=== PATIENT | female | born 1990 | race Caucasian/White ===

== ENCOUNTER 2019-03-29 09:26 | Emergency (ER) | payer OTHER ==
--- NOTE | 2019-03-29 10:37 | ER ---
Nurse's Notes [facility] Name: Iza Stewart Age: 28 yrs Sex: Female : 1990 Arrival Date: 03/29/2019 Time: 09:28 Bed 6 Private MD: Diagnosis: Syncope and collapse-near;Puncture wound without foreign body of left hand Presentation: 03/29 09:45 Presenting complaint: Patient states: passed out at work after screwdriver punctured iw her left hand, pt was attempting to screw a fixture and the fixture broke and screwdriver went through hand, pt also states she has a hx of anemia and started her period last night and has been bleeding heavily. Pt now c/o headache and dizziness, denies hitting head. Transition of care: patient was not received from another setting of care. Onset of symptoms was March 29, 2019. Risk Assessment: Do you want to hurt yourself or someone else? Patient reports no desire to harm self or others. 09:45 Method Of Arrival: Wheelchair iw 09:45 Acuity: CALIN 3 iw 10:06 Initial Sepsis Screen: Does the patient meet any 2 criteria? No. Patient's initial iw sepsis screen is negative. Does the patient have a suspected source of infection? No. Patient's initial sepsis screen is negative. Note pt also states she increased her trazodone and zoloft this past week. Care prior to arrival: None. MASSAGE OPERATOR: 10:05 LMP 03/29/2019 iw Historical: - Allergies: 10:05 PENICILLINS; iw - Home Meds: 10:05 trazodone 100 mg Oral tab 2 times per day [Active]; iw 10:08 sertraline oral oral once daily [Active]; emgality monthly [Active]; iw - PMHx: 10:08 Depression; Anxiety; Migraines; iw - PSHx: 10:08 ; iw - Ebola Screening: : Patient negative for fever greater than or equal to 101.5 degrees Fahrenheit, and additional compatible Ebola Virus Disease symptoms Patient denies exposure to infectious person Patient denies travel to an Ebola-affected area in the 21 days before illness onset No symptoms or risks identified at this time. - Family history:: not pertinent. Screenin:00 Abuse screen: Denies threats or abuse. Denies injuries from another. Nutritional ph screening: No deficits noted. Tuberculosis screening: No symptoms or risk factors identified. Fall Risk None identified. Assessment: 11:00 General: Appears in no apparent distress. uncomfortable, Behavior is calm, cooperative, ph appropriate for age, drowsy. Pain: Complains of pain in palm of left hand. Neuro: Level of Consciousness is awake, alert, obeys commands, Oriented to person, place, time, situation. Cardiovascular: Capillary refill < 3 seconds in bilateral fingers. Respiratory: Airway is patent Respiratory effort is even, unlabored. Derm: Skin is healthy with good turgor, Skin is pink, warm \T\ dry. Injury Description: Laceration sustained to palm of left hand. 12:00 Reassessment: Patient appears in no apparent distress at this time. Patient and/or ph family updated on plan of care and expected duration. Pain level reassessed. Patient is alert, oriented x 3, equal unlabored respirations, skin warm/dry/pink. Vital Signs: 10:04 BP 120 / 79; Pulse 76; Resp 16 S; Temp 98.6(TE); Pulse Ox 100% on R/A; iw 11:00 BP 118 / 76; Pulse 78; Resp 18; Pulse Ox 99% on R/A; ph 12:00 BP 122 / 76; Pulse 78; Resp 16; Temp 98.0; Pulse Ox 99% on R/A; ph ED Course: 09:28 Patient arrived in ED. rg4 09:28 Zaheer Giordano MD is Attending Physician. stew 09:35 Beena Donovan, RN is Primary Nurse. ph 09:57 EKG done, by handling tech. reviewed by Zaheer Giordano MD. at1 10:02 Triage completed. iw 10:08 Arm band placed on. iw 11:00 Patient has correct armband on for positive identification. Bed in low position. Call ph light in reach. Pulse ox on. NIBP on. Door closed. Noise minimized. 11:27 Hand Left 3 View XRAY In Process Unspecified. EDMS 13:00 No provider procedures requiring assistance completed. Patient did not have IV access hb during this emergency room visit. Administered Medications: 11:10 Drug: Tetanus-Diphtheria Toxoid Adult 0.5 ml {[employer]: [employer]. Exp: ph 09/25/2020. Lot #: [id number]. } Route: IM; Site: right deltoid; 12:30 Follow up: Response: No adverse reaction ph 11:13 Drug: Bactrim (160 mg-800 mg (DS) 1 tablet Route: PO; ph 12:30 Follow up: Response: No adverse reaction ph 11:14 Drug: Lidocaine-Epinephrine -1%: (1:100,000) 5 ml Volume: 20 ml; Route: Infiltration; ph 12:30 Follow up: Response: No adverse reaction ph Outcome: 10:36 Discharge ordered by . stew 13:00 Discharged to home ambulatory, with significant other. 13:00 Condition: stable 13:00 Discharge instructions given to patient, Instructed on discharge instructions, follow up and referral plans. medication usage, wound care, Demonstrated understanding of instructions, follow-up care, medications, wound care, Prescriptions given X 2. 13:01 Patient left the ED. Signatures: Dispatcher [employer] EDMS Zaheer Giordano MD MD cha Williams, Irene, RN RN Gale Rawls, aluminum shingle roofer EKG Tat1 Beena Donovan RN RN ph Baxter, Heather, RN RN Liz Samuel rg4
--- NOTE | 2019-03-29 10:38 | EDPHYS ---
Physician Documentation [facility] Name: Iza Stewart Age: 28 yrs Sex: Female : 1990 Arrival Date: 03/29/2019 Time: : Bed 6 Private MD: MITA Physician Zaheer Giordano HPI: 03/29 10:28 This 28 yrs old Female presents to ER via Wheelchair with complaints of stew Passed Out Prior To Arrival. 10:28 The patient has experienced near-syncope. Onset: The symptoms/episode began/occurred stew this morning. Duration: This was a single episode, that lasted 5 second(s). Associated injury: Left upper extremity: pain, puncture prior to syncope. Associated signs and symptoms: The patient has no apparent associated signs or symptoms. The patient has not experienced similar symptoms in the past. PALLIATIVE CARE PHYSICIAN: 10:05 LMP 03/29/2019 iw Historical: - Allergies: 10:05 PENICILLINS; iw - Home Meds: 10:05 trazodone 100 mg Oral tab 2 times per day [Active]; iw 10:08 sertraline oral oral once daily [Active]; emgality monthly [Active]; iw - PMHx: 10:08 Depression; Anxiety; Migraines; iw - PSHx: 10:08 ; iw - Ebola Screening: : Patient negative for fever greater than or equal to 101.5 degrees Fahrenheit, and additional compatible Ebola Virus Disease symptoms Patient denies exposure to infectious person Patient denies travel to an Ebola-affected area in the 21 days before illness onset No symptoms or risks identified at this time. - Family history:: not pertinent. ROS: 10:28 Constitutional: Negative for fever, chills, and weight loss, Eyes: Negative for injury, stew pain, redness, and discharge, ENT: Negative for injury, pain, and discharge, Neck: Negative for injury, pain, and swelling, Cardiovascular: Negative for chest pain, palpitations, and edema, Respiratory: Negative for shortness of breath, cough, wheezing, and pleuritic chest pain, Abdomen/GI: Negative for abdominal pain, nausea, vomiting, diarrhea, and constipation, Back: Negative for injury and pain, : Negative for injury, bleeding, discharge, and swelling, Skin: Negative for injury, rash, and discoloration, Neuro: Negative for headache, weakness, numbness, tingling, and seizure. 10:28 MS/extremity: Positive for decreased range of motion, pain, of the palm of left hand. Exam: 10:28 Constitutional: This is a well developed, well nourished patient who is awake, alert, stew and in no acute distress. Head/Face: Normocephalic, atraumatic. Eyes: Pupils equal round and reactive to light, extra-ocular motions intact. Lids and lashes normal. Conjunctiva and sclera are non-icteric and not injected. Cornea within normal limits. Periorbital areas with no swelling, redness, or edema. ENT: Nares patent. No nasal discharge, no septal abnormalities noted. Tympanic membranes are normal and external auditory canals are clear. Oropharynx with no redness, swelling, or masses, exudates, or evidence of obstruction, uvula midline. Mucous membranes moist. Neck: Trachea midline, no thyromegaly or masses palpated, and no cervical lymphadenopathy. Supple, full range of motion without nuchal rigidity, or vertebral point tenderness. No Meningismus. Chest/axilla: Normal chest wall appearance and motion. Nontender with no deformity. No lesions are appreciated. Cardiovascular: Regular rate and rhythm with a normal S1 and S2. No gallops, murmurs, or rubs. Normal PMI, no JVD. No pulse deficits. Respiratory: Lungs have equal breath sounds bilaterally, clear to auscultation and percussion. No rales, rhonchi or wheezes noted. No increased work of breathing, no retractions or nasal flaring. Abdomen/GI: Soft, non-tender, with normal bowel sounds. No distension or tympany. No guarding or rebound. No evidence of tenderness throughout. Back: No spinal tenderness. No costovertebral tenderness. Full range of motion. Skin: Warm, dry with normal turgor. Normal color with no rashes, no lesions, and no evidence of cellulitis. Neuro: Awake and alert, GCS 15, oriented to person, place, time, and situation. Cranial nerves II-XII grossly intact. Motor strength 5/5 in all extremities. Sensory grossly intact. Cerebellar exam normal. Normal gait. Psych: Awake, alert, with orientation to person, place and time. Behavior, mood, and affect are within normal limits. 10:28 Musculoskeletal/extremity: Extremities: pain, puncture, ROM: limited active range of motion, limited passive range of motion, limited active range of motion due to pain, limited passive range of motion due to pain, Circulation is intact in all extremities. Sensation intact. Compartment Syndrome exam of affected extremity: is normal. DVT Exam: no swelling, negative Homans' sign noted on exam, no appreciated bluish discoloration, no erythema, no increased warmth, pain, tenderness. Vital Signs: 10:04 BP 120 / 79; Pulse 76; Resp 16 S; Temp 98.6(TE); Pulse Ox 100% on R/A; iw 11:00 BP 118 / 76; Pulse 78; Resp 18; Pulse Ox 99% on R/A; ph 12:00 BP 122 / 76; Pulse 78; Resp 16; Temp 98.0; Pulse Ox 99% on R/A; ph Laceration: 10:28 Wound Repair of .5cm ( 0.2in ) subcutaneous laceration to palm of left hand. stew Irregularly shaped.. Distal neuro/vascular/tendon intact. Anesthesia: Local anesthetic administered with 3 mls of 1% lidocaine w/ Epi. Wound prep: Simple cleansing by me, Wound irrigation by me. Skin closed with 1 5-0 Prolene using vertical mattress sutures and sterile technique. Dressed with Neosporin. Patient tolerated well. MDM: 09:33 Patient medically screened. [facility] 10:28 Data reviewed: vital signs, nurses notes, radiologic studies, plain films. [facility] 03/29 11:25 Order name: Urine Dipstick--Ancillary (enter results) 03/29 11:25 Order name: Urine --Ancillary (enter results) 03/29 10:28 Order name: Hand Left 3 View XRAY [facility] 03/29 10:28 Order name: EKG; Complete Time: 10:29 [facility] 03/29 10:28 Order name: EKG - Nurse/Tech; Complete Time: 11:14 [facility] 03/29 10:28 Order name: Urine Dipstick-Ancillary (obtain specimen); Complete Time: 11:14 [facility] 03/29 10:28 Order name: Urine Test (obtain specimen); Complete Time: 11:14 [facility] 03/29 10:28 Order name: Wound dressing; Complete Time: 12:57 [facility] 03/29 10:28 Order name: Gloves, Sterile; Complete Time: 10:47 [facility] 03/29 10:28 Order name: Setup Suture Tray; Complete Time: 10:47 [facility] Administered Medications: 11:10 Drug: Tetanus-Diphtheria Toxoid Adult 0.5 ml {Public Address System Installer: [employer] Exp: ph 09/25/2020. Lot #: [id number]. } Route: IM; Site: right deltoid; 12:30 Follow up: Response: No adverse reaction ph 11:13 Drug: Bactrim (160 mg-800 mg (DS) 1 tablet Route: PO; ph 12:30 Follow up: Response: No adverse reaction ph 11:14 Drug: Lidocaine-Epinephrine -1%: (1:100,000) 5 ml Volume: 20 ml; Route: Infiltration; ph 12:30 Follow up: Response: No adverse reaction ph Disposition: 03/29/19 10:36 Discharged to Home. Impression: Syncope and collapse - near, Puncture wound without foreign body of left hand. - Condition is Stable. - Discharge Instructions: Laceration Care, Adult, Near-Syncope, Puncture Wound, Weakness, Near-Syncope, [id number], Laceration Care, Adult, [id number], Puncture Wound, [id number], Weakness, [id number], Vasovagal Syncope, Adult. - Prescriptions for Tylenol- Codeine #3 300-30 mg Oral Tablet - take 2 tablets by ORAL route every 6 hours As needed; 20 tablet. Bactrim DS 800- 160 mg Oral Tablet - take 1 tablet by ORAL route every 12 hours for 7 days; 14 tablet. - Medication Reconciliation Form, Thank You Letter, Antibiotic Education, Prescription Opioid Use, Work release form form. - Follow up: Private Physician; When: 2 - 3 days; Reason: Recheck today's complaints, Continuance of care, Re-evaluation by your physician. - Problem is new. - Symptoms have improved. Signatures: Dispatcher [employer] EDMS Zaheer Giordano MD MD cha Williams, Irene, RN RN iw Hall, Patricia, RN RN ph Baxter, Heather, RN RN hb Corrections: (The following items were deleted from the chart) 13:01 10:36 03/29/2019 10:36 Discharged to Home. Impression: Syncope and collapse - near; hb Puncture wound without foreign body of left hand. Condition is Stable. Forms are Medication Reconciliation Form, Thank You Letter, Antibiotic Education, Prescription Opioid Use. Follow up: Private Physician; When: 2 - 3 days; Reason: Recheck today's complaints, Continuance of care, Re-evaluation by your physician. Problem is new. Symptoms have improved. stew
[2019-03-29] MEDS ORDERED: LIDOCAINE 1% W/EPI 1:100,000 MDV 20 ML VIAL ONE (10:46)
[2019-03-29] MEDS ORDERED: SMZ./TMP. 800/160 MG TABLET ONE (10:46)
[2019-03-29] MEDS ORDERED: TETANUS & DIPHTHERIA TOX,ADULT 0.5 ML VIAL ONE (10:47)
--- NOTE | 2019-03-29 11:30 | EKG ---
Test Date: 2019-03-29 Test Time: 09:45:36 Director Of [employer]: LESLEE MEASUREMENT RESULTS: Intervals: Rate: 71 DC: 190 QRSD: 88 QT: 366 QTc: 397 Dane: P: 50 DC: 190 QRS: 92 T: 65 INTERPRETIVE STATEMENTS: Normal sinus rhythm Rightward axis Borderline ECG No previous ECG available for comparison Electronically Signed On 03-29-19 11:29:27 CDT by Burak Martin
--- NOTE | 2019-03-29 11:35 | RAD REPORT ---
EXAM DESCRIPTION: RAD - Hand Left 3 View - 03/29/2019 11:26 am CLINICAL HISTORY: PAIN COMPARISON: No comparisons FINDINGS: No fracture, dislocation or radiopaque foreign body.
[2019-03-29 11:40] LABS: Urine Blood 2+ (NEG); Urine Glucose NEGATIVE (NEG); Urine Protein NEGATIVE (NEG); Urine Specific Gravity 1.015 (1.005-1.030); Urine pH 8.5 (5.0-7.0)
[2019-03-29 13:25] VITALS: BP 120/79; TEMP 98.6; O2SAT 100
== END 2019-03-29 13:01 | disposition home or self-care (01) ==
LOC: ER 09:26
PROC: 0JQK0ZZ Repair Left Hand Subcutaneous Tissue and Fascia, Open Approach (ICD-10-PCS; principal; 2019-03-29)
DX: S61.432A Puncture wound without foreign body of left hand, initial encounter (principal); R55 Syncope and collapse; W27.0XXA Contact with workbench tool, initial encounter; Y93.9 Activity, unspecified; Y92.89 Other specified places as the place of occurrence of the external cause; Y99.0 Civilian activity done for income or pay; Z23 Encounter for immunization
CPT/HCPCS: 81003; 81025; 90471; 90714; 93005; 99284

== ENCOUNTER 2021-05-10 09:31 | Day surgery (SDC) | payer BC ==
[2021-05-10 09:48] LABS: Specific Gravity 1.025 (1.005-1.030)
[2021-05-10] MEDS ORDERED: Ringers Lactate 1,000 ML IV ONE (09:51)
[2021-05-10] MEDS ORDERED: LIDOCAINE 2% MPF 5 ML VIAL ONE (10:02)
[2021-05-10] MEDS ORDERED: propofoL 200 MG/20 ML VIAL IV ONE (10:02)
[2021-05-10] MEDS ORDERED: ONDANSETRON 4 MG/2 ML VIAL ONE (10:02)
[2021-05-10] MEDS ORDERED: FENTANYL CITR 100 MCG/2 ML ONE (10:02)
[2021-05-10] MEDS ORDERED: MIDAZOLAM HCL 2 MG/2 ML INJ ONE ×2 (10:02→14:08)
[2021-05-10] MEDS ORDERED: NEOSTIGMINE 1 MG/ML -5 ML ONE (10:03)
[2021-05-10] MEDS ORDERED: GLYCOPYRROLATE 0.2 MG/ML SYR ONE (10:03)
[2021-05-10] MEDS ORDERED: ROCURONIUM 50 MG/5 ML VIAL IV ONE (11:57)
[2021-05-10] MEDS ORDERED: dexAMETHasone 10 MG/ML VIAL ONE (11:58)
[2021-05-10] MEDS: BUPIVACA 0.5%/EPI 0.0005%/PF 30 ML VIAL ONE ×2 (13:10→13:31)
--- NOTE | 2021-05-10 13:51 | P.OP ---
Store Group Manager: None Pre-Op Diagnosis: Chronic tonsillitis, Tonsillolith Post-Op Diagnosis: Chronic tonsillitis, Tonsillolith Procedure: Tonsillectomy Anesthesia: Other (GA via ETT) Fluids/ Blood products: Other (Crystalloid 700ml) Specimen: Other (bilateral tonsils) Complications: None Implants: None Indication: Patient persistent issues in spite of good medical management. Details of Operation: The patient was brought to the operating room and placed under general anesthesia via endotracheal tube. The head of bed was turned 90 degrees. A Shoulder roll was placed and the neck extended. A head drape was applied. The McIvor mouth gag was placed and suspended from the Sanchez stand. The oxygen concentrate was confirmed with the maintenance craftsman and was less than forty percent. Weight-based dexamethasone was administered by the maintenance craftsman. The soft palate was palpated and there was no submucous cleft. A red rubber catheter was placed in the nose and secured to retract the soft palate. The tonsils were noted to be medium sized, chronically inflammed with bilateral liths. The left tonsil was grasped with a straight Allis clamp. The bovie electocautery was used to incision the mucosa over the anterior pillar and identify the tonsillar capsule. The tonsil was dissected using cautery and blunt dissection until free from soft tissue attachments. A tonsil ball was placed to aid hemostasis. The right tonsil was removed in a similar manner. A small abscess was noted within the inferior aspect of the left tonsil The laryngeal mirror was used to visualize the nasopharynx. The adenoid size was minimal. The adenoids were not removed. Hemostasis was achieved using packing and cautery as needed. Blood loss was minimal. All packing was removed. The tonsillar fossae were injected with 0.5% Marcaine with epinephrine. A total of 3.5 mL was used. A Salum sump orogastric tube was used to decompress the stomach. The red rubber catheter was removed and used to suction the nasopharynx and nasal cavity. The mouth gag was removed; there was no evidence of injury to the lips, teeth or tongue. The mandible was mobile. Disposition: The patient was then awakened from anesthesia and taken to the recovery room in stable condition.
[2021-05-10] MEDS: MORPHINE 4 MG/ML SYR ONE ×2 (13:54→14:00)
[2021-05-10] MEDS: HYDROMORPHONE HCL 1 MG/ML INJ ONE ×4 (14:13→14:36)
[2021-05-10] MEDS ORDERED: HYDROMORPHONE HCL 1 MG/ML INJ ONE (14:42)
[2021-05-10] MEDS ORDERED: HYDROCOD 2.5mg-ACETAMIN 108mg/5mL Soln ONE (15:29)
[2021-05-10] MEDS ORDERED: PROMETHAZINE INJ 25 MG/ML AMP ONE (15:32)
[2021-05-10 16:13] VITALS: TEMP 97.6
[2021-05-10 16:15] VITALS: BP 106/42; O2SAT 97
== END 2021-05-10 16:55 | disposition home or self-care (01) ==
LOC: OR 09:31
PROVIDERS: ATTEND Otolaryngology
PROC: 0CTPXZZ Resection of Tonsils, External Approach (ICD-10-PCS; principal; 2021-05-10 11:15)
DX: J35.01 Chronic tonsillitis (principal); H93.299 Other abnormal auditory perceptions, unspecified ear; L02.92 Furuncle, unspecified; J31.0 Chronic rhinitis; G47.33 Obstructive sleep apnea (adult) (pediatric); R22.0 Localized swelling, mass and lump, head; Z20.822 Contact with and (suspected) exposure to COVID-19
CPT/HCPCS: 81025; 88304; 42826; U0003; J2704; J2550; J2250 ×2; J3010; J1100; J1170 ×2; J2710; J7120; J2405

== ENCOUNTER 2021-10-29 22:10 | Emergency (ER) | payer BC, OTHER ==
--- OUTSIDE RECORDS SUMMARY | 2021-10-29 22:18 | XMS REPORT | Continuity of Care Document ---
:1990 Author Organization [facility] t Address [address] [place] [address] Dr. Marquez [address] [place] [id number] Care Team Providers Name Role Phone Lottie White Attending Clinician Unavailable Estevan MCMAHAN Attending Clinician Unavailable Lottie BUNCH Attending Clinician Unavailable Marj CURTIS, L Attending Clinician Jose Ramirez DO Attending Clinician Doctor Unassigned, Name Attending Clinician Unavailable Violet Roberts Attending Clinician Ruby BONDS, T Attending Clinician Unavailable Pob, Lab Main Attending Clinician Unavailable Only, Test Attending Clinician Unavailable 2, Lab Attending Clinician Unavailable Estevan MCMAHAN Admitting Clinician Unavailable Marj CURTIS L Admitting Clinician Payers Payer Name Policy Type Policy Number Effective Date Expiration Date S yudi [facility] [id number] 2019 00:00:00 Problems Condition Condition Condition Status Onset Resolution Last Treating Co mments Source Name Details Category Date Date Treatment Clinician Date Trichomona Trichomona Disease Active 2019-07 U nivers s s 0-14 [place]is [place] 00 [facility] Menorrhagi Menorrhagi Disease Active 2020- U nivers a with a with 9-03 ity of regular regular 00:00: [place] cycle cycle [address] [facility] Preop Preop Disease Active Overview: Univer s examinatio examinatio 8-10 Added it y of n n 00:00: automatic ally from Medical request Branch for surgery [id number] Obesity Obesity Disease Active Univers (BMI (BMI 7-27 ity of 30-39.9) 30-39.9) 00:00: Medical Branch No known No known Disease Unive rs active active ity of problems problems [facility] Allergies, Adverse Reactions, Alerts Allergy Allergy Status Severity Reaction(s) Onset Inactive Treating Comm ents Source Name Type Date Date Clinician Penicill Propensi Active Other - See Patient Univers in ty to comments 01-13 refuses ity of adverse 00:00: to take [place] reaction 00 this Medical s medicatio Branch n to family hx of allergy to PCN Penicill Propensi Active Other - See Patient Univers in ty to comments 01-13 refuses ity of adverse 00:00: to take [place] reaction 00 this [facility] s medicatio Branch n to family hx of allergy to PCN PENICILL DRUG Active Other-Cmnt Univ ers IN INGREDI 01-13 ity of 00:00: Medical Branch penicill Adverse Active Info Not [facility] in Reaction Available [facility] NO KNOWN Drug Active Univers ALLERGIE Class ity of S [facility] Social History Social Habit Start Date Stop Date Quantity Comments Source Exposure to Not sure [facility] SARS-CoV-2 [facility] (event) [place] Alcohol intake 2020-10-05 2020-10-05 Current drinker Unive rsity of 00:00:00 00:00:00 of alcohol [facility] (finding) [place] Tobacco use and 2020-10-05 2020-10-05 Never used Universit y of exposure 00:00:00 00:00:00 [facility] Sex [birth year] At [birth year] Universit y of 00:00:00 00:00:00 [facility] Smoking Status Start Date Stop Date Source Never smoker [facility] Medications Ordered Filled Start Stop Current Ordering Indication Dosage Frequency Signature Comments Components Source Medication Medication Date Date Medication? Clinician (SIG) Name Name levothyroxi Yes TAKE 1 Univ ers [place] 50 mcg 2-15 TABLET BY ity o f tablet 00:00: MOUTH ONCE DAILY IN Medical THE Branch MORNING ON AN EMPTY STOMACH FOR 30 DAYS levothyroxi 0 Yes TAKE 1 Univ ers [place] 50 mcg 2-15 TABLET BY ity o f tablet 00:00: MOUTH ONCE [place] 00 DAILY IN Medical THE Branch MORNING ON AN EMPTY STOMACH FOR 30 DAYS fluticasone 2019-07 Yes Use in Uni vers propionate 0-14 each ity of (FLONASE 18:16: nostril. [place] NASAL) 35 Medical Branch mv-mins/fol 2019-07 Yes Take by Un virginie ic/lycopene 0-14 mouth. ity of /ginkgo 18:16: [place] (MENS 50+ 35 Medical DAILY Branch FORMULA,GIN GKO, ORAL) ZINC ORAL 2019-07 Yes Take by Univ ers 0-14 mouth. ity of 18:16: [place] [id number] Medical Branch levocetiriz 2019-07 Yes Take by Un virginie ine 0-14 mouth. ity of dihydrochlo 18:16: [place] ride (XYZAL 35 Medical ORAL) Branch fluticasone 2019-07 Yes Use in Uni vers propionate 0-14 each ity of (FLONASE 18:16: nostril. [place] NASAL) 35 Medical Branch mv-mins/fol 2019-07 Yes Take by Un virginie ic/lycopene 0-14 mouth. ity of /ginkgo 18:16: [place] (MENS 50+ 35 Medical DAILY Branch FORMULA,GIN GKO, ORAL) ZINC ORAL 2019-07 Yes Take by Univ ers 0-14 mouth. ity of 18:16: [place] [address] Medical Branch levocetiriz 2019-07 Yes Take by Un virginie ine 0-14 mouth. ity of dihydrochlo 18:16: [place] ride (XYZAL 35 Medical ORAL) Branch fluticasone 2019-07 Yes Use in Uni vers propionate 0-14 each ity of (FLONASE 18:16: nostril. [place] NASAL) 35 Medical Branch mv-mins/fol 2019-07 Yes Take by Un virginie ic/lycopene 0-14 mouth. ity of /ginkgo 18:16: [place] (MENS 50+ 35 Medical DAILY Branch FORMULA,GIN GKO, ORAL) ZINC ORAL 2019-07 Yes Take by Univ ers 0-14 mouth. ity of 18:16: [place] 35 Medical Branch levocetiriz 2019-07 Yes Take by Un virginie ine 0-14 mouth. ity of dihydrochlo 18:16: [place] ride (XYZAL 35 Medical ORAL) Branch fluticasone 2019-07 Yes Use in Uni vers propionate 0-14 each ity of (FLONASE 18:16: nostril. [place] NASAL) 35 Medical Branch mv-mins/fol 2019-07 Yes Take by Un virginie ic/lycopene 0-14 mouth. ity of /ginkgo 18:16: [place] (MENS 50+ 35 Medical DAILY Branch FORMULA,GIN GKO, ORAL) ZINC ORAL 2019-07 Yes Take by Univ ers 0-14 mouth. ity of 18:16: [address] Branch levocetiriz 2019-07 Yes Take by Un virginie ine 0-14 mouth. ity of dihydrochlo 18:16: [place] ride (XYZAL 35 Medical ORAL) Branch cefTRIAXone 2019- No [id number] 250mg Univers (ROCEPHIN) 04-04 ity of injection 22:00: 21:07 [place] 250 mg 00 : [facility] cefTRIAXone 2019- No [id number] 1000mg Univers (ROCEPHIN) 04-04 ity of injection 22:00: 21:20 [place] 1,000 mg 00 :[address] [facility] cefTRIAXone 2019- No [id number] 1000mg 1,000 mg, Univers (ROCEPHIN) 04-04 Intramuscu it y of injection 22:00: 21:20 lar, ONCE, [place] 1,000 mg 00 :00 1 dose, [facility] Branch 04/04/20 at 1700, FELIX
Re ason for Anti-Infec tive: Empiric Therapy for Suspected Infection< br>Empiric Therapy Site: Pelvic
Duration of therapy: 72 hours cefTRIAXone 2019- No [id number] 250mg Univers (ROCEPHIN) 04-04 ity of injection 22:00: 21:07 [place] 250 mg 00 : [facility] cefTRIAXone 2019- No [id number] 1000mg Univers (ROCEPHIN) 04-04 ity of injection 22:00: 21:20 [place] 1,000 mg 00 :[address] [facility] cefTRIAXone 2019- No [id number] 1000mg 1,000 mg, Univers (ROCEPHIN) 04-04 Intramuscu it y of injection 22:00: 21:20 lar, ONCE, [place] 1,000 mg 00 :00 1 dose, Medical Wed Branch 04/04/20 at 1700, FELIX
Re ason for Anti-Infec tive: Empiric Therapy for Suspected Infection< br>Empiric Therapy Site: Pelvic
Duration of therapy: 72 hours metroNIDAZO 2020-0 Yes [id number] 500mg Take 1 Univers LE 500 mg 9-30 tablet by ity o f tablet 00:00: mouth [place] 00 every 12 Medical (twelve) Branch hours. metroNIDAZO 2020-0 Yes [id number] 500mg Take 1 Univers LE 500 mg 9-30 tablet by ity o f tablet 00:00: mouth [place] 00 every 12 Medical (twelve) Branch hours. metroNIDAZO 2020-0 Yes [id number] 500mg Take 1 Univers LE 500 mg 9-30 tablet by ity o f tablet 00:00: mouth [place] 00 every 12 Medical (twelve) Branch hours. metroNIDAZO 2020-0 Yes [id number] 500mg Take 1 Univers LE 500 mg 9-30 tablet by ity o f tablet 00:00: mouth [place] 00 every 12 Medical (twelve) Branch hours. metroNIDAZO 2020-0 2020- No [id number] 500mg Take 1 Univers LE 500 mg 9-30 10-14 tablet by ity of tablet 00:00: 00:00 mouth [place] 00 :00 every 12 Medical (twelve) Branch hours. fluconazole 2020-0 2020- No [id number] 150mg Take 1 Univers 150 mg 9-30 10-01 tablet by ity of tablet 00:00: 04:59 mouth once [place] 00 :00 now for 1 Medical dose. Branch fluconazole 2019-0 2020- No [id number] 150mg Take 1 Univers 150 mg 9-30 10-01 tablet by ity of tablet 00:00: 04:59 mouth once [place] 00 :00 now for 1 Medical dose. Branch fluticasone 0 Yes Use in Uni vers propionate 16 each ity of (FLONASE 21:07: nostril. [place] NASAL) 30 Medical Branch mv-mins/fol 0 Yes Take by Un virginie ic/lycopene 16 mouth. ity of /ginkgo 21:07: [place] (MENS 50+ 30 Medical DAILY Branch FORMULA,GIN GKO, ORAL) ZINC ORAL 2020-0 Yes Take by Univ ers 9-16 mouth. ity of 21:07: [place] 30 Medical Branch levocetiriz 2020-0 Yes Take by Un virginie ine 9-16 mouth. ity of dihydrochlo 21:07: [place] ride (XYZAL 30 Medical ORAL) Branch fluticasone 2020-0 Yes Use in Uni vers propionate 9-16 each ity of (FLONASE 21:07: nostril. [place] NASAL) 30 Medical Branch mv-mins/fol 2020-0 Yes Take by Un virginie ic/lycopene 9-16 mouth. ity of /ginkgo 21:07: [place] (MENS 50+ 30 Medical DAILY Branch FORMULA,GIN GKO, ORAL) ZINC ORAL 2020-0 Yes Take by Univ ers 9-16 mouth. ity of 21:07: [place] 30 Medical Branch levocetiriz 2020-0 Yes Take by Un virginie ine 9-16 mouth. ity of dihydrochlo 21:07: [place] ride (XYZAL 30 Medical ORAL) Branch fluticasone 2020-0 Yes Use in Uni vers propionate 9-16 each ity of (FLONASE 21:07: nostril. [place] NASAL) 30 Medical Branch mv-mins/fol 2020-0 Yes Take by Un virginie ic/lycopene 9-16 mouth. ity of /ginkgo 21:07: [place] (MENS 50+ 30 Medical DAILY Branch FORMULA,GIN GKO, ORAL) ZINC ORAL 2020-0 Yes Take by Univ ers 9-16 mouth. ity of 21:07: [place] 30 Medical Branch levocetiriz 2020-0 Yes Take by Un virginie ine 9-16 mouth. ity of dihydrochlo 21:07: [place] ride (XYZAL 30 Medical ORAL) Branch fluticasone 2020-0 Yes Use in Uni vers propionate 9-16 each ity of (FLONASE 21:07: nostril. [place] NASAL) 30 Medical Branch mv-mins/fol 2020-0 Yes Take by Un virginie ic/lycopene 9-16 mouth. ity of /ginkgo 21:07: [place] (MENS 50+ 30 Medical DAILY Branch FORMULA,GIN GKO, ORAL) ZINC ORAL 2020-0 Yes Take by Univ ers 9-16 mouth. ity of 21:07: [place] 30 Medical Branch levocetiriz 2020-0 Yes Take by Un virginie ine 9-16 mouth. ity of dihydrochlo 21:07: [place] ride (XYZAL 30 Medical ORAL) Branch fluticasone 2020-0 Yes Use in Uni vers propionate 9-16 each ity of (FLONASE 21:07: nostril. [place] NASAL) 30 Medical Branch mv-mins/fol 2020-0 Yes Take by Un virginie ic/lycopene 9-16 mouth. ity of /ginkgo 21:07: [place] (MENS 50+ 30 Medical DAILY Branch FORMULA,GIN GKO, ORAL) ZINC ORAL 2020-0 Yes Take by Univ ers 9-16 mouth. ity of 21:07: [place] 30 Medical Branch levocetiriz 2020-0 Yes Take by Un virginie ine 9-16 mouth. ity of dihydrochlo 21:07: [place] ride (XYZAL 30 Medical ORAL) Branch fluticasone 2020-0 Yes Use in Uni vers propionate 9-16 each ity of (FLONASE 21:07: nostril. [place] NASAL) 30 Medical Branch mv-mins/fol 2020-0 Yes Take by Un virginie ic/lycopene 9-16 mouth. ity of /ginkgo 21:07: [place] (MENS 50+ 30 Medical DAILY Branch FORMULA,GIN GKO, ORAL) ZINC ORAL 2020-0 Yes Take by Univ ers 9-16 mouth. ity of 21:07: [place] 30 Medical Branch levocetiriz 2020-0 Yes Take by Un virginie ine 9-16 mouth. ity of dihydrochlo 21:07: [place] ride (XYZAL 30 Medical ORAL) Branch fluticasone 2020-0 Yes Use in Uni vers propionate 9-16 each ity of (FLONASE 21:07: nostril. [place] NASAL) 30 Medical Branch mv-mins/fol 2020-0 Yes Take by Un virginie ic/lycopene 9-16 mouth. ity of /ginkgo 21:07: [place] (MENS 50+ 30 Medical DAILY Branch FORMULA,GIN GKO, ORAL) ZINC ORAL 2020-0 Yes Take by Univ ers 9-16 mouth. ity of 21:07: [place] 30 Medical Branch levocetiriz 2020-0 Yes Take by Un virginie ine 9-16 mouth. ity of dihydrochlo 21:07: [place] ride (XYZAL 30 Medical ORAL) Branch fluticasone 2020-0 Yes Use in Uni vers propionate 9-16 each ity of (FLONASE 21:07: nostril. [place] NASAL) 30 Medical Branch mv-mins/fol 2020-0 Yes Take by Un virginie ic/lycopene 9-16 mouth. ity of /ginkgo 21:07: [place] (MENS 50+ 30 Medical DAILY Branch FORMULA,GIN GKO, ORAL) ZINC ORAL 2020-0 Yes Take by Univ ers 9-16 mouth. ity of 21:07: [place] 30 Medical Branch levocetiriz 2020-0 Yes Take by Un virginie ine 9-16 mouth. ity of dihydrochlo 21:07: [place] ride (XYZAL 30 Medical ORAL) Branch fluticasone 2020-0 Yes Use in Uni vers propionate 9-16 each ity of (FLONASE 21:07: nostril. [place] NASAL) 30 Medical Branch mv-mins/fol 2020-0 Yes Take by Un virginie ic/lycopene 9-16 mouth. ity of /ginkgo 21:07: [place] (MENS 50+ 30 Medical DAILY Branch FORMULA,GIN GKO, ORAL) ZINC ORAL 2020-0 Yes Take by Univ ers 9-16 mouth. ity of 21:07: [place] 30 Medical Branch levocetiriz 2020-0 Yes Take by Un virginie ine 9-16 mouth. ity of dihydrochlo 21:07: [place] ride (XYZAL 30 Medical ORAL) Branch fluticasone 2020-0 Yes Use in Uni vers propionate 9-16 each ity of (FLONASE 21:07: nostril. [place] NASAL) 30 Medical Branch mv-mins/fol 2020-0 Yes Take by Un virginie ic/lycopene 9-16 mouth. ity of /ginkgo 21:07: [place] (MENS 50+ 30 Medical DAILY Branch FORMULA,GIN GKO, ORAL) ZINC ORAL 2020-0 Yes Take by Univ ers 9-16 mouth. ity of 21:07: [place] 30 Medical Branch levocetiriz 2020-0 Yes Take by Un virginie ine 9-16 mouth. ity of dihydrochlo 21:07: [place] ride (XYZAL 30 Medical ORAL) Branch ibuprofen 2020-0 Yes [id number] 800mg Take 1 Univers 800 mg 9-16 tablet by ity of tablet 00:00: mouth [place] 00 every 8 Medical (eight) Branch hours as needed for Pain (scale 1-3) or Pain (scale 4-6). ibuprofen 2020-0 Yes [id number] 800mg Take 1 Univers 800 mg 9-16 tablet by ity of tablet 00:00: mouth [place] 00 every 8 Medical (eight) Branch hours as needed for Pain (scale 1-3) or Pain (scale 4-6). ibuprofen 2020-0 Yes [id number] 800mg Take 1 Univers 800 mg 9-16 tablet by ity of tablet 00:00: mouth [place] 00 every 8 Medical (eight) Branch hours as needed for Pain (scale 1-3) or Pain (scale 4-6). ibuprofen 2020-0 Yes [id number] 800mg Take 1 Univers 800 mg 9-16 tablet by ity of tablet 00:00: mouth [place] 00 every 8 Medical (eight) Branch hours as needed for Pain (scale 1-3) or Pain (scale 4-6). ibuprofen 2020-0 Yes [id number] 800mg Take 1 Univers 800 mg 9-16 tablet by ity of tablet 00:00: mouth [place] 00 every 8 Medical (eight) Branch hours as needed for Pain (scale 1-3) or Pain (scale 4-6). ibuprofen 2020-0 Yes [id number] 800mg Take 1 Univers 800 mg 9-16 tablet by ity of tablet 00:00: mouth [place] 00 every 8 Medical (eight) Branch hours as needed for Pain (scale 1-3) or Pain (scale 4-6). ibuprofen 2020-0 Yes [id number] 800mg Take 1 Univers 800 mg 9-16 tablet by ity of tablet 00:00: mouth [place] 00 every 8 Medical (eight) Branch hours as needed for Pain (scale 1-3) or Pain (scale 4-6). ibuprofen 2020-0 Yes [id number] 800mg Take 1 Univers 800 mg 9-16 tablet by ity of tablet 00:00: mouth [place] 00 every 8 Medical (eight) Branch hours as needed for Pain (scale 1-3) or Pain (scale 4-6). ibuprofen 2020-0 Yes [id number] 800mg Take 1 Univers 800 mg 9-16 tablet by ity of tablet 00:00: mouth [place] 00 every 8 Medical (eight) Branch hours as needed for Pain (scale 1-3) or Pain (scale 4-6). ibuprofen 2019-0 Yes [id number] 800mg Take 1 Univers 800 mg 9-16 tablet by ity of tablet 00:00: mouth [place] 00 every 8 Medical (eight) Branch hours as needed for Pain (scale 1-3) or Pain (scale 4-6). ibuprofen 2019-2019- No [id number] 800mg Take 1 Univers 800 mg 9-16 10-14 tablet by ity of tablet 00:00: 00:00 mouth [place] 00 :00 every 8 Medical (eight) Branch hours as needed for Pain (scale 1-3) or Pain (scale 4-6). acetaminoph 2019-2019- No [id number] 1{tbl} Take 1 U nivers en-codeine -21 03- tablet by ity of (TYLENOL-CO 00:00: 04:59 mouth [place] DEINE #3) 00 :00 every 6 Medical 300-30 mg (six) Branch tablet hours as needed for Pain (scale 4-6) for up to 2 days. Indication s: acute pain, Post op pain acetaminoph 2019-2019- No [id number] 1{tbl} Take 1 U nivers en-codeine -03-24 tablet by ity of (TYLENOL-CO 00:00: 04:59 mouth [place] DEINE #3) 00 :00 every 6 Medical 300-30 mg (six) Branch tablet hours as needed for Pain (scale 4-6) for up to 2 days. Indication s: acute pain, Post op pain acetaminoph 2019-2019- No [id number] 1{tbl} Take 1 U nivers en-codeine -03-24 tablet by ity of (TYLENOL-CO 00:00: 04:59 mouth [place] DEINE #3) 00 :00 every 6 Medical 300-30 mg (six) Branch tablet hours as needed for Pain (scale 4-6) for up to 2 days. Indication s: acute pain, Post op pain acetaminoph 2019-2019- No [id number] 1{tbl} Take 1 U nivers en-codeine -16 - tablet by ity of (TYLENOL-CO 00:00: 04:59 mouth [place] DEINE #3) 00 :00 every 6 Medical 300-30 mg (six) Branch tablet hours as needed for Pain (scale 4-6) for up to 2 days. Indication s: acute pain, Post op pain cephALEXin 2019-2019- No 500mg 500 mg, Un [place]ie (KEFLEX) 03-17 Oral, ity of capsule 500 05:30: 04:34 ONCE, 1 [place] mg 00 :00 dose, Sat Medical 03/17/20 at Branch 0030, FELIX
Re ason for Anti-Infec tive: Documented Infection< br>Documen salvador Infection Site: Urine
D uration of Therapy: 10 days NaCl 0.9% 2020- No 1000mL at 999 Uni vers (NS) bolus 03-17 mL/hr, ity of infusion 04:00: 04:37 1,000 mL, [place] 1,000 mL 00 :00 IV Medical Infusion, Branch ONCE, 1 dose, 03/16/20 at 2300, STAT metoclopram 2019- No 10mg 10 mg, Uni vers morgan HCl 03-17 Slow IV ity of (REGLAN) 04:00: 03:07 Push, [place] injection 00 :00 ONCE, 1 Medical 10 mg dose, Fri Branch 03/16/20 at 2300, FELIX diphenhydrA 2019- No 25mg 25 mg, Uni vers MINE 03-17 Slow IV ity of (BENADRYL) 04:00: 03:07 [place], [place] injection 00 :00 ONCE, 1 Medical 25 mg dose, Fri Branch 03/16/20 at 2300, STAT ketorolac 2019- No 30mg 30 mg, Unive rs (TORADOL) 03-17 Slow IV ity of injection 04:00: 03:07 Push, [place] 30 mg 00 :00 ONCE, 1 Medical dose, Fri Branch 03/16/20 at 2300, FELIX
Fa culty member approving Restricted medication : Jamie SUTTON cephALEXin 2020-0 2020- No [id number] 500mg Take 1 Univers (KEFLEX) 03-16 capsule by ity of 500 mg 00:00: 04:59 mouth 3 [place] capsule 00 :00 (three) Medical times Branch daily for 10 days. cephALEXin 2020-0 2020- No [id number] 500mg Take 1 Univers (KEFLEX) 03-16 capsule by ity of 500 mg 00:00: 04:59 mouth 3 [place] capsule 00 :00 (three) Medical times Branch daily for 10 days. cephALEXin 2020-0 2020- No [id number] 500mg Take 1 Univers (KEFLEX) 03-16 capsule by ity of 500 mg 00:00: 04:59 mouth 3 [place] capsule 00 :00 (three) Medical times Branch daily for 10 days. cephALEXin 2020-0 2020- No [id number] 500mg Take 1 Univers (KEFLEX) 03-16 capsule by ity of 500 mg 00:00: 04:59 mouth 3 [place] capsule 00 :00 (three) Medical times Branch daily for 10 days. cephALEXin 2020-0 2020- No [id number] 500mg Take 1 Univers (KEFLEX) 03-16 capsule by ity of 500 mg 00:00: 04:59 mouth 3 [place] capsule 00 :00 (three) Medical times Branch daily for 10 days. cephALEXin 2020-0 2020- No [id number] 500mg Take 1 Univers (KEFLEX) 03-16 capsule by ity of 500 mg 00:00: 04:59 mouth 3 [place] capsule 00 :00 (three) Medical times Branch daily for 10 days. cephALEXin 2020-0 2020- No [id number] 500mg Take 1 Univers (KEFLEX) 03-16 capsule by ity of 500 mg 00:00: 04:59 mouth 3 [place] capsule 00 :00 (three) Medical times Branch daily for 10 days. cephALEXin 2020-0 2020- No [id number] 500mg Take 1 Univers (KEFLEX) 03-16 capsule by ity of 500 mg 00:00: 04:59 mouth 3 [place] capsule 00 :00 (three) Medical times Branch daily for 10 days. cephALEXin 2020-0 2020- No [id number] 500mg Take 1 Univers (KEFLEX) 03-16 capsule by ity of 500 mg 00:00: 04:59 mouth 3 [place] capsule 00 :00 (three) Medical times Branch daily for 10 days. cephALEXin 2020-0 2020- No [id number] 500mg Take 1 Univers (KEFLEX) 03-16 capsule by ity of 500 mg 00:00: 04:59 mouth 3 [place] capsule 00 :00 (three) Medical times Branch daily for 10 days. Bactrim DS Bactrim DS 2020-0 2020- No Sanjay [address] [facility] 03-13-18 [facility] - 00:00: 00:00 [facility] 00 [facility] fluticasone 2020-0 Yes Use in Uni vers propionate 9- each ity of (FLONASE 19:08: nostril. [place] NASAL) 21 Medical Branch mv-mins/fol 2020-0 Yes Take by Un virginie ic/lycopene 9-03 mouth. ity of /ginkgo 19:08: [place] (MENS 50+ 21 Medical DAILY Branch FORMULA,GIN GKO, ORAL) ZINC ORAL 2020-0 Yes Take by Univ ers 9- mouth. ity of 19:08: [place] 21 Medical Branch levocetiriz 2020-0 Yes Take by Un virginie ine 9- mouth. ity of dihydrochlo 19:08: [place] ride (XYZAL 21 Medical ORAL) Branch fluticasone 2020-0 Yes Use in Uni vers propionate 9 each ity of (FLONASE 19:08: nostril. [place] NASAL) 21 Medical Branch mv-mins/fol 2020-0 Yes Take by Un [place]ie ic/lycopene 9-03 mouth. ity of /ginkgo 19:08: [place] (MENS 50+ 21 Medical DAILY Branch FORMULA,GIN GKO, ORAL) ZINC ORAL 2020-0 Yes Take by Univ ers 9- mouth. ity of 19:08: [place] 21 Medical Branch levocetiriz 2020-0 Yes Take by Un [place]ie ine 9-03 mouth. ity of dihydrochlo 19:08: [place] ride (XYZAL 21 Medical ORAL) Branch fluticasone 2020-0 Yes Use in Uni vers propionate 9 each ity of (FLONASE 19:08: nostril. [place] NASAL) 21 Medical Branch mv-mins/fol 2020-0 Yes Take by Un [place]ie ic/lycopene 9-03 mouth. ity of /ginkgo 19:08: [place] (MENS 50+ 21 Medical DAILY Branch FORMULA,GIN GKO, ORAL) ZINC ORAL 2020-0 Yes Take by Univ ers 9-03 mouth. ity of 19:08: [place] 21 Medical Branch levocetiriz 2020-0 Yes Take by Un [place]ie ine 9-03 mouth. ity of dihydrochlo 19:08: [place] ride (XYZAL 21 Medical ORAL) Branch fluticasone 2020-0 Yes Use in Uni vers propionate 9-03 each ity of (FLONASE 19:08: nostril. [place] NASAL) 21 Medical Branch mv-mins/fol 2020-0 Yes Take by Un [place]ie ic/lycopene 9-03 mouth. ity of /ginkgo 19:08: [place] (MENS 50+ 21 Medical DAILY Branch FORMULA,GIN GKO, ORAL) ZINC ORAL 2020-0 Yes Take by Univ ers 9-03 mouth. ity of 19:08: [place] 21 Medical Branch levocetiriz 2020-0 Yes Take by Un [place]ie ine 9-03 mouth. ity of dihydrochlo 19:08: [place] ride (XYZAL 21 Medical ORAL) Branch fluticasone 2020-0 Yes Use in Uni vers propionate 9-03 each ity of (FLONASE 19:08: nostril. [place] NASAL) 21 Medical Branch mv-mins/fol 2020-0 Yes Take by Un [place] ic/lycopene 9-03 mouth. ity of /ginkgo 19:08: [place] (MENS 50+ 21 Medical DAILY Branch FORMULA,GIN GKO, ORAL) ZINC ORAL 2020-0 Yes Take by Univ ers 9-03 mouth. ity of 19:08: [place] 21 Medical Branch levocetiriz 2020-0 Yes Take by Un [place]ie ine 9-03 mouth. ity of dihydrochlo 19:08: [place] ride (XYZAL 21 Medical ORAL) Branch fluticasone 2020-0 Yes Use in Uni vers propionate 9-03 each ity of (FLONASE 19:08: nostril. [place] NASAL) 21 Medical Branch mv-mins/fol 2020-0 Yes Take by Un [place] ic/lycopene 9-03 mouth. ity of /ginkgo 19:08: [place] (MENS 50+ 21 Medical DAILY Branch FORMULA,GIN GKO, ORAL) ZINC ORAL 2020-0 Yes Take by Univ ers 9-03 mouth. ity of 19:08: [place] 21 Medical Branch levocetiriz 2020-0 Yes Take by Un [place]ie ine 9-03 mouth. ity of dihydrochlo 19:08: [place] ride (XYZAL 21 Medical ORAL) Branch fluticasone 2020-0 Yes Use in Uni vers propionate 03-08 each ity of (FLONASE 19:08: nostril. [place] NASAL) 21 Medical Branch mv-mins/fol 2020-0 Yes Take by Un [place] ic/lycopene 03-08 mouth. ity of /ginkgo 19:08: [place] (MENS 50+ 21 Medical DAILY Branch FORMULA,GIN GKO, ORAL) ZINC ORAL 2020-0 Yes Take by [facility] ers 03-08 mouth. ity of 19:08: [place] 21 Medical Branch levocetiriz 2020-0 Yes Take by Un [place]ie ine 03-08 mouth. ity of dihydrochlo 19:08: [place] ride (XYZAL 21 Medical ORAL) Branch lactated 2020-0 Yes 1000mL at 75 Univer s ringers IV 03-08 mL/hr, ity of infusion 15:00: 1,000 [place] 1,000 mL 00 IV Medical Infusion, Branch CONTINUOUS , Starting Jody 03/08/20 at 1000, Until Discontinu ed, Routine, PACU ondansetron 2020-0 Yes 4mg 4 mg, Slow Univers (ZOFRAN 03-08 IV Push, ity of (PF)) 14:56: PRN, 1 [place] injection 4 11 dose, Medical mg Starting Branch Jody 03/08/20 at 0956, Until Discontinu ed, Routine, Nausea and Vomiting (N/V), PACU FENTanyl PF 2020-0 Yes 25ug 25 mcg, Uni vers (SUBLIMAZE 03-08 Slow IV ity of (PF)) 14:56: Push, [place] injection 10 Q5MIN PRN, Medi noe 25 mcg 4 doses, Branch Starting Jody 03/08/20 at 0956, Until Discontinu ed, Routine, Pain (scale 7-10), PACU FENTanyl PF 2020-0 Yes 25ug 25 mcg, Uni vers (SUBLIMAZE 03-08 Slow IV ity of (PF)) 14:56: Push, [place] injection 10 Q5MIN PRN, Medi noe 25 mcg 4 doses, Branch Starting Jody 03/08/20 at 0956, Until Discontinu ed, Routine, Pain (scale 4-6), PACU silver 2020-0 Yes PRN, [facility] nitrate 03-08 Starting ity of applicator 14:28: [place] 03/08/20 [place] 00 at 0928, Medical Until Branch Discontinu ed, Routine, Intra-op sodium 2020-0 Yes PRN, [facility] chloride 03-08 Starting ity of 0.9 % 13:57: Jody 03/08/20 [place] irrigation 00 at 0857, Medic al solution Until Branch Discontinu ed, Intra-op lactated 2020-0 2020- No 1000mL at 20 [facility] rs ringers IV 03-08 09-03 mL/hr, ity of infusion 13:15: 13:18 1,000 mL, [place] as 1,000 mL 00 :00 IV Medical Infusion, Branch ONCE, 1 dose, Jody 03/08/20 at 0815, Routine, DSU Pre-op fluticasone 2020-0 Yes Use in Uni vers propionate 03-08 each ity of (FLONASE 12:55: nostril. [place] NASAL) 57 Medical Branch mv-mins/fol 2020-0 Yes Take by [facility] [place] ic/lycopene 03-08 mouth. ity of /ginkgo 12:55: [place] (MENS 50+ 57 Medical DAILY Branch FORMULA,GIN GKO, ORAL) ZINC ORAL 2020-0 Yes Take by [facility] ers 03-08 mouth. ity of 12:55: [place] 57 Medical Branch levocetiriz 2020-0 Yes Take by [facility] ine - mouth. ity of dihydrochlo 12:55: [place] ride (XYZAL 57 Medical ORAL) Branch ibuprofen 2020-0 Yes [id number] 800mg Take 1 [facility] 800 mg 9-03 tablet by ity of tablet 00:00: mouth [place] 00 every 8 Medical (eight) Branch hours as needed for Pain (scale 4-6). ibuprofen 2020-0 Yes [id number] 800mg Take 1 [facility] 800 mg 9-03 tablet by ity of tablet 00:00: mouth [place] 00 every 8 Medical (eight) Branch hours as needed for Pain (scale 4-6). ibuprofen 2020-0 Yes [id number] 800mg Take 1 [facility] 800 mg 9-03 tablet by ity of tablet 00:00: mouth [place] 00 every 8 Medical (eight) Branch hours as needed for Pain (scale 4-6). ibuprofen 2020-0 Yes [id number] 800mg Take 1 [facility] 800 mg 9-03 tablet by ity of tablet 00:00: mouth [place] 00 every 8 Medical (eight) Branch hours as needed for Pain (scale 4-6). ibuprofen 2020-0 Yes [id number] 800mg Take 1 [facility] 800 mg 9-03 tablet by ity of tablet 00:00: mouth [place] 00 every 8 Medical (eight) Branch hours as needed for Pain (scale 4-6). ibuprofen 2020-0 Yes [id number] 800mg Take 1 [facility] 800 mg 9-03 tablet by ity of tablet 00:00: mouth [place] 00 every 8 Medical (eight) Branch hours as needed for Pain (scale 4-6). ibuprofen 2020-0 Yes [id number] 800mg Take 1 [facility] 800 mg 9-03 tablet by ity of tablet 00:00: mouth [place] 00 every 8 Medical (eight) Branch hours as needed for Pain (scale 4-6). ibuprofen 2020-0 2020- No [id number] 800mg Take 1 [facility] 800 mg 9-03 09-16 tablet by ity of tablet 00:00: 00:00 mouth [place] 00 :00 every 8 Medical (eight) Branch hours as needed for Pain (scale 4-6). ibuprofen 2020-0 2020- No [id number] 800mg Take 1 [facility] 800 mg 9-03 09-16 tablet by ity of tablet 00:00: 00:00 mouth [place] 00 :00 every 8 Medical (eight) Branch hours as needed for Pain (scale 4-6). fluticasone 2020-0 Yes Use in Uni vers propionate 03-06 each ity of (FLONASE 18:33: nostril. [place] NASAL) 15 Medical Branch mv-mins/fol 2020-0 Yes Take by [facility] [place] ic/lycopene 03-06 mouth. ity of /ginkgo 18:33: [place] (MENS 50+ 15 Medical DAILY Branch FORMULA,GIN GKO, ORAL) ZINC ORAL 2020-0 Yes Take by Univ ers 03-06 mouth. ity of 18:33: [place] 15 Medical Branch levocetiriz 2020-0 Yes Take by [facility] ine 03-06 mouth. ity of dihydrochlo 18:33: [place] ride (XYZAL 15 Medical ORAL) Branch fluticasone 2020-0 Yes Use in Uni vers propionate 03-06 each ity of (FLONASE 18:33: nostril. [place] NASAL) 15 Medical Branch mv-mins/fol 2020-0 Yes Take by [facility] [place] ic/lycopene 03-06 mouth. ity of /ginkgo 18:33: [place] (MENS 50+ 15 Medical DAILY Branch FORMULA,GIN GKO, ORAL) ZINC ORAL 2020-0 Yes Take by Univ ers - mouth. ity of 18:33: [place] 15 Medical Branch levocetiriz 2020-0 Yes Take by [facility] [place] ine 9- mouth. ity of dihydrochlo 18:33: [place] ride (XYZAL 15 Medical ORAL) Branch fluticasone 2020-0 Yes Use in Uni vers propionate 03-06 each ity of (FLONASE 18:33: nostril. [place] NASAL) 15 Medical Branch mv-mins/fol 2020-0 Yes Take by [facility] [place] ic/lycopene 03-06 mouth. ity of /ginkgo 18:33: [place] (MENS 50+ 15 Medical DAILY Branch FORMULA,GIN GKO, ORAL) ZINC ORAL 2020-0 Yes Take by Univ ers - mouth. ity of 18:33: [place] 15 Medical Branch levocetiriz 2020-0 Yes Take by [facility] [place] ine - mouth. ity of dihydrochlo 18:33: [place] ride (XYZAL 15 Medical ORAL) Branch fluticasone 2020-0 Yes Use in Uni vers propionate 03-06 each ity of (FLONASE 18:33: nostril. [place] NASAL) 15 Medical Branch mv-mins/fol 2020-0 Yes Take by [facility] [place] ic/lycopene 03-06 mouth. ity of /ginkgo 18:33: [place] (MENS 50+ 15 Medical DAILY Branch FORMULA,GIN GKO, ORAL) ZINC ORAL 2020-0 Yes Take by Univ ers 03-06 mouth. ity of 18:33: [place] 15 Medical Branch levocetiriz 2020-0 Yes Take by [facility] [place] ine 9-01 mouth. ity of dihydrochlo 18:33: [place] ride (XYZAL 15 Medical ORAL) Branch fluticasone 2020-0 Yes Use in Uni vers propionate 03-06 each ity of (FLONASE 18:33: nostril. [place] NASAL) 15 Medical Branch mv-mins/fol 2020-0 Yes Take by [facility] [place] ic/lycopene 9 mouth. ity of /ginkgo 18:33: [place] (MENS 50+ 15 Medical DAILY Branch FORMULA,GIN GKO, ORAL) ZINC ORAL 2020-0 Yes Take by [facility] ers 03-06 mouth. ity of 18:33: [place] 15 Medical Branch levocetiriz 2020-0 Yes Take by [facility] [place] ine 03-06 mouth. ity of dihydrochlo 18:33: [place] ride (XYZAL 15 Medical ORAL) Branch fluticasone 2020-0 Yes Use in Uni vers propionate 03-06 each ity of (FLONASE 18:33: nostril. [place] NASAL) 15 Medical Branch mv-mins/fol 2020-0 Yes Take by [facility] [place] ic/lycopene 03-06 mouth. ity of /ginkgo 18:33: [place] (MENS 50+ 15 Medical DAILY Branch FORMULA,GIN GKO, ORAL) ZINC ORAL 2020-0 Yes Take by [facility] ers 03-06 mouth. ity of 18:33: [place] 15 Medical Branch levocetiriz 2020-0 Yes Take by [facility] [place] ine 03-06 mouth. ity of dihydrochlo 18:33: [place] ride (XYZAL 15 Medical ORAL) Branch miSOPROStol 2020-0 2020- No [id number] 200ug Take 1 [facility] 200 mcg 8-07 08-08 tablet by ity of tablet 00:00: 04:59 mouth [place] 00 :00 now for 1 Medical dose. Take Branch medication the night prior to your procedure miSOPROStol 2020-0 2020- No [id number] 200ug Take 1 [facility] 200 mcg 8-07 08-08 tablet by ity of tablet 00:00: 04:59 mouth [place] 00 :00 now for 1 Medical dose. Take Branch medication the night prior to your procedure miSOPROStol 2020-0 2020- No [id number] 200ug Take 1 [facility] 200 mcg 8-07 08-08 tablet by ity of tablet 00:00: 04:59 mouth [place] 00 :00 now for 1 Medical dose. Take Branch medication the night prior to your procedure miSOPROStol 2020-0 2020- No 200ug Take 1 [facility] 200 mcg 7-26 07-28 tablet by ity of tablet 00:00: 04:59 mouth at [place] 00 :00 bedtime Medical for 1 day. Branch miSOPROStol 2020-0 2020- No 200ug Take 1 [facility] [place] 200 mcg 7-26 07-28 tablet by ity of tablet 00:00: 04:59 mouth at [place] 00 :00 [facility] Medical for 1 day. Branch miSOPROStol 2020-0 2020- No 200ug Take 1 [facility] [place] 200 mcg 7-26 07-28 tablet by ity of tablet 00:00: 04:59 [facility] [place] [facility] Branch miSOPROStol 2020-0 2020- No 200ug Take 1 [facility] [place] 200 mcg 7-26 07-28 tablet by ity of tablet 00:00: 04:59 mouth at [place] 00 :00 [facility] Medical for 1 day. Branch miSOPROStol 2020-0 2020- No 200ug Take 1 [facility] [place] 200 mcg 7-26 07-28 tablet by ity of tablet 00:00: 04:59 mouth at [place] 00 :00 [facility] Medical for 1 day. Branch miSOPROStol 2020-0 2020- No 200ug Take 1 [facility] [place] 200 mcg 7-26 07-28 tablet by ity of tablet 00:00: 04:59 mouth at [place] 00 :00 [facility] for 1 day. Branch miSOPROStol 2020-0 2020- No 200ug Take 1 [facility] [place] 200 mcg 7-26 07-28 tablet by ity of tablet 00:00: 04:59 mouth at [place] 00 :00 bedtime Medical for 1 day. Branch miSOPROStol 2020-0 2020- No 200ug Take 1 [facility] [place] 200 mcg 7-26 07-28 tablet by ity of tablet 00:00: 04:59 mouth at [place] 00 :00 [facility] Medical for 1 day. Branch fluticasone 2020-0 Yes Use in Uni vers propionate 7-10 each ity of (FLONASE 20:29: nostril. [place] NASAL) 02 Medical Branch mv-mins/fol 2020-0 Yes Take by [facility] [place] ic/lycopene 7-10 mouth. ity of /ginkgo 20:29: [place] (MENS 50+ 02 Medical DAILY Branch FORMULA,GIN GKO, ORAL) ZINC ORAL 2020-0 Yes Take by Univ ers 7-10 mouth. ity of 20:29: [place] 02 Medical Branch levocetiriz 2020-0 Yes Take by [facility] [place] ine 7-10 mouth. ity of dihydrochlo 20:29: [place] ride (XYZAL 02 Medical ORAL) Branch fluticasone 2020-0 Yes Use in Uni vers propionate 7-10 each ity of (FLONASE 20:29: nostril. [place] NASAL) 02 Medical Branch mv-mins/fol 2020-0 Yes Take by [facility] [place] ic/lycopene 7-10 mouth. ity of /ginkgo 20:29: [place] (MENS 50+ 02 Medical DAILY Branch FORMULA,GIN GKO, ORAL) ZINC ORAL 2020-0 Yes Take by Univ ers 7-10 mouth. ity of 20:29: [place] 02 Medical Branch levocetiriz 2020-0 Yes Take by [facility] [place] ine 7-10 mouth. ity of dihydrochlo 20:29: [place] ride (XYZAL 02 Medical ORAL) Branch fluticasone 2020-0 Yes Use in Uni vers propionate 7-10 each ity of (FLONASE 20:29: nostril. [place] NASAL) 02 Medical Branch mv-mins/fol 2020-0 Yes Take by [facility] [place] ic/lycopene 7-10 mouth. ity of /ginkgo 20:29: [place] (MENS 50+ 02 Medical DAILY Branch FORMULA,GIN GKO, ORAL) ZINC ORAL 2020-0 Yes Take by Univ ers 7-10 mouth. ity of 20:29: [place] 02 Medical Branch levocetiriz 2020-0 Yes Take by [facility] [place] ine 7-10 mouth. ity of dihydrochlo 20:29: [place] ride (XYZAL 02 Medical ORAL) Branch fluticasone 2020-0 Yes Use in Uni vers propionate 7-10 each ity of (FLONASE 20:29: nostril. [place] NASAL) 02 Medical Branch mv-mins/fol 2020-0 Yes Take by [facility] [place] ic/lycopene 7-10 mouth. ity of /ginkgo 20:29: [place] (MENS 50+ 02 Medical DAILY Branch FORMULA,GIN GKO, ORAL) ZINC ORAL 2020-0 Yes Take by Univ ers 7-10 mouth. ity of 20:29: [place] 02 Medical Branch levocetiriz 2020-0 Yes Take by [facility] [place] ine 7-10 mouth. ity of dihydrochlo 20:29: [place] ride (XYZAL 02 Medical ORAL) Branch fluticasone 2020-0 Yes Use in Uni vers propionate 7-10 each ity of (FLONASE 20:29: nostril. [place] NASAL) 02 Medical Branch mv-mins/fol 2020-0 Yes Take by [facility] [place] ic/lycopene 7-10 mouth. ity of /ginkgo 20:29: [place] (MENS 50+ 02 Medical DAILY Branch FORMULA,GIN GKO, ORAL) ZINC ORAL 2020-0 Yes Take by Univ ers 7-10 mouth. ity of 20:29: 02 Medical Branch levocetiriz 2020-0 Yes Take by [facility] [place] ine 7-10 mouth. ity of dihydrochlo 20:29: [place] ride (XYZAL 02 Medical ORAL) Branch fluticasone 2020-0 Yes Use in Uni vers propionate 7-10 each ity of (FLONASE 20:29: nostril. [place] NASAL) 02 Medical Branch mv-mins/fol 2020-0 Yes Take by [facility] [place] ic/lycopene 7-10 mouth. ity of /ginkgo 20:29: [place] (MENS 50+ 02 Medical DAILY Branch FORMULA,GIN GKO, ORAL) ZINC ORAL 2020-0 Yes Take by Univ ers 7-10 mouth. ity of 20:29: 02 Medical Branch levocetiriz 2020-0 Yes Take by [facility] [place] ine 7-10 mouth. ity of dihydrochlo 20:29: [place] ride (XYZAL 02 Medical ORAL) Branch fluticasone 2020-0 Yes Use in Uni vers propionate 7-10 each ity of (FLONASE 20:29: nostril. [place] NASAL) 02 Medical Branch mv-mins/fol 2020-0 Yes Take by [facility] [place] ic/lycopene 7-10 mouth. ity of /ginkgo 20:29: [place] (MENS 50+ 02 Medical DAILY Branch FORMULA,GIN GKO, ORAL) ZINC ORAL 2020-0 Yes Take by Univ ers 7-10 mouth. ity of 20:29: 02 Medical Branch levocetiriz 2020-0 Yes Take by [facility] [place] ine 7-10 mouth. ity of dihydrochlo 20:29: [place] ride (XYZAL 02 Medical ORAL) Branch fluticasone 2020-0 Yes Use in Uni vers propionate 7-10 each ity of (FLONASE 20:29: nostril. [place] NASAL) 02 Medical Branch mv-mins/fol 2020-0 Yes Take by [facility] [place] ic/lycopene 7-10 mouth. ity of /ginkgo 20:29: [place] (MENS 50+ 02 Medical DAILY Branch FORMULA,GIN GKO, ORAL) ZINC ORAL 2020-0 Yes Take by Univ ers 7-10 mouth. ity of 20:29: 02 Medical Branch levocetiriz 2020-0 Yes Take by [facility] [place] ine 7-10 mouth. ity of dihydrochlo 20:29: [place] ride (XYZAL 02 Medical ORAL) Branch fluticasone 2020-0 Yes Use in Uni vers propionate 7-10 each ity of (FLONASE 20:29: nostril. [place] NASAL) 02 Medical Branch mv-mins/fol 2020-0 Yes Take by [facility] [place] ic/lycopene 7-10 mouth. ity of /ginkgo 20:29: [place] (MENS 50+ 02 Medical DAILY Branch FORMULA,GIN GKO, ORAL) ZINC ORAL 2020-0 Yes Take by Univ ers 7-10 mouth. ity of 20:29: 02 Medical Branch levocetiriz 2020-0 Yes Take by [facility] [place] ine 7-10 mouth. ity of dihydrochlo 20:29: [place] ride (XYZAL 02 Medical ORAL) Branch fluticasone 2020-0 Yes Use in Uni vers propionate 7-10 each ity of (FLONASE 20:29: nostril. [place] NASAL) 02 Medical Branch mv-mins/fol 2020-0 Yes Take by [facility] [place] ic/lycopene 7-10 mouth. ity of /ginkgo 20:29: [place] (MENS 50+ 02 Medical DAILY Branch FORMULA,GIN GKO, ORAL) ZINC ORAL 2020-0 Yes Take by Univ ers 7-10 mouth. ity of 20:29: 02 Medical Branch levocetiriz 2020-0 Yes Take by [facility] [place] ine 7-10 mouth. ity of dihydrochlo 20:29: [place] ride (XYZAL 02 Medical ORAL) Branch fluticasone 2020-0 Yes Use in Uni vers propionate 7-10 each ity of (FLONASE 20:29: nostril. [place] NASAL) 02 Medical Branch mv-mins/fol 2020-0 Yes Take by [facility] [place] ic/lycopene 7-10 mouth. ity of /ginkgo 20:29: [place] (MENS 50+ 02 Medical DAILY Branch FORMULA,GIN GKO, ORAL) ZINC ORAL 2020-0 Yes Take by Univ ers 7-10 mouth. ity of 20:29: [place] Medical Branch levocetiriz 2020-0 Yes Take by [facility] [place] ine 7-10 mouth. ity of dihydrochlo 20:29: [place] ride (XYZAL 02 Medical ORAL) Branch fluticasone 2020-0 Yes Use in Uni vers propionate 7-10 each ity of (FLONASE 20:29: nostril. [place] NASAL) 02 Medical Branch mv-mins/fol 2020-0 Yes Take by [facility] [place] ic/lycopene 7-10 mouth. ity of /ginkgo 20:29: [place] (MENS 50+ 02 Medical DAILY Branch FORMULA,GIN GKO, ORAL) ZINC ORAL 2020-0 Yes Take by Univ ers 7-10 mouth. ity of 20:29: [place] Medical Branch levocetiriz 2020-0 Yes Take by [facility] [place] ine 7-10 mouth. ity of dihydrochlo 20:29: [place] ride (XYZAL 02 Medical ORAL) Branch fluticasone 2020-0 Yes Use in Uni vers propionate 7-10 each ity of (FLONASE 20:29: nostril. [place] NASAL) 02 Medical Branch mv-mins/fol 2020-0 Yes Take by [facility] [place] ic/lycopene 7-10 mouth. ity of /ginkgo 20:29: [place] (MENS 50+ 02 Medical DAILY Branch FORMULA,GIN GKO, ORAL) ZINC ORAL 2020-0 Yes Take by Univ ers 7-10 mouth. ity of 20:29: [place] Medical Branch levocetiriz 2020-0 Yes Take by [facility] [place] ine 7-10 mouth. ity of dihydrochlo 20:29: [place] ride (XYZAL 02 Medical ORAL) Branch fluticasone 2020-0 Yes Use in Uni vers propionate 7-10 each ity of (FLONASE 20:29: nostril. [place] NASAL) 02 Medical Branch mv-mins/fol 2020-0 Yes Take by [facility] [place] ic/lycopene 7-10 mouth. ity of /ginkgo 20:29: [place] (MENS 50+ 02 Medical DAILY Branch FORMULA,GIN GKO, ORAL) ZINC ORAL 2020-0 Yes Take by Univ ers 7-10 mouth. ity of 20:29: [place] 02 Medical Branch levocetiriz 2020-0 Yes Take by [facility] [place] ine 7-10 mouth. ity of dihydrochlo 20:29: [place] ride (XYZAL 02 Medical ORAL) Branch fluticasone 2020-0 Yes Use in Uni vers propionate 7-10 each ity of (FLONASE 20:29: nostril. [place] NASAL) 02 Medical Branch mv-mins/fol 2020-0 Yes Take by [facility] [place] ic/lycopene 7-10 mouth. ity of /ginkgo 20:29: [place] (MENS 50+ 02 Medical DAILY Branch FORMULA,GIN GKO, ORAL) ZINC ORAL 2020-0 Yes Take by Univ ers 7-10 mouth. ity of 20:29: Medical Branch levocetiriz 2020-0 Yes Take by [facility] [place] ine 7-10 mouth. ity of dihydrochlo 20:29: [place] ride (XYZAL 02 Medical ORAL) Branch fluticasone 2020-0 Yes Use in Uni vers propionate 7-10 each ity of (FLONASE 20:29: nostril. [place] NASAL) 02 Medical Branch mv-mins/fol 2020-0 Yes Take by [facility] [place] ic/lycopene 7-10 mouth. ity of /ginkgo 20:29: [place] (MENS 50+ 02 Medical DAILY Branch FORMULA,GIN GKO, ORAL) ZINC ORAL 2020-0 Yes Take by Univ ers 7-10 mouth. ity of 20:29: Medical Branch levocetiriz 2020-0 Yes Take by [facility] [place] ine 7-10 mouth. ity of dihydrochlo 20:29: [place] ride (XYZAL 02 Medical ORAL) Branch CAMBIA 50 2020-0 Yes Univers mg PwPk 7-06 ity of 00:00: [place] 00 Medical Branch CAMBIA 50 2020-0 Yes Univers mg PwPk 7-06 ity of 00:00: [place] 00 Medical Branch CAMBIA 50 2020-0 Yes Univers mg PwPk 7-06 ity of 00:00: [place] 00 Medical Branch CAMBIA 50 2020-0 Yes Univers mg PwPk 7-06 ity of 00:00: [place] 00 Medical Branch CAMBIA 50 2020-0 Yes Univers mg PwPk 7-06 ity of 00:00: [place] 00 Medical Branch CAMBIA 50 2020-0 Yes Univers mg PwPk 7-06 ity of 00:00: [place] 00 Medical Branch CAMBIA 50 2020-0 Yes Univers mg PwPk 7-06 ity of 00:00: [place] 00 Medical Branch CAMBIA 50 2020-0 Yes Univers mg PwPk 7-06 ity of 00:00: [place] 00 Medical Branch CAMBIA 50 2020-0 Yes Univers mg PwPk 7-06 ity of 00:00: [place] 00 Medical Branch CAMBIA 50 2020-0 Yes Univers mg PwPk 7- ity of 00:00: [place] 00 Medical Branch CAMBIA 50 2020-0 Yes Univers mg PwPk 7-06 ity of 00:00: [place] 00 Medical Branch CAMBIA 50 2020-0 Yes Univers mg PwPk 7-06 ity of 00:00: [place] 00 Medical Branch CAMBIA 50 2020-0 Yes Univers mg PwPk 7-06 ity of 00:00: [place] 00 Medical Branch CAMBIA 50 2020-0 Yes Univers mg PwPk 7- ity of 00:00: [place] 00 Medical Branch CAMBIA 50 2020-0 Yes Univers mg PwPk - ity of 00:00: [place] 00 Medical Branch CAMBIA 50 2020-0 Yes Univers mg PwPk 7- ity of 00:00: [place] 00 Medical Branch CAMBIA 50 2020-0 Yes Univers mg PwPk 7-06 ity of 00:00: [place] 00 Medical Branch CAMBIA 50 2020-0 Yes Univers mg PwPk 7- ity of 00:00: [place] 00 Medical Branch CAMBIA 50 2020-0 Yes Univers mg PwPk - ity of 00:00: [place] 00 Medical Branch CAMBIA 50 2020-0 Yes Univers mg PwPk 7-06 ity of 00:00: [place] 00 Medical Branch CAMBIA 50 2020-0 Yes Univers mg PwPk 7-06 ity of 00:00: [place] 00 Medical Branch CAMBIA 50 2020-0 Yes Univers mg PwPk 7-06 ity of 00:00: [place] 00 Medical Branch CAMBIA 50 2020-0 Yes Univers mg PwPk 7-06 ity of 00:00: [place] 00 Medical Branch CAMBIA 50 2020-0 Yes Univers mg PwPk 7-06 ity of 00:00: [place] 00 Medical Branch CAMBIA 50 2020-0 Yes Univers mg PwPk 7-06 ity of 00:00: [place] 00 Medical Branch CAMBIA 50 2020-0 Yes Univers mg PwPk 7-06 ity of 00:00: [place] 00 Medical Branch CAMBIA 50 2020-0 Yes Univers mg PwPk 7-06 ity of 00:00: [place] 00 Medical Branch CAMBIA 50 2020-0 Yes Univers mg PwPk 7- ity of 00:00: [place] 00 Medical Branch CAMBIA 50 2020-0 Yes Univers mg PwPk - ity of 00:00: [place] 00 Medical Branch CAMBIA 50 2020-0 Yes Univers mg PwPk -06 ity of 00:00: [place] 00 Medical Branch CAMBIA 50 2020-0 Yes Univers mg PwPk 7-06 ity of 00:00: [place] 00 Medical Branch CAMBIA 50 2020-0 Yes Univers mg PwPk - ity of 00:00: [place] 00 Medical Branch CAMBIA 50 2020-0 Yes Univers mg PwPk 01-08 ity of 00:00: [place] 00 Medical Branch CAMBIA 50 2020-0 Yes Univers mg PwPk - ity of 00:00: [place] 00 Medical Branch CAMBIA 50 2020-0 Yes Univers mg PwPk 01-08 ity of 00:00: [place] 00 Medical Branch CAMBIA 50 2020-0 Yes Univers mg PwPk 01-08 ity of 00:00: [place] 00 Medical Branch CAMBIA 50 2020-0 Yes Univers mg PwPk - ity of 00:00: [place] 00 Medical Branch CAMBIA 50 2020-0 Yes Univers mg PwPk - ity of 00:00: [place] 00 Medical Branch CAMBIA 50 2020-0 Yes Univers mg PwPk - ity of 00:00: [place] 00 Medical Branch CAMBIA 50 2020-0 Yes Univers mg PwPk -06 ity of 00:00: [place] 00 Medical Branch CAMBIA 50 2020-0 Yes Univers mg PwPk 7-06 ity of 00:00: [place] 00 Medical Branch CAMBIA 50 2020-0 Yes Univers mg PwPk 7-06 ity of 00:00: [place] 00 Medical Branch CAMBIA 50 2020-0 Yes Univers mg PwPk 7-06 ity of 00:00: [place] 00 Medical Branch CAMBIA 50 2020-0 Yes Univers mg PwPk 7-06 ity of 00:00: [place] 00 Medical Branch montelukast 2020-0 Yes 10mg Take 10 mg Univers 10 mg 6-20 by mouth ity of tablet 00:00: daily. Medical Branch SERTraline 2020-0 Yes TAKE 1 Unive rs 50 mg 6-20 TABLET BY ity of tablet 00:00: MOUTH ONCE DAILY FOR Medical A TOTAL OF Branch 150 MG SERTraline 2020-0 Yes TAKE 1 Unive rs 100 mg 6-20 TABLET BY ity of tablet 00:00: MOUTH ONCE DAILY TAKE Medical WITH 50MG Branch SERTraline 2020-0 Yes TAKE 1 Unive rs 50 mg 6-20 TABLET BY ity of tablet 00:00: MOUTH ONCE DAILY FOR Medical A TOTAL OF Branch 150 MG SERTraline 2020-0 Yes TAKE 1 Unive rs 100 mg 6-20 TABLET BY ity of tablet 00:00: MOUTH ONCE DAILY TAKE Medical WITH 50MG Branch EMGALITY 2020-0 Yes USE 1 [facility] PEN 120 6-20 INJECTION ity of mg/mL PnIj 00:00: [place]LY [place] subcutane[place] 00 DIRECTED Medi noe s injection BY YOUR [facility] DOCOTOR glycopyrrol 2020-0 Yes TAKE 1 Univ ers ate 1 mg 6-20 TABLET BY ity of tablet 00:00: MOUTH TWICE Medical DAILY FOR Branch 30 DAYS montelukast 2020-0 Yes 10mg Take 10 mg Univers 10 mg 6-20 by mouth ity of tablet 00:00: daily. Medical Branch SERTraline 2020-0 Yes TAKE 1 Unive rs 50 mg 6-20 TABLET BY ity of tablet 00:00: MOUTH ONCE DAILY FOR Medical A TOTAL OF Branch 150 MG EMGALITY 2020-0 Yes USE 1 [facility] PEN 120 6-20 INJECTION ity of mg/mL PnIj 00:00: MONTHLY [place] subcutaneou 00 DIRECTED Medi noe s injection BY YOUR [facility] h DOCOTOR glycopyrrol 2020-0 Yes TAKE 1 Univ ers ate 1 mg 6-20 TABLET BY ity of tablet 00:00: MOUTH TWICE Medical DAILY FOR Branch 30 DAYS montelukast 2020-0 Yes 10mg Take 10 mg Univers 10 mg 6-20 by mouth ity of tablet 00:00: daily. Medical Branch SERTraline 2020-0 Yes TAKE 1 Unive rs 50 mg 6-20 TABLET BY ity of tablet 00:00: MOUTH ONCE DAILY FOR Medical A TOTAL OF Branch 150 MG EMGALITY 2020-0 Yes USE 1 [facility] PEN 120 6-20 INJECTION ity of mg/mL PnIj 00:00: MONTHLY [place] subcutaneou 00 DIRECTED Medi noe s injection BY YOUR [facility] DOCOTOR glycopyrrol 2020-0 Yes TAKE 1 Univ ers ate 1 mg 6-20 TABLET BY ity of tablet 00:00: MOUTH TWICE Medical DAILY FOR Branch 30 DAYS montelukast 2020-0 Yes 10mg Take 10 mg [facility] 10 mg 6-20 by mouth ity of tablet 00:00: daily. Medical Branch SERTraline 2020-0 Yes TAKE 1 Unive rs 50 mg 6-20 TABLET BY ity of tablet 00:00: MOUTH ONCE DAILY FOR Medical A TOTAL OF Branch 150 MG EMGALITY 2020-0 Yes USE 1 [facility] PEN 120 6-20 INJECTION ity of mg/mL PnIj 00:00: MONTHLY [place] subcutaneou 00 DIRECTED Medi noe s injection BY YOUR [facility] DOCOTOR glycopyrrol 2020-0 Yes TAKE 1 Univ ers ate 1 mg 6-20 TABLET BY ity of tablet 00:00: MOUTH TWICE Medical DAILY FOR Branch 30 DAYS montelukast 2020-0 Yes 10mg Take 10 mg Univers 10 mg 6-20 by mouth ity of tablet 00:00: daily. Medical Branch SERTraline 2020-0 Yes TAKE 1 Unive rs 50 mg 6-20 TABLET BY ity of tablet 00:00: MOUTH ONCE DAILY FOR Medical A TOTAL OF Branch 150 MG EMGALITY 2020-0 Yes USE 1 [facility] PEN 120 6-20 INJECTION ity of mg/mL PnIj 00:00: MONTHLY [place] subcutane 00 DIRECTED Medi noe s injection BY YOUR [facility] DOCOTOR glycopyrrol 2020-0 Yes TAKE 1 Univ ers ate 1 mg 6-20 TABLET BY ity of tablet 00:00: MOUTH TWICE Medical DAILY FOR Branch 30 DAYS montelukast 2020-0 Yes 10mg Take 10 mg [facility] 10 mg 6-20 by mouth ity of tablet 00:00: daily. Medical Branch SERTraline 2020-0 Yes TAKE 1 [facility] rs 50 mg 6-20 TABLET BY ity of tablet 00:00: MOUTH ONCE DAILY FOR Medical A TOTAL OF Branch 150 MG SERTraline 2020-0 Yes TAKE 1 Un[facility] rs 100 mg 6-20 TABLET BY ity of tablet 00:00: MOUTH ONCE DAILY TAKE Medical WITH 50MG Branch EMGALITY 2020-0 Yes USE 1 [facility] PEN 120 6-20 INJECTION ity of mg/mL PnIj 00:00: MONTHLY [place] subcutaneou 00 DIRECTED Medi noe s injection BY YOUR [facility] DOCOTOR glycopyrrol 2020-0 Yes TAKE 1 Univ ers ate 1 mg 6-20 TABLET BY ity of tablet 00:00: MOUTH TWICE Medical DAILY FOR Branch 30 DAYS montelukast 2020-0 Yes 10mg Take 10 mg [facility] 10 mg 6-20 by mouth ity of tablet 00:00: daily. Medical Branch SERTraline 2020-0 Yes TAKE 1 [facility] rs 50 mg 6-20 TABLET BY ity of tablet 00:00: MOUTH ONCE DAILY FOR Medical A TOTAL OF Branch 150 MG SERTraline 2020-0 Yes TAKE 1 [facility] rs 100 mg 6-20 TABLET BY ity of tablet 00:00: MOUTH ONCE DAILY TAKE Medical WITH 50MG Branch EMGALITY 2020-0 Yes USE 1 [facility] PEN 120 6-20 INJECTION ity of mg/mL PnIj 00:00: MONTHLY [place] subcutaneou 00 DIRECTED Medi noe s injection BY YOUR [facility] DOCOTOR glycopyrrol 2020-0 Yes TAKE 1 Univ ers ate 1 mg 6-20 TABLET BY ity of tablet 00:00: MOUTH TWICE Medical DAILY FOR Branch 30 DAYS montelukast 2020-0 Yes 10mg Take 10 mg [facility] 10 mg 6-20 by mouth it[facility] of tablet 00:00: daily. [facility] SERTraline 2020-0 Yes TAKE 1 [facility] 50 mg 6-20 TABLET BY [facility] of tablet 00:00: MOUTH ONCE DAILY FOR Medical A TOTAL OF Branch 150 MG SERTraline 2020-0 Yes TAKE 1 [facility] 100 mg 6-20 TABLET BY ity of tablet 00:00: MOUTH ONCE DAILY TAKE Medical WITH 50MG Branch EMGALITY 2020-0 Yes USE 1 [facility] PEN 120 6-20 INJECTION ity of mg/mL PnIj 00:00: [place] DIRECTED Medi noe s injection BY YOUR [facility] DOCOTOR glycopyrrol 2020-0 Yes TAKE 1 [facility] ers ate 1 mg 6-20 TABLET BY ity of tablet 00:00: MOUTH TWICE Medical DAILY FOR Branch 30 DAYS montelukast 2020-0 Yes 10mg Take 10 mg [facility] 10 mg 6-20 by mouth ity of tablet 00:00: daily. Medical [facility] SERTraline 2020-0 Yes TAKE 1 [facility] 50 mg 6-20 TABLET BY ity of tablet 00:00: MOUTH ONCE DAILY FOR Medical A TOTAL OF Branch 150 MG SERTraline 2020-0 Yes TAKE 1 [facility] 100 mg 6-20 TABLET BY ity of tablet 00:00: MOUTH ONCE DAILY TAKE Medical WITH 50MG Branch EMGALITY 2020-0 Yes USE 1 [facility] PEN 120 6-20 INJECTION it[facility] of mg/mL PnIj 00:00: [place] DIRECTED Medi noe s injection BY YOUR [facility] h DOCOTOR glycopyrrol 2020-0 Yes TAKE 1 [facility] ers ate 1 mg 6-20 TABLET BY ity of tablet 00:00: MOUTH TWICE Medical DAILY FOR Branch 30 DAYS montelukast 2020-0 Yes 10mg Take 10 mg [facility] 10 mg 6-20 by mouth ity of tablet 00:00: daily. Medical [facility] SERTraline 2020-0 Yes TAKE 1 [facility] 50 mg 6-20 TABLET BY ity of tablet 00:00: MOUTH ONCE DAILY FOR Medical A TOTAL OF Branch 150 MG SERTraline 2020-0 Yes TAKE 1 [facility] 100 mg 6-20 TABLET BY ity of tablet 00:00: MOUTH ONCE DAILY TAKE Medical WITH 50MG Branch EMGALITY 2020-0 Yes USE 1 [facility] PEN 120 6-20 INJECTION ity of mg/mL PnIj 00:00: [place] DIRECTED Medi noe s injection BY YOUR [facility] h DOCOTOR glycopyrrol 2020-0 Yes TAKE 1 [facility] ers ate 1 mg 6-20 TABLET BY ity of tablet 00:00: MOUTH TWICE Medical DAILY FOR Branch 30 DAYS montelukast 2020-0 Yes 10mg Take 10 mg [facility] 10 mg 6-20 by mouth ity of tablet 00:00: daily. Medical [facility] SERTraline 2020-0 Yes TAKE 1 [facility] 50 mg 6-20 TABLET BY ity of tablet 00:00: MOUTH ONCE DAILY FOR Medical A TOTAL OF Branch 150 MG SERTraline 2020-0 Yes TAKE 1 [facility] 100 mg 6-20 TABLET BY ity of tablet 00:00: MOUTH ONCE DAILY TAKE Medical WITH 50MG Branch EMGALITY 2020-0 Yes USE 1 [facility] PEN 120 6-20 INJECTION ity of mg/mL PnIj 00:00: [place] DIRECTED Medi noe s injection BY YOUR [facility] DOCOTOR glycopyrrol 2020-0 Yes TAKE 1 [facility] ers ate 1 mg 6-20 TABLET BY ity of tablet 00:00: MOUTH TWICE Medical DAILY FOR Branch 30 DAYS montelukast 2020-0 Yes 10mg Take 10 mg [facility] 10 mg 6-20 by mouth ity of tablet 00:00: daily. Medical Branch SERTraline 2020-0 Yes TAKE 1 [facility] 50 mg 6-20 TABLET BY ity of tablet 00:00: MOUTH ONCE DAILY FOR Medical A TOTAL OF Branch 150 MG SERTraline 2020-0 Yes TAKE 1 [facility] 100 mg 6-20 TABLET BY ity of tablet 00:00: MOUTH ONCE DAILY TAKE Medical WITH 50MG Branch EMGALITY 2020-0 Yes USE 1 [facility] PEN 120 6-20 INJECTION ity of mg/mL PnIj 00:00: [place] DIRECTED Medi noe s injection BY YOUR [facility] DOCOTOR glycopyrrol 2020-0 Yes TAKE 1 [facility] ers ate 1 mg 6-20 TABLET BY ity of tablet 00:00: MOUTH TWICE Medical DAILY FOR Branch 30 DAYS montelukast 2020-0 Yes 10mg Take 10 mg [facility] 10 mg 6-20 by mouth ity of tablet 00:00: daily. Medical Branch SERTraline 2020-0 Yes TAKE 1 [facility] 50 mg 6-20 TABLET BY ity of tablet 00:00: MOUTH ONCE DAILY FOR Medical A TOTAL OF Branch 150 MG SERTraline 2020-0 Yes TAKE 1 [facility] 100 mg 6-20 TABLET BY ity of tablet 00:00: MOUTH ONCE DAILY TAKE Medical WITH 50MG Branch EMGALITY 2020-0 Yes USE 1 [facility] PEN 120 6-20 INJECTION ity of mg/mL PnIj 00:00: [place] DIRECTED Medi noe s injection BY YOUR [facility] DOCOTOR glycopyrrol 2020-0 Yes TAKE 1 [facility] ers ate 1 mg 6-20 TABLET BY ity of tablet 00:00: MOUTH TWICE Medical DAILY FOR Branch 30 DAYS montelukast 2020-0 Yes 10mg Take 10 mg [facility] 10 mg 6-20 by mouth ity of tablet 00:00: daily. Medical [facility] SERTraline 2020-0 Yes TAKE 1 [facility] 50 mg 6-20 TABLET BY ity of tablet 00:00: MOUTH ONCE DAILY FOR Medical A TOTAL OF Branch 150 MG SERTraline 2020-0 Yes TAKE 1 [facility] 100 mg 6-20 TABLET BY ity of tablet 00:00: MOUTH ONCE [place] DAILY TAKE Medical WITH 50MG Branch EMGALITY 2020-0 Yes USE 1 [facility] PEN 120 6-20 INJECTION ity of mg/mL PnIj 00:00: [place]LY [place] DIRECTED Medi noe s injection BY YOUR [facility] DOCOTOR glycopyrrol 2020-0 Yes TAKE 1 [facility] ers ate 1 mg 6-20 TABLET BY ity of tablet 00:00: MOUTH [place] TWICE Medical DAILY FOR Branch 30 DAYS montelukast 2020-0 Yes 10mg Take 10 mg [facility] 10 mg 6-20 by mouth ity of tablet 00:00: daily. [place] [facility] SERTraline 2020-0 Yes TAKE 1 [facility] 50 mg 6-20 TABLET BY ity of tablet 00:00: MOUTH ONCE DAILY FOR Medical A TOTAL OF Branch 150 MG SERTraline 2020-0 Yes TAKE 1 [facility] 100 mg 6-20 TABLET BY ity of tablet 00:00: MOUTH ONCE DAILY TAKE Medical WITH 50MG Branch EMGALITY 2020-0 Yes USE 1 [facility] PEN 120 6-20 INJECTION ity of mg/mL PnIj 00:00: [place]LY [place] DIRECTED Medi noe s injection BY YOUR [facility] DOCOTOR glycopyrrol 2020-0 Yes TAKE 1 [facility] ers ate 1 mg 6-20 TABLET BY ity of tablet 00:00: MOUTH [place] TWICE Medical DAILY FOR Branch 30 DAYS EMGALITY 2020-0 Yes USE 1 [facility] PEN 120 6-20 INJECTION ity of mg/mL PnIj 00:00: [place]LY [place] DIRECTED Medi noe s injection BY YOUR [facility] DOCOTOR glycopyrrol 2020-0 Yes TAKE 1 [facility] ers ate 1 mg 6-20 TABLET BY ity of tablet 00:00: MOUTH [place] TWICE Medical DAILY FOR Branch 30 DAYS montelukast 2020-0 Yes 10mg Take 10 mg [facility] 10 mg 6-20 by mouth ity of tablet 00:00: daily. Medical Branch SERTraline 2020-0 Yes TAKE 1 [facility] 50 mg 6-20 TABLET BY ity of tablet 00:00: MOUTH ONCE DAILY FOR Medical A TOTAL OF Branch 150 MG SERTraline 2020-0 Yes TAKE 1 [facility] 100 mg 6-20 TABLET BY ity of tablet 00:00: MOUTH ONCE DAILY TAKE Medical WITH 50MG Branch montelukast 2020-0 Yes 10mg Take 10 mg [facility] 10 mg 6-20 by mouth ity of tablet 00:00: daily. Medical Branch EMGALITY 2020-0 Yes USE 1 [facility] PEN 120 6-20 INJECTION ity of mg/mL PnIj 00:00: [place] DIRECTED Medi noe s injection BY YOUR [facility] DOCOTOR glycopyrrol 2020-0 Yes TAKE 1 [facility] ers ate 1 mg 6-20 TABLET BY ity of tablet 00:00: MOUTH TWICE Medical DAILY FOR Branch 30 DAYS SERTraline 2020-0 Yes TAKE 1 [facility] 50 mg 6-20 TABLET BY ity of tablet 00:00: MOUTH ONCE DAILY FOR Medical A TOTAL OF Branch 150 MG montelukast 2020-0 Yes 10mg Take 10 mg [facility] 10 mg 6-20 by mouth ity of tablet 00:00: daily. Medical Branch SERTraline 2020-0 Yes TAKE 1 [facility] 50 mg 6-20 TABLET BY ity of tablet 00:00: MOUTH ONCE DAILY FOR Medical A TOTAL OF Branch 150 MG SERTraline 2020-0 Yes TAKE 1 [facility] 100 mg 6-20 TABLET BY ity of tablet 00:00: MOUTH ONCE DAILY TAKE Medical WITH 50MG Branch SERTraline 2020-0 Yes TAKE 1 [facility] 100 mg 6-20 TABLET BY ity of tablet 00:00: MOUTH ONCE DAILY TAKE Medical WITH 50MG Branch EMGALITY 2020-0 Yes USE 1 [facility] PEN 120 6-20 INJECTION ity of mg/mL PnIj 00:00: [place]LY [place] DIRECTED Medi noe s injection BY YOUR [facility] h DOCOTOR glycopyrrol 2020-0 Yes TAKE 1 [facility] ers ate 1 mg 6-20 TABLET BY ity of tablet 00:00: MOUTH TWICE Medical DAILY FOR Branch 30 DAYS montelukast 2020-0 Yes 10mg Take 10 mg [facility] 10 mg 6-20 by mouth ity of tablet 00:00: daily. Medical Branch SERTraline 2020-0 Yes TAKE 1 [facility] 50 mg 6-20 TABLET BY ity of tablet 00:00: MOUTH ONCE DAILY FOR Medical A TOTAL OF Branch 150 MG SERTraline 2020-0 Yes TAKE 1 [facility] 100 mg 6-20 TABLET BY ity of tablet 00:00: MOUTH ONCE DAILY TAKE Medical WITH 50MG Branch EMGALITY 2020-0 Yes USE 1 [facility] PEN 120 6-20 INJECTION ity of mg/mL PnIj 00:00: [place]LY [place] DIRECTED Medi noe s injection BY YOUR [facility] DOCOTOR glycopyrrol 2020-0 Yes TAKE 1 [facility] ers ate 1 mg 6-20 TABLET BY ity of tablet 00:00: MOUTH TWICE Medical DAILY FOR Branch 30 DAYS montelukast 2020-0 Yes 10mg Take 10 mg [facility] 10 mg 6-20 by mouth ity of tablet 00:00: daily. Medical Branch SERTraline 2020-0 Yes TAKE 1 [facility] 50 mg 6-20 TABLET BY ity of tablet 00:00: MOUTH ONCE DAILY FOR Medical A TOTAL OF Branch 150 MG SERTraline 2020-0 Yes TAKE 1 [facility] 100 mg 6-20 TABLET BY ity of tablet 00:00: MOUTH ONCE DAILY TAKE Medical WITH 50MG Branch EMGALITY 2020-0 Yes USE 1 [facility] PEN 120 6-20 INJECTION ity of mg/mL PnIj 00:00: [place]LY [place] DIRECTED Medi noe s injection BY YOUR [facility] h DOCOTOR glycopyrrol 2020-0 Yes TAKE 1 [facility] ers ate 1 mg 6-20 TABLET BY ity of tablet 00:00: MOUTH TWICE Medical DAILY FOR Branch 30 DAYS montelukast 2020-0 Yes 10mg Take 10 mg [facility] 10 mg 6-20 by mouth ity of tablet 00:00: daily. Medical Branch SERTraline 2020-0 Yes TAKE 1 [facility] 50 mg 6-20 TABLET BY ity of tablet 00:00: MOUTH ONCE DAILY FOR Medical A TOTAL OF Branch 150 MG SERTraline 2020-0 Yes TAKE 1 [facility] 100 mg 6-20 TABLET BY ity of tablet 00:00: MOUTH ONCE DAILY TAKE Medical WITH 50MG Branch EMGALITY 2020-0 Yes USE 1 [facility] PEN 120 6-20 INJECTION ity of mg/mL PnIj 00:00: [place]LY [place] DIRECTED Medi noe s injection BY YOUR [facility] DOCOTOR glycopyrrol 2020-0 Yes TAKE 1 [facility] ers ate 1 mg 6-20 TABLET BY ity of tablet 00:00: MOUTH [place] TWICE Medical DAILY FOR Branch 30 DAYS montelukast 2020-0 Yes 10mg Take 10 mg [facility] 10 mg 6-20 by mouth ity of tablet 00:00: daily. Medical Branch SERTraline 2020-0 Yes TAKE 1 [facility] 50 mg 6-20 TABLET BY ity of tablet 00:00: MOUTH ONCE DAILY FOR Medical A TOTAL OF Branch 150 MG SERTraline 2020-0 Yes TAKE 1 [facility] 100 mg 6-20 TABLET BY ity of tablet 00:00: MOUTH ONCE 00 DAILY TAKE Medical WITH 50MG Branch EMGALITY 2020-0 Yes USE 1 [facility] PEN 120 6-20 INJECTION ity of mg/mL PnIj 00:00: [place]LY [place] DIRECTED Medi noe s injection BY YOUR [facility] DOCOTOR glycopyrrol 2020-0 Yes TAKE 1 [facility] ers ate 1 mg 6-20 TABLET BY ity of tablet 00:00: MOUTH TWICE Medical DAILY FOR Branch 30 DAYS montelukast 2020-0 Yes 10mg Take 10 mg [facility] 10 mg 6-20 by mouth ity of tablet 00:00: daily. Medical Branch SERTraline 2020-0 Yes TAKE 1 [facility] 50 mg 6-20 TABLET BY ity of tablet 00:00: MOUTH ONCE DAILY FOR Medical A TOTAL OF Branch 150 MG SERTraline 2020-0 Yes TAKE 1 [facility] 100 mg 6-20 TABLET BY ity of tablet 00:00: MOUTH ONCE 00 DAILY TAKE Medical WITH 50MG Branch EMGALITY 2020-0 Yes USE 1 [facility] PEN 120 6-20 INJECTION ity of mg/mL PnIj 00:00: [place]LY [place] DIRECTED Medi noe s injection BY YOUR [facility] DOCOTOR glycopyrrol 2020-0 Yes TAKE 1 [facility] ers ate 1 mg 6-20 TABLET BY ity of tablet 00:00: MOUTH 00 TWICE Medical DAILY FOR Branch 30 DAYS montelukast 2020-0 Yes 10mg Take 10 mg [facility] 10 mg 6-20 by mouth ity of tablet 00:00: daily. Medical Branch SERTraline 2020-0 Yes TAKE 1 [facility] 50 mg 6-20 TABLET BY ity of tablet 00:00: MOUTH ONCE DAILY FOR Medical A TOTAL OF Branch 150 MG SERTraline 2020-0 Yes TAKE 1 [facility] 100 mg 6-20 TABLET BY ity of tablet 00:00: MOUTH ONCE DAILY TAKE Medical WITH 50MG Branch EMGALITY 2020-0 Yes USE 1 [facility] PEN 120 6-20 INJECTION ity of mg/mL PnIj 00:00: [place]THLY [place] DIRECTED Medi noe s injection BY YOUR [facility] DOCOTOR glycopyrrol 2020-0 Yes TAKE 1 [facility] ers ate 1 mg 6-20 TABLET BY ity of tablet 00:00: MOUTH TWICE Medical DAILY FOR Branch 30 DAYS montelukast 2020-0 Yes 10mg Take 10 mg [facility] 10 mg 6-20 by mouth ity of tablet 00:00: daily. Medical Branch SERTraline 2020-0 Yes TAKE 1 [facility] 50 mg 6-20 TABLET BY ity of tablet 00:00: MOUTH ONCE DAILY FOR Medical A TOTAL OF Branch 150 MG SERTraline 2020-0 Yes TAKE 1 [facility] 100 mg 6-20 TABLET BY ity of tablet 00:00: MOUTH ONCE DAILY TAKE Medical WITH 50MG Branch EMGALITY 2020-0 Yes USE 1 [facility] PEN 120 6-20 INJECTION ity of mg/mL PnIj 00:00: [place]THLY [place] DIRECTED Medi noe s injection BY YOUR [facility] DOCOTOR glycopyrrol 2020-0 Yes TAKE 1 [facility] ers ate 1 mg 6-20 TABLET BY ity of tablet 00:00: MOUTH TWICE Medical DAILY FOR Branch 30 DAYS montelukast 2020-0 Yes 10mg Take 10 mg [facility] 10 mg 6-20 by mouth ity of tablet 00:00: daily. Medical Branch SERTraline 2020-0 Yes TAKE 1 [facility] 50 mg 6-20 TABLET BY ity of tablet 00:00: MOUTH ONCE DAILY FOR Medical A TOTAL OF Branch 150 MG SERTraline 2020-0 Yes TAKE 1 [facility] 100 mg 6-20 TABLET BY ity of tablet 00:00: MOUTH ONCE DAILY TAKE Medical WITH 50MG Branch EMGALITY 2020-0 Yes USE 1 [facility] PEN 120 6-20 INJECTION ity of mg/mL PnIj 00:00: MONTHLY [place] DIRECTED Medi noe s injection BY YOUR [facility] DOCOTOR glycopyrrol 2020-0 Yes TAKE 1 [facility] ers ate 1 mg 6-20 TABLET BY ity of tablet 00:00: MOUTH TWICE Medical DAILY FOR Branch 30 DAYS montelukast 2020-0 Yes 10mg Take 10 mg [facility] 10 mg 6-20 by mouth ity of tablet 00:00: daily. Medical Branch SERTraline 2020-0 Yes TAKE 1 [facility] 50 mg 6-20 TABLET BY ity of tablet 00:00: MOUTH ONCE DAILY FOR Medical A TOTAL OF Branch 150 MG SERTraline 2019-0 Yes TAKE 1 [facility] 100 mg 6-20 TABLET BY ity of tablet 00:00: MOUTH ONCE DAILY TAKE Medical WITH 50MG Branch EMGALITY 2020-0 Yes USE 1 [facility] PEN 120 6-20 INJECTION ity of mg/mL PnIj 00:00: MONTHLY [place] DIRECTED Medi noe s injection BY YOUR [facility] DOCOTOR EMGALITY 2020-0 Yes USE 1 [facility] PEN 120 6-20 INJECTION ity of mg/mL PnIj 00:00: MONTHLY [place] DIRECTED Medi noe s injection BY YOUR [facility] DOCOTOR glycopyrrol 2020-0 Yes TAKE 1 [facility] ers ate 1 mg 6-20 TABLET BY ity of tablet 00:00: MOUTH TWICE Medical DAILY FOR Branch 30 DAYS glycopyrrol 2020-0 Yes TAKE 1 [facility] ers ate 1 mg 6-20 TABLET BY ity of tablet 00:00: MOUTH TWICE Medical DAILY FOR Branch 30 DAYS montelukast 2020-0 Yes 10mg Take 10 mg [facility] 10 mg 6-20 by mouth ity of tablet 00:00: daily. Medical Branch SERTraline 2020-0 Yes TAKE 1 [facility] 50 mg 6-20 TABLET BY ity of tablet 00:00: MOUTH ONCE DAILY FOR Medical A TOTAL OF Branch 150 MG SERTraline 2020-0 Yes TAKE 1 [facility] 100 mg 6-20 TABLET BY ity of tablet 00:00: MOUTH ONCE DAILY TAKE Medical WITH 50MG Branch montelukast 2020-0 Yes 10mg Take 10 mg [facility] 10 mg 6-20 by mouth ity of tablet 00:00: daily. Medical Branch SERTraline 2020-0 Yes TAKE 1 [facility] 50 mg 6-20 TABLET BY ity of tablet 00:00: MOUTH ONCE DAILY FOR Medical A TOTAL OF Branch 150 MG SERTraline 2020-0 Yes TAKE 1 [facility] 100 mg 6-20 TABLET BY ity of tablet 00:00: MOUTH ONCE DAILY TAKE Medical WITH 50MG Branch EMGALITY 2020-0 Yes USE 1 [facility] PEN 120 6-20 INJECTION ity of mg/mL PnIj 00:00: MONTHLY [place] DIRECTED Medi noe s injection BY YOUR [facility] DOCOTOR glycopyrrol 2020-0 Yes TAKE 1 [facility] ers ate 1 mg 6-20 TABLET BY ity of tablet 00:00: MOUTH TWICE Medical DAILY FOR Branch 30 DAYS montelukast 2020-0 Yes 10mg Take 10 mg [facility] 10 mg 6-20 by mouth ity of tablet 00:00: daily. Medical Branch SERTraline 2020-0 Yes TAKE 1 [facility] 50 mg 6-20 TABLET BY ity of tablet 00:00: MOUTH ONCE DAILY FOR Medical A TOTAL OF Branch 150 MG SERTraline 2020-0 Yes TAKE 1 [facility] 100 mg 6-20 TABLET BY ity of tablet 00:00: MOUTH ONCE DAILY TAKE Medical WITH 50MG Branch EMGALITY 2020-0 Yes USE 1 [facility] PEN 120 6-20 INJECTION ity of mg/mL PnIj 00:00: MONTHLY [place] DIRECTED Medi noe s injection BY YOUR [facility] DOCOTOR glycopyrrol 2020-0 Yes TAKE 1 [facility] ers ate 1 mg 6-20 TABLET BY ity of tablet 00:00: MOUTH TWICE Medical DAILY FOR Branch 30 DAYS montelukast 2020-0 Yes 10mg Take 10 mg [facility] 10 mg 6-20 by mouth ity of tablet 00:00: daily. Medical Branch SERTraline 2020-0 Yes TAKE 1 [facility] 50 mg 6-20 TABLET BY ity of tablet 00:00: MOUTH ONCE DAILY FOR Medical A TOTAL OF Branch 150 MG SERTraline 2020-0 Yes TAKE 1 [facility] 100 mg 6-20 TABLET BY ity of tablet 00:00: MOUTH ONCE DAILY TAKE Medical WITH 50MG Branch EMGALITY 2020-0 Yes USE 1 [facility] PEN 120 6-20 INJECTION ity of mg/mL PnIj 00:00: MONTHLY [place] 00 DIRECTED Medi noe s injection BY YOUR [facility] DOCOTOR glycopyrrol 2020-0 Yes TAKE 1 [facility] ate 1 mg 6-20 TABLET BY ity of tablet 00:00: MOUTH [place] TWICE Medical DAILY FOR Branch 30 DAYS montelukast 2020-0 Yes 10mg Take 10 mg [facility] 10 mg 6-20 by mouth ity of tablet 00:00: daily. Medical Branch SERTraline 2020-0 Yes TAKE 1 [facility] 50 mg 6-20 TABLET BY ity of tablet 00:00: MOUTH ONCE DAILY FOR Medical A TOTAL OF Branch 150 MG SERTraline 2020-0 Yes TAKE 1 [facility] 100 mg 6-20 TABLET BY ity of tablet 00:00: MOUTH ONCE DAILY TAKE Medical WITH 50MG Branch EMGALITY 2020-0 Yes USE 1 [facility] PEN 120 6-20 INJECTION ity of mg/mL PnIj 00:00: MONTHLY [place] DIRECTED Medi noe s injection BY YOUR [facility] DOCOTOR glycopyrrol 2020-0 Yes TAKE 1 [facility] ate 1 mg 6-20 TABLET BY ity of tablet 00:00: MOUTH TWICE Medical DAILY FOR Branch 30 DAYS montelukast 2020-0 Yes 10mg Take 10 mg [facility] 10 mg 6-20 by mouth ity of tablet 00:00: daily. Medical Branch SERTraline 2020-0 Yes TAKE 1 [facility] 50 mg 6-20 TABLET BY ity of tablet 00:00: MOUTH ONCE DAILY FOR Medical A TOTAL OF Branch 150 MG SERTraline 2020-0 Yes TAKE 1 [facility] 100 mg 6-20 TABLET BY ity of tablet 00:00: MOUTH ONCE 00 DAILY TAKE Medical WITH 50MG Branch EMGALITY 2020-0 Yes USE 1 [facility] PEN 120 6-20 INJECTION ity of mg/mL PnIj 00:00: MONTHLY [place] DIRECTED Medi noe s injection BY YOUR [facility] DOCOTOR glycopyrrol 2020-0 Yes TAKE 1 [facility] ers ate 1 mg 6-20 TABLET BY ity of tablet 00:00: MOUTH TWICE Medical DAILY FOR Branch 30 DAYS montelukast 2020-0 Yes 10mg Take 10 mg [facility] 10 mg 6-20 by mouth ity of tablet 00:00: daily. Medical Branch SERTraline 2020-0 Yes TAKE 1 [facility] 50 mg 6-20 TABLET BY ity of tablet 00:00: MOUTH ONCE DAILY FOR Medical A TOTAL OF Branch 150 MG SERTraline 2020-0 Yes TAKE 1 [facility] 100 mg 6-20 TABLET BY ity of tablet 00:00: MOUTH ONCE DAILY TAKE Medical WITH 50MG Branch EMGALITY 2020-0 Yes USE 1 [facility] PEN 120 6-20 INJECTION ity of mg/mL PnIj 00:00: MONTHLY [place] DIRECTED Medi noe s injection BY YOUR [facility] DOCOTOR glycopyrrol 2020-0 Yes TAKE 1 [facility] ers ate 1 mg 6-20 TABLET BY ity of tablet 00:00: MOUTH TWICE Medical DAILY FOR Branch 30 DAYS EMGALITY 2020-0 Yes USE 1 [facility] PEN 120 6-20 INJECTION ity of mg/mL PnIj 00:00: MONTHLY [place] DIRECTED Medi noe s injection BY YOUR [facility] DOCOTOR glycopyrrol 2020-0 Yes TAKE 1 [facility] ers ate 1 mg 6-20 TABLET BY ity of tablet 00:00: MOUTH TWICE Medical DAILY FOR Branch 30 DAYS montelukast 2020-0 Yes 10mg Take 10 mg [facility] 10 mg 6-20 by mouth ity of tablet 00:00: daily. Medical [facility] SERTraline 2020-0 Yes TAKE 1 [facility] 50 mg 6-20 TABLET BY ity of tablet 00:00: MOUTH ONCE DAILY FOR Medical A TOTAL OF Branch 150 MG SERTraline 2020-0 Yes TAKE 1 [facility] 100 mg 6-20 TABLET BY ity of tablet 00:00: MOUTH ONCE DAILY TAKE Medical WITH 50MG Branch montelukast 2020-0 Yes 10mg Take 10 mg [facility] 10 mg 6-20 by mouth ity of tablet 00:00: daily. Medical [facility] EMGALITY 2020-0 Yes USE 1 [facility] PEN 120 6-20 INJECTION ity of mg/mL PnIj 00:00: MONTHLY [place] DIRECTED Medi noe s injection BY YOUR [facility] h DOCOTOR SERTraline 2020-0 Yes TAKE 1 [facility] 50 mg 6-20 TABLET BY ity of tablet 00:00: MOUTH ONCE DAILY FOR Medical A TOTAL OF Branch 150 MG glycopyrrol 2020-0 Yes TAKE 1 [facility] ate 1 mg 6-20 TABLET BY ity of tablet 00:00: MOUTH TWICE Medical DAILY FOR Branch 30 DAYS montelukast 2020-0 Yes 10mg Take 10 mg [facility] 10 mg 6-20 by mouth ity of tablet 00:00: daily. Medical Branch SERTraline 2020-0 Yes TAKE 1 [facility] 50 mg 6-20 TABLET BY ity of tablet 00:00: MOUTH ONCE DAILY FOR Medical A TOTAL OF Branch 150 MG SERTraline 2020-0 Yes TAKE 1 [facility] 100 mg 6-20 TABLET BY ity of tablet 00:00: MOUTH ONCE DAILY TAKE Medical WITH 50MG Branch SERTraline 2020-0 Yes TAKE 1 [facility] 100 mg 6-20 TABLET BY ity of tablet 00:00: MOUTH ONCE DAILY TAKE Medical WITH 50MG Branch EMGALITY 2020-0 Yes USE 1 [facility] PEN 120 6-20 INJECTION ity of mg/mL PnIj 00:00: MONTHLY [place] DIRECTED Medi noe s injection BY YOUR [facility] DOCOTOR glycopyrrol 2020-0 Yes TAKE 1 [facility] ers ate 1 mg 6-20 TABLET BY ity of tablet 00:00: MOUTH TWICE Medical DAILY FOR Branch 30 DAYS montelukast 2020-0 Yes 10mg Take 10 mg [facility] 10 mg 6-20 by mouth ity of tablet 00:00: daily. Medical [facility] SERTraline 2020-0 Yes TAKE 1 [facility] 50 mg 6-20 TABLET BY ity of tablet 00:00: MOUTH ONCE DAILY FOR Medical A TOTAL OF Branch 150 MG SERTraline 2020-0 Yes TAKE 1 [facility] 100 mg 6-20 TABLET BY ity of tablet 00:00: MOUTH ONCE DAILY TAKE Medical WITH 50MG [facility] EMGALITY 2020-0 Yes USE 1 [facility] PEN 120 6-20 INJECTION ity of mg/mL PnIj 00:00: MONTHLY [place] DIRECTED Medi noe s injection BY YOUR [facility] h DOCOTOR glycopyrrol 2020-0 Yes TAKE 1 [facility] ers ate 1 mg 6-20 TABLET BY ity of tablet 00:00: MOUTH TWICE Medical DAILY FOR Branch 30 DAYS montelukast 2020-0 Yes 10mg Take 10 mg [facility] 10 mg 6-20 by mouth ity of tablet 00:00: daily. Medical [facility] SERTraline 2020-0 Yes TAKE 1 [facility] 50 mg 6-20 TABLET BY ity of tablet 00:00: MOUTH ONCE DAILY FOR Medical A TOTAL OF Branch 150 MG SERTraline 2020-0 Yes TAKE 1 [facility] 100 mg 6-20 TABLET BY ity of tablet 00:00: MOUTH ONCE DAILY TAKE Medical WITH 50MG [facility] EMGALITY 2020-0 Yes USE 1 [facility] PEN 120 6-20 INJECTION ity of mg/mL PnIj 00:00: [place]LY [place] DIRECTED Medi noe s injection BY YOUR [facility] DOCOTOR glycopyrrol 2020-0 Yes TAKE 1 [facility] ate 1 mg 6-20 TABLET BY ity of tablet 00:00: MOUTH TWICE Medical DAILY FOR Branch 30 DAYS montelukast 2020-0 Yes 10mg Take 10 mg [facility] 10 mg 6-20 by mouth ity of tablet 00:00: daily. Medical [facility] SERTraline 2020-0 Yes TAKE 1 [facility] 50 mg 6-20 TABLET BY ity of tablet 00:00: MOUTH ONCE DAILY FOR Medical A TOTAL OF Branch 150 MG SERTraline 2020-0 Yes TAKE 1 [facility] 100 mg 6-20 TABLET BY ity of tablet 00:00: MOUTH ONCE DAILY TAKE Medical WITH 50MG [facility] EMGALITY 2020-0 Yes USE 1 [facility] PEN 120 6-20 INJECTION ity of mg/mL PnIj 00:00: [place]LY [place] DIRECTED Medi noe s injection BY YOUR [facility] DOCOTOR glycopyrrol 2020-0 Yes TAKE 1 [facility] ers ate 1 mg 6-20 TABLET BY ity of tablet 00:00: MOUTH TWICE Medical DAILY FOR Branch 30 DAYS montelukast 2020-0 Yes 10mg Take 10 mg [facility] 10 mg 6-20 by mouth ity of tablet 00:00: daily. Medical [facility] SERTraline 2020-0 Yes TAKE 1 [facility] 50 mg 6-20 TABLET BY ity of tablet 00:00: MOUTH ONCE DAILY FOR Medical A TOTAL OF Branch 150 MG SERTraline 2020-0 Yes TAKE 1 [facility] 100 mg 6-20 TABLET BY ity of tablet 00:00: MOUTH ONCE DAILY TAKE Medical WITH 50MG [facility] EMGALITY 2020-0 Yes USE 1 [facility] PEN 120 6-20 INJECTION ity of mg/mL PnIj 00:00: [place]THLY [place] DIRECTED Medi noe s injection BY YOUR [facility] DOCOTOR glycopyrrol 2020-0 Yes TAKE 1 [facility] ers ate 1 mg 6-20 TABLET BY ity of tablet 00:00: MOUTH TWICE Medical DAILY FOR Branch 30 DAYS montelukast 2020-0 Yes 10mg Take 10 mg [facility] 10 mg 6-20 by mouth ity of tablet 00:00: daily. Medical Branch SERTraline 2020-0 Yes TAKE 1 [facility] 50 mg 6-20 TABLET BY ity of tablet 00:00: MOUTH ONCE DAILY FOR Medical A TOTAL OF Branch 150 MG SERTraline 2020-0 Yes TAKE 1 [facility] 100 mg 6-20 TABLET BY ity of tablet 00:00: MOUTH ONCE DAILY TAKE Medical WITH 50MG Branch EMGALITY 2020-0 Yes USE 1 Univers PEN 120 6-20 INJECTION ity of mg/mL PnIj 00:00: [place] sub[place] DIRECTED Medi noe s injection BY YOUR [facility] DOCOTOR EMGALITY 2020-0 Yes USE 1 Univers PEN 120 6-20 INJECTION ity of mg/mL PnIj 00:00: [place]THLY [place] sub[place] DIRECTED Medi noe s injection BY YOUR [facility] DOCOTOR glycopyrrol 2020-0 Yes TAKE 1 Univ ers ate 1 mg 6-20 TABLET BY ity of tablet 00:00: MOUTH TWICE Medical DAILY FOR Branch 30 DAYS glycopyrrol 2020-0 Yes TAKE 1 Univ ers ate 1 mg 6-20 TABLET BY ity of tablet 00:00: MOUTH TWICE Medical DAILY FOR Branch 30 DAYS montelukast 2020-0 Yes 10mg Take 10 mg Univers 10 mg 6-20 by mouth ity of tablet 00:00: daily. Medical Branch SERTraline 2020-0 Yes TAKE 1 Unive rs 50 mg 6-20 TABLET BY ity of tablet 00:00: MOUTH ONCE DAILY FOR Medical A TOTAL OF Branch 150 MG SERTraline 2020-0 Yes TAKE 1 Unive rs 100 mg 6-20 TABLET BY ity of tablet 00:00: MOUTH ONCE DAILY TAKE Medical WITH 50MG Branch montelukast 2020-0 Yes 10mg Take 10 mg Univers 10 mg 6-20 by mouth ity of tablet 00:00: daily. [place] 00 Medical Branch EMGALITY 2020-0 Yes USE 1 Univers PEN 120 6-20 INJECTION ity of mg/mL PnIj 00:00: [place]TH[place] DIRECT[facility] Univ ers ate 1 mg 6-20 TABLET BY ity of tablet 00:00: MOUTH TWICE Medical DAILY FOR Branch 30 DAYS SERTraline 0 2020- No TAKE 1 Univ ers 100 mg 6-20 10-14 TABLET BY ity of tablet 00:00: 00:[place]CE [place] DA[place] TAKE Medical WITH 50MG Branch traZODone Yes TAKE 1 Univer s 150 mg 5-13 TABLET BY ity of tablet 00:00: MOUTH DAILY AT [facility] FOR 30 DAYS busPIRone 0 Yes TAKE 1 Univer s 15 mg 5-13 TABLET BY ity of tablet 00:00: MOUTH TWICE Medical DAILY FOR Branch 30 DAYS traZODone 0 Yes TAKE 1 Univer s 150 mg 5-13 TABLET BY ity of tablet 00:00: MOUTH DAILY AT [facility] FOR 30 DAYS busPIRone 0 Yes TAKE 1 Univer s 15 mg 5-13 TABLET BY ity of tablet 00:00: MOUTH TWICE Medical DAILY FOR Branch 30 DAYS traZODone 0 Yes TAKE 1 Univer s 150 mg 5-13 TABLET BY ity of tablet 00:00: MOUTH DAILY AT [facility] FOR 30 DAYS busPIRone 0 Yes TAKE 1 Univer s 15 mg 5-13 TABLET BY ity of tablet 00:00: MOUTH TWICE Medical DAILY FOR Branch 30 DAYS traZODone 0 Yes TAKE 1 Univer s 150 mg 5-13 TABLET BY ity of tablet 00:00: MOUTH ONCE DAILY AT [facility] FOR 30 DAYS busPIRone 0 Yes TAKE 1 Univer s 15 mg 5-13 TABLET BY ity of tablet 00:00: MOUTH 00 TWICE Medical DAILY FOR Branch 30 DAYS traZODone 2019-0 Yes TAKE 1 Univer s 150 mg 5-13 TABLET BY ity of tablet 00:00: MOUTH DAILY AT [facility] FOR 30 DAYS busPIRone 2019-0 Yes TAKE 1 Univer s 15 mg 5-13 TABLET BY ity of tablet 00:00: MOUTH 00 TWICE Medical DAILY FOR Branch 30 DAYS traZODone 2019-0 Yes TAKE 1 Univer s 150 mg 5-13 TABLET BY ity of tablet 00:00: MOUTH ONCE 00 DAILY AT [facility] FOR 30 DAYS busPIRone 0 Yes TAKE 1 Univer s 15 mg 5-13 TABLET BY ity of tablet 00:00: MOUTH 00 TWICE Medical DAILY FOR Branch 30 DAYS traZODone 0 Yes TAKE 1 Univer s 150 mg 5-13 TABLET BY ity of tablet 00:00: MOUTH ONCE 00 DAILY AT [facility] FOR 30 DAYS busPIRone 0 Yes TAKE 1 Univer s 15 mg 5-13 TABLET BY ity of tablet 00:00: MOUTH 00 TWICE Medical DAILY FOR Branch 30 DAYS traZODone 0 Yes TAKE 1 Univer s 150 mg 5-13 TABLET BY ity of tablet 00:00: MOUTH ONCE 00 DAILY AT [facility] FOR 30 DAYS busPIRone 0 Yes TAKE 1 Univer s 15 mg 5-13 TABLET BY ity of tablet 00:00: MOUTH 00 TWICE Medical DAILY FOR Branch 30 DAYS busPIRone 0 Yes TAKE 1 Univer s 15 mg 5-13 TABLET BY ity of tablet 00:00: MOUTH 00 TWICE Medical DAILY FOR Branch 30 DAYS traZODone 0 Yes TAKE 1 Univer s 150 mg 5-13 TABLET BY ity of tablet 00:00: MOUTH ONCE 00 DAILY AT [facility] FOR 30 DAYS busPIRone 0 Yes TAKE 1 Univer s 15 mg 5-13 TABLET BY ity of tablet 00:00: MOUTH 00 TWICE Medical DAILY FOR Branch 30 DAYS traZODone 0 Yes TAKE 1 Univer s 150 mg 5-13 TABLET BY ity of tablet 00:00: MOUTH ONCE 00 DAILY AT [facility] FOR 30 DAYS busPIRone 0 Yes TAKE 1 Univer s 15 mg 5-13 TABLET BY ity of tablet 00:00: MOUTH 00 TWICE Medical DAILY FOR Branch 30 DAYS traZODone 0 Yes TAKE 1 Univer s 150 mg 5-13 TABLET BY ity of tablet 00:00: MOUTH ONCE 00 DAILY AT [facility] FOR 30 DAYS busPIRone 2020-0 Yes TAKE 1 Univer s 15 mg 5-13 TABLET BY ity of tablet 00:00: MOUTH 00 TWICE Medical DAILY FOR Branch 30 DAYS traZODone 0 Yes TAKE 1 Univer s 150 mg 5-13 TABLET BY ity of tablet 00:00: MOUTH ONCE 00 DAILY AT [facility] FOR 30 DAYS traZODone 0 Yes TAKE 1 Univer s 150 mg 5-13 TABLET BY ity of tablet 00:00: MOUTH ONCE 00 DAILY AT [facility] FOR 30 DAYS busPIRone 0 Yes TAKE 1 Univer s 15 mg 5-13 TABLET BY ity of tablet 00:00: MOUTH 00 TWICE Medical DAILY FOR Branch 30 DAYS traZODone Yes TAKE 1 Univer s 150 mg 5-13 TABLET BY ity of tablet 00:00: MOUTH ONCE 00 DAILY AT [facility] FOR 30 DAYS busPIRone Yes TAKE 1 Univer s 15 mg 5-13 TABLET BY ity of tablet 00:00: MOUTH 00 TWICE Medical DAILY FOR Branch 30 DAYS traZODone 0 Yes TAKE 1 Univer s 150 mg 5-13 TABLET BY ity of tablet 00:00: MOUTH ONCE 00 DAILY AT [facility] FOR 30 DAYS busPIRone 0 Yes TAKE 1 Univer s 15 mg 5-13 TABLET BY ity of tablet 00:00: MOUTH 00 TWICE Medical DAILY FOR Branch 30 DAYS traZODone 0 Yes TAKE 1 Univer s 150 mg 5-13 TABLET BY ity of tablet 00:00: MOUTH ONCE 00 DAILY AT [facility] FOR 30 DAYS busPIRone 0 Yes TAKE 1 Univer s 15 mg 5-13 TABLET BY ity of tablet 00:00: MOUTH 00 TWICE Medical DAILY FOR Branch 30 DAYS traZODone 0 Yes TAKE 1 Univer s 150 mg 5-13 TABLET BY ity of tablet 00:00: MOUTH ONCE 00 DAILY AT [facility] FOR 30 DAYS busPIRone 0 Yes TAKE 1 Univer s 15 mg 5-13 TABLET BY ity of tablet 00:00: MOUTH 00 TWICE Medical DAILY FOR Branch 30 DAYS traZODone 0 Yes TAKE 1 Univer s 150 mg 5-13 TABLET BY ity of tablet 00:00: MOUTH ONCE 00 DAILY AT [facility] FOR 30 DAYS busPIRone 2020-0 Yes TAKE 1 Univer s 15 mg 5-13 TABLET BY ity of tablet 00:00: MOUTH 00 TWICE Medical DAILY FOR Branch 30 DAYS traZODone 2019-0 Yes TAKE 1 Univer s 150 mg 5-13 TABLET BY ity of tablet 00:00: MOUTH ONCE 00 DAILY AT [facility] FOR 30 DAYS busPIRone 2019-0 Yes TAKE 1 Univer s 15 mg 5-13 TABLET BY ity of tablet 00:00: MOUTH 00 TWICE Medical DAILY FOR Branch 30 DAYS traZODone 0 Yes TAKE 1 Univer s 150 mg 5-13 TABLET BY ity of tablet 00:00: MOUTH ONCE DAILY AT [facility] FOR 30 DAYS busPIRone 0 Yes TAKE 1 Univer s 15 mg 5-13 TABLET BY ity of tablet 00:00: MOUTH 00 TWICE Medical DAILY FOR Branch 30 DAYS busPIRone 0 Yes TAKE 1 Univer s 15 mg 5-13 TABLET BY ity of tablet 00:00: MOUTH 00 TWICE Medical DAILY FOR Branch 30 DAYS traZODone 0 Yes TAKE 1 Univer s 150 mg 5-13 TABLET BY ity of tablet 00:00: MOUTH ONCE DAILY AT [facility] FOR 30 DAYS busPIRone 0 Yes TAKE 1 Univer s 15 mg 5-13 TABLET BY ity of tablet 00:00: MOUTH 00 TWICE Medical DAILY FOR Branch 30 DAYS traZODone 2019-0 Yes TAKE 1 Univer s 150 mg 5-13 TABLET BY ity of tablet 00:00: MOUTH ONCE 00 DAILY AT [facility] FOR 30 DAYS busPIRone 2019-0 Yes TAKE 1 Univer s 15 mg 5-13 TABLET BY ity of tablet 00:00: MOUTH 00 TWICE Medical DAILY FOR Branch 30 DAYS traZODone 2019-0 Yes TAKE 1 Univer s 150 mg 5-13 TABLET BY ity of tablet 00:00: MOUTH ONCE 00 DAILY AT [facility] FOR 30 DAYS traZODone 2019-0 Yes TAKE 1 Univer s 150 mg 5-13 TABLET BY ity of tablet 00:00: MOUTH ONCE 00 DAILY AT [facility] FOR 30 DAYS busPIRone 2020-0 Yes TAKE 1 Univer s 15 mg 5-13 TABLET BY ity of tablet 00:00: MOUTH [place] 00 TWICE Medical DAILY FOR Branch 30 DAYS traZODone 2019-0 Yes TAKE 1 Univer s 150 mg 5-13 TABLET BY ity of tablet 00:00: MOUTH ONCE 00 DAILY AT [facility] FOR 30 DAYS busPIRone 0 Yes TAKE 1 Univer s 15 mg 5-13 TABLET BY ity of tablet 00:00: MOUTH [place] 00 TWICE Medical DAILY FOR Branch 30 DAYS traZODone 0 Yes TAKE 1 Univer s 150 mg 5-13 TABLET BY ity of tablet 00:00: MOUTH ONCE 00 DAILY AT [facility] FOR 30 DAYS busPIRone 0 Yes TAKE 1 Univer s 15 mg 5-13 TABLET BY ity of tablet 00:00: MOUTH 00 TWICE Medical DAILY FOR Branch 30 DAYS traZODone 0 Yes TAKE 1 Univer s 150 mg 5-13 TABLET BY ity of tablet 00:00: MOUTH ONCE 00 DAILY AT [facility] FOR 30 DAYS busPIRone 0 Yes TAKE 1 Univer s 15 mg 5-13 TABLET BY ity of tablet 00:00: MOUTH 00 TWICE Medical DAILY FOR Branch 30 DAYS busPIRone 0 Yes TAKE 1 Univer s 15 mg 5-13 TABLET BY ity of tablet 00:00: MOUTH 00 TWICE Medical DAILY FOR Branch 30 DAYS traZODone 0 Yes TAKE 1 Univer s 150 mg 5-13 TABLET BY ity of tablet 00:00: MOUTH ONCE 00 DAILY AT [facility] FOR 30 DAYS busPIRone 2019-0 Yes TAKE 1 Univer s 15 mg 5-13 TABLET BY ity of tablet 00:00: MOUTH 00 TWICE Medical DAILY FOR Branch 30 DAYS traZODone 0 Yes TAKE 1 Univer s 150 mg 5-13 TABLET BY ity of tablet 00:00: MOUTH ONCE 00 DAILY AT [facility] FOR 30 DAYS busPIRone 2019-0 Yes TAKE 1 Univer s 15 mg 5-13 TABLET BY ity of tablet 00:00: MOUTH 00 TWICE Medical DAILY FOR Branch 30 DAYS traZODone 0 Yes TAKE 1 Univer s 150 mg 5-13 TABLET BY ity of tablet 00:00: MOUTH ONCE 00 DAILY AT [facility] FOR 30 DAYS busPIRone 0 Yes TAKE 1 Univer s 15 mg 5-13 TABLET BY ity of tablet 00:00: MOUTH 00 TWICE Medical DAILY FOR Branch 30 DAYS traZODone 0 Yes TAKE 1 Univer s 150 mg 5-13 TABLET BY ity of tablet 00:00: MOUTH ONCE 00 DAILY AT [facility] FOR 30 DAYS traZODone 0 Yes TAKE 1 Univer s 150 mg 5-13 TABLET BY ity of tablet 00:00: MOUTH ONCE 00 DAILY AT [facility] FOR 30 DAYS busPIRone Yes TAKE 1 Univer s 15 mg 5-13 TABLET BY ity of tablet 00:00: MOUTH 00 TWICE Medical DAILY FOR Branch 30 DAYS traZODone Yes TAKE 1 Univer s 150 mg 5-13 TABLET BY ity of tablet 00:00: MOUTH ONCE 00 DAILY AT [facility] FOR 30 DAYS busPIRone Yes TAKE 1 Univer s 15 mg 5-13 TABLET BY ity of tablet 00:00: MOUTH 00 TWICE Medical DAILY FOR Branch 30 DAYS traZODone Yes TAKE 1 Univer s 150 mg 5-13 TABLET BY ity of tablet 00:00: MOUTH ONCE 00 DAILY AT [facility] FOR 30 DAYS busPIRone Yes TAKE 1 Univer s 15 mg 5-13 TABLET BY ity of tablet 00:00: MOUTH 00 TWICE Medical DAILY FOR Branch 30 DAYS traZODone 0 Yes TAKE 1 Univer s 150 mg 5-13 TABLET BY ity of tablet 00:00: MOUTH ONCE 00 DAILY AT [facility] FOR 30 DAYS busPIRone 0 Yes TAKE 1 Univer s 15 mg 5-13 TABLET BY ity of tablet 00:00: MOUTH 00 TWICE Medical DAILY FOR Branch 30 DAYS busPIRone 0 Yes TAKE 1 Univer s 15 mg 5-13 TABLET BY ity of tablet 00:00: MOUTH 00 TWICE Medical DAILY FOR Branch 30 DAYS traZODone 0 Yes TAKE 1 Univer s 150 mg 5-13 TABLET BY ity of tablet 00:00: MOUTH ONCE 00 DAILY AT [facility] FOR 30 DAYS busPIRone 0 Yes TAKE 1 Univer s 15 mg 5-13 TABLET BY ity of tablet 00:00: MOUTH [place] 00 TWICE Medical DAILY FOR Branch 30 DAYS traZODone 2020-0 Yes TAKE 1 Univer s 150 mg 5-13 TABLET BY ity of tablet 00:00: MOUTH ONCE 00 DAILY AT [facility] FOR 30 DAYS busPIRone 2019-0 Yes TAKE 1 Univer s 15 mg 5-13 TABLET BY ity of tablet 00:00: MOUTH 00 TWICE Medical DAILY FOR Branch 30 DAYS traZODone 2019-0 Yes TAKE 1 Univer s 150 mg 5-13 TABLET BY ity of tablet 00:00: MOUTH ONCE 00 DAILY AT [facility] FOR 30 DAYS busPIRone 0 Yes TAKE 1 Univer s 15 mg 5-13 TABLET BY ity of tablet 00:00: MOUTH 00 TWICE Medical DAILY FOR Branch 30 DAYS traZODone 0 Yes TAKE 1 Univer s 150 mg 5-13 TABLET BY ity of tablet 00:00: MOUTH ONCE 00 DAILY AT [facility] FOR 30 DAYS traZODone 0 Yes TAKE 1 Univer s 150 mg 5-13 TABLET BY ity of tablet 00:00: MOUTH ONCE 00 DAILY AT [facility] FOR 30 DAYS busPIRone 0 Yes TAKE 1 Univer s 15 mg 5-13 TABLET BY ity of tablet 00:00: MOUTH 00 TWICE Medical DAILY FOR Branch 30 DAYS traZODone 0 Yes TAKE 1 Univer s 150 mg 5-13 TABLET BY ity of tablet 00:00: MOUTH ONCE 00 DAILY AT [facility] FOR 30 DAYS busPIRone 2019-0 Yes TAKE 1 Univer s 15 mg 5-13 TABLET BY ity of tablet 00:00: MOUTH 00 TWICE Medical DAILY FOR Branch 30 DAYS traZODone 0 Yes TAKE 1 Univer s 150 mg 5-13 TABLET BY ity of tablet 00:00: MOUTH ONCE 00 DAILY AT [facility] FOR 30 DAYS busPIRone 2019-0 Yes TAKE 1 Univer s 15 mg 5-13 TABLET BY ity of tablet 00:00: MOUTH 00 TWICE Medical DAILY FOR Branch 30 DAYS traZODone 0 Yes TAKE 1 Univer s 150 mg 5-13 TABLET BY ity of tablet 00:00: MOUTH ONCE 00 DAILY AT [facility] FOR 30 DAYS busPIRone 2020-0 Yes TAKE 1 Univer s 15 mg 5-13 TABLET BY ity of tablet 00:00: MOUTH TWICE Medical DAILY FOR Branch 30 DAYS traZODone Yes TAKE 1 Univer s 150 mg 5-13 TABLET BY ity of tablet 00:00: MOUTH ONCE 00 DAILY AT Medical BEDTIME Branch FOR 30 DAYS busPIRone Yes TAKE 1 Univer s 15 mg 5-13 TABLET BY ity of tablet 00:00: MOUTH TWICE Medical DAILY FOR Branch 30 DAYS Zoloft Zoloft Yes Sanjay [address] [facility] [address] [facility] (100 + 50 [facility] - 00:00: = 150 mg) Memoria 00 l [facility] Zoloft Zoloft Yes Sanjay 1 [facility] (100 + 50 [facility] - = 150 mg) [facility]oria l [facility] Excedrin Excedrin Yes Sanjay [address] [facility] [address] Extra Extra [facility] Strength Strength [facility] Xerac AC Xerac AC Yes Sanjay as [facility] Emgality Emgality Yes Sanjay 1 ml [facility] Yes Sanjay [address] [facility] [address] Sodium Sodium [facility] All[facility] Allergy [facility] Trazodone Trazodone Yes Sanjay [address] HCl HCl [facility] at bedtime [facility] Cambia [place] Yes Sanjay as [facility] directed [facility] Glycopyrrol Glycopyrrol Yes Sanjay TAKE [address] [facility] ate ate White TABLET BY [facility] - MOUTH Memoria TWICE l DAILY FOR [facility] 30 DAYS ent Clinics BusPIRone BusPIRone Yes Sanjay [address] HCl HCl [facility] [place] Yes Sanjay TAKE [address] [facility] Sodium Sodium White TABLET BY [facility] - MOUTH ONCE Memoria DAILY l [facility] Clinics Sertraline Sertraline Yes Sanjay TAKE [address] [facility] HCl HCl White TABLET BY [facility] - MOUTH ONCE Memoria DAILY TAKE l WITH Outpati 50MG ent Clinics Sertraline Sertraline Yes Sanjay TAKE [address] HCl HCl White TABLET BY [facility] - MOUTH ONCE Memoria DAILY FOR l A TOTAL Outpati OF 150 ent MG Clinics Vital Signs Vital Name Observation Time Observation Value Comments Source Systolic blood 2020-10-05 18:18:00 113 mm[Hg] Univer sity of pressure [facility] Diastolic blood 2020-10-05 18:18:00 79 mm[Hg] Unive rsity of pressure [facility] Heart rate 2020-10-05 18:18:00 78 /min Universi ty of [facility] Body temperature 2020-10-05 18:18:00 37.06 Marcela [facility] 2020-10-05 18:18:00 18 /min [facility] Body height 2020-10-05 18:18:00 162.6 cm Universi ty [facility] Body weight 2020-10-05 18:18:00 104.781 kg Universi ty [facility] BMI 2020-10-05 18:18:00 39.65 kg/m2 Universi ty of [facility] Systolic blood 2020-04-04 20:25:00 119 mm[Hg] Univer sity of [facility] Diastolic blood 2020-04-04 20:25:00 79 mm[Hg] Unive rsity of [facility] Heart rate 2020-04-04 20:25:00 68 /min Universi ty [facility] Body temperature 2020-04-04 20:25:00 36.78 Marcela [facility] Res[facility] rate 2020-04-04 20:25:00 18 /min [facility] Body height 2020-04-04 20:25:00 162.6 cm Universi ty of [facility] Body weight 2020-04-04 20:25:00 95.8 kg Universi ty of [facility] BMI 2020-04-04 20:25:00 36.25 kg/m2 Universi ty of [facility] Systolic blood 2020-04-04 20:25:00 119 mm[Hg] Univer sity of pressure [facility] Diastolic blood 2020-04-04 20:25:00 79 mm[Hg] Unive rsity of pressure [place] [facility] Heart rate 2020-04-04 20:25:00 68 /min Universi ty of [place] [facility] Body temperature 2020-04-04 20:25:00 36.78 Marcela Univ ersity of [place] [facility] Respiratory rate 2020-04-04 20:25:00 18 /min Univ ersity of [facility] Body height 2020-04-04 20:25:00 162.6 cm Universi ty of [facility] Body weight 2020-04-04 20:25:00 95.8 kg Universi ty of [place] [facility] BMI 2020-04-04 20:25:00 36.25 kg/m2 Universi ty of [place] [facility] Systolic blood 2020-03-21 21:08:00 121 mm[Hg] Univer sity of pressure [place] [facility] Diastolic blood 2020-03-21 21:08:00 76 mm[Hg] Unive rsity of pressure [facility] Heart rate 2020-03-21 21:08:00 85 /min Universi ty of [facility] Body temperature 2020-03-21 21:08:00 36.78 Marcela Univ ersity of [facility] Respiratory rate 2020-03-21 21:08:00 18 /min Univ ersity of [facility] Body height 2020-03-21 21:08:00 162.6 cm Universi ty of [facility] Body weight 2020-03-21 21:08:00 94.892 kg Universi ty of [facility] BMI 2020-03-21 21:08:00 35.91 kg/m2 Universi ty [facility] Systolic blood 2020-03-17 03:00:00 124 mm[Hg] Univer sity of pressure [facility] Diastolic blood 2020-03-17 03:00:00 80 mm[Hg] Unive rsity of pressure [facility] Heart rate 2020-03-17 03:00:00 71 /min Universi ty of [facility] Respiratory rate 2020-03-17 03:00:00 18 /min Univ ersity of [facility] Oxygen saturation in 2020-03-17 03:00:00 98 /min University Arterial blood by [facility] Pulse oximetry Branch Body temperature 2020-03-17 01:11:00 37.56 Marcela Univ ersity of [facility] Body height 2020-03-17 01:11:00 162.6 cm Universi ty of [facility] Body weight 2020-03-17 01:11:00 92.987 kg Universi ty of [facility] BMI 2020-03-17 01:11:00 35.19 kg/m2 Universi ty of [facility] Systolic blood 2020-03-08 15:30:00 104 mm[Hg] Univer sity of pressure [facility] Diastolic blood 2020-03-08 15:30:00 58 mm[Hg] Unive rsity of pressure [facility] Oxygen saturation in 2020-03-08 15:30:00 98 /min University Arterial blood by [facility] Pulse oximetry Branch Heart rate 2020-03-08 15:15:00 86 /min Universi ty of [facility] Respiratory rate 2020-03-08 15:15:00 17 /min Univ ersity of [facility] Body temperature 2020-03-08 14:45:00 36.44 Marcela Univ ersity of [facility] Body height 2020-03-06 18:30:00 162.6 cm Universi ty of [facility] Body weight 2020-03-06 18:30:00 92.987 kg Universi ty of [facility] BMI 2020-03-06 18:30:00 35.19 kg/m2 Universi ty of [facility] Systolic blood 2020-02-10 21:20:00 110 mm[Hg] Univer sity of pressure [facility] Diastolic blood 2020-02-10 21:20:00 69 mm[Hg] Unive rsity of pressure [facility] Heart rate 2020-02-10 21:20:00 65 /min Universi ty of [facility] Body temperature 2020-02-10 21:20:00 36.83 Marcela Univ ersity of [facility] Respiratory rate 2020-02-10 21:20:00 18 /min Univ ersity of [facility] Body height 2020-02-10 21:20:00 162.6 cm Universi ty of [facility] Body weight 2020-02-10 21:20:00 95.255 kg Universi ty of [facility] BMI 2020-02-10 21:20:00 36.05 kg/m2 Universi ty of [facility] Systolic blood 2020-01-30 20:46:00 104 mm[Hg] Univer sity of pressure [facility] Diastolic blood 2020-01-30 20:46:00 64 mm[Hg] Unive rsity of pressure [facility] Heart rate 2020-01-30 20:46:00 86 /min Universi ty [facility] Body temperature 2020-01-30 20:46:00 37.11 Marcela [facility] Respiratory rate 2020-01-30 20:46:00 18 /min [facility] Body height 2020-01-30 20:46:00 162.6 cm Universi ty [facility] Body weight 2020-01-30 20:46:00 96.435 kg Universi ty [facility] BMI 2020-01-30 20:46:00 36.49 kg/m2 Universi ty [facility] Systolic blood 2020-01-13 20:24:00 120 mm[Hg] Univer sity [facility] Diastolic blood 2020-01-13 20:24:00 77 mm[Hg] [facility] Heart rate 2020-01-13 20:24:00 77 /min Universi ty [facility] Body temperature 2020-01-13 20:24:00 36.94 Marcela [facility] Respiratory rate 2020-01-13 20:24:00 18 /min [facility] Body weight 2020-01-13 20:24:00 95.8 [facility] Procedures Procedure Date / Time Performing Clinician Source Performed US PELVIS COMPLETE WITH 2020-03-22 22:56:02 [facility] TRANSV[facility]AL [facility] US RETROPERITONEAL 2020-03-22 22:55:50 AdumZulema [facility] CONSENT FOR CONTRACEPTION 2020-03-21 05:01:00 Doctor Unassigned, [facility] LIPASE 2020-03-17 03:07:00 Jamie Sutton [facility] COMP. METABOLIC PANEL 2020-03-17 03:07:00 Jamie Sutton [facility] ([id number]) [facility] CBC WITH DIFF 2020-03-17 03:07:00 Jamie Sutton [facility] D-DIMER 2020-03-17 03:07:00 Jamie Sutton [facility] URINALYSIS 2020-03-17 03:07:00 Mariam, K [facility] o f [facility] NOTICE OF PRIVACY 2020-03-17 01:00:20 Doctor Madeline, [facility] PRACTICES [facility] CONSENT/REFUSAL FOR 2020-03-17 01:00:05 Doctor Madeline [facility] DIAGNOSIS AND TREATMENT [facility] POCT TEST 2020-03-08 13:25:00 Maxwell Granados [facility] DSU PRE-OP 2020-03-07 05:01:00 Doctor Madeline, [facility] EXERCISE STRESS TEST 2020-02-17 05:01:00 [facility] POCT TEST 2020-01-30 20:48:00 Zulema Mcmahan [facility] EXTERNAL PROVIDER RECORDS 2020-01-30 05:01:00 Doctor Madeline, [facility] US PELVIS COMPLETE WITH 2020-01-26 20:25:49 Zulema Mcmahan [facility] TRANSVAGINAL Medical Branch ASSIGNMENT OF BENEFITS 2020-01-26 19:32:34 Doctor Unajaime, Un [facility] Encounters Start End Encounter Admission Attending Care Care Encounter Source Date/Time Date/Time Type Type Clinicians Facility Department ID 2021-10-21 Outpatient [facility], [facility] [id number] 13:38:00 Sanjay [id number] [facility] 2021-08-07 Outpatient White, [facility] [id number] 11:21:02 Sanjay [id number] [facility] [facility] 2021-07-31 Outpatient White, [facility] [id number] [facility] 14:07:33 Sanjay 70039 [facility] 2021-07-31 Outpatient White, [facility] [id number] 14:06:07 Sanjay 88740 [facility] 2021-07-31 Outpatient White, [facility] [id number] 13:58:47 Sanjay 03109 [facility] 2021-07-31 Outpatient White, [facility] 13:45:19 Sanjay 95536 [facility] 2021-07-31 Outpatient White, [facility] 13:44:28 Sanjay 99281 [facility] 2021-07-31 Outpatient White, [facility] 13:38:05 Sanjay 63737 [facility] 2021-07-31 Outpatient White, [facility] 13:19:17 Sanjay 84187 [facility] 2021-07-31 Outpatient White, [facility] 13:05:51 Sanjay 93356 [facility] 2021-07-31 Outpatient White, [facility] 12:59:51 Sanjay 59448 [facility] 2021-07-31 Outpatient White, [facility] 12:49:37 Sanjay 59260 [facility] 2021-07-31 Outpatient White, [facility] 12:41:34 Sanjay 41705 [facility] 2021-07-31 Outpatient White, [facility] 12:30:56 Sanjay 64682 [facility] 2021-07-31 Outpatient White, [facility] 12:26:18 Sanjay 69447 [facility] 2021-07-31 Outpatient White, [facility] 12:15:14 Sanjay 68461 [facility] 2021-07-31 Outpatient White, [facility] 12:06:08 Sanjay 07407 [facility] 2021-07-31 [facility] [id number] [facility] 12:04:41 Sanjay 49407 [facility] 2021-07-31 [facility] [id number] 12:02:56 Sanjay 15770 [facility] 2021-07-31 [facility] [id number] 11:59:03 Sanjay 74053 [facility] 2021-07-31 Outpatient White, [facility] [id number] 11:29:54 Sanjay 92425 [facility] 2021-07-31 [facility] 11:17:47 Sanjay 37280 [facility] 2021-07-31 [facility] [id number] 11:17:36 Sanjay 18458 [facility] 2021-07-31 [facility] [id number] 11:07:23 Sanjay 12710 [facility] 2021-07-31 [facility] [id number] 10:58:24 Sanjay 37757 [facility] 2021-05-03 Emergency [facility] [id number] Univers 17:11:20 [facility] 2021-05-03 Outpatient R ADUM, [facility] MELITA [id number] Univers 14:35:49 ZULEMA [facility] 2021-08-05 2021-08-05 ambulatory [facility] [id number] [facility] 2021-06-12 2021-06-12 ambulatory [facility] [id number] [facility] 2021-05-14 2021-05-14 ambulatory [facility] [id number] [facility] 2021-05-03 2021-05-03 Outpatient [facility] [id number] [facility] 2021-05-03 2021-05-03 Outpatient [facility] [id number] [facility] 2021-04-30 2021-04-30 Outpatient [facility] [id number] [facility] 2021-04-24 2021-04-24 Outpatient [facility] [id number] [facility] 2021-04-23 2021-04-23 Outpatient [facility] [id number] [facility] 2021-04-19 2021-04-19 Outpatient [facility] [id number] [facility] 2021-04-19 2021-04-19 Outpatient [facility] [id number] [facility] 2021-04-10 2021-04-10 Outpatient R ADUM, [facility] [id number] Univers 15:30:00 15:30:00 ZULEMA [id number] [facility] 2021-04-10 2021-04-10 Outpatient R ADUM, [facility] [id number] Univers 15:30:00 15:30:00 ZULEMA [facility] 2021-03-18 2021-03-18 Outpatient [facility] [id number] [facility] 2021-03-07 2021-03-07 Outpatient [facility] [id number] [facility] 2021-03-05 2021-03-05 Outpatient [facility] [id number] [facility] 2021-03-05 2021-03-05 Outpatient [facility] [id number] [facility] 2021-03-01 2021-03-01 Outpatient [facility] [id number] [facility] 2021-02-27 2021-02-27 Outpatient [facility] [id number] [facility] 2021-02-19 2021-02-19 Outpatient [facility] [id number] [facility] 2021-02-04 2021-02-04 Outpatient [facility] [id number] [facility] 2021-01-10 2021-01-10 Outpatient [facility] [id number] [facility] 2021-01-01 2021-01-01 Outpatient [facility] [id number] [facility] 2020-12-26 2020-12-26 Outpatient [facility] [id number] [facility] 2020-12-18 2020-12-18 Outpatient [facility] [id number] [facility] 2020-11-23 2020-11-23 Outpatient [facility] [id number] [facility] 2020-11-22 2020-11-22 Outpatient [facility] [id number] [facility] 2020-11-16 2020-11-16 [facility] [id number] [facility] 2020-11-05 2020-11-05 Outpatient Remigio BUNCH, [facility] [id number] Univers 13:50:00 13:50:00 VELVET [facility] 2020-10-13 2020-10-13 [facility] [id number] [facility] 2020-10-08 2020-10-08 Outpatient [facility] [id number] Univers 13:50:00 13:50:00 [facility] 2020-10-05 2020-10-05 Office [facility] 1.2.840.114 [id number] Univers 13:07:01 13:34:09 Visit Zulema Reyna [id number] ity [facility] [id number] [phone] Wi dical nal 134 [facility] 2020-10-05 2020-10-05 Outpatient R AD, [facility] [id number] Univers 13:00:00 13:00:00 ZULEMA [id number] [facility] 2020-10-05 2020-10-05 Outpatient R AD, [facility] [id number] Univers 13:00:00 13:00:00 ZULEMA [facility] 2020-09-25 2020-09-[address] [facility] 1.2.840.114 [id number] Univers 00:00:00 00:00:00 Outreach Filipe FAUSTIN [id number] i ty of [facility] [id number] [phone] Wi dical [address] 2020-09-18 2020-09-18 Outpatient ADUM, [facility] [id number] Univers 14:00:00 14:00:00 ZULEMA [id number] [facility] 2020-09-18 2020-09-18 Outpatient Remigio MCMAHAN [facility] [id number] Univers 14:00:00 14:00:00 ZULEMA [facility] 2020-09-11 2020-09-11 Outpatient [facility] [id number] [facility] 2020-09-10 2020-09-10 Outpatient [facility] [id number] [facility] 2020 2020 Outpatient [facility] [id number] [facility] 2020-08-20 2020-08-20 Outpatient [facility] [id number] [facility] 2020-08-15 2020-08-15 Outpatient [facility] [id number] [facility] 2020-08-14 2020-08-14 Outpatient [facility] [id number] [facility] 2020-08-07 2020-08-07 Outpatient [facility] [id number] [facility] 2020-08-06 2020-08-06 Outpatient [facility] [id number] [facility] 2020-08-01 2020-08-01 Outpatient [facility] [id number] [facility] 2020-07-31 2020-07-31 Outpatient [facility] [id number] [facility] 2020-07-25 2020-07-25 Outpatient [facility] [id number] [facility] 2020-07-19 2020-07-19 Outpatient [facility] [id number] [facility] 2020-07-10 2020-07-10 Outpatient Remigio KAYCECILE, [facility] [id number] Univers 15:00:00 15:00:00 ZULEMA [id number] [facility] 2020-07-10 2020-07-10 Outpatient Remigio MARJ [facility] [id number] Univers 15:00:00 15:00:00 ZULEMA [facility] 2020-07-10 2020-07-10 Outpatient [facility] [id number] [facility] 2020-06-25 2020-06-25 Outpatient [facility] [id number] [facility] 2020-06-06 2020-06-06 Outpatient [facility] [id number] [facility] 2020-05-30 2020-05-30 Outpatient [facility] [id number] [facility] 2020-05-29 2020-05-29 Outpatient [facility] [id number] [facility] 2020-05-29 2020-05-29 Outpatient [facility] [id number] [facility] 2020-05-23 2020-05-23 Outpatient [facility] [id number] [facility] 2020-05-22 2020-05-22 Outpatient [facility] [id number] [facility] 2020-05-17 2020-05-17 Outpatient [facility] [id number] [facility] 2020-05-17 2020-05-17 Outpatient [facility] [id number] [facility] 2020-05-14 2020-05-14 Outpatient [facility] [id number] [facility] 2020-05-10 2020-05-10 Outpatient [facility] [id number] [facility] 2020-05-01 2020-05-01 Outpatient [facility] [id number] [facility] 2020-04-18 2020-04-18 Outpatient R ADUM, [facility] [id number] Univers 13:00:00 13:00:00 ZULEMA [id number] [facility] 2020-04-18 2020-04-18 Outpatient R AD, [facility] [id number] Univers 13:00:00 13:00:00 ZULEMA [facility] 2020-04-18 2020-04-18 Telemedici [facility] 1.2.840.114 [id number] 09:57:19 10:27:19 ne Visit Zulema Reyna 350.1.13.10 [place] 4.2.7.2.686 Professio [phone] [address] 2020-04-18 2020-04-18 Telemedici [facility] 1.2.840.114 [id number] [facility] 09:57:19 10:27:19 ne Visit Zulema Reyna 350.1.13.10 ity [facility] [place] [phone] Wi dical [address] 2020-04-06 2020-04-06 Telephone Adum, [facility] [id number] 00:00:00 00:00:00 Zulema L [place] [id number] [place] [id number] Professio [phone] [address] 2020-04-06 2020-04-06 Telephone Adum, [facility] [id number] Univers 00:00:00 00:00:00 Zulema L [place] [id number] [id number] [phone] [address] 2020-04-06 2020-04-06 Telephone Ad, [facility] [id number] Univers 00:00:00 00:00:00 Zulema L [place] [id number] [id number] [phone] [address] 2020-04-06 2020-04-06 Telephone Ad, [facility] [id number] 00:00:00 00:00:00 Zulema L [place] 350.1.13.10 [place] 4.2.7.2.686 Professio [phone] [address] 2020-04-04 2020-04-04 Office Adum, [facility] 1.2.840.114 [id number] Univers 15:09:22 16:59:32 Visit Zulema L [place] 350.1.13.10 [place] [phone] [address] 2020-04-04 2020-04-04 Office Adum, [facility] 1.2.840.114 [id number] 15:09:22 16:59:32 Visit Zulema L [place] 350.1.13.10 [place] 4.2.7.2.686 Professio [phone] [address] 2020-04-04 2020-04-04 Outpatient ADUM, [facility] [id number] Univers 15:00:00 15:00:00 ZULEMA ity [facility] 2020-04-04 2020-04-04 Outpatient R AD, [facility] [id number] Univers 15:00:00 15:00:00 ZULEMA ity [facility] 2020-03-23 2020-03-23 Outpatient AD, [facility] [id number] Univers 14:00:00 14:00:00 ZULEMA [id number] ity [facility] 2020-03-23 2020-03-23 Outpatient R AD, [facility] [id number] Univers 14:00:00 14:00:00 ZULEMA ity [facility] 2020-03-23 2020-03-23 Telephone [facility] [id number] Univers 00:00:00 00:00:00 Zulema [place] 350.1.13.10 [place] [phone] Wi dical [address] 2020-03-22 2020-03-22 [facility] 1.2.840.114 [id number] Univers 17:07:55 23:59:00 Encounter Zulema [place] 350.1.13.10 [place] [phone] [address] 2020-03-22 2020-03-22 [facility] 1.2.840.114 [id number] Univers 17:00:00 17:06:00 Encounter Zulema [place] 350.1.13.10 [place] [phone] [address] 2020-03-22 2020-03-22 Outpatient R AD, [facility] [id number] Univers 17:00:00 17:00:00 ZULEMA [id number] ity [facility] 2020-03-22 2020-03-22 Outpatient R AD, [facility] [id number] Univers 00:00:00 00:00:00 ZULEMA ity [facility] 2020-03-21 2020-03-21 Office [facility] 1.2.840.114 [id number] Univers 15:48:44 17:00:36 Visit Zulema Reyna 350.1.13.10 [place] [phone] Wi dical nal 134 [facility] 2020-03-21 2020-03-21 Outpatient R ADUM, [facility] [id number] Univers 16:00:00 16:00:00 ZULEMA [id number] ity of [facility] 2020-03-21 2020-03-21 Outpatient R ADUM, [facility] [id number] Univers 16:00:00 16:00:00 ZULEMA ity of [facility] 2020-03-21 2020-03-21 Orders Doctor JORGE ALBERTO 1.2.840.114 [id number] Univers 00:00:00 00:00:00 Only Unassigned, NITHIN 350.1.13.10 ity of [place] [facility] 4.2.7.2.686 Oscar as [phone] [facility] [address] [place] 2020-03-20 2020-03-20 Telephone Ad, [facility] 1.2.911.260 [id number] Univers 00:00:00 00:00:00 Zulema Reyna 350.1.13.10 [place] [phone] Wi dical nal [address] [place] [address] 2020-03-20 2020-03-20 Telephone Ad, [facility] [id number] Univers 00:00:00 00:00:00 Zulema Reyna 350.1.13.10 [place] [phone] Wi dical nal 134 [facility] 2020-03-16 2020-03-16 Emergency Mariam, K [facility] 1.2.840.114 [id number] Univers 20:18:00 23:40:00 Violet Reyna 350.1.13.10 i ty of [place]2.[place] [phone] [facility] [address] [place] 2020-03-16 2020-03-16 Telephone Adum, [facility] 1.2.737.031 [id number] Univers 00:00:00 00:00:00 Zulema Reyna 350.1.13.10 [place] [phone] [facility] 2020-03-13 2020-03-13 Outpatient Chapin Beasley [id number] 15:20:00 15:20:00 t [facility] [place] [facility] 2020-03-08 2020-03-08 Hospital Ad, [facility] 1.2.840.114 [id number] Univers 07:55:00 10:44:00 Encounter Zulema [place] 350.1.13.10 [place] [phone] [address] 2020-03-08 2020-03-08 Letter JORGE ALBERTO Bel[place] 1.2.840.114 [id number] Univers 00:00:00 00:00:00 (Out) Alexandrea Rosado NITHIN 350.1.13.10 it y of HOSPITAL 4.2.7.2.686 [place] [phone] [address] 2020-03-07 2020-03-07 Nurses Aide Rasheeda, Adc [facility] [place] 1.2.8 40.114 [id number] Univers 16:56:10 18:09:42 Visit AdZulema benites 350.1.13.10 it[place] [phone] [facility] 353 [facility] 2020-02-10 2020-03-07 Office Ad, [facility] 1.2.840.114 [id number] Univers 15:11:12 17:29:53 Visit Zulema [place] 350.1.13.10 [place]2.[place] [phone] Wi dical nal 134 [facility] 2020-03-07 2020-03-07 Laboratory Only, Adc Test [facility] 1.2.840. 114 [id number] Univers 16:17:17 16:32:17 Only AdZulema benites 350.1.13.10 it[place] [phone] [facility] [address] [place] 2020-03-07 2020-03-07 Outpatient R [facility] [id number] Univers 15:00:00 15:00:00 [id number] ity of [facility] 2020-03-07 2020-03-07 Outpatient R [facility] [id number] Univers 15:00:00 15:00:00 ity of [facility] 2020-03-07 2020-03-07 Orders Doctor JORGE ALBERTO 1.2.840.114 [id number] Univers 00:00:00 00:00:00 Only Unassigned, NITHIN 350.1.13.10 ity of [facility] 4.2.7.2.686 [place] [phone] [address] 2020-02-10 2020-02-10 [facility] [id number] Univers 15:00:00 15:00:00 ZULEMA ity [facility] 2020-02-10 2020-02-10 Outpatient R AD, [facility] [id number] Univers 15:00:00 15:00:00 ZULEMA ity [facility] 2020-02-10 2020-02-10 Telephone [facility] 1.2.911.494 [id number] Univers 00:00:00 00:00:00 Zulema Reyna 350.1.13.10 [place] [phone] Wi dic[address] 2020-01-30 2020-01-30 Office [facility] 1.2.840.114 [id number] Univers 15:17:39 16:34:14 Visit Zulema Reyna 350.1.13.10 [place] [phone] Wi dic[address] 2020-01-30 2020-01-30 [facility] [id number] Univers 15:00:00 15:00:00 ZULEMA [id number] ity [facility] 2020-01-30 2020-01-30 [facility] [id number] Univers 15:00:00 15:00:00 ZULEMA ity of [facility] 2020-01-30 2020-01-30 Orders Doctor JORGE ALBERTO 1.2.840.114 [id number] Univers 00:00:00 00:00:00 Only Unassigned, NITHIN 350.1.13.10 ity of [place] [facility] 4.2.7.2.686 Oscar as [phone] [facility] [address] [place] 2020-01-26 2020-01-26 [facility] 1.2.840.114 [id number] Univers 14:30:00 23:59:00 Encounter Zulema L [place] 350.1.13.10 it[place] [phone] [facility] [address] [place] 2020-01-26 2020-01-26 Outpatient R [facility] [id number] Univers 14:30:00 14:30:00 ZULEMA [id number] ity [facility] 2020-01-26 2020-01-26 Outpatient R [facility] [id number] Univers 00:00:00 00:00:00 ZULEMA ity of [facility] 2020-01-26 2020-01-26 Orders Doctor JORGE ALBERTO 1.2.840.114 [id number] Univers 00:00:00 00:00:00 Only Unassigned, NITHIN 350.1.13.10 ity of [place] [facility] 4.2.7.2.686 [place] [phone] [address] 2020-01-17 2020-01-17 [facility] 1.2.840.114 [id number] Univers 00:00:00 00:00:00 Management Zulema L [place] [id number] [id number] [phone] [address] 2020-01-17 2020-01-17 Case [facility] 1.2.840.114 [id number] Univers 00:00:00 00:00:00 Management Zulema L [place] [id number] [id number] [phone] Wi dical nal 134 [facility] 2020-01-17 2020-01-17 Telephone Adum, [facility] [id number] Univers 00:00:00 00:00:00 [place] [id number] [id number] [phone] Wi dical nal 134 [facility] 2020-01-16 2020-01-16 Nurses Aide 2, Adc Lab [facility] 1.2.840.114 [id number] Univers 15:29:19 15:44:19 Visit Adum, Zulema Ry[place] [id number] [id number] [phone] Wi dicco nal 353 [facility] 2020-01-16 2020-01-16 Outpatient R [facility] [id number] Univers 15:00:00 15:00:00 [id number] ity of [facility] 2020-01-16 2020-01-16 Outpatient R [facility] [id number] Univers 15:00:00 15:00:00 ity of [facility] 2020-01-16 2020-01-16 Outpatient R [facility] [id number] Univers 15:00:00 15:00:00 ity of [facility] 2020-01-13 2020-01-16 [facility] 1.2.840.114 [id number] Univers 15:05:13 13:43:08 Visit Zulema [place] [id number] [id number] [phone] Wi dical nal 134 [facility] 2020-01-16 2020-01-16 Telephone Adum, [facility] [id number] Univers 00:00:00 00:00:00 Zulema [place] [id number] [id number] [phone] Wi dical nal 134 [facility] 2020-01-13 2020-01-13 Outpatient R ADUM, [facility] [id number] Univers 15:00:00 15:00:00 ZULEMA patel [facility] 2020-01-10 2020-01-10 [facility] [id number] [facility] [address] 15:00:00 15:00:00 [place] [employer] [facility] Outpat[facility] ent Clinics 2020-01-04 2020-01-04 [facility] [id number] [address] 15:57:00 15:57:00 [place] [employer] [facility] [facility] Medicine Outpati ent Clinics 2019-11-08 2019-11-08 [facility] [id number] [facility] 14:[facility]00 [facility] [place] [employer] [facility] - [facility] l Medicine Outpati ent Clinics 2019-10-17 2019-10-17 [facility] [id number] [facility] 14:30:00 14:30:00 [facility] [place] [employer] [facility] - Drive [facility] Medicine Outpati ent Clinics 2019-08-17 2019-08-17 [facility] [id number] [facility] 13:30:00 13:30:00 [facility] [place] [employer] - Drive [facility] l Medicine Outpati ent Clinics 2019-06-21 2019-06-21 [facility] [id number] [facility] 14:45:00 14:45:00 t [place] [employer] - [facility] l Medicine Outpati ent Clinics 2019-05-24 2019-05-24 [facility] [id number] [facility] 14:15:00 14:15:00 [place] [employer] - Drive [facility] Medicine Outpati ent Clinics 2019-05-19 2019-05-19 [facility] [id number] [facility] 14:15:00 14:15:00 t [place] [employer] - Drive [facility] l Medicine Outpati ent Clinics 2019-05-10 2019-05-10 [facility] [id number] [facility] 10:15:00 10:15:00 t [place] [employer] - Drive [facility] Medicine Outpati ent Clinics 2019-04-13 2019-04-13 [facility] [id number] [facility] 15:15:00 15:15:[address] [place] [address] - Drive [facility] Medicine l Medicine Outpati ent Clinics 2019-04-05 2019-04-05 [facility] [id number] 08:30:00 08:30:[address] [place] [address] - Drive [facility] l Medicine Outpati ent Clinics 2019-03-16 2019-03-16 [facility] [id number] 13:15:00 13:15:[address] [place] [address] - Drive [facility] Medicine l Medicine Outpati ent Clinics 2019-03-01 2019-03-01 [facility] [id number] [facility] 09:37:00 09:37:[address] [place] [address] - Drive [facility] l Medicine Outpati ent Clinics 2019-02-25 2019-02-25 [facility] [id number] 12:15:00 12:15:[address] [place] [address] - Drive [facility] Medicine Outpati ent Clinics 2019-02-21 2019-02-21 [facility] [id number] 14:30:00 14:30:[address] [place] [address] - Drive [facility] Medicine l Medicine Outpati ent Clinics 2018-10-13 2018-10-13 [facility] [id number] 08:39:00 08:39:[address] [place] [address] - Drive [facility] Medicine l Medicine Outpati ent Clinics 2018-10-12 2018-10-12 [facility] [id number] 15:42:00 15:42:[address] [place] [address] - Drive [facility] Medicine l Medicine Outpati ent Clinics 2018-10-11 2018-10-11 [facility] [id number] [facility] 14:45:00 14:45:[address] [place] [address] - Drive [facility] l Medicine Outpati ent Clinics 2018-09-13 2018-09-13 [facility] [id number] 11:43:00 11:43:[address] [place] [address] - Drive [facility] Medicine l Medicine Outpati ent Clinics 2018-09-09 2018-09-09 [facility] [id number] [facility] 14:45:00 14:45:00 [facility] ent Clinics Results Test Description Test Time Test Comments Results Result Comments Source D-DIMER 2020-03-17 03:48:00 Test Item Value Reference Range Interpretation Comme nts D-DIMER (test code = See_Comment [Autom ated message] The [id number]) system which ge nerated this result tra nsmitted reference range : <0.41 ?g/mL (FEU). Th e reference range was not used to interpr et this result as normal/abnormal . XENA (test code = XENA) This test may be used in conjunction with a clinical pretest probability (PTP) assessment model to exclude venous thromboembolism (VTE) in patients suspected of deep venous thrombosis (DVT) and pulmonary embolism (PE) A D-Dimer value less than 0.50 ?g/ml (FEU) has a negative predicative value of 96 to 100% (95% CI)and 97 to 100% (95% CI) as an aid in the diagnosis of deep vein thrombosis (DVT) and pulmonary embolism when there is low or moderate pretest probability of PE or DVT. D-Dimer values are expressed in initial fibrinogen equivalent units (FEU)" The assay results should be used with other information, including the clinical context, in forming a diagnosis. Lab Interpretation Normal (test code = 14100-8) [facility] [id number] 03:47:00 Test Item Value Reference Range Interpretation Comments APPEARANCE (test code = Hazy Clear A 5801910072) COLOR (test code = Yellow Yellow 0800826544) PH (test code = 4.8-8.0 5839550818) SP GRAVITY (test code = 1.003-1.030 1036722235) GLU U QUAL (test code = Normal Normal 5084309767) BLOOD (test code = 1+ Negative A 6037816549) KETONES (test code = Negative Negative 3394807257) PROTEIN (test code = Negative Negative 2887-8) UROBILIN (test code = Normal Normal 0469477419) BILIRUBIN (test code = Negative Negative 5496494254) NITRITE (test code = Negative Negative 9055047089) LEUK ELEANOR (test code = 250/uL Negative A 1288548212) RBC/HPF (test code = See_Comment H [Autom ated message] 9488511011) The system [employer] generated this result transmitted ref erence range: 0 - 3 HP F. The reference range was not used to int erpret this result as normal/abnormal . WBC/HPF (test code = See_Comment H [Autom ated message] 0518926900) The system [employer] generated this result transmitted ref erence range: 0 - 5 HP F. The reference range was not used to int erpret this result as normal/abnormal . BACTERIA (test code = Negative Negative 2066142943) MUCOUS (test code = Marked Negative LPF A 9449540705) SQ EPITH (test code = HPF 4687547436) Lab Interpretation (test Abnormal code = 09312-0) [facility]. METABOLIC PANEL (90948)2020-03-17 03:39:00 Test Item Value Reference Range Interpretation Comments NA (test code = 137 mmol/L 135-145 4407471709) K (test code = 3.9 mmol/L 3.5-5 9211760764) CL (test code = 102 mmol/L 98-108 7251117791) CO2 TOTAL (test code = 25 mmol/L 23-31 8461453673) AGAP (test code = 2-16 7119329914) BUN (test code = 16 mg/dL 7-23 7880206891) GLUCOSE (test code = 90 mg/dL 70-110 0391562877) CREATININE (test code 0.70 mg/dL 0.5-1.04 = 9983508417) TOTAL BILI (test code 0.2 mg/dL 0.1-1.1 = 4706866796) CALCIUM (test code = 9.3 mg/dL 8.6-10.6 7957379346) T PROTEIN (test code = 7.9 g/dL 6.3-8.2 1973922388) ALBUMIN (test code = 4.4 g/dL 3.5-5 7599475754) ALK PHOS (test code = 56 U/L 34-122 7966275719) ALTv (test code = 31 U/L 5-35 1742-6) AST(SGOT) (test code = 27 U/L 13-40 8592433302) eGFR Calculation mL/min/1.73m2 (Non-) (test code = 9531920511) eGFR Calculation mL/min/1.73m2 () (test code = 3387918812) XENA (test code = XENA) Association of Glomerular Filtration Rate (GFR) and Staging of Kidney Disease* + -+ + ---+| GFR (mL/min/1.73 m2) ?| With Kidney Damage ?| ?Without Kidney Damage+ -------+ ------+ ---------+| ?>90 ?| ?Stage one ?| ? Normal ?+ --+ -+ ----+| ?60-89 ?| ?Stage two ?| ? Decreased GFR ? + -+ + ---+| ?30-59 ?| ?Stage three ?| ? Stage three ? + -+ + ---+| ?15-29 ?| ?Stage four ? | ? Stage four ?+ --+ -+ ----+| ?<15 (or dialysis) ? ?| ?Stage five ? | ? Stage five ?+ --+ -+ ----+ *Each stage assumes the associated GFR level has been in effect for at least three months. ?Stages 1 to 5, with or without kidney disease, indicate chronic kidney disease. Notes: Determination of stages one and two (with eGFR >59mL/min/1.73 m2) requires estimation of kidney damage for at least three months as defined by structural or functional abnormalities of the kidney, manifested by either:Pathological abnormalities or Markers of kidney damage (including abnormalities in the composition of the blood or urine or abnormalities in imaging tests). [facility] Test Item Value Reference Range Interpretation Comments LIPASE (test code = 5789313189) 67 U/L 0-220 Lab Interpretation (test code = Normal 12004-2) [facility] WITH [id number] 03:37:00 Test Item Value Reference Range Interpretation Comments WBC (test code = See_Comment [Automated 8090-2) message] The sy stem which generated this result transmitted reference range : 4.30 - 11.10 10*3/?L. The reference range was not used to interpret this result as normal/abnormal . RBC (test code = See_Comment [Automated 789-8) message] The sy stem which generated this result transmitted reference range : 3.93 - 5.25 10*6/?L. The reference range was not used to interpret this result as normal/abnormal . HGB (test code = 13.8 g/dL 11.6-15 718-7) HCT (test code = 41.4 % 35.7-45.2 4544-3) MCV (test code = 92.0 fL 80.6-95.5 787-2) MCH (test code = 30.7 pg 25.9-32.8 785-6) MCHC (test code = 33.3 g/dL 31.6-35.1 786-4) RDW-SD (test code = 42.8 fL 39-49.9 33234-7) RDW-CV (test code = 12.7 % 12-15.5 788-0) PLT (test code = See_Comment [Automated 777-3) message] The sy stem which generated this result transmitted reference range : 166 - 358 10*3/ ?L. The reference r guillermo was not used to interpret this result as normal/abnormal . MPV (test code = 10.1 fL 9.5-12.9 51689-0) NRBC/100 WBC (test See_Comment [Automat ed code = 7595014979) message] The system which generated this result transmitted reference range : 0.0 - 10.0 /100 WBCs. The refer ence range was not u sed to interpret th is result as normal/abnormal . NRBC x10^3 (test code <0.01 See_Comment [Auto mated = 4343166957) message] The s ystem which generated this result transmitted reference range : 10*3/?L. The reference range was not used to interpret this result as normal/abnormal . GRAN MAT (NEUT) % 72.0 % (test code = 770-8) IMM GRAN % (test code 0.80 % = 0214382882) LYMPH % (test code = 16.1 % 736-9) MONO % (test code = 9.6 % 5905-5) EOS % (test code = 0.9 % 713-8) BASO % (test code = 0.6 % 706-2) GRAN MAT x10^3(ANC) 5.62 10*3/uL 1.88-7.09 (test code = 1206013151) IMM GRAN x10^3 (test 0.06 10*3/uL 0-0.06 code = 6623350886) LYMPH x10^3 (test code 1.26 10*3/uL 1.32-3.29 L = 731-0) MONO x10^3 (test code 0.75 10*3/uL 0.33-0.92 = 742-7) EOS x10^3 (test code = 0.07 10*3/uL 0.03-0.39 711-2) BASO x10^3 (test code 0.05 10*3/uL 0.01-0.07 = 704-7) Lab Interpretation Abnormal (test code = 98661-3) [facility] [id number] 13:26:00 Test Item Value Reference Range Interpretation Comments POCT PREG (test code = 1605) Negative On board controls acceptable with Yes C Line (test code = 3574) POCT PREG LOT # (test code = 3575) [id number] POCT PREG TEST DATE (test 04/04/21 code = 3576) [facility] [id number] 20:48:00 Test Item Value Reference Range Interpretation Comments POCT PREG (test code = 1605) Negative On board controls acceptable with C Yes Line (test code = 3574) POCT PREG LOT # (test code = 3575) POCT PREG TEST DATE (test code = 3576) [facility] [id number] 20:48:00 Test Item Value Reference Range Interpretation Comments POCT PREG (test code = 1605) Negative On board controls acceptable with C Yes Line (test code = 3574) POCT PREG LOT # (test code = 3575) POCT PREG TEST DATE (test code = 3576) [facility] P[facility] COMPLETE WITH [id number] 20:29:54HISTORY: Excessive bleeding. TECHNIQUE: Both transabdominal and transvaginal pelvic ultrasound studieswere completed by the technologist. FINDINGS: Uterus is bulky in size, elongated shaped, measures rsoxljiyxbxig88.7 x 4.4 x 5.8 cm in size with homogeneous echo texture of themyometrium. Small nabothian cysts are seen in the cervix, the largest is 3mm . Endometrial echo complex is 13 mm. No free fluid in the cul-de-sac. Right ovary is 3.9 x 2.7 x 2.5 cm (14.43 ml) and left ovary is 3.5 x 1.6 x1.9 cm (5.97 ml). Multiple small follicles noted in the left ovary rangingfrom 4 mm to 9 mm. The right ovary contains a small 6 mm follicle. CONCLUSIONS: 1. Enlarged and elongated shaped with no focal myometrial lesions seen.2. Mild endometrial hyperplasia with endometrial echo complex of 13 mm,likely physiologic. [facility], Radiant Results Inft User - 01/26/2020 3:31 PM CDTHISTORY: Excessive bleeding.TECHNIQUE: Both transabdominal and transvaginal pelvic ultrasound studieswere completed by the technologist.FINDINGS: Uterus is bulky in size, elongated shaped, measures cnlzbjvayjeom29.7 x 4.4 x 5.8 cm in size with homogeneous echo texture of themyometrium. Small nabothian cysts are seen in the cervix, the largest is 3mm .Endometrial echo complex is 13 mm. No free fluid in the cul-de-sac. Right ovary is 3.9 x 2.7 x 2.5 cm (14.43 ml) and left ovary is 3.5 x 1.6 x1.9 cm (5.97 ml). Multiple small folliclesnoted in the left ovary rangingfrom 4 mm to 9 mm. The right ovary contains a small 6 mm follicle.CONCLUSIONS: 1. Enlarged and elongated shaped with no focal myometrial lesions seen.2. Mild endometrial h yperplasia with endometrial echo complex of 13 mm,likely physiologic.[facility]
[2021-10-29] MEDS ORDERED: DIAZEPAM 5 MG TABLET ONE (23:18)
[2021-10-29] MEDS ORDERED: MORPHINE 4 MG/ML SYR ONE (23:19)
[2021-10-29] MEDS ORDERED: dexAMETHasone 10 MG/ML VIAL ONE (23:19)
[2021-10-29] MEDS ORDERED: NA CHLORIDE 0.9% 1,000 ML ONE (23:19)
[2021-10-29] MEDS ORDERED: ONDANSETRON 4 MG/2 ML VIAL ONE (23:19)
[2021-10-29] MEDS ORDERED: KETOROLAC 30 MG/ML INJ ONE (23:19)
[2021-10-29 23:31] LABS: Absolute Lymphocytes (CBC) 1.1 K/uL (0.7-4.9); Hematocrit 41.6 % (36.0-45.0); Lymphocytes % 12.9 % (15.3-44.8); MPV 8.1 fL (7.6-11.3); RBC Red Blood Cell Count 4.67 M/uL (3.86-4.86)
[2021-10-29 23:47] LABS: Albumin 4.3 g/dL (3.4-5.0); Bilirubin Total 0.3 mg/dL (0.2-1.0); Potassium 3.5 mmol/L (3.5-5.1); Protein, Total 8.4 g/dL (6.4-8.2)
--- NOTE | 2021-10-30 00:30 | ER ---
Nurse's Notes [facility] Name: Iza Stewart Age: 31 yrs Sex: Female : 1990 Arrival Date: 10/29/2021 Time: 22:13 Bed 18 Private MD: Diagnosis: Cervical disc disorder with radiculopathy, unspecified cervical [id number] Presentation: 10/29 22:39 Chief complaint: Patient states: Severe right shoulder pain radiating to neck, unable lp1 to rotate neck, ongoing x 3 weeks, unable to wait until appt on 11/04/21; Denies acute injury to site. Coronavirus screen: At this time, the client does not indicate any symptoms associated with coronavirus-19. Ebola Screen: No symptoms or risks identified at this time. Initial Sepsis Screen: Does the patient meet any 2 criteria? No. Patient's initial sepsis screen is negative. Does the patient have a suspected source of infection? No. Patient's initial sepsis screen is negative. Risk Assessment: Do you want to hurt yourself or someone else? Patient reports no desire to harm self or others. Onset of symptoms was October 29, 2021. 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 - Social history:: Smoking status: Patient denies any tobacco usage or history of. - Family history:: not pertinent. Screenin:25 Abuse screen: Denies threats or abuse. Denies injuries from another. Nutritional lg3 screening: No deficits noted. Tuberculosis screening: No symptoms or risk factors identified. Fall Risk None identified. Assessment: 23:25 General: Appears in no apparent distress. uncomfortable, Behavior is cooperative, lg3 anxious, crying, fussy. Pain: Complains of pain in right shoulder Pain radiates to neck. Neuro: No deficits noted. Level of Consciousness is awake, alert, obeys commands, Oriented to person, place, time, situation. Cardiovascular: No deficits noted. Denies chest pain, shortness of breath, Capillary refill < 3 seconds Clubbing of nail beds is absent JVD is absent Patient's skin is warm and dry. Respiratory: No deficits noted. Airway is patent Trachea midline Respiratory effort is even, unlabored, Respiratory pattern is regular, symmetrical. GI: No deficits noted. No signs and/or symptoms were reported involving the gastrointestinal system. : No deficits noted. No signs and/or symptoms were reported regarding the genitourinary system. EENT: No deficits noted. No signs and/or symptoms were reported regarding the EENT system. Derm: No deficits noted. No signs and/or symptoms reported regarding the dermatologic system. Skin is intact, is healthy with good turgor, Skin is dry, Skin is pink, warm \T\ dry. Musculoskeletal: Circulation, motion, and sensation intact. Range of motion: limited in right shoulder Reports pain in right shoulder. 10/30 00:24 Reassessment: Patient appears in no apparent distress at this time. No changes from lg3 previously documented assessment. Patient and/or family updated on plan of care and expected duration. Pain level reassessed. Patient is alert, oriented x 3, equal unlabored respirations, skin warm/dry/pink. 01:03 Reassessment: Patient appears in no apparent distress at this time. No changes from lg3 previously documented assessment. Patient and/or family updated on plan of care and expected duration. Pain level reassessed. Patient is alert, oriented x 3, equal unlabored respirations, skin warm/dry/pink. Vital Signs: 10/29 22:39 BP 143 / 95; Pulse 109; Resp 18; Temp 99.4(O); Pulse Ox 100% on R/A; Weight 108.86 kg lp1 (R); Height 5 ft. 4 in. (162.56 cm); Pain 8/10; 23:10 BP 138 / 88; Pulse 101; Resp 18; Pulse Ox 100% on R/A; lg3 10/30 01:00 BP 132 / 86; Pulse 98; Resp 18; Pulse Ox 100% on R/A; lg3 10/29 22:39 Body Mass Index 41.20 (108.86 kg, 162.56 cm) lp1 ED Course: 10/29 22:13 Patient arrived in ED. bp1 22:15 Zaheer Giordano MD is Attending Physician. stew 22:38 Arm band placed on. lp1 22:40 Triage completed. lp1 22:51 eKzia Sanchez, RN is Primary Nurse. lg3 23:10 Sed Rate Sent. lg3 23:11 Comprehensive Metabolic Panel Sent. lg3 23:11 CBC with Diff Sent. lg3 23:25 Patient has correct armband on for positive identification. Bed in low position. Call lg3 light in reach. Side rails up X 1. Door closed. Noise minimized. Warm blanket given. 23:25 Inserted saline lock: 20 gauge in left antecubital area, using aseptic technique. Blood lg3 collected. 23:31 Shoulder Right (2 View) XRAY In Process Unspecified. EDMS 23:45 CT C Spine In Process Unspecified. EDMS 10/30 00:28 Toby Weber MD is Referral Physician. stew 01:06 No provider procedures requiring assistance completed. IV discontinued, intact, lg3 bleeding controlled, No redness/swelling at site. Pressure dressing applied. Administered Medications: 10/29 23:22 Drug: Zofran (Ondansetron) 4 mg Route: IVP; Site: left antecubital; lg3 23:22 Follow up: Response: No adverse reaction lg3 23:23 Drug: Decadron - Dexamethasone 10 mg Route: IVP; Site: left antecubital; lg3 23:23 Follow up: Response: No adverse reaction lg3 23:23 Drug: Valium (diazepam) 5 mg Route: PO; lg3 23:23 Follow up: Response: No adverse reaction lg3 23:23 Drug: morphine 4 mg Route: IVP; Site: left antecubital; lg3 23:23 Follow up: Response: No adverse reaction; RASS: Alert and Calm (0) lg3 23:24 Drug: Ketorolac 30 mg Route: IVP; Site: left antecubital; lg3 23:24 Follow up: Response: No adverse reaction lg3 23:28 Drug: NS 0.9% 1000 ml Route: IV; Rate: 1 bolus; Site: left antecubital; lg3 10/30 00:52 Drug: morphine 2 mg Route: IVP; Site: left antecubital; lg3 00:52 Follow up: Response: No adverse reaction; RASS: Alert and Calm (0) lg3 00:52 Drug: Valium (diazepam) 5 mg Route: PO; lg3 00:52 Follow up: Response: No adverse reaction lg3 Outcome: 00:30 Discharge ordered by MD. mathias 01:06 Discharged to home ambulatory, with friend. lg3 01:06 Condition: stable 01:06 Discharge instructions given to patient, Instructed on discharge instructions, follow up and referral plans. medication usage, Demonstrated understanding of instructions, follow-up care, medications, Prescriptions given X 4. 01:06 Patient left the ED. lg3 Signatures: Dispatcher [employer] EDZaheer Mata MD MD cha Pena, Laura, RN RN lp1 Kezia Sanchez, RN RN lg3 Tiffanie Lomeli [facility]
--- NOTE | 2021-10-30 00:30 | EDPHYS ---
Physician Documentation [facility] Name: Iza Stewart Age: 31 yrs Sex: Female : 1990 Arrival Date: 10/29/2021 Time: 22:13 Bed 18 Private MD: ED Physician Zaheer Giordano HPI: 10/30 00:21 This 31 yrs old Female presents to ER via Ambulatory with complaints of stew Shoulder Pain. 00:21 The patient or guardian complains of decreased range of motion, pain, that is chronic. stew right shoulder, right trapezius and right sternocleidomastoid. Context: The problem was sustained resulted from an unknown reason. Onset: The symptoms/episode began/occurred 3 day(s) ago. Modifying factors: the symptoms are alleviated by nothing. remaining still, The symptoms are aggravated by movement. Associated signs and symptoms: Pertinent positives: neck pain. Severity of symptoms: At their worst the symptoms were moderate, in the emergency department the symptoms are unchanged. Treatment prior to arrival includes: sling. The patient has experienced similar episodes in the past, multiple times. 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 - Social history:: Smoking status: Patient denies any tobacco usage or history of. - Family history:: not pertinent. ROS: 10/30 00:21 Constitutional: Negative for fever, chills, and weight loss, Eyes: Negative for injury, stew pain, redness, and discharge, ENT: Negative for injury, pain, and discharge, Cardiovascular: Negative for chest pain, palpitations, and edema, Respiratory: Negative for shortness of breath, cough, wheezing, and pleuritic chest pain, Abdomen/GI: Negative for abdominal pain, nausea, vomiting, diarrhea, and constipation, Back: Negative for injury and pain, : Negative for injury, bleeding, discharge, and swelling, Skin: Negative for injury, rash, and discoloration, Neuro: Negative for headache, weakness, numbness, tingling, and seizure, Psych: Negative for depression, anxiety, suicide ideation, homicidal ideation, and hallucinations, Allergy/Immunology: Negative for hives, rash, and allergies, Endocrine: Negative for neck swelling, polydipsia, polyuria, polyphagia, and marked weight changes, Hematologic/Lymphatic: Negative for swollen nodes, abnormal bleeding, and unusual bruising. Neck: Positive for pain with movement, pain at rest. Exam: 00:21 Constitutional: This is a well developed, well nourished patient who is awake, alert, stew and in no acute distress. Head/Face: Normocephalic, atraumatic. Eyes: Pupils equal round and reactive to light, extra-ocular motions intact. Lids and lashes normal. Conjunctiva and sclera are non-icteric and not injected. Cornea within normal limits. Periorbital areas with no swelling, redness, or edema. ENT: Nares patent. No nasal discharge, no septal abnormalities noted. Tympanic membranes are normal and external auditory canals are clear. Oropharynx with no redness, swelling, or masses, exudates, or evidence of obstruction, uvula midline. Mucous membranes moist. Chest/axilla: Normal chest wall appearance and motion. Nontender with no deformity. No lesions are appreciated. Cardiovascular: Regular rate and rhythm with a normal S1 and S2. No gallops, murmurs, or rubs. Normal PMI, no JVD. No pulse deficits. Respiratory: Lungs have equal breath sounds bilaterally, clear to auscultation and percussion. No rales, rhonchi or wheezes noted. No increased work of breathing, no retractions or nasal flaring. Abdomen/GI: Soft, non-tender, with normal bowel sounds. No distension or tympany. No guarding or rebound. No evidence of tenderness throughout. Back: No spinal tenderness. No costovertebral tenderness. Full range of motion. Skin: Warm, dry with normal turgor. Normal color with no rashes, no lesions, and no evidence of cellulitis. MS/ Extremity: Pulses equal, no cyanosis. Neurovascular intact. Full, normal range of motion. Neuro: Awake and alert, GCS 15, oriented to person, place, time, and situation. Cranial nerves II-XII grossly intact. Motor strength 5/5 in all extremities. Sensory grossly intact. Cerebellar exam normal. Normal gait. Psych: Awake, alert, with orientation to person, place and time. Behavior, mood, and affect are within normal limits. 00:21 Neck: External neck: is normal, no acute changes, Thyroid: appears normal, no acute changes, Trachea: is midline with no obvious abnormalities, no acute changes, ROM/movement: limited range of motion, that is moderate, when rotating to the right, when rotating to the left, with flexion, with extension, Meningeal signs: are not present, Kernig's sign is negative, Brudzinski's sign is negative, nuchal rigidity, is not appreciated, Lymph nodes: no appreciated lymphadenopathy. Vital Signs: 10/29 22:39 BP 143 / 95; Pulse 109; Resp 18; Temp 99.4(O); Pulse Ox 100% on R/A; Weight 108.86 kg lp1 (R); Height 5 ft. 4 in. (162.56 cm); Pain 8/10; 23:10 BP 138 / 88; Pulse 101; Resp 18; Pulse Ox 100% on R/A; lg3 10/30 01:00 BP 132 / 86; Pulse 98; Resp 18; Pulse Ox 100% on R/A; lg3 10/29 22:39 Body Mass Index 41.20 (108.86 kg, 162.56 cm) lp1 MDM: 10/29 22:15 Patient medically screened. [facility] 10/30 00:27 Differential diagnosis: tendonitis. Data reviewed: vital signs, nurses notes, lab test [facility] result(s), radiologic studies, CT scan. Data interpreted: Pulse oximetry: on room air is 100 %. Test interpretation: by ED physician or midlevel provider:. Counseling: I had a detailed discussion with the patient and/or guardian regarding: the historical points, exam findings, and any diagnostic results supporting the discharge/admit diagnosis, lab results, radiology results, the need for outpatient follow up, for definitive care, a neurosurgeon. 10/29 22:44 Order name: CBC with Diff; Complete Time: 00:20 [facility] 10/29 22:44 Order name: Comprehensive Metabolic Panel; Complete Time: 00:20 [facility] 10/29 22:44 Order name: CT C Spine [facility] 10/29 22:44 Order name: Sed Rate; Complete Time: 00:20 [facility] 10/29 22:44 Order name: Shoulder Right (2 View) XRAY [facility] 10/30 00:21 Order name: Sling; Complete Time: 01:03 stew Administered Medications: 10/29 23:22 Drug: Zofran (Ondansetron) 4 mg Route: IVP; Site: left antecubital; lg3 23:22 Follow up: Response: No adverse reaction lg3 23:23 Drug: Decadron - Dexamethasone 10 mg Route: IVP; Site: left antecubital; lg3 23:23 Follow up: Response: No adverse reaction lg3 23:23 Drug: Valium (diazepam) 5 mg Route: PO; lg3 23:23 Follow up: Response: No adverse reaction lg3 23:23 Drug: morphine 4 mg Route: IVP; Site: left antecubital; lg3 23:23 Follow up: Response: No adverse reaction; RASS: Alert and Calm (0) lg3 23:24 Drug: Ketorolac 30 mg Route: IVP; Site: left antecubital; lg3 23:24 Follow up: Response: No adverse reaction lg3 23:28 Drug: NS 0.9% 1000 ml Route: IV; Rate: 1 bolus; Site: left antecubital; lg3 10/30 00:52 Drug: morphine 2 mg Route: IVP; Site: left antecubital; lg3 00:52 Follow up: Response: No adverse reaction; RASS: Alert and Calm (0) lg3 00:52 Drug: Valium (diazepam) 5 mg Route: PO; lg3 00:52 Follow up: Response: No adverse reaction lg3 Disposition Summary: 10/30/21 00:30 Discharge Ordered Location: Home stew Problem: new stew Symptoms: have improved stew Condition: Stable stew Diagnosis - Cervical disc disorder with radiculopathy, unspecified cervical region - C4-C5 stew Followup: stew - With: Private Physician - When: 1 - 2 days - Reason: Recheck today's complaints, Continuance of care, Re-evaluation by your physician Followup: stew - With: Toby Weber MD - When: 1 - 2 days - Reason: Recheck today's complaints, Re-evaluation by your physician Discharge Instructions: - Cervical Radiculopathy stew - Herniated Disk stew - Discharge Summary Sheet cp Forms: - Medication Reconciliation Form stew - Thank You Letter stew - Antibiotic Education stew - Prescription Opioid Use [facility] Prescriptions: - Ibuprofen 600 mg Oral Tablet - take 1 tablet by ORAL route every 6 hours As needed take with food; 20 tablet; stew Refills: 0, Product Selection Permitted - Valium 5 mg Oral Tablet - take 1 tablet by ORAL route every 8 hours As needed; 20 tablet; Refills: 0, stew Product Selection Permitted - Tylenol-Codeine #3 300 mg-30 mg Oral - take 2 tablet by ORAL route every 6 hours; 26 tablet; Refills: 0, Product stew Selection Permitted - dexamethasone 2 mg Oral tablet - take 1 tablet by ORAL route 3 times per day; 15 tablet; Refills: 0, Product cp Selection Permitted Signatures: Dispatcher [employer] Zaheer Carrillo MD MD cha Pena, Laura, RN RN lp1 Kezia Sanchez RN RN lg3
[2021-10-30] MEDS ORDERED: DIAZEPAM 5 MG TABLET ONE (00:45)
[2021-10-30] MEDS ORDERED: MORPHINE 4 MG/ML SYR ONE (00:46)
[2021-10-30 02:44] VITALS: TEMP 99.4; O2SAT 100
[2021-10-30 02:53] VITALS: BP 132/86
--- NOTE | 2021-10-30 15:24 | RAD REPORT ---
EXAM DESCRIPTION: CT - C Spine Wo Con - 10/30/2021 7:00 am CLINICAL HISTORY: 31 years Female radiculopathy TECHNIQUE: Contiguous axial CT images obtained through the cervical spine without IV contrast. Cor onal and sagittal reformatted images also provided. This CT exam was performed according to our departmental dose-optimization program, which includes on e or more of the following dose reduction techniques: automated exposure control, adjustment of the m A and/or kV according to patient size, and/or use of iterative reconstruction technique. COMPARISON: No prior exams provided for comparison. FINDINGS: There is no acute cervical fracture or spondylolisthesis. There is mild reversal of the no rmal cervical lordosis with congenital fusion across C2-C3. There is mild multilevel degenerative dis c disease. No aggressive osseous lesion. No acute paraspinal soft tissue abnormality. The lung apices are clear. At C3-C4, there is mild left neural foraminal stenosis. At C4-C5, there is a large right paracentral disc protrusion versus extrusion resulting in moderate t o severe central canal stenosis. At C5-C6, there is a disc osteophyte complex resulting in moderate central canal and moderate bilater al neural foraminal stenosis. At C6-C7, there is mild central canal stenosis with moderate bilateral neural foraminal stenosis, rig ht greater than left. IMPRESSION: No acute cervical spine fracture. Congenital fusion across C2-C3. Large right paracentral disc protrusion versus extrusion at C4-C5 resulting in moderate to severe amanda tral canal stenosis. Follow-up MRI recommended. Electronically signed by: Sari Tobar MD 10/29/2021 11:59 PM CDT Due to temporary technical issues with the PACS/Fluency reporting system, reports are being signed by the in house radiologists without review as a courtesy to insure prompt reporting. The interpreting radiologist is fully responsible for the content of the report.
--- NOTE | 2021-10-30 15:26 | RAD REPORT ---
EXAM DESCRIPTION: RAD - Shoulder Right 2 View - 10/29/2021 11:29 pm CLINICAL HISTORY: 31 years Female, PAIN Shoulder Right 2 View COMPARISON: None. FINDINGS: No fracture or dislocation. Joint spaces are preserved. Soft tissues are unremarkable. IMPRESSION: No acute osseous abnormality. Electronically signed by: Lavell Gamez DO 10/29/2021 11:41 PM CDT Due to temporary technical issues with the PACS/Fluency reporting system, reports are being signed by the in house radiologists without review as a courtesy to insure prompt reporting. The interpreting radiologist is fully responsible for the content of the report.
== END 2021-10-30 01:06 | disposition home or self-care (01) ==
LOC: ER 22:10
DX: M50.121 Cervical disc disorder at C4-C5 level with radiculopathy (principal); E03.9 Hypothyroidism, unspecified; F41.9 Anxiety disorder, unspecified; F32.A Depression, unspecified; Z88.0 Allergy status to penicillin
CPT/HCPCS: 85025; 36415; 85652; 80053; 72125; 73030; J1100; J7030; J2405; 96374; 96375; 99284

== ENCOUNTER 2022-12-10 21:07 | Emergency (ER) | payer BC ==
--- OUTSIDE RECORDS SUMMARY | 2022-12-10 21:20 | XMS REPORT | Continuity of Care Document ---
:1990 Author Organization [facility] t Address [address] [facility]. [address] [place] [address] Care Team Providers Name Role Phone PAULA WHITE Primary Care Physician Unavailable Paula White Attending Clinician Unavailable ZULEMA MCMAHAN Attending Clinician Unavailable VENKATESH VIRK Attending Clinician Unavailable PAULA WHITE Attending Clinician Unavailable Zulema Mcmahan MD Attending Clinician 2, [facility] Attending Clinician Unavailable Doctor Unassigned, Optima Attending Clinician Unavailable WILLA HACKETT Attending Clinician Unavailable VELVET BUNCH Attending Clinician Unavailable Filipe Ramirez DO Attending Clinician Jamie Roberts Attending Clinician Alexandrea Beltran RN Attending Clinician Unavailable Pob, [facility] Main Attending Clinician Unavailable Only, Adc Test Attending Clinician Unavailable ZULEMA MCMAHAN Admitting Clinician Unavailable VENKATESH VIRK Admitting Clinician Unavailable WILLA HACKETT Admitting Clinician Unavailable Zulema Mcmahan MD Admitting Clinician Payers Payer Name Policy Type Policy Number Effective Date Expiration Date [facility] [id number] 2019 00:00:00 BCBS PPO POS [id number] 2022 EPO CHOICE 00:00:00 Blue Cross 6 [id number] Common [facility] t Blue Shield of - [facility] AETNA 53 [id number] 2021 [facility] 00:00:00 [facility] AETNA 53 [id number] 2021 [facility] 00:00:00 [facility] Blue Cross 6 [id number] 2019 Common [facility]iri t Blue Shield of 00:00:00 [facility] Center Problems Condition Condition Condition Status Onset Resolution Last Treating Co mments Source Name Details Category Date Date Treatment Clinician Date Trichomona Trichomona Disease Active 2019-07 U nivers s s 0-14 [place] 00 [facility] Menorrhagi Menorrhagi Disease Active U nivers a with a with 9-03 ity of regular regular 00:00: [place] cycle cycle 00 Medical Branch Preop Preop Disease Active Overview: Univer s examinatio examinatio 8-10 Added it y of n n 00:00: automatic [place] 00 ally from Medical request Branch for surgery [id number] Seasonal Problem Comm on allergies [facility] [id number] Allergic Problem Commo n rhinitis, Spirit unspecifie - CHI d seasonalit [facility] y, Medical unspecifie Center d trigger [id number] Adult BMI Problem Com mon 39.0-39.9 Spirit kg/sq m [facility] [id number] Subclinica Problem Com mon l Spirit hypothyroi - CHI dism [facility] [id number] Generalize Problem Com mon d anxiety [facility] disorder [facility] [id number] Current Problem Common moderate Spirit episode of - CHI major [facility] disorder Medical without Center prior episode [id number] Tenderness Problem Co mmon of left Spirit patella [facility] [id number] Iron Problem Common deficiency Spirit anemia, - CHI unspecifie St d iron [facility] deficiency Medica l anemia Center type [id number] Pain, Problem Commo n joint, Spirit knee, left - CHI [facility] [id number] Migraine Problem Comm on without Spirit aura and - CHI without status [facility] migrainosu Medica l s, not Center intractabl e [id number] Insomnia, Problem Com mon unspecifie Spirit d type - CHI [facility] [id number] Repetitive Problem Co mmon intrusions Spirit of sleep - CHI [facility] [id number] Daytime Problem Comm on 00 somnolence Spirit - CHI [facility] [id number] Body mass Problem Com mon index Spirit [BMI] - CHI 40.0-44.9, adult [facility] [id number] Fatigue, Problem Commo n unspecifie Spirit d type - CHI [facility] [id number] Morbid Problem Commo n 9104 (severe) Spirit obesity - CHI due to [facility] 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 ) [facility] Sequelae Sequelae Problem Commo n of of other Spirit infectious specified - C HI disease infectious (disorder) [facility] parasitic Medical diseases Center No known No known Disease Unive rs active active ity of problems problems [facility] Allergies, Adverse Reactions, Alerts Allergy Allergy Status Severity Reaction(s) Onset Inactive Treating Comm ents Source Name Type Date Date Clinician ONDANSET Allergy Active High Other SLSL VIN HCL - 00:00: 00 Penicill Propensi Active Other - See Patient Univers in ty to comments 01-13 refuses ity of adverse 00:00: to take [address] medicatio Branch n to family hx of allergy to PCN PENICILL DRUG Active Other-Cmnt Univ ers IN INGREDI 01-13 ity of 00:00: [address] PENICILL Allergy Active High Hives 2014-07 [facility] INS 2 00:00: 00 NO KNOWN Drug Active Univers ALLERGIE Class ity of S [facility] Penicill Penicill Active Unknown Commo n in in Spirit - [facility] Social History Social Habit Start Date Stop Date Quantity Comments Source History of [facility] - Tobacco Use [facility] Sex Assigned At Common Sp jennifer - [facility] Exposure to 2022-08-26 2022-09-05 [facility]:20:00 [facility] (event) Branch Alcohol intake 2022-09-05 2022-09-05 Current drinker Unive rsity of 00:00:00 00:00:00 of alcohol [facility] (finding) Joseph Tobacco use and 2022-09-05 2022-09-05 Smokeless tobacco Un iversity of exposure 00:00:00 00:00:00 non-user [facility] Smoking Status Start Date Stop Date Source Never smoked tobacco [facility] [place] [facility] Medications Ordered Filled Start Stop Current Ordering Indication Dosage Frequency Signature Comments Components Source Medication Medication Date Date Medication? Clinician (SIG) Name Name metroNIDAZO 2022- Yes [id number] 1{appli Insert 1 Univers LE 0.75 % 3-13 09-21 cator} Applicator i ty of (37.5mg/5 00:00: 04:59 into [place] gram) 00 :00 vagina at Medical vaginal gel bedtime Branc h for 5 days. Lidocaine Lidocaine No Lidocaine Viscous HCl Viscous HCl -12 Viscous 2 % 2 % 00:00: HCl 2 % 00 metroNIDAZO Yes [id number] 500mg Take 1 Univers LE 500 mg 3-07 tablet by ity o f tablet 00:00: mouth [place] 00 every 12 Medical (twelve) Branch hours. metroNIDAZO Yes [id number] 500mg Take 1 Univers LE 500 mg 3-07 tablet by ity o f tablet 00:00: mouth [place] 00 every 12 Medical (twelve) Branch hours. metroNIDAZO 0 Yes [id number] 500mg Take 1 Univers LE 500 mg 3-07 tablet by ity o f tablet 00:00: mouth [place] 00 every 12 Medical (twelve) Branch hours. metroNIDAZO 0 Yes [id number] 500mg Take 1 Univers LE 500 mg 3-07 tablet by ity o f tablet 00:00: mouth [place] 00 every 12 Medical (twelve) Branch hours. fluconazole 3-0 3- No [id number] 150mg Take 1 Univers 150 mg 3-07 03-08 tablet by ity of tablet 00:00: 05:59 mouth once [place] :00 now for 1 Medical dose. Branch omeprazole 3-0 Yes 20mg Take 1 Unive rs 20 mg 3-03 capsule by ity of capsule 13:59: mouth in [place] 00 the Medical morning. Branch omeprazole 2023-0 Yes 20mg Take 1 Unive rs 20 mg 3-03 capsule by ity of capsule 13:59: mouth in [place] 00 the Medical morning. Branch omeprazole 2023-0 Yes 20mg Take 1 Unive rs 20 mg 3-03 capsule by ity of capsule 13:59: mouth in [place] 00 the Medical morning. Branch omeprazole 3-0 Yes 20mg Take 1 Unive rs 20 mg 3-03 capsule by ity of capsule 13:59: mouth in [place] 00 the Medical morning. Branch omeprazole 2022-0 Yes 20mg Take 1 Unive rs 20 mg 3-03 capsule by ity of capsule 13:59: mouth in [place] 00 the Medical morning. Branch omeprazole 3-0 Yes 20mg Take 1 Unive rs 20 mg 3-03 capsule by ity of capsule 13:59: mouth in [place] 00 the Medical morning. Branch omeprazole 3-0 Yes 20mg Take 1 Unive rs 20 mg 3-03 capsule by ity of capsule 13:59: mouth in [place] 00 the Medical morning. Branch Levothyroxi 0 Yes Tirosint Un virginie ne 137 mcg 3-03 137 mcg ity of Cap 13:56: capsule TAKE 1 Medical CAPSULE BY Branch MOUTH ONCE DAILY IN THE MORNING ON AN EMPTY STOMACH mv-mins/fol 0 Yes Take by Uni vers ic/lycopene 3-03 mouth. ity of /ginkgo 13:56: (MENS 50+ 03 Medical DAILY Branch FORMULA,GIN GKO, ORAL) ZINC ORAL 2022-0 Yes Take by Unive rs 3-03 mouth. ity of 13:56: [place] 03 Medical Branch Levothyroxi 2022-0 Yes Tirosint Un virginie ne 137 mcg 3-03 137 mcg ity of Cap 13:56: capsule TAKE 1 Medical CAPSULE BY Branch MOUTH ONCE DAILY IN THE MORNING ON AN EMPTY STOMACH mv-mins/fol 2023-0 Yes Take by Uni vers ic/lycopene 3-03 mouth. ity of /ginkgo 13:56: [place] (MENS 50+ 03 Medical DAILY Branch FORMULA,GIN GKO, ORAL) ZINC ORAL 2022-0 Yes Take by Unive rs 3-03 mouth. ity of 13:56: [place] 03 Medical Branch Levothyroxi 2022-0 Yes Tirosint Un virginie ne 137 mcg 3-03 137 mcg ity of Cap 13:56: capsule TAKE 1 Medical CAPSULE BY Branch MOUTH ONCE DAILY IN THE MORNING ON AN EMPTY STOMACH mv-mins/fol 3-0 Yes Take by Uni vers ic/lycopene 3-03 mouth. ity of /ginkgo 13:56: [place] (MENS 50+ 03 Medical DAILY Branch FORMULA,GIN GKO, ORAL) ZINC ORAL 2022-0 Yes Take by Unive rs 3-03 mouth. ity of 13:56: [place] Medical Branch Levothyroxi 2022-0 Yes Tirosint Un virginie ne 137 mcg 3-03 137 mcg ity of Cap 13:56: capsule TAKE 1 Medical CAPSULE BY Branch MOUTH ONCE DAILY IN THE MORNING ON AN EMPTY STOMACH mv-mins/fol 3-0 Yes Take by Uni vers ic/lycopene 3-03 mouth. ity of /ginkgo 13:56: [place] (MENS 50+ 03 Medical DAILY Branch FORMULA,GIN GKO, ORAL) ZINC ORAL 2022-0 Yes Take by Unive rs 3-03 mouth. ity of 13:56: [place] Medical Branch Levothyroxi 2022-0 Yes Tirosint Un virginie ne 137 mcg 3-03 137 mcg ity of Cap 13:56: capsule TAKE 1 Medical CAPSULE BY Branch MOUTH ONCE DAILY IN THE MORNING ON AN EMPTY STOMACH mv-mins/fol 3-0 Yes Take by Uni vers ic/lycopene 3-03 mouth. ity of /ginkgo 13:56: [place] (MENS 50+ 03 Medical DAILY Branch FORMULA,GIN GKO, ORAL) ZINC ORAL 2022-0 Yes Take by Unive rs 3-03 mouth. ity of 13:56: [place] 03 Medical Branch Levothyroxi 2022-0 Yes Tirosint Un [place] ne 137 mcg 3-03 137 mcg ity of Cap 13:56: capsule TAKE 1 Medical CAPSULE BY Branch MOUTH ONCE DAILY IN THE MORNING ON AN EMPTY STOMACH mv-mins/fol 0 Yes Take by Uni vers ic/lycopene 3-03 mouth. ity of /ginkgo 13:56: [place] (MENS 50+ 03 Medical DAILY Branch FORMULA,GIN GKO, ORAL) ZINC ORAL 0 Yes Take by Unive rs 3-03 mouth. ity of 13:56: Medical Branch Levothyroxi 0 Yes Tirosint Un [place] ne 137 mcg 09-05 137 mcg ity of Cap 13:56: capsule TAKE 1 Medical CAPSULE BY Branch MOUTH ONCE DAILY IN THE MORNING ON AN EMPTY STOMACH mv-mins/fol 0 Yes Take by Uni vers ic/lycopene 3-03 mouth. ity of /ginkgo 13:56: [place] (MENS 50+ 03 Medical DAILY Branch FORMULA,GIN GKO, ORAL) ZINC ORAL 0 Yes Take by Unive rs 3-03 mouth. ity of 13:56: Medical Branch levocetiriz 0 Yes Take by Uni vers ine 3-03 mouth. ity of dihydrochlo 13:54: [place] ride (XYZAL 58 Medical ORAL) Branch levocetiriz 0 Yes Take by Uni vers ine 3-03 mouth. ity of dihydrochlo 13:54: [place] ride (XYZAL 58 Medical ORAL) Branch levocetiriz 0 Yes Take by Uni vers ine 3-03 mouth. ity of dihydrochlo 13:54: [place] ride (XYZAL 58 Medical ORAL) Branch levocetiriz 0 Yes Take by Uni vers ine 3-03 mouth. ity of dihydrochlo 13:54: [place] ride (XYZAL 58 Medical ORAL) Branch levocetiriz 0 Yes Take by Uni vers ine 3-03 mouth. ity of dihydrochlo 13:54: [place] ride (XYZAL 58 Medical ORAL) Branch levocetiriz 0 Yes Take by Uni vers ine 3-03 mouth. ity of dihydrochlo 13:54: [place] ride (XYZAL 58 Medical ORAL) Branch levocetiriz 0 Yes Take by Uni vers ine 3-03 mouth. ity of dihydrochlo 13:54: [place] ride (XYZAL 58 Medical ORAL) Branch gabapentin 2023-0 Yes Univers 300 mg 3-01 ity of capsule 00:00: [place] 00 Medical Branch gabapentin 2023-0 Yes Univers 300 mg 3-01 ity of capsule 00:00: [place] Medical Branch gabapentin 2023-0 Yes Univers 300 mg 3-01 ity of capsule 00:00: [place] Medical Branch gabapentin 2023-0 Yes Univers 300 mg 3-01 ity of capsule 00:00: [place] Medical Branch gabapentin 2023-0 Yes Univers 300 mg 3-01 ity of capsule 00:00: [place] Medical Branch gabapentin 2023-0 Yes Univers 300 mg 3-01 ity of capsule 00:00: [place] Medical Branch gabapentin 2023-0 Yes Univers 300 mg 3-01 ity of capsule 00:00: [place] Medical Branch Cholecalcif 2023-0 Yes [id number] Take 1 Un virginie bianca, 2-20 capsule by ity of Vitamin D3, 00:00: mouth [place] 1,250 mcg 00 weekly. Medical (50,000 Branch unit) capsule memantine 2023-0 Yes 10mg Take 1 Univer s 10 mg 2-20 tablet by ity of tablet 00:00: mouth in [place] the Medical morning Branch and 1 tablet in the evening. Cholecalcif 2023-0 Yes [id number] Take 1 Un virginie bianca, 2-20 capsule by ity of Vitamin D3, 00:00: mouth [place] 1,250 mcg 00 weekly. Medical (50,000 Branch unit) capsule memantine 2023-0 Yes 10mg Take 1 Univer s 10 mg 2-20 tablet by ity of tablet 00:00: mouth in [place] the Medical morning Branch and 1 tablet in the evening. Cholecalcif 2023-0 Yes [id number] Take 1 Un virginie bianca, 2-20 capsule by ity of Vitamin D3, 00:00: mouth [place] 1,250 mcg 00 weekly. Medical (50,000 Branch unit) capsule memantine 2023-0 Yes 10mg Take 1 Univer s 10 mg 2-20 tablet by ity of tablet 00:00: mouth in [place] the Medical morning Branch and 1 tablet in the evening. Cholecalcif 2023-0 Yes [id number] Take 1 Un virginie bianca, 2-20 capsule by ity of Vitamin D3, 00:00: mouth [place] 1,250 mcg 00 weekly. Medical (50,000 Branch unit) capsule memantine 2023-0 Yes 10mg Take 1 Univer s 10 mg 2-20 tablet by ity of tablet 00:00: mouth in [place] 00 the Medical morning Branch and 1 tablet in the evening. Cholecalcif 2023-0 Yes [id number] Take 1 Un virginie bianca, 2-20 capsule by ity of Vitamin D3, 00:00: mouth [place] 1,250 mcg 00 weekly. Medical (50,000 Branch unit) capsule memantine 2023-0 Yes 10mg Take 1 Univer s 10 mg 2-20 tablet by ity of tablet 00:00: mouth in [place] 00 the Medical morning Branch and 1 tablet in the evening. Cholecalcif 2023-0 Yes [id number] Take 1 Un virginie bianca, 2-20 capsule by ity of Vitamin D3, 00:00: mouth [place] 1,250 mcg 00 weekly. Medical (50,000 Branch unit) capsule memantine 2023-0 Yes 10mg Take 1 Univer s 10 mg 2-20 tablet by ity of tablet 00:00: mouth in [place] 00 the Medical morning Branch and 1 tablet in the evening. Cholecalcif 2023-0 Yes [id number] Take 1 Un virginie bianca, 2-20 capsule by ity of Vitamin D3, 00:00: mouth [place] 1,250 mcg 00 weekly. Medical (50,000 Branch unit) capsule memantine 2023-0 Yes 10mg Take 1 Univer s 10 mg 2-20 tablet by ity of tablet 00:00: mouth in [place] 00 the Medical morning Branch and 1 tablet in the evening. metoprolol 2023-0 Yes 50mg Take 1 Unive rs tartrate 50 1-18 tablet by ity of mg tablet 00:00: mouth [place] 00 the Medical morning. Branch metoprolol 2023-0 Yes 50mg Take 1 Unive rs tartrate 50 1-18 tablet by ity of mg tablet 00:00: mouth [place] 00 the Medical morning. Branch metoprolol 2023-0 Yes 50mg Take 1 Unive rs tartrate 50 1-18 tablet by ity of mg tablet 00:00: mouth [place] 00 the Medical morning. Branch metoprolol 2023-0 Yes 50mg Take 1 Unive rs tartrate 50 1-18 tablet by ity of mg tablet 00:00: mouth [place] 00 the Medical morning. Branch metoprolol 2022-0 Yes 50mg Take 1 Unive rs tartrate 50 1-18 tablet by ity of mg tablet 00:00: mouth [place] 00 the Medical morning. Branch metoprolol 2022-0 Yes 50mg Take 1 Unive rs tartrate 50 1-18 tablet by ity of mg tablet 00:00: mouth [place] 00 the Medical morning. Branch metoprolol 2022-0 Yes 50mg Take 1 Unive rs tartrate 50 1-18 tablet by ity of mg tablet 00:00: mouth [place] 00 the Medical morning. Branch Oseltamivir Oseltamivir 2021-07 No 1{capsu BID Oseltamivi Phosphate Phosphate 2-05 le} r 75 MG 75 MG 00:00: Phosphate 00 75 MG Oseltamivir Oseltamivir 2021-07 No 1{capsu BID Oseltamivi Phosphate Phosphate 2-05 le} r 75 MG 75 MG 00:00: Phosphate 00 75 MG Oseltamivir Oseltamivir 2021-07 No 1{capsu BID Oseltamivi Phosphate Phosphate 2-05 le} r 75 MG 75 MG 00:00: Phosphate 00 75 MG [facility] 2021- No 1{table Nurtec 75 MG MG 12-05 t_on_th MG 00:00: 00:00 e_tongu 00 :00 e_and_a llow_to _dissol ve} Nurtec 75 Nurtec 75 2021- No 1{table Nurtec 75 MG MG 12-05 t_on_th MG 00:00: 00:00 e_tongu 00 :00 e_and_a llow_to _dissol ve} Vitamin D3 Vitamin D3 2020-07- No 1{capsu Vitamin D3 72432 UNIT 48620 UNIT 07-17 le} 72545 UNIT 00:00: 00:00 00 :00 Vitamin D3 Vitamin D3 2020-07- No 1{capsu Vitamin D3 47107 UNIT 42940 UNIT 07-17 le} 85102 UNIT 00:00: 00:00 00 :00 Vitamin D3 Vitamin D3 2020-1 2022- No 1{capsu Vitamin D3 33232 UNIT 42080 UNIT 0-15 07-17 le} 18010 UNIT 00:00: 00:00 00 :00 Vitamin D3 Vitamin D3 2020- 2022- No 1{capsu Vitamin D3 90979 UNIT 18310 UNIT 0-15 07-17 le} 13333 UNIT 00:00: 00:00 00 :00 Vitamin D3 Vitamin D3 2020- 2022- No 1{capsu Vitamin D3 50999 UNIT 80086 UNIT 0-15 07-17 le} 56541 UNIT 00:00: 00:00 00 :00 Vitamin D3 Vitamin D3 2020- 2022- No 1{capsu Vitamin D3 55315 UNIT 76531 UNIT 0-15 07-17 le} 83989 UNIT 00:00: 00:00 00 :00 Vitamin D3 Vitamin D3 2020- 2022- No 1{capsu Vitamin D3 86576 UNIT 37432 UNIT 0-15 07-17 le} 68399 UNIT 00:00: 00:00 00 :00 Vitamin D3 Vitamin D3 2020- 2022- No 1{capsu Vitamin D3 69881 UNIT 38476 UNIT 0-07-17 le} 64522 UNIT 00:00: 00:00 00 :00 Vitamin D3 Vitamin D3 2020- 2022- No 1{capsu Vitamin D3 91003 UNIT 59575 UNIT 015 07-17 le} 49560 UNIT 00:00: 00:00 00 :00 Clotrimazol Clotrimazol 2020-0 2021- No 1{troch Clotrimazo e 10 MG e 10 MG 03-1820 e} le 10 MG 00:00: 00:00 00 :00 Meloxicam Meloxicam 2021- No 1{table QD Meloxicam 7.5 MG 7.5 MG 6-15 07-15 t} 7.5 MG 00:00: 00:00 00 :00 Meloxicam Meloxicam 2020- 2021- No 1{table QD Meloxicam 7.5 MG 7.5 MG 6-15 07-15 t} 7.5 MG 00:00: 00:00 00 :00 Meloxicam Meloxicam 2021- No 1{table QD Meloxicam 7.5 MG 7.5 MG 6-15 07-15 t} 7.5 MG 00:00: 00:00 00 :00 Meloxicam Meloxicam 2020-0 2021- No 1{table QD Meloxicam 7.5 MG 7.5 MG 6-15 -15 t} 7.5 MG 00:00: 00:00 00 :00 Kenalog Kenalog 2020-0 No 40mg Common (Triamcinol (Triamcinol 3-09 S pirit one) one) 00:00: - CHI 00 [facility] Bupivicaine Bupivicaine 2020-0 No 2.5mg Common [place] 3-09 Spirit 00:00: - CHI 00 [facility] Kenalog Kenalog 2020-0 No 40mg Common (Triamcinol (Triamcinol 3-09 S pirit one) one) 00:00: - CHI 00 [facility] Bupivicaine Bupivicaine 2020-0 No 2.5mg Common [place] 3-09 Spirit 00:00: - CHI 00 [facility] Kenalog Kenalog 2020-0 No 40mg Common (Triamcinol (Triamcinol 3-09 S pirit one) one) 00:00: - CHI 00 [facility] Bupivicaine Bupivicaine 2020-0 No 2.5mg Common [place] 3-09 Spirit 00:00: - CHI 00 [facility] Kenalog Kenalog 2020-0 No 40mg Common (Triamcinol (Triamcinol 3-09 S pirit one) one) 00:00: - CHI 00 [facility] Bupivicaine Bupivicaine 1-0 No 2.5mg Common [place] 3-09 Spirit 00:00: - CHI 00 [facility] Kenalog Kenalog 2020-0 No 40mg Common (Triamcinol (Triamcinol 3-09 S pirit one) one) 00:00: - [place]I 00 [facility] Bupivicaine Bupivicaine 1-0 No 2.5mg Common [place] 3-09 Spirit 00:00: - CHI 00 [facility] Kenalog Kenalog 2020-0 No 40mg Common (Triamcinol (Triamcinol 3-09 S pirit one) one) 00:00: - CHI 00 [facility] Bupivicaine Bupivicaine 2020-0 No 2.5mg Common [place] 3-09 Spirit 00:00: - CHI 00 [facility] Kenalog Kenalog 2020-0 No 40mg Common (Triamcinol (Triamcinol 3-09 S pirit one) one) 00:00: - CHI 00 [facility] Bupivicaine Bupivicaine 2020-0 No 2.5mg Common [place] [facility] 3-09 Spirit 00:00: - CHI 00 [facility] Kenalog Kenalog 2020-0 No 40mg Common (Triamcinol (Triamcinol 3-09 S pirit one) one) 00:00: - CHI 00 [facility] Bupivicaine Bupivicaine 2020-0 No 2.5mg Common [place] [facility] 3-09 Spirit 00:00: - CHI 00 [facility] Kenalog Kenalog 2020-0 No 40mg Common (Triamcinol (Triamcinol 3-09 S pirit one) one) 00:00: - CHI 00 [facility] Bupivicaine Bupivicaine 2020-0 No 2.5mg Common [place] [facility] 3-09 Spirit 00:00: - CHI 00 [facility] Kenalog Kenalog 2020-0 No 40mg Common (Triamcinol (Triamcinol 3-09 S pirit one) one) 00:00: - CHI 00 [facility] Bupivicaine Bupivicaine 2020-0 No 2.5mg Common [place] [facility] 3-09 Spirit 00:00: - CHI 00 [facility] Kenalog Kenalog 2020-0 No 40mg Common (Triamcinol (Triamcinol 3-09 S pirit one) one) 00:00: - CHI 00 [facility] Bupivicaine Bupivicaine 2020-0 No 2.5mg Common [place] [facility] 3-09 Spirit 00:00: - CHI 00 [facility] levothyroxi 2020-0 Yes TAKE 1 Univ ers ne 50 mcg 2-15 TABLET BY ity o f tablet 00:00: MOUTH ONCE [place] 00 DAILY IN Medical THE Branch MORNING ON AN EMPTY STOMACH FOR 30 DAYS levothyroxi Yes TAKE 1 Univ ers ne 50 mcg 2-15 TABLET BY ity o f tablet 00:00: MOUTH ONCE [place] 00 DAILY IN [facility] MORNING ON AN EMPTY STOMACH FOR 30 DAYS levothyroxi 0 Yes TAKE 1 Univ ers ne 50 mcg 2-15 TABLET BY ity o f tablet 00:00: MOUTH ONCE [place] 00 DAILY IN [facility] MORNING ON AN EMPTY STOMACH FOR 30 DAYS levothyroxi Yes TAKE 1 Univ ers ne 50 mcg 2-15 TABLET BY ity o f tablet 00:00: MOUTH ONCE [place] 00 DAILY IN [facility] MORNING ON AN EMPTY STOMACH FOR 30 DAYS levothyroxi Yes TAKE 1 Univ ers ne 50 mcg 2-15 TABLET BY ity o f tablet 00:00: MOUTH ONCE [place] 00 DAILY IN [facility] MORNING ON AN EMPTY STOMACH FOR 30 DAYS levothyroxi Yes TAKE 1 Univ ers ne 50 mcg 2-15 TABLET BY ity o f tablet 00:00: MOUTH ONCE [place] 00 DAILY IN [facility] MORNING ON AN EMPTY STOMACH FOR 30 DAYS levothyroxi Yes TAKE 1 Univ ers ne 50 mcg 2-15 TABLET BY ity o f tablet 00:00: MOUTH ONCE [place] 00 DAILY IN [facility] MORNING ON AN EMPTY STOMACH FOR 30 DAYS levothyroxi Yes TAKE 1 Univ ers ne 50 mcg 2-15 TABLET BY ity o f tablet 00:00: MOUTH ONCE [place] 00 DAILY IN [facility] MORNING ON AN EMPTY STOMACH FOR 30 DAYS levothyroxi 0 Yes TAKE 1 Univ ers ne 50 mcg 2-15 TABLET BY ity o f tablet 00:00: MOUTH ONCE [place] 00 DAILY IN [facility] MORNING ON AN EMPTY STOMACH FOR 30 DAYS levothyroxi 0 Yes TAKE 1 Univ ers ne 50 mcg 2-15 TABLET BY ity o f tablet 00:00: MOUTH ONCE [place] 00 DAILY IN [facility] MORNING ON AN EMPTY STOMACH FOR 30 DAYS Kenalog Kenalog 2020-1 No 40mg Common (Triamcinol (Triamcinol 0-27 S pirit one) one) 00:00: - CHI 00 [facility] Kenalog Kenalog 2020-1 No 40mg Common (Triamcinol (Triamcinol 0-27 S pirit one) one) 00:00: - CHI 00 [facility] Kenalog Kenalog 2019-07 No 40mg Common (Triamcinol (Triamcinol 0-27 S pirit one) one) 00:00: - CHI 00 [facility] Kenalog Kenalog 2019-07 No 40mg Common (Triamcinol (Triamcinol 0-27 S pirit one) one) 00:00: - [facility]07 No 40mg Common (Triamcinol (Triamcinol 0-27 S pirit one) one) 00:00: - [facility] 00 [facility] Kenalog Kenalog 2019-07 No 40mg Common (Triamcinol (Triamcinol 0-27 S pirit one) one) 00:00: - [facility] 00 [facility] Kenalog Kenalog 2019-07 No 40mg Common (Triamcinol (Triamcinol 0-27 S pirit one) one) 00:00: - [facility] 00 [facility] [place] Kenalog 2019-07 No 40mg Common (Triamcinol (Triamcinol 0-27 S pirit one) one) 00:00: - [facility] 00 [facility] Kenalog Kenalog 2019-07 No 40mg Common (Triamcinol (Triamcinol 0-27 S pirit one) one) 00:00: - [facility] 00 [facility] Kenalog Kenalog 2019-07 No 40mg Common (Triamcinol (Triamcinol 0-27 S pirit one) one) 00:00: - [facility] 00 [facility] Kenalog Kenalog 2019-07 No 40mg Common (Triamcinol (Triamcinol 0-27 S pirit one) one) 00:00: - [facility] 00 [facility] fluticasone 2019-07 Yes Use in Univ ers propionate 0-14 each ity of (FLONASE 18:16: nostril. [place] NASAL) 35 Medical Branch mv-mins/fol 2019-07 Yes Take by Uni vers ic/lycopene 0-14 mouth. ity of /ginkgo 18:16: [place] (MENS 50+ 35 Medical DAILY Branch FORMULA,GIN GKO, ORAL) ZINC ORAL 2019-07 Yes Take by Unive rs 0-14 mouth. ity of 18:16: [place] [address] Medical Branch levocetiriz 2019- Yes Take by Uni vers ine 0-14 mouth. ity of dihydrochlo 18:16: [place] ride (XYZAL 35 Medical ORAL) Branch fluticasone 2019-07 Yes Use in Univ ers propionate 0-14 each ity of (FLONASE 18:16: nostril. [place] NASAL) 35 Medical Branch mv-mins/fol 2019-07 Yes Take by Uni vers ic/lycopene 0-14 mouth. ity of /ginkgo 18:16: [place] (MENS 50+ 35 Medical DAILY Branch FORMULA,GIN GKO, ORAL) ZINC ORAL 2019- Yes Take by Unive rs 0-14 mouth. ity of 18:16: [place] [address] Medical Branch levocetiriz 2019-07 Yes Take by Uni vers ine 0-14 mouth. ity of dihydrochlo 18:16: [place] ride (XYZAL 35 Medical ORAL) Branch fluticasone 2019-07 Yes Use in Univ ers propionate 0-14 each ity of (FLONASE 18:16: nostril. [place] NASAL) Medical Branch mv-mins/fol 2019-07 Yes Take by Uni vers ic/lycopene 0-14 mouth. ity of /ginkgo 18:16: [place] (MENS 50+ 35 Medical DAILY Branch FORMULA,GIN GKO, ORAL) ZINC ORAL 2019-07 Yes Take by Unive rs 0-14 mouth. ity of 18:16: [place] [address] Medical Branch levocetiriz 2019-07 Yes Take by Uni vers ine 0-14 mouth. ity of dihydrochlo 18:16: [place] ride (XYZAL 35 Medical ORAL) Branch fluticasone 2019-07 Yes Use in Univ ers propionate 0-14 each ity of (FLONASE 18:16: nostril. [place] NASAL) 35 Medical Branch mv-mins/fol 2019- Yes Take by Uni vers ic/lycopene 0-14 mouth. ity of /ginkgo 18:16: [place] (MENS 50+ 35 Medical DAILY Branch FORMULA,GIN GKO, ORAL) ZINC ORAL 2019- Yes Take by Unive rs 0-14 mouth. ity of 18:16: [place] [address] Medical Branch levocetiriz 2019- Yes Take by Uni vers ine 0-14 mouth. ity of dihydrochlo 18:16: [place] ride (XYZAL 35 Medical ORAL) Branch fluticasone 2019-07 Yes Use in Univ ers propionate 0-14 each ity of (FLONASE 13:16: nostril. [place] NASAL) 35 Medical Branch fluticasone 2019-07 Yes Use in Univ ers propionate 0-14 each ity of (FLONASE 13:16: nostril. [place] NASAL) 35 Medical Branch fluticasone 2019-07 Yes Use in Univ ers propionate 0-14 each ity of (FLONASE 13:16: nostril. [place] NASAL) 35 Medical Branch fluticasone 2019-07 Yes Use in Univ ers propionate 0-14 each ity of (FLONASE 13:16: nostril. [place] NASAL) 35 Medical Branch fluticasone 2019-07 Yes Use in Univ ers propionate 0-14 each ity of (FLONASE 13:16: nostril. [place] NASAL) 35 Medical Branch mv-mins/fol 2019-07 Yes Take by Uni vers ic/lycopene 0-14 mouth. ity of /ginkgo 13:16: [place] (MENS 50+ 35 Medical DAILY Branch FORMULA,GIN GKO, ORAL) ZINC ORAL 2019-07 Yes Take by Unive rs 0-14 mouth. ity of 13:16: [place] 35 Medical Branch levocetiriz 2019-07 Yes Take by Uni vers ine 0-14 mouth. ity of dihydrochlo 13:16: [place] ride (XYZAL 35 Medical ORAL) Branch fluticasone 2019-07 Yes Use in Univ ers propionate 0-14 each ity of (FLONASE 13:16: nostril. [place] NASAL) 35 Medical Branch fluticasone 2019-07 Yes Use in Univ ers propionate 0-14 each ity of (FLONASE 13:16: nostril. [place] NASAL) 35 Medical Branch fluticasone 2019-07 Yes Use in Univ ers propionate 0-14 each ity of (FLONASE 13:16: nostril. [place] NASAL) 35 Medical Branch cefTRIAXone 2020- No [id number] 250mg Univers (ROCEPHIN) 930 09-30 ity of injection 22:00: 21:07 [place] 250 mg 00 :26 Medical Branch cefTRIAXone 2020- No [id number] 1000mg Univers (ROCEPHIN) 04-04 ity of injection 22:00: 21:20 [place] 1,000 mg 00 :00 [facility] cefTRIAXone 2019-0 2020- No [id number] 1000mg 1,000 mg, Univers (ROCEPHIN) 04-04 Intramuscu it y of injection 22:00: 21:20 lar, ONCE, [place] 1,000 mg 00 :00 1 dose, [facility] Branch 04/04/20 at 1700, FELIX
Re ason for Anti-Infec tive: Empiric Therapy for Suspected Infection< br>Empiric Therapy Site: Pelvic
Duration of therapy: 72 hours cefTRIAXone 2020- No [id number] 250mg Univers (ROCEPHIN) 04-04 ity of injection 22:00: 21:07 [place] 250 mg 00 :26 [facility] cefTRIAXone 2020- No [id number] 1000mg Univers (ROCEPHIN) 04-04 ity of injection 22:00: 21:20 [place] 1,000 mg 00 :00 [facility] cefTRIAXone 2020- No [id number] 1000mg 1,000 mg, Univers (ROCEPHIN) 04-04 Intramuscu it y of injection 22:00: 21:20 lar, ONCE, [place] 1,000 mg 00 :00 1 dose, [facility] Branch 04/04/20 at 1700, FELIX
Re ason for Anti-Infec tive: Empiric Therapy for Suspected Infection< br>Empiric Therapy Site: Pelvic
Duration of therapy: 72 hours metroNIDAZO 2020-0 Yes [id number] 500mg Take 1 Univers LE 500 mg 9-30 tablet by ity o f tablet 00:00: mouth [place] 00 every 12 Medical (twelve) Branch hours. metroNIDAZO 2020-0 Yes [id number] 500mg Take 1 Univers LE 500 mg 9-30 tablet by ity o f tablet 00:00: mouth [place] 00 every 12 Medical (twelve) Branch hours. metroNIDAZO 2020-0 Yes [id number] 500mg Take 1 Univers LE 500 mg 9-30 tablet by ity o f tablet 00:00: mouth [place] 00 every 12 Medical (twelve) Branch hours. metroNIDAZO 2020-0 Yes [id number] 500mg Take 1 Univers LE 500 mg 9-30 tablet by ity o f tablet 00:00: mouth [place] 00 every 12 Medical (twelve) Branch hours. metroNIDAZO 2020-0 2020- No [id number] 500mg Take 1 Univers LE 500 mg 9-30 10-14 tablet by ity of tablet 00:00: 00:00 mouth [place] 00 :00 every 12 Medical (twelve) Branch hours. fluconazole 2020-0 2020- No [id number] 150mg Take 1 Univers 150 mg 9-30 10-01 tablet by ity of tablet 00:00: 04:59 mouth [place] 00 :00 now for 1 Medical dose. Branch fluconazole 2020-0 2020- No [id number] 150mg Take 1 Univers 150 mg 9-30 10-01 tablet by ity of tablet 00:00: 04:59 mouth [place] 00 :00 now for 1 Medical dose. Branch fluticasone 2020-0 Yes Use in [facility] [place] [facility] ers propionate 9-16 each ity of (FLONASE 21:07: nostril. [place] NASAL) 30 Medical Branch mv-mins/fol 2020-0 Yes Take by Uni vers ic/lycopene 9-16 mouth. ity of /ginkgo 21:07: [place] (MENS 50+ 30 Medical DAILY Branch FORMULA,GIN GKO, ORAL) ZINC ORAL 2020-0 Yes Take by Unive rs 9-16 mouth. ity of 21:07: [place] 30 Medical Branch levocetiriz 2020-0 Yes Take by Uni vers ine 9-16 mouth. ity of dihydrochlo 21:07: [place] ride (XYZAL 30 Medical ORAL) Branch fluticasone 2020-0 Yes Use in [facility] [place] [facility] ers propionate 9-16 each ity of (FLONASE 21:07: nostril. [place] NASAL) 30 Medical Branch mv-mins/fol 2020-0 Yes Take by Uni vers ic/lycopene 9-16 mouth. ity of /ginkgo 21:07: [place] (MENS 50+ 30 Medical DAILY Branch FORMULA,GIN GKO, ORAL) ZINC ORAL 2020-0 Yes Take by Unive rs 9-16 mouth. ity of 21:07: [place] 30 Medical Branch levocetiriz 2020-0 Yes Take by Uni vers ine 9-16 mouth. ity of dihydrochlo 21:07: [place] ride (XYZAL 30 Medical ORAL) Branch fluticasone 2020-0 Yes Use in Univ ers propionate 9-16 each ity of (FLONASE 21:07: nostril. [place] NASAL) 30 Medical Branch mv-mins/fol 2020-0 Yes Take by Uni vers ic/lycopene 9-16 mouth. ity of /ginkgo 21:07: [place] (MENS 50+ 30 Medical DAILY Branch FORMULA,GIN GKO, ORAL) ZINC ORAL 2020-0 Yes Take by Unive rs 9-16 mouth. ity of 21:07: [place] 30 Medical Branch levocetiriz 2020-0 Yes Take by Uni vers ine 9-16 mouth. ity of dihydrochlo 21:07: [place] ride (XYZAL 30 Medical ORAL) Branch fluticasone 2020-0 Yes Use in Univ ers propionate 9-16 each ity of (FLONASE 21:07: nostril. [place] NASAL) 30 Medical Branch mv-mins/fol 2020-0 Yes Take by Uni vers ic/lycopene 9-16 mouth. ity of /ginkgo 21:07: [place] (MENS 50+ 30 Medical DAILY Branch FORMULA,GIN GKO, ORAL) ZINC ORAL 2020-0 Yes Take by Unive rs 9-16 mouth. ity of 21:07: [place] 30 Medical Branch levocetiriz 2020-0 Yes Take by Uni vers ine 9-16 mouth. ity of dihydrochlo 21:07: [place] ride (XYZAL 30 Medical ORAL) Branch fluticasone 2020-0 Yes Use in Univ ers propionate 9-16 each ity of (FLONASE 21:07: nostril. [place] NASAL) 30 Medical Branch mv-mins/fol 2020-0 Yes Take by Uni vers ic/lycopene 9-16 mouth. ity of /ginkgo 21:07: [place] (MENS 50+ 30 Medical DAILY Branch FORMULA,GIN GKO, ORAL) ZINC ORAL 2020-0 Yes Take by Unive rs 9-16 mouth. ity of 21:07: [place] 30 Medical Branch levocetiriz 2020-0 Yes Take by Uni vers ine 9-16 mouth. ity of dihydrochlo 21:07: [place] ride (XYZAL 30 Medical ORAL) Branch fluticasone 2020-0 Yes Use in Univ ers propionate 9-16 each ity of (FLONASE 21:07: nostril. [place] NASAL) 30 Medical Branch mv-mins/fol 2020-0 Yes Take by Uni vers ic/lycopene 9-16 mouth. ity of /ginkgo 21:07: [place] (MENS 50+ 30 Medical DAILY Branch FORMULA,GIN GKO, ORAL) ZINC ORAL 2020-0 Yes Take by Unive rs 9-16 mouth. ity of 21:07: [place] 30 Medical Branch levocetiriz 2020-0 Yes Take by Uni vers ine 9-16 mouth. ity of dihydrochlo 21:07: [place] ride (XYZAL 30 Medical ORAL) Branch fluticasone 2020-0 Yes Use in Univ ers propionate 9-16 each ity of (FLONASE 21:07: nostril. [place] NASAL) 30 Medical Branch mv-mins/fol 2020-0 Yes Take by Uni vers ic/lycopene 9-16 mouth. ity of /ginkgo 21:07: [place] (MENS 50+ 30 Medical DAILY Branch FORMULA,GIN GKO, ORAL) ZINC ORAL 2020-0 Yes Take by Unive rs 9-16 mouth. ity of 21:07: [place] 30 Medical Branch levocetiriz 2020-0 Yes Take by Uni vers ine 9-16 mouth. ity of dihydrochlo 21:07: [place] ride (XYZAL 30 Medical ORAL) Branch fluticasone 2020-0 Yes Use in Univ ers propionate 9-16 each ity of (FLONASE 21:07: nostril. [place] NASAL) 30 Medical Branch mv-mins/fol 2020-0 Yes Take by Uni vers ic/lycopene 9-16 mouth. ity of /ginkgo 21:07: [place] (MENS 50+ 30 Medical DAILY Branch FORMULA,GIN GKO, ORAL) ZINC ORAL 2020-0 Yes Take by Unive rs 9-16 mouth. ity of 21:07: [place] 30 Medical Branch levocetiriz 2020-0 Yes Take by Uni vers ine 9-16 mouth. ity of dihydrochlo 21:07: [place] ride (XYZAL 30 Medical ORAL) Branch fluticasone 2020-0 Yes Use in Univ ers propionate 9-16 each ity of (FLONASE 21:07: nostril. [place] NASAL) 30 Medical Branch mv-mins/fol 2020-0 Yes Take by Uni vers ic/lycopene 9-16 mouth. ity of /ginkgo 21:07: [place] (MENS 50+ 30 Medical DAILY Branch FORMULA,GIN GKO, ORAL) ZINC ORAL 2020-0 Yes Take by Unive rs 9-16 mouth. ity of 21:07: [place] 30 Medical Branch levocetiriz 2020-0 Yes Take by Uni vers ine 9-16 mouth. ity of dihydrochlo 21:07: [place] ride (XYZAL 30 Medical ORAL) Branch fluticasone 2020-0 Yes Use in Univ ers propionate 9-16 each ity of (FLONASE 21:07: nostril. [place] NASAL) 30 Medical Branch mv-mins/fol 2020-0 Yes Take by Uni vers ic/lycopene 9-16 mouth. ity of /ginkgo 21:07: [place] (MENS 50+ 30 Medical DAILY Branch FORMULA,GIN GKO, ORAL) ZINC ORAL 2020-0 Yes Take by Unive rs 9-16 mouth. ity of 21:07: [place] 30 Medical Branch levocetiriz 2020-0 Yes Take by Uni vers ine 9-16 mouth. ity of dihydrochlo 21:07: [place] ride (XYZAL 30 Medical ORAL) Branch ibuprofen 2020-0 Yes [id number] 800mg Take 1 Univers 800 mg 9-16 tablet by ity of tablet 00:00: mouth [place] 00 every 8 Medical (eight) Branch hours as needed for Pain (scale 1-3) or Pain (scale 4-6). ibuprofen 2020-0 Yes [id number] 800mg Take 1 Univers 800 mg 9-16 tablet by ity of tablet 00:00: mouth [place] 00 every 8 Medical (eight) Branch hours as needed for Pain (scale 1-3) or Pain (scale 4-6). ibuprofen 2020-0 Yes [id number] 800mg Take 1 Univers 800 mg 9-16 tablet by ity of tablet 00:00: mouth [place] 00 every 8 Medical (eight) Branch hours as needed for Pain (scale 1-3) or Pain (scale 4-6). ibuprofen 2020-0 Yes [id number] 800mg Take 1 Univers 800 mg 9-16 tablet by ity of tablet 00:00: mouth [place] 00 every 8 Medical (eight) Branch hours as needed for Pain (scale 1-3) or Pain (scale 4-6). ibuprofen 2020-0 Yes [id number] 800mg Take 1 Univers 800 mg 9-16 tablet by ity of tablet 00:00: mouth [place] 00 every 8 Medical (eight) Branch hours as needed for Pain (scale 1-3) or Pain (scale 4-6). ibuprofen 2020-0 Yes [id number] 800mg Take 1 Univers 800 mg 9-16 tablet by ity of tablet 00:00: mouth [place] 00 every 8 Medical (eight) Branch hours as needed for Pain (scale 1-3) or Pain (scale 4-6). ibuprofen 2020-0 Yes [id number] 800mg Take 1 Univers 800 mg 9-16 tablet by ity of tablet 00:00: mouth [place] 00 every 8 Medical (eight) Branch hours as needed for Pain (scale 1-3) or Pain (scale 4-6). ibuprofen 2020-0 Yes [id number] 800mg Take 1 Univers 800 mg 9-16 tablet by ity of tablet 00:00: mouth [place] 00 every 8 Medical (eight) Branch hours as needed for Pain (scale 1-3) or Pain (scale 4-6). ibuprofen 2020-0 Yes [id number] 800mg Take 1 Univers 800 mg 9-16 tablet by ity of tablet 00:00: mouth [place] 00 every 8 Medical (eight) Branch hours as needed for Pain (scale 1-3) or Pain (scale 4-6). ibuprofen 2020-0 Yes [id number] 800mg Take 1 Univers 800 mg 9-16 tablet by ity of tablet 00:00: mouth [place] 00 every 8 Medical (eight) Branch hours as needed for Pain (scale 1-3) or Pain (scale 4-6). ibuprofen 2020-0 2020- No [id number] 800mg Take 1 Univers 800 mg 9-16 10-14 tablet by ity of tablet 00:00: 00:00 mouth [place] 00 :00 every 8 Medical (eight) Branch hours as needed for Pain (scale 1-3) or Pain (scale 4-6). acetaminoph 2020-0 2020- No [id number] 1{tbl} Take 1 U nivers en-codeine 9-16 09-19 tablet by ity of (TYLENOL-CO 00:00: 04:59 mouth [place] DEINE #3) 00 :00 every 6 Medical 300-30 mg (six) Branch tablet hours as needed for Pain (scale 4-6) for up to 2 days. Indication s: acute pain, Post op pain acetaminoph 2020-0 2020- No [id number] 1{tbl} Take 1 U nivers en-codeine 03-21 tablet by ity of (TYLENOL-CO 00:00: 04:59 mouth [place] DEINE #3) 00 :00 every 6 Medical 300-30 mg (six) Branch tablet hours as needed for Pain (scale 4-6) for up to 2 days. Indication s: acute pain, Post op pain acetaminoph 2019- No 4647 1{tbl} Take 1 U nivers en-codeine 03-21 tablet by ity of (TYLENOL-CO 00:00: 04:59 mouth [place] DEINE #3) 00 :00 every 6 Medical 300-30 mg (six) Branch tablet hours as needed for Pain (scale 4-6) for up to 2 days. Indication s: acute pain, Post op pain acetaminoph 2019- No 4647 1{tbl} Take 1 U nivers en-codeine 03-21 tablet by ity of (TYLENOL-CO 00:00: 04:59 mouth [place] DEINE #3) 00 :00 every 6 Medical 300-30 mg (six) Branch tablet hours as needed for Pain (scale 4-6) for up to 2 days. Indication s: acute pain, Post op pain cephALEXin 2019- No 500mg 500 mg, [place] (KEFLEX) 03-17 Oral, ity of capsule 500 05:30: 04:34 ONCE, 1 [place] mg 00 :00 dose, Sat Medical 03/17/20 at Branch 0030, FELIX
Re ason for Anti-Infec tive: Documented Infection< br>Documen salvador Infection Site: Urine
D uration of Therapy: 10 days NaCl 0.9% 2019- No 1000mL at 999 Uni vers (NS) bolus 03-17 mL/hr, ity of infusion 04:00: 04:37 1,000 mL, [place] 1,000 mL 00 :00 IV Medical Infusion, [place] ONCE, 1 dose, 03/16/20 at 2300, STAT metoclopram 2019- No 10mg 10 mg, Uni vers morgan HCl 03-17 Slow IV ity of (REGLAN) 04:00: 03:07 Push, [place] injection 00 :00 ONCE, 1 Medical 10 mg dose, Fri Branch 03/16/20 at 2300, FELIX diphenhydrA 2019- 2020- No 25mg 25 mg, Uni vers MINE 03-17 Slow IV ity of (BENADRYL) 04:00: 03:07 Push, [place] injection 00 :00 ONCE, 1 Medical 25 mg dose, Fri Branch 03/16/20 at 2300, STAT ketorolac 2019- 2020- No 30mg 30 mg, Unive rs (TORADOL) 03-17 Slow IV ity of injection 04:00: 03:07 Push, [place] 30 mg 00 :00 ONCE, 1 Medical dose, Fri Branch 03/16/20 at 2300, FELIX
Fa culty member approving Restricted medication : Jamie SUTTON cephALEXin 2019-0 2020- No [id number] 500mg Take 1 Univers (KEFLEX) 03-16 capsule by ity of 500 mg 00:00: 04:59 mouth 3 [place] capsule 00 :00 (three) Medical times Branch daily for 10 days. cephALEXin 2020-0 2020- No [id number] 500mg Take 1 Univers (KEFLEX) 03-16 capsule by ity of 500 mg 00:00: 04:59 mouth 3 [place] capsule 00 :00 (three) Medical times Branch daily for 10 days. cephALEXin 2020-0 2020- No [id number] 500mg Take 1 Univers (KEFLEX) 03-16 capsule by ity of 500 mg 00:00: 04:59 mouth 3 [place] capsule 00 :00 (three) Medical times Branch daily for 10 days. cephALEXin 2020-0 2020- No [id number] 500mg Take 1 Univers (KEFLEX) 03-16 capsule by ity of 500 mg 00:00: 04:59 mouth 3 [place] capsule 00 :00 (three) Medical times Branch daily for 10 days. cephALEXin 2020-0 2020- No [id number] 500mg Take 1 Univers (KEFLEX) 03-16 capsule by ity of 500 mg 00:00: 04:59 mouth 3 [place] capsule 00 :00 (three) Medical times Branch daily for 10 days. cephALEXin 2020-0 2020- No [id number] 500mg Take 1 Univers (KEFLEX) 03-16 capsule by ity of 500 mg 00:00: 04:59 mouth 3 [place] capsule 00 :00 (three) Medical times Branch daily for 10 days. cephALEXin 2020-0 2020- No [id number] 500mg Take 1 Univers (KEFLEX) 03-16 capsule by ity of 500 mg 00:00: 04:59 mouth 3 [place] capsule 00 :00 (three) Medical times Branch daily for 10 days. cephALEXin 2020-0 2020- No [id number] 500mg Take 1 Univers (KEFLEX) 03-16 capsule by ity of 500 mg 00:00: 04:59 mouth 3 [place] capsule 00 :00 (three) Medical times Branch daily for 10 days. cephALEXin 2020-0 2020- No [id number] 500mg Take 1 Univers (KEFLEX) 03-16 capsule by ity of 500 mg 00:00: 04:59 mouth 3 [place] capsule 00 :00 (three) Medical times Branch daily for 10 days. cephALEXin 2020-0 2020- No [id number] 500mg Take 1 Univers (KEFLEX) 03-16 capsule by ity of 500 mg 00:00: 04:59 mouth 3 [place] capsule 00 :00 (three) Medical times Branch daily for 10 days. Bactrim DS Bactrim DS 2019-0 2020- No [place] 1 tablet Common 03-13 [facility] 00:00: 00:00 - [facility] 00 :00 [facility] fluticasone 2020-0 Yes Use in [facility] [place] [facility] ers propionate 03-08 each ity of (FLONASE 19:08: nostril. [place] NASAL) 21 Medical Branch mv-mins/fol 2020-0 Yes Take by [facility] [place] ic/lycopene 03-08 mouth. ity of /ginkgo 19:08: [place] (MENS 50+ 21 Medical DAILY Branch FORMULA,GIN GKO, ORAL) ZINC ORAL 2020-0 Yes Take by Unive rs - mouth. ity of 19:08: [place] 21 Medical Branch levocetiriz 2020-0 Yes Take by Uni vers ine 03-08 mouth. ity of dihydrochlo 19:08: [place] ride (XYZAL 21 Medical ORAL) Branch fluticasone 2020-0 Yes Use in [facility] [place] [facility] ers propionate - each ity of (FLONASE 19:08: nostril. [place] NASAL) 21 Medical Branch mv-mins/fol 2020-0 Yes Take by Uni vers ic/lycopene 9-03 mouth. ity of /ginkgo 19:08: [place] (MENS 50+ 21 Medical DAILY Branch FORMULA,GIN GKO, ORAL) ZINC ORAL 2020-0 Yes Take by Unive rs 9-03 mouth. ity of 19:08: [place] 21 Medical Branch levocetiriz 2020-0 Yes Take by Uni vers ine 9-03 mouth. ity of dihydrochlo 19:08: [place] ride (XYZAL 21 Medical ORAL) Branch fluticasone 2020-0 Yes Use in Univ ers propionate 9-03 each ity of (FLONASE 19:08: nostril. [place] NASAL) 21 Medical Branch mv-mins/fol 2020-0 Yes Take by Uni vers ic/lycopene 9-03 mouth. ity of /ginkgo 19:08: [place] (MENS 50+ 21 Medical DAILY Branch FORMULA,GIN GKO, ORAL) ZINC ORAL 2020-0 Yes Take by Unive rs 9-03 mouth. ity of 19:08: [place] 21 Medical Branch levocetiriz 2020-0 Yes Take by Uni vers ine 9-03 mouth. ity of dihydrochlo 19:08: [place] ride (XYZAL 21 Medical ORAL) Branch fluticasone 2020-0 Yes Use in Univ ers propionate 9-03 each ity of (FLONASE 19:08: nostril. [place] NASAL) 21 Medical Branch mv-mins/fol 2020-0 Yes Take by Uni vers ic/lycopene 9-03 mouth. ity of /ginkgo 19:08: [place] (MENS 50+ 21 Medical DAILY Branch FORMULA,GIN GKO, ORAL) ZINC ORAL 2020-0 Yes Take by Unive rs 9-03 mouth. ity of 19:08: [place] 21 Medical Branch levocetiriz 2020-0 Yes Take by Uni vers ine 9-03 mouth. ity of dihydrochlo 19:08: [place] ride (XYZAL 21 Medical ORAL) Branch fluticasone 2020-0 Yes Use in Univ ers propionate 9-03 each ity of (FLONASE 19:08: nostril. [place] NASAL) 21 Medical Branch mv-mins/fol 2020-0 Yes Take by Uni vers ic/lycopene 9-03 mouth. ity of /ginkgo 19:08: [place] (MENS 50+ 21 Medical DAILY Branch FORMULA,GIN GKO, ORAL) ZINC ORAL 2020-0 Yes Take by Unive rs 9-03 mouth. ity of 19:08: [place] [address] Medical Branch levocetiriz 2020-0 Yes Take by Uni vers ine 9-03 mouth. ity of dihydrochlo 19:08: [place] ride (XYZAL 21 Medical ORAL) Branch fluticasone 2020-0 Yes Use in Univ ers propionate 9-03 each ity of (FLONASE 19:08: nostril. [place] NASAL) 21 Medical Branch mv-mins/fol 2020-0 Yes Take by Uni vers ic/lycopene 9-03 mouth. ity of /ginkgo 19:08: [place] (MENS 50+ 21 Medical DAILY Branch FORMULA,GIN GKO, ORAL) ZINC ORAL 2020-0 Yes Take by Unive rs 9-03 mouth. ity of 19:08: [place] [address] Medical Branch levocetiriz 2020-0 Yes Take by Uni vers ine 9-03 mouth. ity of dihydrochlo 19:08: [facility] 21 Medical ORAL) Branch fluticasone 2020-0 Yes Use in Univ ers propionate 9-03 each ity of (FLONASE 19:08: nostril. [place] NASAL) 21 Medical Branch mv-mins/fol 2020-0 Yes Take by Uni vers ic/lycopene 9-03 mouth. ity of /ginkgo 19:08: [place] (MENS 50+ 21 Medical DAILY Branch FORMULA,GIN GKO, ORAL) ZINC ORAL 2020-0 Yes Take by Unive rs 9-03 mouth. ity of 19:08: [place] [address] Medical Branch levocetiriz 2020-0 Yes Take by Uni vers ine 9-03 mouth. ity of dihydrochlo 19:08: [place] ride (XYZAL 21 Medical ORAL) Branch lactated 2020-0 Yes 1000mL at 75 Univer s ringers IV 9-03 mL/hr, ity of infusion 15:00: 1,000 mL, [place] 1,000 mL 00 IV Medical Infusion, Branch CONTINUOUS , Starting [place] 03/08/20 at 1000, Until Discontinu ed, Routine, PACU ondansetron 2020-0 Yes 4mg 4 mg, Slow Univers (ZOFRAN 9-03 IV Push, ity of (PF)) 14:56: PRN, [...] lactated 2020-0 2020- No 1000mL at 20 [facility] rs ringers IV 03-08 09-03 mL/hr, ity of infusion 13:15: 13:18 1,000 mL, [place] 1,000 mL 00 :00 IV Medical Infusion, Branch ONCE, 1 dose, [place] 03/08/20 at 0815, Routine, [facility] Pre-op fluticasone 2020-0 Yes Use in [facility] [place] [facility] ers propionate 03-08 each ity of (FLONASE 12:55: nostril. [place] NASAL) 57 Medical Branch mv-mins/fol 2020-0 Yes Take by Uni vers ic/lycopene 03-08 mouth. ity of /ginkgo 12:55: [place] (MENS 50+ 57 Medical DAILY Branch FORMULA,GIN GKO, ORAL) ZINC ORAL 2020-0 Yes Take by [facility] rs 9-03 mouth. ity of 12:55: [place] 57 Medical Branch levocetiriz 2020-0 Yes Take by Uni vers ine 9-03 mouth. ity of dihydrochlo 12:55: [place] ride (XYZAL 57 Medical ORAL) Branch ibuprofen 2020-0 Yes [id number] 800mg Take 1 [facility] 800 mg 9-03 tablet by ity of tablet 00:00: mouth [place] 00 every 8 Medical (eight) Branch hours as needed for Pain (scale 4-6). ibuprofen 2020-0 Yes [id number] 800mg Take 1 [facility] 800 mg 9-03 tablet by ity of tablet 00:00: mouth [place] 00 every 8 Medical (eight) Branch hours as needed for Pain (scale 4-6). ibuprofen 2020-0 Yes [id number] 800mg Take 1 [facility] 800 mg 9-03 tablet by ity of tablet 00:00: mouth [place] 00 every 8 Medical (eight) Branch hours as needed for Pain (scale 4-6). ibuprofen 2020-0 Yes [id number] 800mg Take 1 [facility] 800 mg 9-03 tablet by ity of tablet 00:00: mouth [place] 00 every 8 Medical (eight) Branch hours as needed for Pain (scale 4-6). ibuprofen 2020-0 Yes [id number] 800mg Take 1 [facility] 800 mg 9-03 tablet by ity of tablet 00:00: mouth [place] 00 every 8 Medical (eight) Branch hours as needed for Pain (scale 4-6). ibuprofen 2020-0 Yes [id number] 800mg Take 1 [facility] 800 mg 9-03 tablet by ity of tablet 00:00: mouth [place] 00 every 8 Medical (eight) Branch hours as needed for Pain (scale 4-6). ibuprofen 2020-0 Yes [id number] 800mg Take 1 Univers 800 mg 9-03 tablet by ity of tablet 00:00: mouth [place] 00 every 8 Medical (eight) Branch hours as needed for Pain (scale 4-6). ibuprofen 2020-0 2020- No [id number] 800mg Take 1 [facility] 800 mg 9-03 09-16 tablet by ity of tablet 00:00: 00:00 mouth [place] 00 :00 every 8 Medical (eight) Branch hours as needed for Pain (scale 4-6). ibuprofen 2020-0 2020- No [id number] 800mg Take 1 [facility] 800 mg 9-03 09-16 tablet by ity of tablet 00:00: 00:00 mouth [place] 00 :00 every 8 Medical (eight) Branch hours as needed for Pain (scale 4-6). fluticasone 2020-0 Yes Use in Univ ers propionate 03-06 each ity of (FLONASE 18:33: nostril. [place] NASAL) 15 Medical Branch mv-mins/fol 2020-0 Yes Take by Uni vers ic/lycopene 9- mouth. ity of /ginkgo 18:33: [place] (MENS 50+ 15 Medical DAILY Branch FORMULA,GIN GKO, ORAL) ZINC ORAL 2020-0 Yes Take by Unive rs 9- mouth. ity of 18:33: [place] 15 Medical Branch levocetiriz 2020-0 Yes Take by Uni vers ine 9- mouth. ity of dihydrochlo 18:33: [place] ride (XYZAL 15 Medical ORAL) Branch fluticasone 2020-0 Yes Use in Univ ers propionate 03-06 each ity of (FLONASE 18:33: nostril. [place] NASAL) 15 Medical Branch mv-mins/fol 2020-0 Yes Take by Uni vers ic/lycopene 9- mouth. ity of /ginkgo 18:33: [place] (MENS 50+ 15 Medical DAILY Branch FORMULA,GIN GKO, ORAL) ZINC ORAL 2020-0 Yes Take by Unive rs 9- mouth. ity of 18:33: [place] 15 Medical Branch levocetiriz 2020-0 Yes Take by Uni vers ine 9-01 mouth. ity of dihydrochlo 18:33: [place] ride (XYZAL 15 Medical ORAL) Branch fluticasone 2020-0 Yes Use in Univ ers propionate 03-06 each ity of (FLONASE 18:33: nostril. [place] NASAL) 15 Medical Branch mv-mins/fol 2020-0 Yes Take by Uni vers ic/lycopene 9-01 mouth. ity of /ginkgo 18:33: [place] (MENS 50+ 15 Medical DAILY Branch FORMULA,GIN GKO, ORAL) ZINC ORAL 2020-0 Yes Take by Unive rs 9-01 mouth. ity of 18:33: [place] 15 Medical Branch levocetiriz 2020-0 Yes Take by Uni vers ine 9-01 mouth. ity of dihydrochlo 18:33: [place] ride (XYZAL 15 Medical ORAL) Branch fluticasone 2020-0 Yes Use in Univ ers propionate 03-06 each ity of (FLONASE 18:33: nostril. [place] NASAL) 15 Medical Branch mv-mins/fol 2020-0 Yes Take by Uni vers ic/lycopene 03-06 mouth. ity of /ginkgo 18:33: [place] (MENS 50+ 15 Medical DAILY Branch FORMULA,GIN GKO, ORAL) ZINC ORAL 2020-0 Yes Take by Unive rs - mouth. ity of 18:33: [place] 15 Medical Branch levocetiriz 2020-0 Yes Take by Uni vers ine 03-06 mouth. ity of dihydrochlo 18:33: [place] ride (XYZAL 15 Medical ORAL) Branch fluticasone 2020-0 Yes Use in [facility] [place] [facility] ers propionate 03-06 each ity of (FLONASE 18:33: nostril. [place] NASAL) 15 Medical Branch mv-mins/fol 2020-0 Yes Take by Uni vers ic/lycopene 03-06 mouth. ity of /ginkgo 18:33: [place] (MENS 50+ 15 Medical DAILY Branch FORMULA,GIN GKO, ORAL) ZINC ORAL 2020-0 Yes Take by Unive rs 03-06 mouth. ity of 18:33: [place] [address] Medical Branch levocetiriz 2020-0 Yes Take by Uni vers ine 03-06 mouth. ity of dihydrochlo 18:33: [place] ride (XYZAL 15 Medical ORAL) Branch fluticasone 2020-0 Yes Use in [facility] [place] [facility] ers propionate 03-06 each ity of (FLONASE 18:33: nostril. [place] NASAL) 15 Medical Branch mv-mins/fol 2020-0 Yes Take by Uni vers ic/lycopene 03-06 mouth. ity of /ginkgo 18:33: [place] (MENS 50+ 15 Medical DAILY Branch FORMULA,GIN GKO, ORAL) ZINC ORAL 2020-0 Yes Take by Unive rs - mouth. ity of 18:33: [place] 15 Medical Branch levocetiriz 2020-0 Yes Take by Uni vers ine 03-06 mouth. ity of dihydrochlo 18:33: [place] ride (XYZAL 15 Medical ORAL) Branch miSOPROStol 2020-0 2020- No [id number] 200ug Take 1 [facility] 200 mcg 02-09-08 tablet by ity of tablet 00:00: 04:59 mouth [place] 00 :[place] now for 1 Medical dose. Take Branch medication the night prior to your procedure miSOPROStol 2020-0 2020- No [id number] 200ug Take 1 [facility] 200 mcg 8 08-08 tablet by ity of tablet 00:00: 04:59 mouth [place] 00 :[place] now for 1 Medical dose. Take Branch medication the night prior to your procedure miSOPROStol 2020-0 2020- No [id number] 200ug Take 1 [facility] 200 mcg 8 08-08 tablet by ity of tablet 00:00: 04:59 mouth [place] 00 :[place] now for 1 Medical dose. Take Branch medication the night prior to your procedure miSOPROStol 2020-0 2020- No 200ug Take 1 [facility] [place] 200 mcg 7-26 07-28 tablet by ity of tablet 00:00: 04:59 mouth at [place] 00 :00 bedtime Medical for 1 day. Branch miSOPROStol 2020-0 2020- No 200ug Take 1 Un [place] 200 mcg 7-26 07-28 tablet by ity of tablet 00:00: 04:59 mouth at [place] 00 :00 bedtime Medical for 1 day. Branch miSOPROStol 2020-0 2020- No 200ug Take 1 Un [place] 200 mcg 7-26 07-28 tablet by ity of tablet 00:00: 04:59 mouth at [place] 00 :00 bedtime Medical for 1 day. Branch miSOPROStol 2020-0 2020- No 200ug Take 1 Un [place] 200 mcg 7-26 07-28 tablet by ity of tablet 00:00: 04:59 mouth at [place] 00 :00 bedtime Medical for 1 day. Branch miSOPROStol 2020-0 2020- No 200ug Take 1 Un [place] 200 mcg 7-26 07-28 tablet by ity of tablet 00:00: 04:59 mouth at [place] 00 :00 bedtime Medical for 1 day. Branch miSOPROStol 2020-0 2020- No 200ug Take 1 [facility] [place] 200 mcg 7-26 07-28 tablet by ity of tablet 00:00: 04:59 mouth at [place] 00 :00 bedtime Medical for 1 day. Branch miSOPROStol 2020-0 2020- No 200ug Take 1 Un [place] 200 mcg 7-26 07-28 tablet by ity of tablet 00:00: 04:59 mouth at [place] 00 :00 bedtime Medical for 1 day. Branch miSOPROStol 2020-0 2020- No 200ug Take 1 Un [place] 200 mcg 01-28 tablet by ity of tablet 00:00: 04:59 mouth at [place] 00 :00 bedtime Medical for 1 day. Branch fluticasone 2020-0 Yes Use in [facility] ers propionate 7-10 each ity of (FLONASE 20:29: nostril. [place] NASAL) 02 Medical Branch mv-mins/fol 2020-0 Yes Take by Uni vers ic/lycopene 7-10 mouth. ity of /ginkgo 20:29: [place] (MENS 50+ 02 Medical DAILY Branch FORMULA,GIN GKO, ORAL) ZINC ORAL 2020-0 Yes Take by Unive rs 7-10 mouth. ity of 20:29: Medical Branch levocetiriz 2020-0 Yes Take by Uni vers ine 7-10 mouth. ity of dihydrochlo 20:29: [place] ride (XYZAL 02 Medical ORAL) Branch fluticasone 2020-0 Yes Use in Univ ers propionate 7-10 each ity of (FLONASE 20:29: nostril. [place] NASAL) 02 Medical Branch mv-mins/fol 2020-0 Yes Take by Uni vers ic/lycopene 7-10 mouth. ity of /ginkgo 20:29: [place] (MENS 50+ 02 Medical DAILY Branch FORMULA,GIN GKO, ORAL) ZINC ORAL 2020-0 Yes Take by Unive rs 7-10 mouth. ity of 20:29: [place] Medical Branch levocetiriz 2020-0 Yes Take by Uni vers ine 7-10 mouth. ity of dihydrochlo 20:29: [place] ride (XYZAL 02 Medical ORAL) Branch fluticasone 2020-0 Yes Use in Univ ers propionate 7-10 each ity of (FLONASE 20:29: nostril. [place] NASAL) 02 Medical Branch mv-mins/fol 2020-0 Yes Take by Uni vers ic/lycopene 7-10 mouth. ity of /ginkgo 20:29: [place] (MENS 50+ 02 Medical DAILY Branch FORMULA,GIN GKO, ORAL) ZINC ORAL 2020-0 Yes Take by Unive rs 7-10 mouth. ity of 20:29: [place] 02 Medical Branch levocetiriz 2020-0 Yes Take by Uni vers ine 7-10 mouth. ity of dihydrochlo 20:29: [place] ride (XYZAL 02 Medical ORAL) Branch fluticasone 2020-0 Yes Use in [facility] ers propionate 7-10 each ity of (FLONASE 20:29: nostril. [place] NASAL) 02 Medical Branch mv-mins/fol 2020-0 Yes Take by Uni vers ic/lycopene 7-10 mouth. ity of /ginkgo 20:29: [place] (MENS 50+ 02 Medical DAILY Branch FORMULA,GIN GKO, ORAL) ZINC ORAL 2020-0 Yes Take by Unive rs 7-10 mouth. ity of 20:29: [place] 02 Medical Branch levocetiriz 2020-0 Yes Take by Uni vers ine 7-10 mouth. ity of dihydrochlo 20:29: [place] ride (XYZAL 02 Medical ORAL) Branch fluticasone 2020-0 Yes Use in [facility] ers propionate 7-10 each ity of (FLONASE 20:29: nostril. [place] NASAL) 02 Medical Branch mv-mins/fol 2020-0 Yes Take by Uni vers ic/lycopene 7-10 mouth. ity of /ginkgo 20:29: [place] (MENS 50+ 02 Medical DAILY Branch FORMULA,GIN GKO, ORAL) ZINC ORAL 2020-0 Yes Take by Unive rs 7-10 mouth. ity of 20:29: [place] 02 Medical Branch levocetiriz 2020-0 Yes Take by Uni vers ine 7-10 mouth. ity of dihydrochlo 20:29: [place] ride (XYZAL 02 Medical ORAL) Branch fluticasone 2020-0 Yes Use in Univ ers propionate 7-10 each ity of (FLONASE 20:29: nostril. [place] NASAL) 02 Medical Branch mv-mins/fol 2020-0 Yes Take by Uni vers ic/lycopene 7-10 mouth. ity of /ginkgo 20:29: [place] (MENS 50+ 02 Medical DAILY Branch FORMULA,GIN GKO, ORAL) ZINC ORAL 2020-0 Yes Take by Unive rs 7-10 mouth. ity of 20:29: [place] 02 Medical Branch levocetiriz 2020-0 Yes Take by Uni vers ine 7-10 mouth. ity of dihydrochlo 20:29: [place] ride (XYZAL 02 Medical ORAL) Branch fluticasone 2020-0 Yes Use in [facility] ers propionate 7-10 each ity of (FLONASE 20:29: nostril. [place] NASAL) 02 Medical Branch mv-mins/fol 2020-0 Yes Take by Uni vers ic/lycopene 7-10 mouth. ity of /ginkgo 20:29: [place] (MENS 50+ 02 Medical DAILY Branch FORMULA,GIN GKO, ORAL) ZINC ORAL 2020-0 Yes Take by Unive rs 7-10 mouth. ity of 20:29: 02 Medical Branch levocetiriz 2020-0 Yes Take by Uni vers ine 7-10 mouth. ity of dihydrochlo 20:29: [place] ride (XYZAL 02 Medical ORAL) Branch fluticasone 2020-0 Yes Use in Univ ers propionate 7-10 each ity of (FLONASE 20:29: nostril. [place] NASAL) 02 Medical Branch mv-mins/fol 2020-0 Yes Take by Uni vers ic/lycopene 7-10 mouth. ity of /ginkgo 20:29: [place] (MENS 50+ 02 Medical DAILY Branch FORMULA,GIN GKO, ORAL) ZINC ORAL 2020-0 Yes Take by Unive rs 7-10 mouth. ity of 20:29: Medical Branch levocetiriz 2020-0 Yes Take by Uni vers ine 7-10 mouth. ity of dihydrochlo 20:29: [place] ride (XYZAL 02 Medical ORAL) Branch fluticasone 2020-0 Yes Use in Univ ers propionate 7-10 each ity of (FLONASE 20:29: nostril. [place] NASAL) 02 Medical Branch mv-mins/fol 2020-0 Yes Take by Uni vers ic/lycopene 7-10 mouth. ity of /ginkgo 20:29: [place] (MENS 50+ 02 Medical DAILY Branch FORMULA,GIN GKO, ORAL) ZINC ORAL 2020-0 Yes Take by Unive rs 7-10 mouth. ity of 20:29: Medical Branch levocetiriz 2020-0 Yes Take by Uni vers ine 7-10 mouth. ity of dihydrochlo 20:29: [place] ride (XYZAL 02 Medical ORAL) Branch fluticasone 2020-0 Yes Use in Univ ers propionate 7-10 each ity of (FLONASE 20:29: nostril. [place] NASAL) 02 Medical Branch mv-mins/fol 2020-0 Yes Take by Uni vers ic/lycopene 7-10 mouth. ity of /ginkgo 20:29: [place] (MENS 50+ 02 Medical DAILY Branch FORMULA,GIN GKO, ORAL) ZINC ORAL 2020-0 Yes Take by Unive rs 7-10 mouth. ity of 20:29: [place] Medical Branch levocetiriz 2020-0 Yes Take by Uni vers ine 7-10 mouth. ity of dihydrochlo 20:29: [place] ride (XYZAL 02 Medical ORAL) Branch fluticasone 2020-0 Yes Use in Univ ers propionate 7-10 each ity of (FLONASE 20:29: nostril. [place] NASAL) 02 Medical Branch mv-mins/fol 2020-0 Yes Take by Uni vers ic/lycopene 7-10 mouth. ity of /ginkgo 20:29: [place] (MENS 50+ 02 Medical DAILY Branch FORMULA,GIN GKO, ORAL) ZINC ORAL 2020-0 Yes Take by Unive rs 7-10 mouth. ity of 20:29: Medical Branch levocetiriz 2020-0 Yes Take by Uni vers ine 7-10 mouth. ity of dihydrochlo 20:29: [place] ride (XYZAL 02 Medical ORAL) Branch fluticasone 2020-0 Yes Use in Univ ers propionate 7-10 each ity of (FLONASE 20:29: nostril. [place] NASAL) 02 Medical Branch mv-mins/fol 2020-0 Yes Take by Uni vers ic/lycopene 7-10 mouth. ity of /ginkgo 20:29: [place] (MENS 50+ 02 Medical DAILY Branch FORMULA,GIN GKO, ORAL) ZINC ORAL 2020-0 Yes Take by Unive rs 7-10 mouth. ity of 20:29: 02 Medical Branch levocetiriz 2020-0 Yes Take by Uni vers ine 7-10 mouth. ity of dihydrochlo 20:29: [place] ride (XYZAL 02 Medical ORAL) Branch fluticasone 2020-0 Yes Use in Univ ers propionate 7-10 each ity of (FLONASE 20:29: nostril. [place] NASAL) 02 Medical Branch mv-mins/fol 2020-0 Yes Take by Uni vers ic/lycopene 7-10 mouth. ity of /ginkgo 20:29: [place] (MENS 50+ 02 Medical DAILY Branch FORMULA,GIN GKO, ORAL) ZINC ORAL 2020-0 Yes Take by Unive rs 7-10 mouth. ity of 20:29: 02 Medical Branch levocetiriz 2020-0 Yes Take by Uni vers ine 7-10 mouth. ity of dihydrochlo 20:29: [place] ride (XYZAL 02 Medical ORAL) Branch fluticasone 2020-0 Yes Use in Univ ers propionate 7-10 each ity of (FLONASE 20:29: nostril. [place] NASAL) 02 Medical Branch mv-mins/fol 2020-0 Yes Take by Uni vers ic/lycopene 7-10 mouth. ity of /ginkgo 20:29: [place] (MENS 50+ 02 Medical DAILY Branch FORMULA,GIN GKO, ORAL) ZINC ORAL 2020-0 Yes Take by Unive rs 7-10 mouth. ity of 20:29: 02 Medical Branch levocetiriz 2020-0 Yes Take by Uni vers ine 7-10 mouth. ity of dihydrochlo 20:29: [place] ride (XYZAL 02 Medical ORAL) Branch fluticasone 2020-0 Yes Use in Univ ers propionate 7-10 each ity of (FLONASE 20:29: nostril. [place] NASAL) 02 Medical Branch mv-mins/fol 2020-0 Yes Take by Uni vers ic/lycopene 7-10 mouth. ity of /ginkgo 20:29: [place] (MENS 50+ 02 Medical DAILY Branch FORMULA,GIN GKO, ORAL) ZINC ORAL 2020-0 Yes Take by Unive rs 7-10 mouth. ity of 20:29: [place] 02 Medical Branch levocetiriz 2020-0 Yes Take by Uni vers ine 7-10 mouth. ity of dihydrochlo 20:29: [place] ride (XYZAL 02 Medical ORAL) Branch fluticasone 2020-0 Yes Use in Univ ers propionate 7-10 each ity of (FLONASE 20:29: nostril. [place] NASAL) 02 Medical Branch mv-mins/fol 2020-0 Yes Take by Uni vers ic/lycopene 7-10 mouth. ity of /ginkgo 20:29: [place] (MENS 50+ 02 Medical DAILY Branch FORMULA,GIN GKO, ORAL) ZINC ORAL 2020-0 Yes Take by Unive rs 7-10 mouth. ity of 20:29: [place] 02 Medical Branch levocetiriz 2020-0 Yes Take by Uni vers ine 7-10 mouth. ity of dihydrochlo 20:29: [place] ride (XYZAL 02 Medical ORAL) Branch CAMBIA 50 2020-0 Yes Univers mg PwPk 7-06 ity of 00:00: [place] 00 Medical Branch CAMBIA 50 2020-0 Yes Univers mg PwPk 7-06 ity of 00:00: [place] 00 Medical Branch CAMBIA 50 2020-0 Yes Univers mg PwPk 7-06 ity of 00:00: [place] 00 Medical Branch CAMBIA 50 2020-0 Yes Univers mg PwPk 7-06 ity of 00:00: [place] 00 Medical Branch CAMBIA 50 2020-0 Yes Univers mg PwPk 7-06 ity of 00:00: [place] 00 Medical Branch CAMBIA 50 2020-0 Yes Univers mg PwPk 7-06 ity of 00:00: [place] 00 Medical Branch CAMBIA 50 2020-0 Yes Univers mg PwPk 7-06 ity of 00:00: [place] 00 Medical Branch CAMBIA 50 2020-0 Yes Univers mg PwPk 7-06 ity of 00:00: [place] 00 Medical Branch CAMBIA 50 2020-0 Yes Univers mg PwPk 7-06 ity of 00:00: [place] 00 Medical Branch CAMBIA 50 2020-0 Yes Univers mg PwPk 7-06 ity of 00:00: [place] 00 Medical Branch CAMBIA 50 2020-0 Yes Univers mg PwPk 7-06 ity of 00:00: [place] 00 Medical Branch CAMBIA 50 2020-0 Yes Univers mg PwPk 7-06 ity of 00:00: [place] 00 Medical Branch CAMBIA 50 2020-0 Yes Univers mg PwPk 7-06 ity of 00:00: [place] 00 Medical Branch CAMBIA 50 2020-0 Yes Univers mg PwPk 7-06 ity of 00:00: [place] 00 Medical Branch CAMBIA 50 2020-0 Yes Univers mg PwPk 7-06 ity of 00:00: [place] 00 Medical Branch CAMBIA 50 2020-0 Yes Univers mg PwPk 7-06 ity of 00:00: [place] 00 Medical Branch CAMBIA 50 2020-0 Yes Univers mg PwPk 7-06 ity of 00:00: [place] 00 Medical Branch CAMBIA 50 2020-0 Yes Univers mg PwPk 7-06 ity of 00:00: [place] 00 Medical Branch CAMBIA 50 2020-0 Yes Univers mg PwPk 7-06 ity of 00:00: [place] 00 Medical Branch CAMBIA 50 2020-0 Yes Univers mg PwPk 7-06 ity of 00:00: [place] 00 Medical Branch CAMBIA 50 2020-0 Yes Univers mg PwPk 7-06 ity of 00:00: [place] 00 Medical Branch CAMBIA 50 2020-0 Yes Univers mg PwPk 7-06 ity of 00:00: [place] 00 Medical Branch CAMBIA 50 2020-0 Yes Univers mg PwPk 7-06 ity of 00:00: [place] 00 Medical Branch CAMBIA 50 2020-0 Yes Univers mg PwPk 7-06 ity of 00:00: [place] 00 Medical Branch CAMBIA 50 2020-0 Yes Univers mg PwPk 7- ity of 00:00: [place] 00 Medical Branch CAMBIA 50 2020-0 Yes Univers mg PwPk 7- ity of 00:00: [place] 00 Medical Branch CAMBIA 50 2020-0 Yes Univers mg PwPk 7-06 ity of 00:00: [place] 00 Medical Branch CAMBIA 50 2020-0 Yes Univers mg PwPk 7-06 ity of 00:00: [place] 00 Medical Branch CAMBIA 50 2020-0 Yes Univers mg PwPk 7- ity of 00:00: [place] 00 Medical Branch CAMBIA 50 2020-0 Yes Univers mg PwPk - ity of 00:00: [place] 00 Medical Branch CAMBIA 50 2020-0 Yes Univers mg PwPk 7-06 ity of 00:00: [place] 00 Medical Branch CAMBIA 50 2020-0 Yes Univers mg PwPk 7-06 ity of 00:00: [place] 00 Medical Branch CAMBIA 50 2020-0 Yes Univers mg PwPk 7-06 ity of 00:00: [place] 00 Medical Branch CAMBIA 50 2020-0 Yes Univers mg PwPk 7-06 ity of 00:00: [place] 00 Medical Branch CAMBIA 50 2020-0 Yes Univers mg PwPk 7-06 ity of 00:00: [place] 00 Medical Branch CAMBIA 50 2020-0 Yes Univers mg PwPk 7-06 ity of 00:00: [place] 00 Medical Branch CAMBIA 50 2020-0 Yes Univers mg PwPk 7-06 ity of 00:00: [place] 00 Medical Branch CAMBIA 50 2020-0 Yes Univers mg PwPk 7-06 ity of 00:00: [place] 00 Medical Branch CAMBIA 50 2020-0 Yes Univers mg PwPk 7-06 ity of 00:00: [place] 00 Medical Branch CAMBIA 50 2020-0 Yes Univers mg PwPk 7-06 ity of 00:00: [place] 00 Medical Branch CAMBIA 50 2020-0 Yes Univers mg PwPk 7-06 ity of 00:00: [place] 00 Medical Branch CAMBIA 50 2020-0 Yes Univers mg PwPk 7-06 ity of 00:00: [place] 00 Medical Branch CAMBIA 50 2020-0 Yes Univers mg PwPk 7-06 ity of 00:00: [place] 00 Medical Branch CAMBIA 50 2020-0 Yes Univers mg PwPk 7-06 ity of 00:00: [place] 00 Medical Branch CAMBIA 50 2020-0 Yes Univers mg PwPk 7-06 ity of 00:00: [place] 00 Medical Branch CAMBIA 50 2020-0 Yes Univers mg PwPk 7-06 ity of 00:00: [place] 00 Medical Branch CAMBIA 50 2020-0 Yes Univers mg PwPk 7-06 ity of 00:00: [place] 00 Medical Branch CAMBIA 50 2020-0 Yes Univers mg PwPk 7-06 ity of 00:00: [place] 00 Medical Branch CAMBIA 50 2020-0 Yes Univers mg PwPk 7-06 ity of 00:00: [place] 00 Medical Branch CAMBIA 50 2020-0 Yes Univers mg PwPk 7-06 ity of 00:00: [place] 00 Medical Branch CAMBIA 50 2020-0 Yes Univers mg PwPk 7-06 ity of 00:00: [place] 00 Medical Branch CAMBIA 50 2020-0 Yes Univers mg PwPk 7-06 ity of 00:00: [place] 00 Medical Branch EMGALITY 2020-0 Yes USE 1 Univers PEN 120 6-20 INJECTION ity of mg/mL PnIj 00:00: [place]THLY [place] sub[place] 00 DIRECTED Medi noe s injection BY YOUR [facility] h DOCOTOR glycopyrrol 2020-0 Yes TAKE 1 Univ ers ate 1 mg 6-20 TABLET BY ity of tablet 00:00: MOUTH [place] 00 TWICE Medical DAILY FOR Branch 30 DAYS EMGALITY 2020-0 Yes USE 1 [facility] PEN 120 6-20 INJECTION ity of mg/mL PnIj 00:00: MONTHLY [place] subcutane[place] 00 DIRECTED Medi noe s injection BY YOUR [facility] DOCOTOR glycopyrrol 2020-0 Yes TAKE 1 Univ ers ate 1 mg 6-20 TABLET BY ity of tablet 00:00: MOUTH TWICE Medical DAILY FOR Branch 30 DAYS montelukast 2020-0 Yes 10mg Take 1 Univ ers 10 mg 6-20 tablet by ity of tablet 00:00: mouth in [place] the Medical morning. Branch SERTraline 2020-0 Yes TAKE 1 Unive [...] DIRECTED Medi noe s injection BY YOUR [facility] DOCOTOR glycopyrrol 2020-0 Yes TAKE 1 Univ ers ate 1 mg 6-20 TABLET BY ity of tablet 00:00: MOUTH 00 TWICE Medical DAILY FOR Branch 30 DAYS montelukast 2020-0 Yes 10mg Take 1 Univ ers 10 mg 6-20 tablet by ity of tablet 00:00: mouth in [place] 00 the Medical morning. Branch SERTraline 2020-0 Yes TAKE 1 Unive rs 50 mg 6-20 TABLET BY ity of tablet 00:00: MOUTH ONCE [place] DAILY FOR Medical A TOTAL OF Branch 150 MG EMGALITY 2020-0 Yes USE 1 [facility] PEN 120 6-20 INJECTION ity of mg/mL PnIj 00:00: MONTHLY [place] subcutane[place] 00 DIRECTED Medi noe s injection BY YOUR [facility] DOCOTOR glycopyrrol 2020-0 Yes TAKE 1 Univ ers ate 1 mg 6-20 TABLET BY ity of tablet 00:00: MOUTH [place] 00 TWICE Medical DAILY FOR Branch 30 DAYS montelukast 2020-0 Yes 10mg Take 1 Univ ers 10 mg 6-20 tablet by ity of tablet 00:00: mouth in [place] 00 the Medical morning. Branch SERTraline 2020-0 Yes TAKE 1 Unive rs 50 mg 6-20 TABLET BY ity of tablet 00:00: MOUTH ONCE 00 DAILY FOR Medical A TOTAL OF Branch 150 MG EMGALITY 2020-0 Yes USE 1 [facility] PEN 120 6-20 INJECTION ity of mg/mL PnIj 00:00: MONTHLY [place] subcut[place] 00 DIRECTED Medi noe s injection BY YOUR [facility] DOCOTOR glycopyrrol 2020-0 Yes TAKE 1 Univ ers ate 1 mg 6-20 TABLET BY ity of tablet 00:00: MOUTH 00 TWICE Medical DAILY FOR Branch 30 DAYS montelukast 2020-0 Yes 10mg Take 1 Univ ers 10 mg 6-20 tablet by ity of tablet 00:00: mouth in [place] 00 the Medical morning. Branch SERTraline 2020-0 Yes TAKE 1 Unive rs 50 mg 6-20 TABLET BY ity of tablet 00:00: MOUTH ONCE DAILY FOR Medical A TOTAL OF Branch 150 MG EMGALITY 2020-0 Yes USE 1 [facility] PEN 120 6-20 INJECTION ity of mg/mL PnIj 00:00: MONTHLY [place] subcut[place] 00 DIRECTED Medi noe s injection BY YOUR [facility] DOCOTOR glycopyrrol 2020-0 Yes TAKE 1 Univ ers ate 1 mg 6-20 TABLET BY ity of tablet 00:00: MOUTH 00 TWICE Medical DAILY FOR Branch 30 DAYS montelukast 2020-0 Yes 10mg Take 10 mg Univers 10 mg 6-20 by mouth ity of tablet 00:00: daily. 00 Medical Branch SERTraline 2020-0 Yes TAKE 1 Unive rs 50 mg 6-20 TABLET BY ity of tablet 00:00: MOUTH ONCE DAILY FOR Medical A TOTAL OF Branch 150 MG SERTraline 2020-0 Yes TAKE 1 Unive rs 100 mg 6-20 TABLET BY ity of tablet 00:00: MOUTH ONCE [place] 00 DAILY TAKE Medical WITH 50MG Branch EMGALITY 2020-0 Yes USE 1 [facility] PEN 120 6-20 INJECTION ity of mg/mL PnIj 00:00: MONTHLY [place] subcutane[place] 00 DIRECTED Medi noe s injection BY YOUR [facility] DOCOTOR glycopyrrol 2020-0 Yes TAKE 1 Univ [...] DIRECTED Medi noe s injection BY YOUR [facility] DOCOTOR glycopyrrol 2020-0 Yes TAKE 1 Univ [...] DIRECTED Medi noe s injection BY YOUR [facility] DOCOTOR glycopyrrol 2020-0 Yes TAKE 1 Univ [...] DIRECTED Medi noe s injection BY YOUR [facility] DOCOTOR glycopyrrol 2020-0 Yes TAKE 1 Univ [...] DIRECTED Medi noe s injection BY YOUR [facility] DOCOTOR glycopyrrol 2020-0 Yes TAKE 1 Univ [...] DIRECTED Medi noe s injection BY YOUR [facility] DOCOTOR glycopyrrol 2020-0 Yes TAKE 1 Univ [...] DIRECTED Medi noe s injection BY YOUR [facility] DOCOTOR glycopyrrol 2020-0 Yes TAKE 1 Univ [...] DIRECTED Medi noe s injection BY YOUR [facility] DOCOTOR glycopyrrol 2020-0 Yes TAKE 1 Univ ers ate 1 mg 6-20 TABLET BY ity of tablet 00:00: MOUTH TWICE Medical DAILY FOR Branch 30 DAYS EMGALITY 2020-0 Yes USE 1 [facility] PEN 120 6-20 INJECTION ity of mg/mL PnIj 00:00: MONTHLY [place] subcut[place] 00 DIRECTED Medi noe s injection BY YOUR [facility] DOCOTOR glycopyrrol 2020-0 Yes TAKE 1 Univ [...] DIRECTED Medi noe s injection BY YOUR [facility] DOCOTOR glycopyrrol 2020-0 Yes TAKE 1 Univ [...] DIRECTED Medi noe s injection BY YOUR Branc h DOCOTOR glycopyrrol 2020-0 Yes TAKE 1 [...] DIRECTED Medi noe s injection BY YOUR [facility] DOCOTOR glycopyrrol 2020-0 Yes TAKE 1 Univ [...] DIRECTED Medi noe s injection BY YOUR [facility] DOCOTOR glycopyrrol 2020-0 Yes TAKE 1 Univ [...] DIRECTED Medi noe s injection BY YOUR [facility] DOCOTOR glycopyrrol 2020-0 Yes TAKE 1 Univ [...] DIRECTED Medi noe s injection BY YOUR [facility] DOCOTOR glycopyrrol 2020-0 Yes TAKE 1 Univ [...] DIRECTED Medi noe s injection BY YOUR [facility] DOCOTOR glycopyrrol 2020-0 Yes TAKE 1 Univ [...] DIRECTED Medi noe s injection BY YOUR [facility] DOCOTOR glycopyrrol 2020-0 Yes TAKE 1 Univ [...] DIRECTED Medi noe s injection BY YOUR [facility] DOCOTOR glycopyrrol 2020-0 Yes TAKE 1 Univ [...] DIRECTED Medi noe s injection BY YOUR [facility] h DOCOTOR glycopyrrol 2020-0 Yes TAKE 1 [...] DIRECTED Medi noe s injection BY YOUR [facility] h DOCOTOR EMGALITY 2020-0 Yes USE 1 Univers PEN 120 6-20 INJECTION ity of mg/mL PnIj 00:00: [place]LY [place] subcutaneou 00 DIRECTED Medi noe s injection BY YOUR [facility] h DOCOTOR glycopyrrol 2020-0 Yes TAKE 1 [...] DIRECTED Medi noe s injection BY YOUR [facility] DOCOTOR glycopyrrol 2020-0 Yes TAKE 1 Univ [...] DIRECTED Medi noe s injection BY YOUR [facility] h DOCOTOR glycopyrrol 2020-0 Yes TAKE 1 [...] DIRECTED Medi noe s injection BY YOUR [facility] DOCOTOR glycopyrrol 2020-0 Yes TAKE 1 Univ [...] DIRECTED Medi noe s injection BY YOUR [facility] DOCOTOR glycopyrrol 2020-0 Yes TAKE 1 Univ [...] DIRECTED Medi noe s injection BY YOUR [facility] DOCOTOR glycopyrrol 2020-0 Yes TAKE 1 Univ [...] DIRECTED Medi noe s injection BY YOUR [facility] h DOCOTOR glycopyrrol 2020-0 Yes TAKE 1 Univ ers ate 1 mg 6-20 TABLET BY ity of tablet 00:00: MOUTH TWICE Medical DAILY FOR Branch 30 DAYS EMGALITY 2020-0 Yes USE 1 Univers PEN 120 6-20 INJECTION ity of mg/mL PnIj 00:00: [place] sub[place] 00 DIRECTED Medi noe s injection BY YOUR [facility] h DOCOTOR glycopyrrol 2020-0 Yes TAKE 1 [...] DIRECTED Medi noe s injection BY YOUR [facility] h DOCOTOR SERTraline 2020-0 Yes TAKE 1 [...] DIRECTED Medi noe s injection BY YOUR [facility] DOCOTOR glycopyrrol 2020-0 Yes TAKE 1 Univ [...] DIRECTED Medi noe s injection BY YOUR [facility] h DOCOTOR glycopyrrol 2020-0 Yes TAKE 1 [...] DIRECTED Medi noe s injection BY YOUR [facility] DOCOTOR glycopyrrol 2020-0 Yes TAKE 1 Univ [...] DIRECTED Medi noe s injection BY YOUR [facility] h DOCOTOR glycopyrrol 2020-0 Yes TAKE 1 [...] DIRECTED Medi noe s injection BY YOUR [facility] h DOCOTOR glycopyrrol 2020-0 Yes TAKE 1 [...] DIRECTED Medi noe s injection BY YOUR [facility] h DOCOTOR EMGALITY 2020-0 Yes USE 1 [facility] PEN 120 6-20 INJECTION ity of mg/mL PnIj 00:00: [place] sub[place] 00 DIRECTED Medi noe s injection BY YOUR [facility] h DOCOTOR glycopyrrol 2020-0 Yes TAKE 1 [...] DIRECTED Medi noe s injection BY YOUR [facility] DOCOTOR glycopyrrol 2020-0 Yes TAKE 1 Univ [...] DIRECTED Medi noe s injection BY YOUR [facility] DOCOTOR glycopyrrol 2020-0 Yes TAKE 1 Univ [...] DIRECTED Medi noe s injection BY YOUR [facility] DOCOTOR glycopyrrol 2020-0 Yes TAKE 1 Univ [...] DIRECTED Medi noe s injection BY YOUR [facility] DOCOTOR glycopyrrol 2020-0 Yes TAKE 1 Univ [...] DIRECTED Medi noe s injection BY YOUR [facility] DOCOTOR glycopyrrol 2020-0 Yes TAKE 1 Univ [...] DIRECTED Medi noe s injection BY YOUR [facility] DOCOTOR glycopyrrol 2020-0 Yes TAKE 1 Univ [...] of tablet 00:00: MOUTH ONCE 00 DAILY FOR Medical A TOTAL OF Branch 150 MG SERTraline 2020-0 Yes TAKE 1 Unive rs 100 mg 6-20 TABLET BY ity of tablet 00:00: MOUTH ONCE DAILY TAKE Medical WITH 50MG Branch EMGALITY 2020-0 Yes USE 1 [facility] PEN 120 6-20 INJECTION ity of mg/mL PnIj 00:00: [place]THLY [place] subcutane 00 DIRECTED Medi noe s injection BY YOUR [facility] DOCOTOR glycopyrrol 2020-0 Yes TAKE 1 Univ ers ate 1 mg 6-20 TABLET BY ity of tablet 00:00: MOUTH TWICE Medical DAILY FOR Branch 30 DAYS montelukast 2020-0 Yes 10mg Take 10 mg Univers 10 mg 6-20 by mouth ity of tablet 00:00: daily. [place] [facility] SERTraline 2020-0 Yes TAKE 1 Unive rs 50 mg 6-20 TABLET BY ity of tablet 00:00: MOUTH ONCE [place] DAILY FOR Medical A TOTAL OF Branch 150 MG EMGALITY 2020-0 Yes USE 1 [facility] PEN 120 6-20 INJECTION ity of mg/mL PnIj 00:00: MONTHLY [place] subcutane 00 DIRECTED Medi noe s injection BY YOUR [facility] DOCOTOR glycopyrrol 2020-0 Yes TAKE 1 Univ ers ate 1 mg 6-20 TABLET BY ity of tablet 00:00: MOUTH 00 TWICE Medical DAILY FOR Branch 30 DAYS montelukast 2020-0 Yes 10mg Take 1 Univ ers 10 mg 6-20 tablet by ity of tablet 00:00: mouth in [place] 00 the Medical morning. Branch SERTraline 2020-0 Yes TAKE 1 Unive rs 50 mg 6-20 TABLET BY ity of tablet 00:00: MOUTH ONCE [place] 00 DAILY FOR Medical A TOTAL OF Branch 150 MG EMGALITY 2020-0 Yes USE 1 [facility] PEN 120 6-20 INJECTION ity of mg/mL PnIj 00:00: MONTHLY [place] subcutane[place] 00 DIRECTED Medi noe s injection BY YOUR [facility] h DOCOTOR glycopyrrol 2020-0 Yes TAKE 1 Univ ers ate 1 mg 6-20 TABLET BY ity of tablet 00:00: MOUTH [place] 00 TWICE Medical DAILY FOR Branch 30 DAYS montelukast 2020-0 Yes 10mg Take 1 Univ ers 10 mg 6-20 tablet by ity of tablet 00:00: mouth in [place] 00 the Medical morning. Branch SERTraline 2020-0 Yes TAKE 1 Unive rs 50 mg 6-20 TABLET BY ity of tablet 00:00: MOUTH ONCE [place] 00 DAILY FOR Medical A TOTAL OF Branch 150 MG EMGALITY 2020-0 Yes USE 1 [facility] PEN 120 6-20 INJECTION ity of mg/mL PnIj 00:00: MONTHLY [place] subcutane[place] 00 DIRECTED Medi noe s injection BY YOUR [facility] DOCOTOR glycopyrrol 2020-0 Yes TAKE 1 Univ ers ate 1 mg 6-20 TABLET BY ity of tablet 00:00: MOUTH [place] 00 TWICE Medical DAILY FOR Branch 30 DAYS montelukast 2020-0 Yes 10mg Take 1 Univ ers 10 mg 6-20 tablet by ity of tablet 00:00: mouth in [place] 00 the Medical morning. Branch SERTraline 2020-0 Yes TAKE 1 Unive rs 50 mg 6-20 TABLET BY ity of tablet 00:00: MOUTH ONCE 00 DAILY FOR Medical A TOTAL OF Branch 150 MG SERTraline 2020-0 2020- No TAKE 1 Univ ers 100 mg 6-20 10-14 TABLET BY ity of tablet 00:00: 00:[place]CE [place] 00 :[place] DAILY TAKE Medical WITH 50MG Branch busPIRone 2020-0 Yes TAKE 1 Univer s 15 mg 5-13 TABLET BY ity of tablet 00:00: MOUTH [place] 00 TWICE Medical DAILY FOR Branch 30 DAYS traZODone 2020-0 Yes TAKE 1 Univer s 150 mg 5-13 TABLET BY ity of tablet 00:00: MOUTH ONCE [place] 00 DAILY AT Medical BEDTIME Branch FOR 30 DAYS busPIRone 2020-0 Yes TAKE 1 Univer s 15 mg 5-13 TABLET BY ity of tablet 00:00: MOUTH 00 TWICE Medical DAILY FOR Branch 30 DAYS traZODone 2020-0 Yes TAKE 1 Univer s 150 mg 5-13 TABLET BY ity of tablet 00:00: MOUTH ONCE 00 DAILY AT [facility] FOR 30 DAYS traZODone 2019-0 Yes TAKE 1 Univer s 150 mg 5-13 TABLET BY ity of tablet 00:00: MOUTH ONCE 00 DAILY AT [facility] FOR 30 DAYS busPIRone 0 Yes TAKE 1 Univer s 15 mg 5-13 TABLET BY ity of tablet 00:00: MOUTH 00 TWICE Medical DAILY FOR Branch 30 DAYS traZODone 0 Yes TAKE 1 Univer s 150 mg 5-13 TABLET BY ity of tablet 00:00: MOUTH ONCE 00 DAILY AT [facility] FOR 30 DAYS busPIRone 0 Yes TAKE 1 Univer s 15 mg 5-13 TABLET BY ity of tablet 00:00: MOUTH 00 TWICE Medical DAILY FOR Branch 30 DAYS traZODone Yes TAKE 1 Univer s 150 mg 5-13 TABLET BY ity of tablet 00:00: MOUTH ONCE DAILY AT [facility] FOR 30 DAYS busPIRone Yes TAKE 1 Univer s 15 mg 5-13 TABLET BY ity of tablet 00:00: MOUTH 00 TWICE Medical DAILY FOR Branch 30 DAYS traZODone 0 Yes TAKE 1 Univer s 150 mg 5-13 TABLET BY ity of tablet 00:00: MOUTH ONCE 00 DAILY AT [facility] FOR 30 DAYS busPIRone 0 Yes TAKE 1 Univer s 15 mg 5-13 TABLET BY ity of tablet 00:00: MOUTH 00 TWICE Medical DAILY FOR Branch 30 DAYS traZODone 0 Yes TAKE 1 Univer s 150 mg 5-13 TABLET BY ity of tablet 00:00: MOUTH ONCE 00 DAILY AT [facility] FOR 30 DAYS busPIRone 0 Yes TAKE 1 Univer s 15 mg 5-13 TABLET BY ity of tablet 00:00: MOUTH 00 TWICE Medical DAILY FOR Branch 30 DAYS traZODone 0 Yes TAKE 1 Univer s 150 mg 5-13 TABLET BY ity of tablet 00:00: MOUTH ONCE 00 DAILY AT [facility] FOR 30 DAYS busPIRone 0 Yes TAKE 1 Univer s 15 mg 5-13 TABLET BY ity of tablet 00:00: MOUTH 00 TWICE Medical DAILY FOR Branch 30 DAYS traZODone 0 Yes TAKE 1 Univer s 150 mg 5-13 TABLET BY ity of tablet 00:00: MOUTH ONCE 00 DAILY AT [facility] FOR 30 DAYS busPIRone 0 Yes TAKE 1 Univer s 15 mg 5-13 TABLET BY ity of tablet 00:00: MOUTH 00 TWICE Medical DAILY FOR Branch 30 DAYS traZODone 0 Yes TAKE 1 Univer s 150 mg 5-13 TABLET BY ity of tablet 00:00: MOUTH ONCE 00 DAILY AT [facility] FOR 30 DAYS busPIRone Yes TAKE 1 Univer s 15 mg 5-13 TABLET BY ity of tablet 00:00: MOUTH 00 TWICE Medical DAILY FOR Branch 30 DAYS traZODone Yes TAKE 1 Univer s 150 mg 5-13 TABLET BY ity of tablet 00:00: MOUTH ONCE 00 DAILY AT [facility] FOR 30 DAYS busPIRone Yes TAKE 1 Univer s 15 mg 5-13 TABLET BY ity of tablet 00:00: MOUTH 00 TWICE Medical DAILY FOR Branch 30 DAYS traZODone Yes TAKE 1 Univer s 150 mg 5-13 TABLET BY ity of tablet 00:00: MOUTH ONCE 00 DAILY AT [facility] FOR 30 DAYS busPIRone Yes TAKE 1 Univer s 15 mg 5-13 TABLET BY ity of tablet 00:00: MOUTH 00 TWICE Medical DAILY FOR Branch 30 DAYS busPIRone Yes TAKE 1 Univer s 15 mg 5-13 TABLET BY ity of tablet 00:00: MOUTH 00 TWICE Medical DAILY FOR Branch 30 DAYS traZODone 0 Yes TAKE 1 Univer s 150 mg 5-13 TABLET BY ity of tablet 00:00: MOUTH ONCE 00 DAILY AT [facility] FOR 30 DAYS busPIRone 0 Yes TAKE 1 Univer s 15 mg 5-13 TABLET BY ity of tablet 00:00: MOUTH 00 TWICE Medical DAILY FOR Branch 30 DAYS traZODone 0 Yes TAKE 1 Univer s 150 mg 5-13 TABLET BY ity of tablet 00:00: MOUTH ONCE 00 DAILY AT [facility] FOR 30 DAYS busPIRone 0 Yes TAKE 1 Univer s 15 mg 5-13 TABLET BY ity of tablet 00:00: MOUTH 00 TWICE Medical DAILY FOR Branch 30 DAYS traZODone 2020-0 Yes TAKE 1 Univer s 150 mg 5-13 TABLET BY ity of tablet 00:00: MOUTH ONCE 00 DAILY AT [facility] FOR 30 DAYS busPIRone 2019-0 Yes TAKE 1 Univer s 15 mg 5-13 TABLET BY ity of tablet 00:00: MOUTH 00 TWICE Medical DAILY FOR Branch 30 DAYS traZODone 0 Yes TAKE 1 Univer s 150 mg 5-13 TABLET BY ity of tablet 00:00: MOUTH ONCE 00 DAILY AT [facility] FOR 30 DAYS traZODone 0 Yes TAKE 1 Univer s 150 mg 5-13 TABLET BY ity of tablet 00:00: MOUTH ONCE 00 DAILY AT [facility] FOR 30 DAYS busPIRone 0 Yes TAKE 1 Univer s 15 mg 5-13 TABLET BY ity of tablet 00:00: MOUTH 00 TWICE Medical DAILY FOR Branch 30 DAYS traZODone 0 Yes TAKE 1 Univer s 150 mg 5-13 TABLET BY ity of tablet 00:00: MOUTH ONCE 00 DAILY AT [facility] FOR 30 DAYS busPIRone 0 Yes TAKE 1 Univer s 15 mg 5-13 TABLET BY ity of tablet 00:00: MOUTH 00 TWICE Medical DAILY FOR Branch 30 DAYS traZODone 0 Yes TAKE 1 Univer s 150 mg 5-13 TABLET BY ity of tablet 00:00: MOUTH ONCE 00 DAILY AT [facility] FOR 30 DAYS busPIRone 0 Yes TAKE 1 Univer s 15 mg 5-13 TABLET BY ity of tablet 00:00: MOUTH 00 TWICE Medical DAILY FOR Branch 30 DAYS traZODone 0 Yes TAKE 1 Univer s 150 mg 5-13 TABLET BY ity of tablet 00:00: MOUTH ONCE 00 DAILY AT [facility] FOR 30 DAYS busPIRone 2019-0 Yes TAKE 1 Univer s 15 mg 5-13 TABLET BY ity of tablet 00:00: MOUTH 00 TWICE Medical DAILY FOR Branch 30 DAYS traZODone 0 Yes TAKE 1 Univer s 150 mg 5-13 TABLET BY ity of tablet 00:00: MOUTH ONCE 00 DAILY AT [facility] FOR 30 DAYS busPIRone 2020-0 Yes TAKE 1 Univer s 15 mg 5-13 TABLET BY ity of tablet 00:00: MOUTH [place] 00 TWICE Medical DAILY FOR Branch 30 DAYS traZODone 2019-0 Yes TAKE 1 Univer s 150 mg 5-13 TABLET BY ity of tablet 00:00: MOUTH ONCE 00 DAILY AT [facility] FOR 30 DAYS busPIRone 2019-0 Yes TAKE 1 Univer s 15 mg 5-13 TABLET BY ity of tablet 00:00: MOUTH [place] 00 TWICE Medical DAILY FOR Branch 30 DAYS traZODone 0 Yes TAKE 1 Univer s 150 mg 5-13 TABLET BY ity of tablet 00:00: MOUTH ONCE 00 DAILY AT [facility] FOR 30 DAYS busPIRone 0 Yes TAKE 1 Univer s 15 mg 5-13 TABLET BY ity of tablet 00:00: MOUTH 00 TWICE Medical DAILY FOR Branch 30 DAYS traZODone 0 Yes TAKE 1 Univer s 150 mg 5-13 TABLET BY ity of tablet 00:00: MOUTH ONCE 00 DAILY AT [facility] FOR 30 DAYS busPIRone 0 Yes TAKE [...] tablet 00:00: MOUTH ONCE 00 DAILY AT [facility] FOR 30 DAYS busPIRone 2019-0 Yes TAKE 1 Univer s 15 mg 5-13 TABLET BY ity of tablet 00:00: MOUTH 00 TWICE Medical DAILY FOR Branch 30 DAYS traZODone 0 Yes TAKE 1 Univer s 150 mg 5-13 TABLET BY ity of tablet 00:00: MOUTH ONCE 00 DAILY AT [facility] FOR 30 DAYS busPIRone 2019-0 Yes TAKE 1 Univer s 15 mg 5-13 TABLET BY ity of tablet 00:00: MOUTH 00 TWICE Medical DAILY FOR Branch 30 DAYS traZODone 0 Yes TAKE 1 Univer s 150 mg 5-13 TABLET BY ity of tablet 00:00: MOUTH ONCE 00 DAILY AT [facility] FOR 30 DAYS traZODone 0 Yes TAKE 1 Univer s 150 mg 5-13 TABLET BY ity of tablet 00:00: MOUTH ONCE 00 DAILY AT [facility] FOR 30 DAYS busPIRone 0 Yes TAKE 1 Univer s 15 mg 5-13 TABLET BY ity of tablet 00:00: MOUTH 00 TWICE Medical DAILY FOR Branch 30 DAYS traZODone 0 Yes TAKE 1 Univer s 150 mg 5-13 TABLET BY ity of tablet 00:00: MOUTH ONCE 00 DAILY AT [facility] FOR 30 DAYS busPIRone Yes TAKE 1 Univer s 15 mg 5-13 TABLET BY ity of tablet 00:00: MOUTH 00 TWICE Medical DAILY FOR Branch 30 DAYS traZODone Yes TAKE 1 Univer s 150 mg 5-13 TABLET BY ity of tablet 00:00: MOUTH ONCE 00 DAILY AT [facility] FOR 30 DAYS busPIRone Yes TAKE 1 Univer s 15 mg 5-13 TABLET BY ity of tablet 00:00: MOUTH 00 TWICE Medical DAILY FOR Branch 30 DAYS traZODone Yes TAKE 1 Univer s 150 mg 5-13 TABLET BY ity of tablet 00:00: MOUTH ONCE 00 DAILY AT [facility] FOR 30 DAYS busPIRone Yes TAKE 1 Univer s 15 mg 5-13 TABLET BY ity of tablet 00:00: MOUTH 00 TWICE Medical DAILY FOR Branch 30 DAYS busPIRone Yes TAKE 1 Univer s 15 mg 5-13 TABLET BY ity of tablet 00:00: MOUTH 00 TWICE Medical DAILY FOR Branch 30 DAYS traZODone 0 Yes TAKE 1 Univer s 150 mg 5-13 TABLET BY ity of tablet 00:00: MOUTH ONCE 00 DAILY AT [facility] FOR 30 DAYS busPIRone 0 Yes TAKE 1 Univer s 15 mg 5-13 TABLET BY ity of tablet 00:00: MOUTH 00 TWICE Medical DAILY FOR Branch 30 DAYS traZODone 0 Yes TAKE 1 Univer s 150 mg 5-13 TABLET BY ity of tablet 00:00: MOUTH ONCE 00 DAILY AT [facility] FOR 30 DAYS busPIRone 0 Yes TAKE 1 Univer s 15 mg 5-13 TABLET BY ity of tablet 00:00: MOUTH 00 TWICE Medical DAILY FOR Branch 30 DAYS traZODone 2020-0 Yes TAKE 1 Univer s 150 mg 5-13 TABLET BY ity of tablet 00:00: MOUTH ONCE 00 DAILY AT [facility] FOR 30 DAYS busPIRone 2019-0 Yes TAKE 1 Univer s 15 mg 5-13 TABLET BY ity of tablet 00:00: MOUTH 00 TWICE Medical DAILY FOR Branch 30 DAYS traZODone 2019-0 Yes TAKE 1 Univer s 150 mg 5-13 TABLET BY ity of tablet 00:00: MOUTH ONCE 00 DAILY AT [facility] FOR 30 DAYS traZODone 0 Yes TAKE 1 Univer s 150 mg 5-13 TABLET BY ity of tablet 00:00: MOUTH ONCE 00 DAILY AT [facility] FOR 30 DAYS busPIRone 0 Yes TAKE 1 Univer s 15 mg 5-13 TABLET BY ity of tablet 00:00: MOUTH 00 TWICE Medical DAILY FOR Branch 30 DAYS traZODone 0 Yes TAKE 1 Univer s 150 mg 5-13 TABLET BY ity of tablet 00:00: MOUTH ONCE 00 DAILY AT [facility] FOR 30 DAYS busPIRone 0 Yes TAKE 1 Univer s 15 mg 5-13 TABLET BY ity of tablet 00:00: MOUTH 00 TWICE Medical DAILY FOR Branch 30 DAYS traZODone 0 Yes TAKE 1 Univer s 150 mg 5-13 TABLET BY ity of tablet 00:00: MOUTH ONCE 00 DAILY AT [facility] FOR 30 DAYS busPIRone 2019-0 Yes TAKE 1 Univer s 15 mg 5-13 TABLET BY ity of tablet 00:00: MOUTH 00 TWICE Medical DAILY FOR Branch 30 DAYS traZODone 0 Yes TAKE 1 Univer s 150 mg 5-13 TABLET BY ity of tablet 00:00: MOUTH ONCE 00 DAILY AT [facility] FOR 30 DAYS busPIRone 2019-0 Yes TAKE 1 Univer s 15 mg 5-13 TABLET BY ity of tablet 00:00: MOUTH 00 TWICE Medical DAILY FOR Branch 30 DAYS busPIRone 2019-0 Yes TAKE 1 Univer s 15 mg 5-13 TABLET BY ity of tablet 00:00: MOUTH 00 TWICE Medical DAILY FOR Branch 30 DAYS traZODone 2019-0 Yes TAKE 1 Univer s 150 mg 5-13 TABLET BY ity of tablet 00:00: MOUTH ONCE 00 DAILY AT [facility] FOR 30 DAYS busPIRone 2020-0 Yes TAKE 1 Univer s 15 mg 5-13 TABLET BY ity of tablet 00:00: MOUTH 00 TWICE Medical DAILY FOR Branch 30 DAYS traZODone 2019-0 Yes TAKE 1 Univer s 150 mg 5-13 TABLET BY ity of tablet 00:00: MOUTH ONCE 00 DAILY AT [facility] FOR 30 DAYS busPIRone 2019-0 Yes TAKE 1 Univer s 15 mg 5-13 TABLET BY ity of tablet 00:00: MOUTH 00 TWICE Medical DAILY FOR Branch 30 DAYS traZODone 0 Yes TAKE 1 Univer s 150 mg 5-13 TABLET BY ity of tablet 00:00: MOUTH ONCE 00 DAILY AT [facility] FOR 30 DAYS busPIRone 2019-0 Yes TAKE 1 Univer s 15 mg 5-13 TABLET BY ity of tablet 00:00: MOUTH 00 TWICE Medical DAILY FOR Branch 30 DAYS traZODone 2019-0 Yes TAKE 1 Univer s 150 mg 5-13 TABLET BY ity of tablet 00:00: MOUTH ONCE 00 DAILY AT [facility] FOR 30 DAYS traZODone 0 Yes TAKE 1 Univer s 150 mg 5-13 TABLET BY ity of tablet 00:00: MOUTH ONCE 00 DAILY AT [facility] FOR 30 DAYS busPIRone 2019-0 Yes TAKE 1 Univer s 15 mg 5-13 TABLET BY ity of tablet 00:00: MOUTH 00 TWICE Medical DAILY FOR Branch 30 DAYS traZODone 0 Yes TAKE 1 Univer s 150 mg 5-13 TABLET BY ity of tablet 00:00: MOUTH ONCE 00 DAILY AT [facility] FOR 30 DAYS busPIRone 2019-0 Yes TAKE 1 Univer s 15 mg 5-13 TABLET BY ity of tablet 00:00: MOUTH 00 TWICE Medical DAILY FOR Branch 30 DAYS traZODone 2019-0 Yes TAKE 1 Univer s 150 mg 5-13 TABLET BY ity of tablet 00:00: MOUTH ONCE 00 DAILY AT [facility] FOR 30 DAYS busPIRone 2019-0 Yes TAKE 1 Univer s 15 mg 5-13 TABLET BY ity of tablet 00:00: MOUTH 00 TWICE Medical DAILY FOR Branch 30 DAYS traZODone 0 Yes TAKE 1 Univer s 150 mg 5-13 TABLET BY ity of tablet 00:00: MOUTH ONCE 00 DAILY AT [facility] FOR 30 DAYS busPIRone 0 Yes TAKE 1 Univer s 15 mg 5-13 TABLET BY ity of tablet 00:00: MOUTH 00 TWICE Medical DAILY FOR Branch 30 DAYS busPIRone Yes TAKE 1 Univer s 15 mg 5-13 TABLET BY ity of tablet 00:00: MOUTH 00 TWICE Medical DAILY FOR Branch 30 DAYS traZODone Yes TAKE 1 Univer s 150 mg 5-13 TABLET BY ity of tablet 00:00: MOUTH ONCE 00 DAILY AT [facility] FOR 30 DAYS traZODone Yes TAKE 1 Univer s 150 mg 5-13 TABLET BY ity of tablet 00:00: MOUTH ONCE 00 DAILY AT [facility] FOR 30 DAYS busPIRone Yes TAKE 1 Univer s 15 mg 5-13 TABLET BY ity of tablet 00:00: MOUTH 00 TWICE Medical DAILY FOR Branch 30 DAYS traZODone Yes TAKE 1 Univer s 150 mg 5-13 TABLET BY ity of tablet 00:00: MOUTH ONCE 00 DAILY AT [facility] FOR 30 DAYS busPIRone Yes TAKE 1 Univer s 15 mg 5-13 TABLET BY ity of tablet 00:00: MOUTH 00 TWICE Medical DAILY FOR Branch 30 DAYS traZODone Yes TAKE 1 Univer s 150 mg 5-13 TABLET BY ity of tablet 00:00: MOUTH ONCE 00 DAILY AT [facility] FOR 30 DAYS busPIRone Yes TAKE 1 Univer s 15 mg 5-13 TABLET BY ity of tablet 00:00: MOUTH 00 TWICE Medical DAILY FOR Branch 30 DAYS busPIRone Yes TAKE 1 Univer s 15 mg 5-13 TABLET BY ity of tablet 00:00: MOUTH 00 TWICE Medical DAILY FOR Branch 30 DAYS traZODone Yes TAKE 1 Univer s 150 mg 5-13 TABLET BY ity of tablet 00:00: MOUTH ONCE 00 DAILY AT [facility] FOR 30 DAYS Zoloft Zoloft 2019-0 Yes Paula 1 tablet Com mon 4-13 White (100 + 50 Spirit 00:00: = 150 mg) - [facility] 00 [facility] Josseline Kenalog 2019-1 No 40mg Common (Triamcinol (Triamcinol 1-14 S pirit one) one) 00:00: - [facility] 00 [facility] Josseline Kenalog 2019- No 40mg Common (Triamcinol (Triamcinol 1-14 S pirit one) one) 00:00: - [facility] 00 [facility] Josseline Kentejas 2019- No 40mg Common (Triamcinol (Triamcinol 1-14 S pirit one) one) 00:00: - [facility] 00 [facility] Josseline Kentejas 2019- No 40mg Common (Triamcinol (Triamcinol 1-14 S pirit one) one) 00:00: - [facility] 00 [facility] Josseline Kentejas 2019-1 No 40mg Common (Triamcinol (Triamcinol 1-14 S pirit one) one) 00:00: - [facility] 00 [facility] Josseline Kentejas 2019- No 40mg Common (Triamcinol (Triamcinol 1-14 S pirit one) one) 00:00: - [facility] 00 [facility] Josseline Kentejas 2019-1 No 40mg Common (Triamcinol (Triamcinol 1-14 S pirit one) one) 00:00: - [facility] 00 [facility] Josseline Kentejas 2019-1 No 40mg Common (Triamcinol (Triamcinol 1-14 S pirit one) one) 00:00: - [facility] 00 [facility] Josseline Kentejas 2019-1 No 40mg Common (Triamcinol (Triamcinol 1-14 S pirit one) one) 00:00: - [facility] Kent[facility]-1 No 40mg Common (Triamcinol (Triamcinol 1-14 S pirit one) one) 00:00: - [facility] 00 [facility] Josseline Kenalog 2019-1 No 40mg Common (Triamcinol (Triamcinol 1-14 S pirit one) one) 00:00: - [facility] 00 [facility] traZODone traZODone No traZODone HCl HCl HCl Glycopyrrol Glycopyrrol No Glycopyrro ate 1 MG ate 1 MG late 1 MG Meloxicam Meloxicam No Meloxicam Cambia 50 [place] 50 No [place] 50 MG MG MG Levothyroxi Levothyroxi No QD Levothyrox ne Sodium ne Sodium ine Sodium 50 MCG 50 MCG 50 MCG Cholestyram Cholestyram No Cholestyra ine ine mine Montelukast Montelukast No 1{table QD Montelukas Sodium 10 Sodium 10 t} t Sodium MG MG 10 MG Emgality Emgality No Emgality Xerac AC Xerac AC No Xerac AC 6.25 % 6.25 % 6.25 % Hyoscyamine Hyoscyamine No Hyoscyamin Sulfate Sulfate e Sulfate busPIRone busPIRone No busPIRone HCl 15 MG HCl 15 MG HCl 15 MG Phentermine Phentermine No Phentermin HCl HCl e HCl Anucort-HC Anucort-HC No Anucort-HC Hyoscyamine Hyoscyamine No Hyoscyamin Sulfate Sulfate e Sulfate busPIRone busPIRone No 1{table BID busPIRone HCl 15 MG HCl 15 MG t} HCl 15 MG Cyclobenzap Cyclobenzap No Cyclobenza rine HCl rine HCl cassie HCl predniSONE predniSONE No predniSONE Xerac AC Xerac AC No Xerac AC 6.25 % 6.25 % 6.25 % Cambia 50 Cambia 50 No [place] 50 MG MG MG Cholestyram Cholestyram No Cholestyra ine ine mine Phentermine Phentermine No Phentermin HCl HCl e HCl traZODone traZODone No traZODone HCl HCl HCl Meloxicam Meloxicam No Meloxicam 7.5 MG 7.5 MG 7.5 MG Glycopyrrol Glycopyrrol No Glycopyrro ate 1 MG ate 1 MG late 1 MG Sertraline Sertraline No Sertraline HCl HCl HCl Meloxicam Meloxicam No Meloxicam Azithromyci Azithromyci No Azithromyc n n in Emgality Emgality No Emgality Anucort-HC Anucort-HC No Anucort-HC Euthyrox Euthyrox No Euthyrox busPIRone busPIRone No busPIRone HCl 15 MG HCl 15 MG HCl 15 MG Montelukast Montelukast No 1{table QD Montelukas Sodium 10 Sodium 10 t} t Sodium MG MG 10 MG predniSONE predniSONE No predniSONE Emgality Emgality No Emgality Glycopyrrol Glycopyrrol No Glycopyrro ate 1 MG ate 1 MG late 1 MG Meloxicam Meloxicam No Meloxicam 7.5 MG 7.5 MG 7.5 MG Sertraline Sertraline No Sertraline HCl HCl HCl Anucort-HC Anucort-HC No Anucort-HC Azithromyci Azithromyci No Azithromyc n n in Hyoscyamine Hyoscyamine No Hyoscyamin Sulfate Sulfate e Sulfate Xerac AC Xerac AC No Xerac AC 6.25 % 6.25 % 6.25 % Montelukast Montelukast No 1{table QD Montelukas Sodium 10 Sodium 10 t} t Sodium MG MG 10 MG traZODone traZODone No traZODone HCl HCl HCl Phentermine Phentermine No Phentermin HCl HCl e HCl Cyclobenzap Cyclobenzap No Cyclobenza rine HCl rine HCl cassie HCl Meloxicam Meloxicam No Meloxicam Euthyrox Euthyrox No Euthyrox [place] 50 [place] 50 No [place] 50 MG MG MG busPIRone busPIRone No 1{table BID busPIRone HCl 15 MG HCl 15 MG t} HCl 15 MG Cholestyram Cholestyram No Cholestyra ine ine mine busPIRone busPIRone No busPIRone HCl 15 MG HCl 15 MG HCl 15 MG predniSONE predniSONE No predniSONE Emgality Emgality No Emgality Glycopyrrol Glycopyrrol No Glycopyrro ate 1 MG ate 1 MG late 1 MG Meloxicam Meloxicam No Meloxicam 7.5 MG 7.5 MG 7.5 MG Sertraline Sertraline No Sertraline HCl HCl HCl Anucort-HC Anucort-HC No Anucort-HC Azithromyci Azithromyci No Azithromyc n n in Hyoscyamine Hyoscyamine No Hyoscyamin Sulfate Sulfate e Sulfate Xerac AC Xerac AC No Xerac AC 6.25 % 6.25 % 6.25 % Montelukast Montelukast No 1{table QD Montelukas Sodium 10 Sodium 10 t} t Sodium MG MG 10 MG traZODone traZODone No traZODone HCl HCl HCl Phentermine Phentermine No Phentermin HCl HCl e HCl Cyclobenzap Cyclobenzap No Cyclobenza rine HCl rine HCl cassie HCl Meloxicam Meloxicam No Meloxicam Euthyrox Euthyrox No Euthyrox Cambia 50 Cambia 50 No Cambia 50 MG MG MG busPIRone busPIRone No 1{table BID busPIRone HCl 15 MG HCl 15 MG t} HCl 15 MG Cholestyram Cholestyram No Cholestyra ine ine mine busPIRone busPIRone No busPIRone HCl 15 MG HCl 15 MG HCl 15 MG predniSONE predniSONE No predniSONE Emgality Emgality No Emgality Glycopyrrol Glycopyrrol No Glycopyrro ate 1 MG ate 1 MG late 1 MG Meloxicam Meloxicam No Meloxicam 7.5 MG 7.5 MG 7.5 MG Sertraline Sertraline No Sertraline HCl HCl HCl Anucort-HC Anucort-HC No Anucort-HC Azithromyci Azithromyci No Azithromyc n n in Hyoscyamine Hyoscyamine No Hyoscyamin Sulfate Sulfate e Sulfate Xerac AC Xerac AC No Xerac AC 6.25 % 6.25 % 6.25 % Montelukast Montelukast No 1{table QD Montelukas Sodium 10 Sodium 10 t} t Sodium MG MG 10 MG traZODone traZODone No traZODone HCl HCl HCl Phentermine Phentermine No Phentermin HCl HCl e HCl Cyclobenzap Cyclobenzap No Cyclobenza rine HCl rine HCl cassie HCl Meloxicam Meloxicam No Meloxicam Euthyrox Euthyrox No Euthyrox Cambia 50 Cambia 50 No Cambia 50 MG MG MG busPIRone busPIRone No 1{table BID busPIRone HCl 15 MG HCl 15 MG t} HCl 15 MG Cholestyram Cholestyram No Cholestyra ine ine mine busPIRone busPIRone No busPIRone HCl 15 MG HCl 15 MG HCl 15 MG predniSONE predniSONE No predniSONE Emgality Emgality No Emgality Glycopyrrol Glycopyrrol No Glycopyrro ate 1 MG ate 1 MG late 1 MG Meloxicam Meloxicam No Meloxicam 7.5 MG 7.5 MG 7.5 MG Sertraline Sertraline No Sertraline HCl HCl HCl Anucort-HC Anucort-HC No Anucort-HC Azithromyci Azithromyci No Azithromyc n n in Hyoscyamine Hyoscyamine No Hyoscyamin Sulfate Sulfate e Sulfate Xerac AC Xerac AC No Xerac AC 6.25 % 6.25 % 6.25 % Montelukast Montelukast No 1{table QD Montelukas Sodium 10 Sodium 10 t} t Sodium MG MG 10 MG traZODone traZODone No traZODone HCl HCl HCl Phentermine Phentermine No Phentermin HCl HCl e HCl Cyclobenzap Cyclobenzap No Cyclobenza rine HCl rine HCl cassie HCl Meloxicam Meloxicam No Meloxicam Euthyrox Euthyrox No Euthyrox Cambia 50 Cambia 50 No Cambia 50 MG MG MG busPIRone busPIRone No 1{table BID busPIRone HCl 15 MG HCl 15 MG t} HCl 15 MG Cholestyram Cholestyram No Cholestyra ine ine mine busPIRone busPIRone No busPIRone HCl 15 MG HCl 15 MG HCl 15 MG predniSONE predniSONE No predniSONE Emgality Emgality No Emgality Glycopyrrol Glycopyrrol No Glycopyrro ate 1 MG ate 1 MG late 1 MG Meloxicam Meloxicam No Meloxicam 7.5 MG 7.5 MG 7.5 MG Sertraline Sertraline No Sertraline HCl HCl HCl Anucort-HC Anucort-HC No Anucort-HC Azithromyci Azithromyci No Azithromyc n n in Hyoscyamine Hyoscyamine No Hyoscyamin Sulfate Sulfate e Sulfate Xerac AC Xerac AC No Xerac AC 6.25 % 6.25 % 6.25 % Montelukast Montelukast No 1{table QD Montelukas Sodium 10 Sodium 10 t} t Sodium MG MG 10 MG traZODone traZODone No traZODone HCl HCl HCl Phentermine Phentermine No Phentermin HCl HCl e HCl Cyclobenzap Cyclobenzap No Cyclobenza rine HCl rine HCl cassie HCl Meloxicam Meloxicam No Meloxicam Euthyrox Euthyrox No Euthyrox Cambia 50 Cambia 50 No Cambia 50 MG MG MG busPIRone busPIRone No 1{table BID busPIRone HCl 15 MG HCl 15 MG t} HCl 15 MG Cholestyram Cholestyram No Cholestyra ine ine mine busPIRone busPIRone No busPIRone HCl 15 MG HCl 15 MG HCl 15 MG predniSONE predniSONE No predniSONE Meloxicam Meloxicam No Meloxicam 7.5 MG 7.5 MG 7.5 MG Anucort-HC Anucort-HC No Anucort-HC Meloxicam Meloxicam No Meloxicam Cholestyram Cholestyram No Cholestyra ine ine mine Euthyrox Euthyrox No Euthyrox busPIRone busPIRone No 1{table BID busPIRone HCl 15 MG HCl 15 MG t} HCl 15 MG Phentermine Phentermine No Phentermin HCl HCl e HCl Hyoscyamine Hyoscyamine No Hyoscyamin Sulfate Sulfate e Sulfate Emgality Emgality No Emgality Xerac AC Xerac AC No Xerac AC 6.25 % 6.25 % 6.25 % Cambia 50 Cambia 50 No Cambia 50 MG MG MG Glycopyrrol Glycopyrrol No Glycopyrro ate 1 MG ate 1 MG late 1 MG busPIRone busPIRone No busPIRone HCl 15 MG HCl 15 MG HCl 15 MG Montelukast Montelukast No 1{table QD Montelukas Sodium 10 Sodium 10 t} t Sodium MG MG 10 MG Cyclobenzap Cyclobenzap No Cyclobenza rine HCl rine HCl cassie HCl Azithromyci Azithromyci No Azithromyc n n in predniSONE predniSONE No predniSONE Meloxicam Meloxicam No Meloxicam 7.5 MG 7.5 MG 7.5 MG Anucort-HC Anucort-HC No Anucort-HC Meloxicam Meloxicam No Meloxicam Cholestyram Cholestyram No Cholestyra ine ine mine Euthyrox Euthyrox No Euthyrox busPIRone busPIRone No 1{table BID busPIRone HCl 15 MG HCl 15 MG t} HCl 15 MG Phentermine Phentermine No Phentermin HCl HCl e HCl Hyoscyamine Hyoscyamine No Hyoscyamin Sulfate Sulfate e Sulfate Emgality Emgality No Emgality Xerac AC Xerac AC No Xerac AC 6.25 % 6.25 % 6.25 % Cambia 50 Cambia 50 No Cambia 50 MG MG MG Glycopyrrol Glycopyrrol No Glycopyrro ate 1 MG ate 1 MG late 1 MG busPIRone busPIRone No busPIRone HCl 15 MG HCl 15 MG HCl 15 MG Montelukast Montelukast No 1{table QD Montelukas Sodium 10 Sodium 10 t} t Sodium MG MG 10 MG Cyclobenzap Cyclobenzap No Cyclobenza rine HCl rine HCl cassie HCl Azithromyci Azithromyci No Azithromyc n n in predniSONE predniSONE No predniSONE Meloxicam Meloxicam No Meloxicam 7.5 MG 7.5 MG 7.5 MG Anucort-HC Anucort-HC No Anucort-HC Meloxicam Meloxicam No Meloxicam Cholestyram Cholestyram No Cholestyra ine ine mine Euthyrox Euthyrox No Euthyrox busPIRone busPIRone No 1{table BID busPIRone HCl 15 MG HCl 15 MG t} HCl 15 MG Phentermine Phentermine No Phentermin HCl HCl e HCl Hyoscyamine Hyoscyamine No Hyoscyamin Sulfate Sulfate e Sulfate Emgality Emgality No Emgality Xerac AC Xerac AC No Xerac AC 6.25 % 6.25 % 6.25 % Cambia 50 Cambia 50 No Cambia 50 MG MG MG Glycopyrrol Glycopyrrol No Glycopyrro ate 1 MG ate 1 MG late 1 MG busPIRone busPIRone No busPIRone HCl 15 MG HCl 15 MG HCl 15 MG Montelukast Montelukast No 1{table QD Montelukas Sodium 10 Sodium 10 t} t Sodium MG MG 10 MG Cyclobenzap Cyclobenzap No Cyclobenza rine HCl rine HCl cassie HCl Azithromyci Azithromyci No Azithromyc n n in Hyoscyamine Hyoscyamine No Hyoscyamin Sulfate Sulfate e Sulfate Meloxicam Meloxicam No Meloxicam Montelukast Montelukast No 1{table QD Montelukas Sodium 10 Sodium 10 t} t Sodium MG MG 10 MG Cambia 50 Cambia 50 No Cambia 50 MG MG MG Euthyrox Euthyrox No Euthyrox predniSONE predniSONE No predniSONE busPIRone busPIRone No 1{table BID busPIRone HCl 15 MG HCl 15 MG t} HCl 15 MG Meloxicam Meloxicam No Meloxicam 7.5 MG 7.5 MG 7.5 MG Cyclobenzap Cyclobenzap No Cyclobenza rine HCl rine HCl cassie HCl Phentermine Phentermine No Phentermin HCl HCl e HCl Anucort-HC Anucort-HC No Anucort-HC Cholestyram Cholestyram No Cholestyra ine ine mine busPIRone busPIRone No busPIRone HCl 15 MG HCl 15 MG HCl 15 MG Emgality Emgality No Emgality Azithromyci Azithromyci No Azithromyc n n in Xerac AC Xerac AC No Xerac AC 6.25 % 6.25 % 6.25 % Glycopyrrol Glycopyrrol No Glycopyrro ate 1 MG ate 1 MG late 1 MG Hyoscyamine Hyoscyamine No Hyoscyamin Sulfate Sulfate e Sulfate Meloxicam Meloxicam No Meloxicam Montelukast Montelukast No 1{table QD Montelukas Sodium 10 Sodium 10 t} t Sodium MG MG 10 MG Cambia 50 Cambia 50 No Cambia 50 MG MG MG Euthyrox Euthyrox No Euthyrox predniSONE predniSONE No predniSONE busPIRone busPIRone No 1{table BID busPIRone HCl 15 MG HCl 15 MG t} HCl 15 MG Meloxicam Meloxicam No Meloxicam 7.5 MG 7.5 MG 7.5 MG Cyclobenzap Cyclobenzap No Cyclobenza rine HCl rine HCl cassie HCl Phentermine Phentermine No Phentermin HCl HCl e HCl Anucort-HC Anucort-HC No Anucort-HC Cholestyram Cholestyram No Cholestyra ine ine mine busPIRone busPIRone No busPIRone HCl 15 MG HCl 15 MG HCl 15 MG Emgality Emgality No Emgality Azithromyci Azithromyci No Azithromyc n n in Xerac AC Xerac AC No Xerac AC 6.25 % 6.25 % 6.25 % Glycopyrrol Glycopyrrol No Glycopyrro ate 1 MG ate 1 MG late 1 MG Cambia 50 Cambia 50 No Cambia 50 MG MG MG Phentermine Phentermine No Phentermin HCl HCl e HCl busPIRone busPIRone No busPIRone HCl 15 MG HCl 15 MG HCl 15 MG Glycopyrrol Glycopyrrol No Glycopyrro ate 1 MG ate 1 MG late 1 MG Emgality Emgality No Emgality 120 MG/ML 120 MG/ML 120 MG/ML Anucort-HC Anucort-HC No Anucort-HC Azithromyci Azithromyci No Azithromyc n n in Meloxicam Meloxicam No Meloxicam 7.5 MG 7.5 MG 7.5 MG predniSONE predniSONE No predniSONE Emgality Emgality No Emgality Hyoscyamine Hyoscyamine No Hyoscyamin Sulfate Sulfate e Sulfate Montelukast Montelukast No 1{table QD Montelukas Sodium 10 Sodium 10 t} t Sodium MG MG 10 MG Cyclobenzap Cyclobenzap No Cyclobenza rine HCl rine HCl cassie HCl Euthyrox Euthyrox No Euthyrox Cholestyram Cholestyram No Cholestyra ine ine mine Meloxicam Meloxicam No Meloxicam Xerac AC Xerac AC No Xerac AC 6.25 % 6.25 % 6.25 % Cyclobenzap Cyclobenzap No Cyclobenza rine HCl rine HCl cassie HCl Cholestyram Cholestyram No Cholestyra ine ine mine Phentermine Phentermine No Phentermin HCl HCl e HCl Meloxicam Meloxicam No Meloxicam Xerac AC Xerac AC No Xerac AC 6.25 % 6.25 % 6.25 % Azithromyci Azithromyci No Azithromyc n n in busPIRone busPIRone No busPIRone HCl 15 MG HCl 15 MG HCl 15 MG predniSONE predniSONE No predniSONE Meloxicam Meloxicam No Meloxicam 7.5 MG 7.5 MG 7.5 MG Euthyrox Euthyrox No Euthyrox Cambia 50 Cambia 50 No Cambia 50 MG MG MG Hyoscyamine Hyoscyamine No Hyoscyamin Sulfate Sulfate e Sulfate Montelukast Montelukast No 1{table QD Montelukas Sodium 10 Sodium 10 t} t Sodium MG MG 10 MG Glycopyrrol Glycopyrrol No Glycopyrro ate 1 MG ate 1 MG late 1 MG Emgality Emgality No Emgality 120 MG/ML 120 MG/ML 120 MG/ML Anucort-HC Anucort-HC No Anucort-HC Emgality Emgality No Emgality Amitriptyli Amitriptyli No Amitriptyl ne HCl 25 ne HCl 25 ine HCl 25 MG MG MG Glycopyrrol Glycopyrrol No Glycopyrro ate 1 MG ate 1 MG late 1 MG Phentermine Phentermine No Phentermin HCl HCl e HCl Cambia 50 Cambia 50 No Cambia 50 MG MG MG Meloxicam Meloxicam No Meloxicam busPIRone busPIRone No 1{table BID busPIRone HCl 15 MG HCl 15 MG t} HCl 15 MG Euthyrox Euthyrox No Euthyrox Emgality Emgality No Emgality Meloxicam Meloxicam No Meloxicam 7.5 MG 7.5 MG 7.5 MG Anucort-HC Anucort-HC No Anucort-HC Montelukast Montelukast No 1{table QD Montelukas Sodium 10 Sodium 10 t} t Sodium MG MG 10 MG Memantine Memantine No 1{table BID Memantine HCl 10 MG HCl 10 MG t} HCl 10 MG Cholestyram Cholestyram No Cholestyra ine ine mine busPIRone busPIRone No busPIRone HCl 15 MG HCl 15 MG HCl 15 MG predniSONE predniSONE No predniSONE Hyoscyamine Hyoscyamine No Hyoscyamin Sulfate Sulfate e Sulfate Optimal-D Optimal-D No Optimal-D 1.25 MG 1.25 MG 1.25 MG (87851 UT) (07725 UT) (11626 UT) Emgality Emgality No Emgality 120 MG/ML 120 MG/ML 120 MG/ML Probiotic Probiotic No Probiotic Cyclobenzap Cyclobenzap No Cyclobenza rine HCl rine HCl cassie HCl Azithromyci Azithromyci No Azithromyc n n in Xerac AC Xerac AC No Xerac AC 6.25 % 6.25 % 6.25 % Anoro Anoro No Anoro Ellipta Ellipta Ellipta Tirosint Tirosint No QD Tirosint 100 MCG 100 MCG 100 MCG Albuterol Albuterol No Albuterol Topiramate Topiramate No 1{table QD Topiramate 25 MG 25 MG t} 25 MG Optimal-D Optimal-D No Optimal-D 1.25 MG 1.25 MG 1.25 MG (57589 UT) (95086 UT) (83755 UT) Glycopyrrol Glycopyrrol No Glycopyrro ate 1 MG ate 1 MG late 1 MG Cambia 50 Cambia 50 No Cambia 50 MG MG MG busPIRone busPIRone No busPIRone HCl 15 MG HCl 15 MG HCl 15 MG busPIRone busPIRone No 1{table BID busPIRone HCl 15 MG HCl 15 MG t} HCl 15 MG Xerac AC Xerac AC No Xerac AC 6.25 % 6.25 % 6.25 % Amitriptyli Amitriptyli No Amitriptyl ne HCl 25 ne HCl 25 ine HCl 25 MG MG MG Emgality Emgality No Emgality Euthyrox Euthyrox No Euthyrox Montelukast Montelukast No 1{table QD Montelukas Sodium 10 Sodium 10 t} t Sodium MG MG 10 MG Cyclobenzap Cyclobenzap No Cyclobenza rine HCl rine HCl cassie HCl Cholestyram Cholestyram No Cholestyra ine ine mine predniSONE predniSONE No predniSONE Mobic 7.5 Mobic 7.5 No 1{table QD Mobic 7.5 MG MG t} MG Meloxicam Meloxicam No Meloxicam Anucort-HC Anucort-HC No Anucort-HC Emgality Emgality No Emgality 120 MG/ML 120 MG/ML 120 MG/ML Topiramate Topiramate No 1{table QD Topiramate 25 MG 25 MG t} 25 MG Meloxicam Meloxicam No Meloxicam 7.5 MG 7.5 MG 7.5 MG Azithromyci Azithromyci No Azithromyc n n in Phentermine Phentermine No Phentermin HCl HCl e HCl Hyoscyamine Hyoscyamine No Hyoscyamin Sulfate Sulfate e Sulfate Probiotic Probiotic No Probiotic Tirosint Tirosint No QD Tirosint 100 MCG 100 MCG 100 MCG Memantine Memantine No 1{table BID Memantine HCl 10 MG HCl 10 MG t} HCl 10 MG Anoro Anoro No Anoro Ellipta Ellipta Ellipta Albuterol Albuterol No Albuterol Memantine Memantine No 1{table BID Memantine HCl 10 MG HCl 10 MG t} HCl 10 MG Xerac AC Xerac AC No Xerac AC 6.25 % 6.25 % 6.25 % Cholestyram Cholestyram No Cholestyra ine ine mine Montelukast Montelukast No 1{table QD Montelukas Sodium 10 Sodium 10 t} t Sodium MG MG 10 MG Tirosint Tirosint No QD Tirosint 100 MCG 100 MCG 100 MCG Azithromyci Azithromyci No Azithromyc n n in Hyoscyamine Hyoscyamine No Hyoscyamin Sulfate Sulfate e Sulfate busPIRone busPIRone No 1{table BID busPIRone HCl 15 MG HCl 15 MG t} HCl 15 MG Glycopyrrol Glycopyrrol No Glycopyrro ate 1 MG ate 1 MG late 1 MG Anoro Anoro No Anoro Ellipta Ellipta Ellipta predniSONE predniSONE No predniSONE Phentermine Phentermine No Phentermin HCl HCl e HCl Euthyrox Euthyrox No Euthyrox Meloxicam Meloxicam No Meloxicam 7.5 MG 7.5 MG 7.5 MG Cyclobenzap Cyclobenzap No Cyclobenza rine HCl rine HCl cassie HCl Albuterol Albuterol No Albuterol Mobic 7.5 Mobic 7.5 No 1{table QD Mobic 7.5 MG MG t} MG CeleBREX CeleBREX No 1{capsu BID CeleBREX 100 MG 100 MG le_with 100 MG _food} Anucort-HC Anucort-HC No Anucort-HC Emgality Emgality No Emgality Amitriptyli Amitriptyli No Amitriptyl ne HCl 25 ne HCl 25 ine HCl 25 MG MG MG Probiotic Probiotic No Probiotic Meloxicam Meloxicam No Meloxicam busPIRone busPIRone No busPIRone HCl 15 MG HCl 15 MG HCl 15 MG Optimal-D Optimal-D No Optimal-D 1.25 MG 1.25 MG 1.25 MG (58331 UT) (60766 UT) (88160 UT) Emgality Emgality No Emgality 120 MG/ML 120 MG/ML 120 MG/ML Cambia 50 Cambia 50 No Cambia 50 MG MG MG Memantine Memantine No 1{table BID Memantine HCl 10 MG HCl 10 MG t} HCl 10 MG Xerac AC Xerac AC No Xerac AC 6.25 % 6.25 % 6.25 % Cholestyram Cholestyram No Cholestyra ine ine mine Montelukast Montelukast No 1{table QD Montelukas Sodium 10 Sodium 10 t} t Sodium MG MG 10 MG Tirosint Tirosint No QD Tirosint 100 MCG 100 MCG 100 MCG Azithromyci Azithromyci No Azithromyc n n in Hyoscyamine Hyoscyamine No Hyoscyamin Sulfate Sulfate e Sulfate busPIRone busPIRone No 1{table BID busPIRone HCl 15 MG HCl 15 MG t} HCl 15 MG Glycopyrrol Glycopyrrol No Glycopyrro ate 1 MG ate 1 MG late 1 MG Anoro Anoro No Anoro Ellipta Ellipta Ellipta predniSONE predniSONE No predniSONE Phentermine Phentermine No Phentermin HCl HCl e HCl Euthyrox Euthyrox No Euthyrox Meloxicam Meloxicam No Meloxicam 7.5 MG 7.5 MG 7.5 MG Cyclobenzap Cyclobenzap No Cyclobenza rine HCl rine HCl cassie HCl Albuterol Albuterol No Albuterol Mobic 7.5 Mobic 7.5 No 1{table QD Mobic 7.5 MG MG t} MG CeleBREX CeleBREX No 1{capsu BID CeleBREX 100 MG 100 MG le_with 100 MG _food} Anucort-HC Anucort-HC No Anucort-HC Emgality Emgality No Emgality Amitriptyli Amitriptyli No Amitriptyl ne HCl 25 ne HCl 25 ine HCl 25 MG MG MG Probiotic Probiotic No Probiotic Meloxicam Meloxicam No Meloxicam busPIRone busPIRone No busPIRone HCl 15 MG HCl 15 MG HCl 15 MG Optimal-D Optimal-D No Optimal-D 1.25 MG 1.25 MG 1.25 MG (59012 UT) (51168 UT) (04075 UT) Emgality Emgality No Emgality 120 MG/ML 120 MG/ML 120 MG/ML Cambia 50 Cambia 50 No Cambia 50 MG MG MG Cholestyram Cholestyram No Cholestyra ine ine mine Vitamin D3 Vitamin D3 No Vitamin D3 1.25 MG 1.25 MG 1.25 MG (85252 UT) (17054 UT) (14053 UT) Probiotic Probiotic No Probiotic Emgality Emgality No Emgality Hyoscyamine Hyoscyamine No Hyoscyamin Sulfate Sulfate e Sulfate Azithromyci Azithromyci No Azithromyc n n in Memantine Memantine No 1{table BID Memantine HCl 10 MG HCl 10 MG t} HCl 10 MG Nurtec 75 Nurtec 75 No Nurtec 75 MG MG MG Glycopyrrol Glycopyrrol No Glycopyrro ate 1 MG ate 1 MG late 1 MG Tirosint Tirosint No QD Tirosint 100 MCG 100 MCG 100 MCG predniSONE predniSONE No predniSONE Euthyrox Euthyrox No Euthyrox Meloxicam Meloxicam No Meloxicam Xerac AC Xerac AC No Xerac AC 6.25 % 6.25 % 6.25 % CeleBREX CeleBREX No 1{capsu BID CeleBREX 100 MG 100 MG le_with 100 MG _food} Anucort-HC Anucort-HC No Anucort-HC Amitriptyli Amitriptyli No Amitriptyl ne HCl 25 ne HCl 25 ine HCl 25 MG MG MG Phentermine Phentermine No Phentermin HCl HCl e HCl Anoro Anoro No Anoro Ellipta Ellipta Ellipta Albuterol Albuterol No Albuterol Emgality Emgality No Emgality 120 MG/ML 120 MG/ML 120 MG/ML Cyclobenzap Cyclobenzap No Cyclobenza rine HCl rine HCl cassie HCl Mobic 7.5 Mobic 7.5 No 1{table QD Mobic 7.5 MG MG t} MG Montelukast Montelukast No 1{table QD Montelukas Sodium 10 Sodium 10 t} t Sodium MG MG 10 MG Meloxicam Meloxicam No Meloxicam 7.5 MG 7.5 MG 7.5 MG busPIRone busPIRone No busPIRone HCl 15 MG HCl 15 MG HCl 15 MG Optimal-D Optimal-D No Optimal-D 1.25 MG 1.25 MG 1.25 MG (58362 UT) (31873 UT) (38209 UT) Cambia 50 Cambia 50 No Cambia 50 MG MG MG Cholestyram Cholestyram No Cholestyra ine ine mine Vitamin D3 Vitamin D3 No Vitamin D3 1.25 MG 1.25 MG 1.25 MG (78871 UT) (49319 UT) (05464 UT) Probiotic Probiotic No Probiotic Emgality Emgality No Emgality Hyoscyamine Hyoscyamine No Hyoscyamin Sulfate Sulfate e Sulfate Azithromyci Azithromyci No Azithromyc n n in Memantine Memantine No 1{table BID Memantine HCl 10 MG HCl 10 MG t} HCl 10 MG Nurtec 75 Nurtec 75 No Nurtec 75 MG MG MG Glycopyrrol Glycopyrrol No Glycopyrro ate 1 MG ate 1 MG late 1 MG Tirosint Tirosint No QD Tirosint 100 MCG 100 MCG 100 MCG predniSONE predniSONE No predniSONE Euthyrox Euthyrox No Euthyrox Meloxicam Meloxicam No Meloxicam Xerac AC Xerac AC No Xerac AC 6.25 % 6.25 % 6.25 % CeleBREX CeleBREX No 1{capsu BID CeleBREX 100 MG 100 MG le_with 100 MG _food} Anucort-HC Anucort-HC No Anucort-HC Amitriptyli Amitriptyli No Amitriptyl ne HCl 25 ne HCl 25 ine HCl 25 MG MG MG Phentermine Phentermine No Phentermin HCl HCl e HCl Anoro Anoro No Anoro Ellipta Ellipta Ellipta Albuterol Albuterol No Albuterol Emgality Emgality No Emgality 120 MG/ML 120 MG/ML 120 MG/ML Cyclobenzap Cyclobenzap No Cyclobenza rine HCl rine HCl cassie HCl Mobic 7.5 Mobic 7.5 No 1{table QD Mobic 7.5 MG MG t} MG Montelukast Montelukast No 1{table QD Montelukas Sodium 10 Sodium 10 t} t Sodium MG MG 10 MG Meloxicam Meloxicam No Meloxicam 7.5 MG 7.5 MG 7.5 MG busPIRone busPIRone No busPIRone HCl 15 MG HCl 15 MG HCl 15 MG Optimal-D Optimal-D No Optimal-D 1.25 MG 1.25 MG 1.25 MG (57190 UT) (78006 UT) (58105 UT) Cambia 50 Cambia 50 No Cambia 50 MG MG MG Cholestyram Cholestyram No Cholestyra ine ine mine Vitamin D3 Vitamin D3 No Vitamin D3 1.25 MG 1.25 MG 1.25 MG (09648 UT) (00306 UT) (68040 UT) Probiotic Probiotic No Probiotic Emgality Emgality No Emgality Hyoscyamine Hyoscyamine No Hyoscyamin Sulfate Sulfate e Sulfate Azithromyci Azithromyci No Azithromyc n n in Memantine Memantine No 1{table BID Memantine HCl 10 MG HCl 10 MG t} HCl 10 MG Nurtec 75 Nurtec 75 No Nurtec 75 MG MG MG Glycopyrrol Glycopyrrol No Glycopyrro ate 1 MG ate 1 MG late 1 MG Tirosint Tirosint No QD Tirosint 100 MCG 100 MCG 100 MCG predniSONE predniSONE No predniSONE Euthyrox Euthyrox No Euthyrox Meloxicam Meloxicam No Meloxicam Xerac AC Xerac AC No Xerac AC 6.25 % 6.25 % 6.25 % CeleBREX CeleBREX No 1{capsu BID CeleBREX 100 MG 100 MG le_with 100 MG _food} Anucort-HC Anucort-HC No Anucort-HC Amitriptyli Amitriptyli No Amitriptyl ne HCl 25 ne HCl 25 ine HCl 25 MG MG MG Phentermine Phentermine No Phentermin HCl HCl e HCl Anoro Anoro No Anoro Ellipta Ellipta Ellipta Albuterol Albuterol No Albuterol Emgality Emgality No Emgality 120 MG/ML 120 MG/ML 120 MG/ML Cyclobenzap Cyclobenzap No Cyclobenza rine HCl rine HCl cassie HCl Mobic 7.5 Mobic 7.5 No 1{table QD Mobic 7.5 MG MG t} MG Zoloft Zoloft Yes Paula 1 tablet Commo n White (100 + 50 [facility] = 150 mg) - [facility] Excedrin Excedrin Yes Paula 2 tablets Common Extra Extra White [facility] Strength Strength - [facility] Xerac AC Xerac AC Yes Paula as Commo n White directed [facility] [place] Emgality Emgality Yes Paula 1 ml Commo n White [facility] [place] [facility] Montelukast Montelukast Yes Paula 1 tablet Common Sodium Sodium White [facility] [place] Zyrtec Zyrtec Yes Paula 1 tablet Commo n Allergy Allergy [facility] Trazodone Trazodone Yes Paula 1 tablet Common HCl HCl White at bedtime [facility] Cambia Cambia Yes Paula as Common White directed [facility] Glycopyrrol Glycopyrrol Yes Paula TAKE 1 Common ate ate White TABLET BY Spirit MOUTH - [facility]ICE [facility] DAILY FOR [facility] 30 DAYS [facility] BusPIRone BusPIRone Yes Paula 1 tablet Common HCl HCl White [facility] Montelukast Montelukast Yes Paula TAKE 1 Common Sodium Sodium White TABLET BY Spiri t MOUTH ONCE - [facility] DAILY [facility] Sertraline Sertraline Yes Paula TAKE 1 Common HCl HCl White TABLET BY [facility] MOUTH ONCE - [facility] DAILY TAKE [facility] WITH 50MG [facility] Sertraline Sertraline Yes Paula TAKE 1 Common HCl HCl White TABLET BY [facility] MOUTH ONCE - [facility] DAILY FOR [facility] A TOTAL OF [facility] 150 MG [facility] [place] Montelukast No 1{table QD Montelukas Sodium 10 Sodium 10 t} t Sodium MG MG 10 MG Meloxicam Meloxicam No Meloxicam 7.5 MG 7.5 MG 7.5 MG busPIRone busPIRone No busPIRone HCl 15 MG HCl 15 MG HCl 15 MG Optimal-D Optimal-D No Optimal-D 1.25 MG 1.25 MG 1.25 MG (14693 UT) (78268 UT) (72791 UT) Cambia 50 Cambia 50 No Cambia 50 MG MG MG Cholestyram Cholestyram No Cholestyra ine ine mine Vitamin D3 Vitamin D3 No Vitamin D3 1.25 MG 1.25 MG 1.25 MG (70075 UT) (74753 UT) (69258 UT) Probiotic Probiotic No Probiotic Emgality Emgality No Emgality Hyoscyamine Hyoscyamine No Hyoscyamin Sulfate Sulfate e Sulfate Azithromyci Azithromyci No Azithromyc n n in Memantine Memantine No 1{table BID Memantine HCl 10 MG HCl 10 MG t} HCl 10 MG Nurtec 75 Nurtec 75 No Nurtec 75 MG MG MG Glycopyrrol Glycopyrrol No Glycopyrro ate 1 MG ate 1 MG late 1 MG Tirosint Tirosint No QD Tirosint 100 MCG 100 MCG 100 MCG predniSONE predniSONE No predniSONE Euthyrox Euthyrox No Euthyrox Meloxicam Meloxicam No Meloxicam Xerac AC Xerac AC No Xerac AC 6.25 % 6.25 % 6.25 % CeleBREX CeleBREX No 1{capsu BID CeleBREX 100 MG 100 MG le_with 100 MG _food} Anucort-HC Anucort-HC No Anucort-HC Amitriptyli Amitriptyli No Amitriptyl ne HCl 25 ne HCl 25 ine HCl 25 MG MG MG Phentermine Phentermine No Phentermin HCl HCl e HCl Anoro Anoro No Anoro Ellipta Ellipta Ellipta Albuterol Albuterol No Albuterol Emgality Emgality No Emgality 120 MG/ML 120 MG/ML 120 MG/ML Cyclobenzap Cyclobenzap No Cyclobenza rine HCl rine HCl cassie HCl Mobic 7.5 Mobic 7.5 No 1{table QD Mobic 7.5 MG MG t} MG Montelukast Montelukast No 1{table QD Montelukas Sodium 10 Sodium 10 t} t Sodium MG MG 10 MG Meloxicam Meloxicam No Meloxicam 7.5 MG 7.5 MG 7.5 MG busPIRone busPIRone No busPIRone HCl 15 MG HCl 15 MG HCl 15 MG Optimal-D Optimal-D No Optimal-D 1.25 MG 1.25 MG 1.25 MG (72182 UT) (79968 UT) (00835 UT) Cambia 50 Cambia 50 No Cambia 50 MG MG MG Vitamin D3 Vitamin D3 No Vitamin D3 1.25 MG 1.25 MG 1.25 MG (29992 UT) (66719 UT) (33401 UT) Memantine Memantine No 1{table BID Memantine HCl 10 MG HCl 10 MG t} HCl 10 MG Anoro Anoro No Anoro Ellipta Ellipta Ellipta busPIRone busPIRone No busPIRone HCl 15 MG HCl 15 MG HCl 15 MG Emgality Emgality No Emgality Anucort-HC Anucort-HC No Anucort-HC Glycopyrrol Glycopyrrol No Glycopyrro ate 1 MG ate 1 MG late 1 MG Xerac AC Xerac AC No Xerac AC 6.25 % 6.25 % 6.25 % predniSONE predniSONE No predniSONE Probiotic Probiotic No Probiotic Hyoscyamine Hyoscyamine No Hyoscyamin Sulfate Sulfate e Sulfate Azithromyci Azithromyci No Azithromyc n n in Optimal-D Optimal-D No Optimal-D 1.25 MG 1.25 MG 1.25 MG (10261 UT) (09864 UT) (40674 UT) Meloxicam Meloxicam No Meloxicam 7.5 MG 7.5 MG 7.5 MG Amitriptyli Amitriptyli No Amitriptyl ne HCl 25 ne HCl 25 ine HCl 25 MG MG MG Albuterol Albuterol No Albuterol Montelukast Montelukast No 1{table QD Montelukas Sodium 10 Sodium 10 t} t Sodium MG MG 10 MG Meloxicam Meloxicam No Meloxicam Emgality Emgality No Emgality 120 MG/ML 120 MG/ML 120 MG/ML CeleBREX CeleBREX No 1{capsu BID CeleBREX 100 MG 100 MG le_with 100 MG _food} Tirosint Tirosint No QD Tirosint 100 MCG 100 MCG 100 MCG Euthyrox Euthyrox No Euthyrox Nurtec 75 Nurtec 75 No Nurtec 75 MG MG MG Cambia 50 Cambia 50 No Cambia 50 MG MG MG Mobic 7.5 Mobic 7.5 No 1{table QD Mobic 7.5 MG MG t} MG Cholestyram Cholestyram No Cholestyra ine ine mine Phentermine Phentermine No Phentermin HCl HCl e HCl Cyclobenzap Cyclobenzap No Cyclobenza rine HCl rine HCl cassie HCl Vitamin D3 Vitamin D3 No Vitamin D3 1.25 MG 1.25 MG 1.25 MG (05825 UT) (94385 UT) (89934 UT) Memantine Memantine No 1{table BID Memantine HCl 10 MG HCl 10 MG t} HCl 10 MG Anoro Anoro No Anoro Ellipta Ellipta Ellipta busPIRone busPIRone No busPIRone HCl 15 MG HCl 15 MG HCl 15 MG Emgality Emgality No Emgality Anucort-HC Anucort-HC No Anucort-HC Glycopyrrol Glycopyrrol No Glycopyrro ate 1 MG ate 1 MG late 1 MG Xerac AC Xerac AC No Xerac AC 6.25 % 6.25 % 6.25 % predniSONE predniSONE No predniSONE Probiotic Probiotic No Probiotic Hyoscyamine Hyoscyamine No Hyoscyamin Sulfate Sulfate e Sulfate Azithromyci Azithromyci No Azithromyc n n in Optimal-D Optimal-D No Optimal-D 1.25 MG 1.25 MG 1.25 MG (18784 UT) (70529 UT) (92083 UT) Meloxicam Meloxicam No Meloxicam 7.5 MG 7.5 MG 7.5 MG Amitriptyli Amitriptyli No Amitriptyl ne HCl 25 ne HCl 25 ine HCl 25 MG MG MG Albuterol Albuterol No Albuterol Montelukast Montelukast No 1{table QD Montelukas Sodium 10 Sodium 10 t} t Sodium MG MG 10 MG Meloxicam Meloxicam No Meloxicam Emgality Emgality No Emgality 120 MG/ML 120 MG/ML 120 MG/ML CeleBREX CeleBREX No 1{capsu BID CeleBREX 100 MG 100 MG le_with 100 MG _food} Tirosint Tirosint No QD Tirosint 100 MCG 100 MCG 100 MCG Euthyrox Euthyrox No Euthyrox Nurtec 75 Nurtec 75 No Nurtec 75 MG MG MG Cambia 50 Cambia 50 No Cambia 50 MG MG MG Mobic 7.5 Mobic 7.5 No 1{table QD Mobic 7.5 MG MG t} MG Cholestyram Cholestyram No Cholestyra ine ine mine Phentermine Phentermine No Phentermin HCl HCl e HCl Cyclobenzap Cyclobenzap No Cyclobenza rine HCl rine HCl cassie HCl Vitamin D3 Vitamin D3 No Vitamin D3 1.25 MG 1.25 MG 1.25 MG (73791 UT) (44403 UT) (80922 UT) Memantine Memantine No 1{table BID Memantine HCl 10 MG HCl 10 MG t} HCl 10 MG Anoro Anoro No Anoro Ellipta Ellipta Ellipta busPIRone busPIRone No busPIRone HCl 15 MG HCl 15 MG HCl 15 MG Emgality Emgality No Emgality Anucort-HC Anucort-HC No Anucort-HC Glycopyrrol Glycopyrrol No Glycopyrro ate 1 MG ate 1 MG late 1 MG Xerac AC Xerac AC No Xerac AC 6.25 % 6.25 % 6.25 % predniSONE predniSONE No predniSONE Probiotic Probiotic No Probiotic Hyoscyamine Hyoscyamine No Hyoscyamin Sulfate Sulfate e Sulfate Azithromyci Azithromyci No Azithromyc n n in Optimal-D Optimal-D No Optimal-D 1.25 MG 1.25 MG 1.25 MG (18283 UT) (85728 UT) (78599 UT) Meloxicam Meloxicam No Meloxicam 7.5 MG 7.5 MG 7.5 MG Amitriptyli Amitriptyli No Amitriptyl ne HCl 25 ne HCl 25 ine HCl 25 MG MG MG Albuterol Albuterol No Albuterol Montelukast Montelukast No 1{table QD Montelukas Sodium 10 Sodium 10 t} t Sodium MG MG 10 MG Meloxicam Meloxicam No Meloxicam Emgality Emgality No Emgality 120 MG/ML 120 MG/ML 120 MG/ML CeleBREX CeleBREX No 1{capsu BID CeleBREX 100 MG 100 MG le_with 100 MG _food} Tirosint Tirosint No QD Tirosint 100 MCG 100 MCG 100 MCG Euthyrox Euthyrox No Euthyrox Nurtec 75 Nurtec 75 No Nurtec 75 MG MG MG Cambia 50 Cambia 50 No Cambia 50 MG MG MG Mobic 7.5 Mobic 7.5 No 1{table QD Mobic 7.5 MG MG t} MG Cholestyram Cholestyram No Cholestyra ine ine mine Phentermine Phentermine No Phentermin HCl HCl e HCl Cyclobenzap Cyclobenzap No Cyclobenza rine HCl rine HCl cassie HCl Emgality Emgality No Emgality 120 MG/ML 120 MG/ML 120 MG/ML Gabapentin Gabapentin No 1{capsu QD Gabapentin 300 MG 300 MG le} 300 MG Cambia 50 Cambia 50 No Cambia 50 MG MG MG Allergy Allergy No Allergy Relief Relief Relief Omeprazole Omeprazole No QD Omeprazole 20 MG 20 MG 20 MG busPIRone busPIRone No 1{table BID busPIRone HCl 15 MG HCl 15 MG t} HCl 15 MG Memantine Memantine No 1{table BID Memantine HCl 10 MG HCl 10 MG t} HCl 10 MG Vitamin D3 Vitamin D3 No Vitamin D3 1.25 MG 1.25 MG 1.25 MG (00876 UT) (47196 UT) (17228 UT) Montelukast Montelukast No 1{table QD Montelukas Sodium 10 Sodium 10 t} t Sodium MG MG 10 MG Emgality Emgality No Emgality Tirosint Tirosint No QD Tirosint 137 MCG 137 MCG 137 MCG Voltaren 1 Voltaren 1 No Voltaren 1 % % % Xerac AC Xerac AC No Xerac AC 6.25 % 6.25 % 6.25 % Ipratropium Ipratropium No 2{spray BID Ipratropiu [place] s_in_ea m [place] 0.03 % 0.03 % ch_nost 0.03 % ril} diphenhydrA diphenhydrA No diphenhydr MINE HCl MINE HCl AMINE HCl Probiotic Probiotic No Probiotic busPIRone busPIRone No busPIRone HCl 15 MG HCl 15 MG HCl 15 MG Metoprolol Metoprolol No 1{table BID Metoprolol Tartrate 50 Tartrate 50 t_with_ Tartrate MG MG food} 50 MG busPIRone busPIRone No 1{table BID busPIRone HCl 15 MG HCl 15 MG t} HCl 15 MG Xerac AC Xerac AC No Xerac AC 6.25 % 6.25 % 6.25 % Zoloft 50 Zoloft 50 No QD Zoloft 50 MG MG MG traZODone traZODone No 1{table QD traZODone HCl 150 MG HCl 150 MG t_at_be HCl 150 MG dtime} metroNIDAZO metroNIDAZO No metroNIDAZ [place] traZODone traZODone No traZODone HCl 150 MG HCl 150 MG HCl 150 MG Cholestyram Cholestyram No Cholestyra ine ine mine Fluconazole Fluconazole No Fluconazol e Glycopyrrol Glycopyrrol No Glycopyrro ate 1 MG ate 1 MG late 1 MG Levothyroxi Levothyroxi No QD Levothyrox ne Sodium ne Sodium ine Sodium 50 MCG 50 MCG 50 MCG Montelukast Montelukast No 1{table QD Montelukas Sodium 10 Sodium 10 t} t Sodium MG MG 10 MG ZyrTEC ZyrTEC No 1{table QD ZyrTEC Allergy 10 Allergy 10 t} Allergy 10 MG MG MG Zoloft 100 Zoloft 100 No QD Zoloft 100 MG MG MG Cambia 50 Cambia 50 No Cambia 50 MG MG MG Excedrin Excedrin No 2{table QD Excedrin Extra Extra ts} Extra Strength Strength Strength 250-250-65 250-250-65 250-250-65 MG MG MG busPIRone busPIRone No 1{table BID busPIRone HCl 15 MG HCl 15 MG t} HCl 15 MG predniSONE predniSONE No predniSONE Cyclobenzap Cyclobenzap No 1{table QD Cyclobenza rine HCl 10 rine HCl 10 t_at_be cassie HCl MG MG dtime_a 10 MG s_neede d} Montelukast Montelukast No QD Montelukas Sodium 10 Sodium 10 t Sodium MG MG 10 MG Emgality Emgality No 1{ml} Emgality 120 MG/ML 120 MG/ML 120 MG/ML Sertraline Sertraline No Sertraline HCl 50 MG HCl 50 MG HCl 50 MG Sertraline Sertraline No Sertraline HCl 100 MG HCl 100 MG HCl 100 MG Azithromyci Azithromyci No Azithromyc n n in Anucort-HC Anucort-HC No Anucort-HC busPIRone busPIRone No 1{table BID busPIRone HCl 15 MG HCl 15 MG t} HCl 15 MG Xerac AC Xerac AC No Xerac AC 6.25 % 6.25 % 6.25 % Zoloft 50 Zoloft 50 No QD Zoloft 50 MG MG MG traZODone traZODone No 1{table QD traZODone HCl 150 MG HCl 150 MG t_at_be HCl 150 MG dtime} metroNIDAZO metroNIDAZO No metroNIDAZ [place] traZODone traZODone No traZODone HCl 150 MG HCl 150 MG HCl 150 MG Cholestyram Cholestyram No Cholestyra ine ine mine Fluconazole Fluconazole No Fluconazol e Glycopyrrol Glycopyrrol No Glycopyrro ate 1 MG ate 1 MG late 1 MG Levothyroxi Levothyroxi No QD Levothyrox ne Sodium ne Sodium ine Sodium 50 MCG 50 MCG 50 MCG Montelukast Montelukast No 1{table QD Montelukas Sodium 10 Sodium 10 t} t Sodium MG MG 10 MG ZyrTEC ZyrTEC No 1{table QD ZyrTEC Allergy 10 Allergy 10 t} Allergy 10 MG MG MG Zoloft 100 Zoloft 100 No QD Zoloft 100 MG MG MG Cambia 50 Cambia 50 No Cambia 50 MG MG MG Excedrin Excedrin No 2{table QD Excedrin Extra Extra ts} Extra Strength Strength Strength 250-250-65 250-250-65 250-250-65 MG MG MG busPIRone busPIRone No 1{table BID busPIRone HCl 15 MG HCl 15 MG t} HCl 15 MG predniSONE predniSONE No predniSONE Cyclobenzap Cyclobenzap No 1{table QD Cyclobenza rine HCl 10 rine HCl 10 t_at_be cassie HCl MG MG dtime_a 10 MG s_neede d} Montelukast Montelukast No QD Montelukas Sodium 10 Sodium 10 t Sodium MG MG 10 MG Emgality Emgality No 1{ml} Emgality 120 MG/ML 120 MG/ML 120 MG/ML Sertraline Sertraline No Sertraline HCl 50 MG HCl 50 MG HCl 50 MG Sertraline Sertraline No Sertraline HCl 100 MG HCl 100 MG HCl 100 MG Azithromyci Azithromyci No Azithromyc n n in Anucort-HC Anucort-HC No Anucort-HC busPIRone busPIRone No 1{table BID busPIRone HCl 15 MG HCl 15 MG t} HCl 15 MG Xerac AC Xerac AC No Xerac AC 6.25 % 6.25 % 6.25 % ZyrTEC ZyrTEC No 1{table QD ZyrTEC Allergy 10 Allergy 10 t} Allergy 10 MG MG MG traZODone traZODone No 1{table QD traZODone HCl 150 MG HCl 150 MG t_at_be HCl 150 MG dtime} Montelukast Montelukast No 1{table QD Montelukas Sodium 10 Sodium 10 t} t Sodium MG MG 10 MG Cholestyram Cholestyram No Cholestyra ine ine mine traZODone traZODone No traZODone HCl 150 MG HCl 150 MG HCl 150 MG Emgality Emgality No 1{ml} Emgality 120 MG/ML 120 MG/ML 120 MG/ML metroNIDAZO metroNIDAZO No metroNIDAZ [place] Glycopyrrol Glycopyrrol No Glycopyrro ate 1 MG ate 1 MG late 1 MG Levothyroxi Levothyroxi No QD Levothyrox ne Sodium ne Sodium ine Sodium 50 MCG 50 MCG 50 MCG Sertraline Sertraline No Sertraline HCl 50 MG HCl 50 MG HCl 50 MG Cambia 50 Cambia 50 No Cambia 50 MG MG MG predniSONE predniSONE No predniSONE Levothyroxi Levothyroxi No QD Levothyrox ne Sodium ne Sodium ine Sodium 50 MCG 50 MCG 50 MCG Fluconazole Fluconazole No Fluconazol e busPIRone busPIRone No 1{table BID busPIRone HCl 15 MG HCl 15 MG t} HCl 15 MG Sertraline Sertraline No Sertraline HCl 100 MG HCl 100 MG HCl 100 MG Excedrin Excedrin No 2{table QD Excedrin Extra Extra ts} Extra Strength Strength Strength 250-250-65 250-250-65 250-250-65 MG MG MG Montelukast Montelukast No QD Montelukas Sodium 10 Sodium 10 t Sodium MG MG 10 MG Azithromyci Azithromyci No Azithromyc n n in Zoloft 100 Zoloft 100 No QD Zoloft 100 MG MG MG Anucort-HC Anucort-HC No Anucort-HC Zoloft 50 Zoloft 50 No QD Zoloft 50 MG MG MG Cyclobenzap Cyclobenzap No 1{table QD Cyclobenza rine HCl 10 rine HCl 10 t_at_be cassie HCl MG MG dtime_a 10 MG s_neede d} busPIRone busPIRone No 1{table BID busPIRone HCl 15 MG HCl 15 MG t} HCl 15 MG Xerac AC Xerac AC No Xerac AC 6.25 % 6.25 % 6.25 % ZyrTEC ZyrTEC No 1{table QD ZyrTEC Allergy 10 Allergy 10 t} Allergy 10 MG MG MG traZODone traZODone No 1{table QD traZODone HCl 150 MG HCl 150 MG t_at_be HCl 150 MG dtime} Montelukast Montelukast No 1{table QD Montelukas Sodium 10 Sodium 10 t} t Sodium MG MG 10 MG Cholestyram Cholestyram No Cholestyra ine ine mine traZODone traZODone No traZODone HCl 150 MG HCl 150 MG HCl 150 MG Emgality Emgality No 1{ml} Emgality 120 MG/ML 120 MG/ML 120 MG/ML metroNIDAZO metroNIDAZO No metroNIDAZ [place] Glycopyrrol Glycopyrrol No Glycopyrro ate 1 MG ate 1 MG late 1 MG Levothyroxi Levothyroxi No QD Levothyrox ne Sodium ne Sodium ine Sodium 50 MCG 50 MCG 50 MCG Sertraline Sertraline No Sertraline HCl 50 MG HCl 50 MG HCl 50 MG Cambia 50 Cambia 50 No Cambia 50 MG MG MG predniSONE predniSONE No predniSONE Levothyroxi Levothyroxi No QD Levothyrox ne Sodium ne Sodium ine Sodium 50 MCG 50 MCG 50 MCG Fluconazole Fluconazole No Fluconazol e busPIRone busPIRone No 1{table BID busPIRone HCl 15 MG HCl 15 MG t} HCl 15 MG Sertraline Sertraline No Sertraline HCl 100 MG HCl 100 MG HCl 100 MG Excedrin Excedrin No 2{table QD Excedrin Extra Extra ts} Extra Strength Strength Strength 250-250-65 250-250-65 250-250-65 MG MG MG Montelukast Montelukast No QD Montelukas Sodium 10 Sodium 10 t Sodium MG MG 10 MG Azithromyci Azithromyci No Azithromyc n n in Zoloft 100 Zoloft 100 No QD Zoloft 100 MG MG MG Anucort-HC Anucort-HC No Anucort-HC Zoloft 50 Zoloft 50 No QD Zoloft 50 MG MG MG Cyclobenzap Cyclobenzap No 1{table QD Cyclobenza rine HCl 10 rine HCl 10 t_at_be cassie HCl MG MG dtime_a 10 MG s_neede d} Xerac AC Xerac AC No 6.25 % 6.25 % Montelukast Montelukast No 1{table QD Sodium 10 Sodium 10 t} MG MG Levothyroxi Levothyroxi No QD ne Sodium ne Sodium 50 MCG 50 MCG busPIRone busPIRone No 1{table BID HCl 15 MG HCl 15 MG t} Glycopyrrol Glycopyrrol No Glycopyrro ate ate late Azithromyci Azithromyci No Azithromyc n n in traZODone traZODone No traZODone HCl HCl HCl Cholestyram Cholestyram No Cholestyra ine ine mine predniSONE predniSONE No predniSONE Phentermine Phentermine No Phentermin HCl HCl e HCl Cambia Cambia No Cambia Montelukast Montelukast No 1{table QD Montelukas Sodium 10 Sodium 10 t} t Sodium MG MG 10 MG Euthyrox Euthyrox No Euthyrox Hyoscyamine Hyoscyamine No Hyoscyamin Sulfate Sulfate e Sulfate Levothyroxi Levothyroxi No QD Levothyrox ne Sodium ne Sodium ine Sodium 50 MCG 50 MCG 50 MCG Xerac AC Xerac AC No Xerac AC 6.25 % 6.25 % 6.25 % Anucort-HC Anucort-HC No Anucort-HC busPIRone busPIRone No 1{table BID busPIRone HCl 15 MG HCl 15 MG t} HCl 15 MG Emgality Emgality No Emgality Meloxicam Meloxicam No Meloxicam Cyclobenzap Cyclobenzap No Cyclobenza rine HCl rine HCl cassie HCl Sertraline Sertraline No Sertraline HCl HCl HCl Azithromyci Azithromyci No Azithromyc n n in Sertraline Sertraline No Sertraline HCl HCl HCl traZODone traZODone No traZODone HCl HCl HCl Cyclobenzap Cyclobenzap No Cyclobenza rine HCl rine HCl cassie HCl predniSONE predniSONE No predniSONE Euthyrox Euthyrox No Euthyrox Glycopyrrol Glycopyrrol No Glycopyrro ate 1 MG ate 1 MG late 1 MG Meloxicam Meloxicam No Meloxicam Cambia 50 Cambia 50 No Cambia 50 MG MG MG Levothyroxi Levothyroxi No QD Levothyrox ne Sodium ne Sodium ine Sodium 50 MCG 50 MCG 50 MCG Cholestyram Cholestyram No Cholestyra ine ine mine Montelukast Montelukast No 1{table QD Montelukas Sodium 10 Sodium 10 t} t Sodium MG MG 10 MG Emgality Emgality No Emgality Xerac AC Xerac AC No Xerac AC 6.25 % 6.25 % 6.25 % Hyoscyamine Hyoscyamine No Hyoscyamin Sulfate Sulfate e Sulfate busPIRone busPIRone No busPIRone HCl 15 MG HCl 15 MG HCl 15 MG Phentermine Phentermine No Phentermin HCl HCl e HCl Anucort-HC Anucort-HC No Anucort-HC Azithromyci Azithromyci No Azithromyc n n in Sertraline Sertraline No Sertraline HCl HCl HCl Meloxicam Meloxicam No Meloxicam 7.5 MG 7.5 MG 7.5 MG Cyclobenzap Cyclobenzap No Cyclobenza rine HCl rine HCl cassie HCl predniSONE predniSONE No predniSONE Euthyrox Euthyrox No Euthyrox Emgality Emgality 2021- No 1{ml} Emgality 120 MG/ML 120 MG/ML 24 120 MG/ML 00:00 :00 Emgality Emgality 2021- No 1{ml} Emgality 120 MG/ML 120 MG/ML 1024 120 MG/ML 00:00 :00 Immunizations Ordered Filled Immunization Date Status Comments [facility] e Immunization Name Name SARS-COV-2 COVID-19 2020-11-05 Completed [facility] 12+ YRS 00:00:00 [place] [facility] SARS-COV-2 COVID-19 2020-11-05 Completed [facility] 12+ YRS 00:00:00 [place] [facility] SARS-COV-2 COVID-19 2020-11-05 Completed [facility] 12+ YRS 00:00:00 [place] [facility] SARS-COV-2 COVID-19 2020-11-05 Completed [facility] 12+ YRS 00:00:00 [place] [facility] SARS-COV-2 COVID-19 2020-11-05 Completed [facility] 12+ YRS 00:00:00 [place] [facility] SARS-COV-2 COVID-19 2020-11-05 Completed [facility] 12+ YRS 00:00:00 [place] [facility] SARS-COV-2 COVID-19 2020-11-05 Completed [facility] 12+ YRS 00:00:00 [place] [facility] SARS-COV-2 COVID-19 2020-11-05 Completed [facility] 12+ YRS 00:00:00 [place] [facility] SARS-COV-2 COVID-19 2020-10-08 Completed [facility] 12+ YRS 00:00:00 [place] [facility] SARS-COV-2 COVID-19 2020-10-08 Completed [facility] 12+ YRS 00:00:00 [place] [facility] SARS-COV-2 COVID-19 2020-10-08 Completed [facility] 12+ YRS 00:00:00 [place] [facility] SARS-COV-2 COVID-19 2020-10-08 Completed [facility] 12+ YRS 00:00:00 [place] [facility] SARS-COV-2 COVID-19 2020-10-08 Completed [facility] 12+ YRS 00:00:00 [place] [facility] SARS-COV-2 COVID-19 2020-10-08 Completed [facility] 12+ YRS 00:00:00 [place] [facility] SARS-COV-2 COVID-19 2020-10-08 Completed [facility] 12+ YRS 00:00:00 [place] [facility] SARS-COV-2 COVID-19 2020-10-08 Completed [facility] 12+ YRS 00:00:00 [place] [facility] [place] [facility] 2020-09-11 Completed [facility] - 10:26:00 [facility] [place] [facility] 2020-09-11 Completed [facility] - 10:26:00 [facility] [place] [facility] 2020-09-11 Completed [facility] - 10:26:00 [facility] [place] [facility] 2020-09-11 Completed [facility] - 10:26:00 [facility] [place] [facility] 2020-09-11 Completed [facility] - 10:26:00 [facility] [place] [facility] 2020-09-11 Completed [facility] - 10:26:00 [facility] [place] [facility] 2020-09-11 Completed [facility] - 10:26:00 [facility] [place] [facility] 2020-09-11 Completed [facility] - 10:26:00 [facility] [place] [facility] 2020-09-11 Completed [facility] - 10:26:00 [facility] [place] [facility] 2020-09-11 Completed [facility] - 10:26:00 [facility] [place] [facility] 2020-09-11 Completed [facility] - 10:26:00 [facility] [place] [facility] 2020-09-11 Completed [facility] - 10:26:00 [facility] [place] [facility] 2020-09-11 Completed [facility] - 10:26:00 [facility] [place] [facility] 2020-09-11 Completed [facility] - 10:26:00 [facility] [place] [facility] 2020-09-11 Completed [facility] - 10:26:00 [facility] [place] [facility] 2020-09-11 Completed [facility] - 10:26:00 [facility] [place] [facility] 2020-09-11 Completed [facility] - 10:26:00 [facility] [place] [facility] 2020-09-11 Completed [facility] - 10:26:00 [facility] [place] [facility] 2020-09-11 Completed [facility] - 10:26:00 [facility] Kenalog Kenalog 2020-09-11 Completed [facility] - (Triamcinolone) (Triamcinolone) 10:25:00 [facility] Kenalog Kenalog 2020-09-11 Completed [facility] - (Triamcinolone) (Triamcinolone) 10:25:00 [facility] Kenalog Kenalog 2020-09-11 Completed [facility] - (Triamcinolone) (Triamcinolone) 10:25:00 [facility] Kenalog Kenalog 2020-09-11 Completed [facility] - (Triamcinolone) (Triamcinolone) 10:25:00 [facility] Josseline Manjarrez 2020-09-11 Completed [facility] - (Triamcinolone) (Triamcinolone) 10:25:00 [facility] Josseline Manjarrez 2020-09-11 Completed [facility] - (Triamcinolone) (Triamcinolone) 10:25:00 [facility] Josseline Manjarrez 2020-09-11 Completed [facility] - (Triamcinolone) (Triamcinolone) 10:25:00 [facility] Josseline Manjarrez 2020-09-11 Completed [facility] - (Triamcinolone) (Triamcinolone) 10:25:00 [facility] Josseline Manjarrez 2020-09-11 Completed [facility] - (Triamcinolone) (Triamcinolone) 10:25:00 [facility] Josseline Manjarrez 2020-09-11 Completed [facility] - (Triamcinolone) (Triamcinolone) 10:25:00 [facility] Josseline Manjarrez 2020-09-11 Completed [facility] - (Triamcinolone) (Triamcinolone) 10:25:00 [facility] Josseline Manjarrez 2020-09-11 Completed [facility] - (Triamcinolone) (Triamcinolone) 10:25:00 [facility] Josseline Manjarrez 2020-09-11 Completed [facility] - (Triamcinolone) (Triamcinolone) 10:25:00 [facility] Josseline Manjarrez 2020-09-11 Completed [facility] - (Triamcinolone) (Triamcinolone) 10:25:00 [facility] Josseline Manjarrez 2020-09-11 Completed [facility] - (Triamcinolone) (Triamcinolone) 10:25:00 [facility] Josseline Manjarrez 2020-09-11 Completed [facility] - (Triamcinolone) (Triamcinolone) 10:25:00 [facility] Josseline Manjarrez 2020-09-11 Completed [facility] - (Triamcinolone) (Triamcinolone) 10:25:00 [facility] Josseline Manjarrez 2020-09-11 Completed [facility] - (Triamcinolone) (Triamcinolone) 10:25:00 [facility] Josseline Manjarrez 2020-09-11 Completed [facility] - (Triamcinolone) (Triamcinolone) 10:25:00 [facility] Josseline Manjarrez 2020-05-01 Completed [facility] - (Triamcinolone) (Triamcinolone) 15:49:00 [facility] Josseilne Manjarrez 2020-05-01 Completed [facility] - (Triamcinolone) (Triamcinolone) 15:49:00 [facility] Josseline Manjarrez 2020-05-01 Completed [facility] - (Triamcinolone) (Triamcinolone) 15:49:00 [facility] 2020-05-01 Completed [facility] - (Triamcinolone) (Triamcinolone) 15:49:00 [facility] Josseline Manjarrez 2020-05-01 Completed [facility] - (Triamcinolone) (Triamcinolone) 15:49:00 [facility] Josseline Manjarrez 2020-05-01 Completed [facility] - (Triamcinolone) (Triamcinolone) 15:49:00 [facility] Josseline Manjarrez 2020-05-01 Completed [facility] - (Triamcinolone) (Triamcinolone) 15:49:00 [facility] Josseline Manjarrez 2020-05-01 Completed [facility] - (Triamcinolone) (Triamcinolone) 15:49:00 [facility] Josseline Manjarrez 2020-05-01 Completed [facility] - (Triamcinolone) (Triamcinolone) 15:49:00 [facility] Josseline Manjarrez 2020-05-01 Completed [facility] - (Triamcinolone) (Triamcinolone) 15:49:00 [facility] Josseline Manjarrez 2020-05-01 Completed [facility] - (Triamcinolone) (Triamcinolone) 15:49:00 [facility] Josseline Manjarrez 2020-05-01 Completed [facility] - (Triamcinolone) (Triamcinolone) 15:49:00 [facility] Josseline Manjarrez 2020-05-01 Completed [facility] - (Triamcinolone) (Triamcinolone) 15:49:00 [facility] Josseline Manjarrez 2020-05-01 Completed [facility] - (Triamcinolone) (Triamcinolone) 15:49:00 [facility] Josseline Manjarrez 2020-05-01 Completed [facility] - (Triamcinolone) (Triamcinolone) 15:49:00 [facility] Josseline Manjarrez 2020-05-01 Completed [facility] - (Triamcinolone) (Triamcinolone) 15:49:00 [facility] Josseline Manjarrez 2020-05-01 Completed [facility] (Triamcinolone) (Triamcinolone) 15:49:00 [facility] Josseline Manjarrez 2020-05-01 Completed [facility] (Triamcinolone) (Triamcinolone) 15:49:00 [facility] Josseline Manjarrez 2020-05-01 Completed [facility] (Triamcinolone) (Triamcinolone) 15:49:00 [facility] Josseline Manjarrez 2019-05-19 Completed [facility] (Triamcinolone) (Triamcinolone) 14:37:00 [facility] Josseline Manjarrez 2019-05-19 Completed [facility] (Triamcinolone) (Triamcinolone) 14:37:00 [facility] Josseline Manjarrez 2019-05-19 Completed [facility] (Triamcinolone) (Triamcinolone) 14:37:00 [facility] Josseline Manjarrez 2019-05-19 Completed [facility] (Triamcinolone) (Triamcinolone) 14:37:00 [facility] Josseline Manjarrez 2019-05-19 Completed [facility] (Triamcinolone) (Triamcinolone) 14:37:00 [facility] Josseline Manjarrez 2019-05-19 Completed [facility] (Triamcinolone) (Triamcinolone) 14:37:00 [facility] Josseline Manjarrez 2019-05-19 Completed [facility] (Triamcinolone) (Triamcinolone) 14:37:00 [facility] Josseline Manjarrez 2019-05-19 Completed [facility] (Triamcinolone) (Triamcinolone) 14:37:00 [facility] Josseline Manjarrez 2019-05-19 Completed [facility] (Triamcinolone) (Triamcinolone) 14:37:00 [facility] Josseline Manjarrez 2019-05-19 Completed [facility] (Triamcinolone) (Triamcinolone) 14:37:00 [facility] Josseline Manjarrez 2019-05-19 Completed [facility] (Triamcinolone) (Triamcinolone) 14:37:00 [facility] Josseline Manjarrez 2019-05-19 Completed [facility] (Triamcinolone) (Triamcinolone) 14:37:00 [facility] Josseline Manjarrez 2019-05-19 Completed [facility] (Triamcinolone) (Triamcinolone) 14:37:00 [facility] Josseline Manjarrez 2019-05-19 Completed [facility] (Triamcinolone) (Triamcinolone) 14:37:00 [facility] Josseline Manjarrez 2019-05-19 Completed [facility] (Triamcinolone) (Triamcinolone) 14:37:00 [facility] Josseline Manjarrez 2019-05-19 Completed [facility] (Triamcinolone) (Triamcinolone) 14:37:00 [facility] Josseline Manjarrez 2019-05-19 Completed [facility] (Triamcinolone) (Triamcinolone) 14:37:00 [facility] Josseline Manjarrez 2019-05-19 Completed [facility] (Triamcinolone) (Triamcinolone) 14:37:00 [facility] Josseline Manjarrez 2019-05-19 Completed [facility] (Triamcinolone) (Triamcinolone) 14:37:00 [facility] Vital Signs Vital Name Observation Time Observation Value Comments Source HEIGHT 2022-11-24 14:11:00 162.6 cm WEIGHT 2022-11-24 14:11:00 105.371 kg WEIGHT 2022-11-18 13:00:00 101.515 kg HEIGHT 2022-11-17 09:42:00 162.6 cm WEIGHT 2022-11-17 09:42:00 107.502 kg WEIGHT 2022-11-18 13:00:00 101.515 kg HEIGHT 2022-11-17 09:42:00 162.6 cm WEIGHT 2022-11-17 09:42:00 107.502 kg HEIGHT 2022-10-29 16:00:00 162.6 cm WEIGHT 2022-10-29 16:00:00 106.595 kg HEIGHT 2022-10-22 08:10:00 162.6 cm WEIGHT 2022-10-22 08:10:00 106.595 kg HEIGHT 2022-10-17 14:33:00 162.6 cm WEIGHT 2022-10-17 14:33:00 106.595 kg HEIGHT 2022-10-22 08:10:00 162.6 cm WEIGHT 2022-10-22 08:10:00 106.595 kg HEIGHT 2022-10-17 14:33:00 162.6 cm WEIGHT 2022-10-17 14:33:00 106.595 kg HEIGHT 2022-09-22 14:45:00 162.6 cm WEIGHT 2022-09-22 14:45:00 113.082 kg Systolic blood 2022-09-05 19:52:00 118 mm[Hg] Univer sity of pressure [facility] Diastolic blood 2022-09-05 19:52:00 83 mm[Hg] Unive rsity of [facility] Heart rate 2022-09-05 19:52:00 59 /min [facility] Body temperature 2022-09-05 19:52:00 36.78 Marcela [facility] Respiratory rate 2022-09-05 19:52:00 19 /min [facility] Body height 2022-09-05 19:52:00 162.6 cm Universi ty [facility] Body weight 2022-09-05 19:52:00 110.406 kg [facility] BMI 2022-09-05 19:52:00 41.78 kg/m2 [facility] height 2022-06-09 16:40:00 64 [in_i] [facility] weight 2022-06-09 16:40:00 237 [lb_av] Common [facility] temperature 2022-06-09 16:40:00 99.4 [degF] Common S [facility]irit [facility] bmi 2022-06-09 16:40:00 40.68 kg/m2 Common [facility] height 2021-12-05 10:50:00 64 [in_i] Common [facility] weight 2021-12-05 10:50:00 240.9 [lb_av] Common [facility] temperature 2021-12-05 10:50:00 97.9 [degF] Common [facility] bmi 2021-12-05 10:50:00 41.35 kg/m2 [facility] oximetry 2021-12-05 10:50:00 100 % [facility] respiratory rate 2021-12-05 10:50:00 18 /min Comm on [facility] blood pressure 2021-12-05 10:50:00 138 mm[Hg] Common [facility] - systolic [facility] blood pressure 2021-12-05 10:50:00 79 mm[Hg] Common [facility] - diastolic [facility] height 2021-08-05 10:50:00 64 [in_i] [facility] weight 2021-08-05 10:50:00 239.3 [lb_av] [facility] temperature 2021-08-05 10:50:00 98.4 [degF] Common [facility] bmi 2021-08-05 10:50:00 41.07 kg/m2 [facility] oximetry 2021-08-05 10:50:00 100 % [facility] respiratory rate 2021-08-05 10:50:00 18 /min Comm on [facility] blood pressure 2021-08-05 10:50:00 124 mm[Hg] Common [facility] - systolic [facility] blood pressure 2021-08-05 10:50:00 78 mm[Hg] [facility] diastolic [facility] height 2021-05-06 15:45:00 64 [in_i] [facility] weight 2021-05-06 15:45:00 235 [lb_av] [facility] bmi 2021-05-06 15:45:00 40.33 kg/m2 [facility] height 2021-05-03 10:30:00 64 [in_i] [facility] weight 2021-05-03 10:30:00 235 [lb_av] [facility] temperature 2021-05-03 10:30:00 97.5 [degF] [facility] - [facility] bmi 2021-05-03 10:30:00 40.33 kg/m2 [facility] height 2021-04-23 13:00:00 64 [in_i] [facility] weight 2021-04-23 13:00:00 240.9 [lb_av] [facility] bmi 2021-04-23 13:00:00 41.35 kg/m2 [facility] blood pressure 2021-04-23 13:00:00 118 mm[Hg] [facility] - systolic [facility] blood pressure 2021-04-23 13:00:00 90 mm[Hg] [facility] - diastolic [facility] height 2021-03-07 13:00:00 64 [in_i] [facility] weight 2021-03-07 13:00:00 245 [lb_av] [facility] temperature 2021-03-07 13:00:00 98 [degF] [facility] - [facility] bmi 2021-03-07 13:00:00 42.05 kg/m2 [facility] height 2021-03-05 13:20:00 64 [in_i] Common [facility] weight 2021-03-05 13:20:00 245 [lb_av] Common [facility] temperature 2021-03-05 13:20:00 98.7 [degF] Common S [facility] bmi 2021-03-05 13:20:00 42.05 kg/m2 [facility] respiratory rate 2021-03-05 13:20:00 18 /min [facility] - [facility] blood pressure 2021-03-05 13:20:00 120 mm[Hg] [facility] - systolic [facility] blood pressure 2021-03-05 13:20:00 83 mm[Hg] Common [facility] - diastolic [facility] height 2021-02-19 13:00:00 64 [in_i] Common [facility] weight 2021-02-19 13:00:00 236 [lb_av] [facility] temperature 2021-02-19 13:00:00 97.5 [degF] Common [facility] bmi 2021-02-19 13:00:00 40.5 kg/m2 [facility] blood pressure 2021-02-19 13:00:00 122 mm[Hg] Common [facility] - systolic [facility] blood pressure 2021-02-19 13:00:00 72 mm[Hg] [facility] - diastolic [facility] height 2021-02-04 10:20:00 64 [in_i] Common [facility] weight 2021-02-04 10:20:00 234.6 [lb_av] Common [facility] temperature 2021-02-04 10:20:00 97.9 [degF] [facility] bmi 2021-02-04 10:20:00 40.26 kg/m2 [facility] oximetry 2021-02-04 10:20:00 99 % [facility] respiratory rate 2021-02-04 10:20:00 18 /min [facility] - [facility] blood pressure 2021-02-04 10:20:00 124 mm[Hg] Common [facility] - systolic [facility] blood pressure 2021-02-04 10:20:00 76 mm[Hg] Common [facility] - diastolic [facility] height 2020-12-18 11:00:00 64 [in_i] Common [facility] weight 2020-12-18 11:00:00 230 [lb_av] Common [facility] temperature 2020-12-18 11:00:00 97.3 [degF] Common [facility] bmi 2020-12-18 11:00:00 39.48 kg/m2 Common [facility] blood pressure 2020-12-18 11:00:00 124 mm[Hg] [facility] - systolic [facility] blood pressure 2020-12-18 11:00:00 80 mm[Hg] [facility] - diastolic [facility] Systolic blood 2020-10-05 18:18:00 113 mm[Hg] Univer sity [facility] Diastolic blood 2020-10-05 18:18:00 79 mm[Hg] Unive rsity of [facility] Heart rate 2020-10-05 18:18:00 78 /min [facility] Body temperature 2020-10-05 18:18:00 37.06 Marcela [facility] Respiratory rate 2020-10-05 18:18:00 18 /min [facility] Body height 2020-10-05 18:18:00 162.6 cm [facility] Body weight 2020-10-05 18:18:00 104.781 kg [facility] BMI 2020-10-05 18:18:00 39.65 kg/m2 [facility] Systolic blood 2020-04-04 20:25:00 119 mm[Hg] Univer sity of [facility] Diastolic blood 2020-04-04 20:25:00 79 mm[Hg] Unive rsity of pressure [facility] Heart rate 2020-04-04 20:25:00 68 /min [facility] Body temperature 2020-04-04 20:25:00 36.78 Marcela Univ [facility] Respiratory rate 2020-04-04 20:25:00 18 /min Univ [facility] Body height 2020-04-04 20:25:00 162.6 cm [facility] Body weight 2020-04-04 20:25:00 95.8 kg [facility] BMI 2020-04-04 20:25:00 36.25 kg/m2 [facility] Systolic blood 2020-04-04 20:25:00 119 mm[Hg] Univer sity of pressure [facility] Diastolic blood 2020-04-04 20:25:00 79 mm[Hg] Unive rsity of pressure [facility] Heart rate 2020-04-04 20:25:00 68 /min [facility] Body temperature 2020-04-04 20:25:00 36.78 Marcela [facility] Respiratory rate 2020-04-04 20:25:00 18 /min Univ [facility] Body height 2020-04-04 20:25:00 162.6 cm [facility] Body weight 2020-04-04 20:25:00 95.8 kg [facility] BMI 2020-04-04 20:25:00 36.25 kg/m2 [facility] Systolic blood 2020-03-21 21:08:00 121 mm[Hg] Univer sity of pressure [facility] Diastolic blood 2020-03-21 21:08:00 76 mm[Hg] Unive rsity of pressure [facility] Heart rate 2020-03-21 21:08:00 85 /min [facility] Body temperature 2020-03-21 21:08:00 36.78 Marcela [facility] Respiratory rate 2020-03-21 21:08:00 18 /min Univ [facility] Body height 2020-03-21 21:08:00 162.6 cm [facility] Body weight 2020-03-21 21:08:00 94.892 kg [facility] BMI 2020-03-21 21:08:00 35.91 kg/m2 [facility] Systolic blood 2020-03-17 03:00:00 124 mm[Hg] Univer sity of pressure [facility] Diastolic blood 2020-03-17 03:00:00 80 mm[Hg] Unive rsity of pressure [facility] Heart rate 2020-03-17 03:00:00 71 /min [facility] Respiratory rate 2020-03-17 03:00:00 18 /min Univ ersity [facility] Oxygen saturation in 2020-03-17 03:00:00 98 /min [facility] blood by [place] [facility] P[facility] oxim[facility] Body temperature 2020-03-17 01:11:00 37.56 Marcela Univ ersity of [facility] Body height 2020-03-17 01:11:00 162.6 cm [facility] Body weight 2020-03-17 01:11:00 92.987 kg [facility] BMI 2020-03-17 01:11:00 35.19 kg/m2 [facility] Systolic blood 2020-03-08 15:30:00 104 mm[Hg] Univer sity of pressure [facility] Diastolic blood 2020-03-08 15:30:00 58 mm[Hg] Unive rsity of pressure [facility] Oxygen saturation in 2020-03-08 15:30:00 98 /min University of Arterial blood by [facility] noe Pulse oximetry Branch Heart rate 2020-03-08 15:15:00 86 /min [facility] Respiratory rate 2020-03-08 15:15:00 17 /min Univ ersity of [facility] Body temperature 2020-03-08 14:45:00 36.44 Marcela Univ ersity of [facility] Body height 2020-03-06 18:30:00 162.6 cm [facility] Body weight 2020-03-06 18:30:00 92.987 kg [facility] BMI 2020-03-06 18:30:00 35.19 kg/m2 [facility] Systolic blood 2020-02-10 21:20:00 110 mm[Hg] Univer sity of pressure [facility] Diastolic blood 2020-02-10 21:20:00 69 mm[Hg] Unive rsity of pressure [facility] Heart rate 2020-02-10 21:20:00 65 /min [facility] Body temperature 2020-02-10 21:20:00 36.83 Marcela Univ [facility] Respiratory rate 2020-02-10 21:20:00 18 /min Univ ersity [facility] Body height 2020-02-10 21:20:00 162.6 cm [facility] Body weight 2020-02-10 21:20:00 95.255 kg [facility] BMI 2020-02-10 21:20:00 36.05 kg/m2 [facility] Systolic blood 2020-01-30 20:46:00 104 mm[Hg] Univer sity of pressure [facility] Diastolic blood 2020-01-30 20:46:00 64 mm[Hg] Unive rsity of pressure [facility] Heart rate 2020-01-30 20:46:00 86 /min [facility] Body temperature 2020-01-30 20:46:00 37.11 Marcela Univ [facility] Respiratory rate 2020-01-30 20:46:00 18 /min Univ ersity [facility] Body height 2020-01-30 20:46:00 162.6 cm [facility] Body weight 2020-01-30 20:46:00 96.435 kg [facility] BMI 2020-01-30 20:46:00 36.49 kg/m2 [facility] Systolic blood 2020-01-13 20:24:00 120 mm[Hg] Univer sity of pressure [facility] Diastolic blood 2020-01-13 20:24:00 77 mm[Hg] Unive rsity of pressure [facility] Heart rate 2020-01-13 20:24:00 77 /min [facility] Body temperature 2020-01-13 20:24:00 36.94 Marcela Univ [facility] Respiratory rate 2020-01-13 20:24:00 18 /min Univ [facility] Body weight 2020-01-13 20:24:00 95.8 kg [facility] Procedures Procedure Date / Time Performing Clinician Source Performed GALV ONLY - VAGINAL 2022-09-05 20:43:00 Adum, Zulema Barreto [facility] PATHOGENS BY NUCLEIC ACID Medica l Branch TESTING PAP SMEAR-LIQUID BASED-CP 2022-09-05 20:43:00 Adum, Zulema Barreto [facility] ASSIGNMENT OF BENEFITS 2022-09-05 19:20:55 Doctor Madeline [facility] US PELVIS COMPLETE WITH 2020-03-22 22:56:02 Adum, Zulema [facility] TRANSVAGINAL Medical Joseph US RETROPERITONEAL 2020-03-22 22:55:50 Adum, Zulema Barreto [facility] Medical Branch CONSENT FOR CONTRACEPTION 2020-03-21 05:01:00 Doctor Correa [facility] LIPASE 2020-03-17 03:07:00 Mariam, [facility] COMP. METABOLIC PANEL 2020-03-17 03:07:00 Jamie Sutton [facility] ([id number]) Medical [facility] CBC WITH DIFF 2020-03-17 03:07:00 [facility] D-DIMER 2020-03-17 03:07:00 [facility] URINALYSIS 2020-03-17 03:07:00 [facility] NOTICE OF PRIVACY 2020-03-17 01:00:20 Doctor Corrae, [facility] PRACTICES [facility] CONSENT/REFUSAL FOR 2020-03-17 01:00:05 Doctor Madeline [facility] DIAGNOSIS AND TREATMENT [facility] POCT TEST 2020-03-08 13:25:00 Maxwell Granados [facility] DSU PRE-OP 2020-03-07 05:01:00 Doctor Correa [facility] EXERCISE STRESS TEST 2020-02-17 05:01:00 Doctor [facility]rea [facility] RESULT [facility] POCT TEST 2020-01-30 20:48:00 Adum, Zulema Barreto [facility] EXTERNAL PROVIDER RECORDS 2020-01-30 05:01:00 Doctor Correa [facility] US PELVIS COMPLETE WITH 2020-01-26 20:25:49 Zulema [facility] TRANSVAGINAL Medical Branch ASSIGNMENT OF BENEFITS 2020-01-26 19:32:34 Doctor [facility] Encounters Start End Encounter Admission Attending Care Care Encounter Source Date/Time Date/Time Type Type Clinicians Facility Department ID 2022-09-05 Outpatient White, STLMLC STLMLC [id number] Common 09:32:00 Paula [id number] [facility] 2022-08-04 Outpatient White, STLMLC STLC [id number] Common 15:57:00 Paula [id number] [facility] 2021-12-09 Outpatient White, STLMLC STLC [id number] Common 06:03:00 Paula [id number] [facility] 2021-11-01 Outpatient White, STLMLC STLC [id number] Common 08:15:00 Paula [facility] 2021-10-21 Outpatient White, STLMLC STLC [id number] Common 13:38:00 Paula [facility] 2021-08-07 Outpatient White, STLMLC STLC [id number] Common 11:21:02 Paula [facility] 2021-07-31 Outpatient White, STLMLC STLC [id number] Common 14:07:33 Paula 80925 [facility] 2021-07-31 Outpatient White, STLMLC STLC [id number] Common 14:06:07 Paula 37502 [facility] 2021-07-31 Outpatient White, STLMLC STLC [id number] Common 13:58:47 Paula [id number] [facility] 2021-07-31 Outpatient White, STLMLC STLC [id number] Common 13:45:19 Paula 81274 [facility] 2021-07-31 Outpatient Wihte, STLMLC STLC [id number] Common 13:44:28 Paula [id number] [facility] 2021-07-31 Outpatient White, STLMLC STLMLC [id number] Common 13:38:05 Paula 12988 [facility] 2021-07-31 Outpatient White, STLMLC STLMLC [id number] Common 13:19:17 Paula 81292 [facility] 2021-07-31 Outpatient White, STLMLC STLMLC [id number] Common 13:05:51 Paula 72502 [facility] 2021-07-31 Outpatient White, STLMLC STLMLC [id number] Common 12:59:51 Paula [id number] [facility] 2021-07-31 Outpatient White, STLMLC STLMLC [id number] Common 12:49:37 Paula [id number] [facility] 2021-07-31 Outpatient White, STLMLC STLMLC [id number] Common 12:41:34 Paula [id number] [facility] 2021-07-31 Outpatient White, STLMLC STLMLC [id number] Common 12:30:56 Paula 63744 [facility] 2021-07-31 Outpatient White, STLMLC STLMLC [id number] Common 12:26:18 Paula 92772 [facility] 2021-07-31 Outpatient White, STLMLC STLMLC [id number] Common 12:15:14 Paula [id number] [facility] 2021-07-31 Outpatient White, STLMLC STLMLC [id number] Common 12:06:08 Paula [id number] [facility] 2021-07-31 Outpatient White, STLMLC STLMLC [id number] Common 12:04:41 Paula [id number] [facility] 2021-07-31 Outpatient White, STLMLC STLMLC [id number] Common 12:02:56 Paula 33378 [facility] 2021-07-31 Outpatient White, STLMLC STLMLC [id number] Common 11:59:03 Paula 57583 [facility] 2021-07-31 [facility] [id number] Common 11:29:54 Paula 26613 [facility] 2021-07-31 [facility] [id number] Common 11:17:47 Paula [id number] [facility] 2021-07-31 [facility] [id number] Common 11:17:36 Paula 37581 [facility] 2021-07-31 [facility] [id number] Common 11:07:23 Paula [id number] [facility] 2021-07-31 [facility] [id number] Common 10:58:24 Paula [id number] [facility] 2021-05-03 Emergency [facility] [id number] Univers 17:11:20 [facility] 2021-05-03 Outpatient R ADCECILE, [facility] MELITA [id number] Univers 14:35:49 ZULEMA [facility] 2022-12-24 2022-12-[address] [facility] [id number] 00:00:00 00:00:00 [facility] 2022-11-26 2022-11-[address] [facility] [id number] 00:00:00 00:00:00 [facility] 2022-11-24 2022-11-[address] [facility] [id number] 13:36:23 15:20:41 [facility] 2022-11-18 2022-11-20 Inpatient KIMO VIRK [facility] Surgery [id number] [facility] 07:16:00 12:54:00 [place] 2022-11-11 2022-11-[address] [facility] [id number] 13:48:22 14:44:42 [facility] 2022-10-29 2022-10-[address] [facility] [id number] 15:59:30 16:33:28 [facility] 2022-10-22 2022-10-22 Outpatient [facility]IMO [facility]IRK [facility] [id number] [facility] 07:39:00 10:40:00 [place] 2022-10-20 2022-10-20 Outpatient KIMO WHITE, [facility] [id number] [facility] 12:19:35 23:59:00 [facility] 2022-09-22 2022-09-22 Outpatient KIMO VIRK, [facility] [id number] 14:07:20 15:34:59 [facility] 2022-09-15 2022-09-15 Patient Adum, [facility] [id number] Univers 00:00:00 00:00:00 Secure Msg Zulema Barreto REYNA [id number] it[place] of [id number] [id number] Ms dical NAL [address] [place] [address] 2022-09-09 2022-09-09 Case Ad, [facility] [id number] Univers 00:00:00 00:00:00 Management Zulema Estevan ORELLANA 350.1.13.10 ity of [place] [phone] Ms dical NAL [address] [place] [address] 2022-09-05 2022-09-05 General Office Worker 2, Adc Lab [facility] 1.2.840.114 [id number] Univers 15:00:00 15:15:00 Visit Adum, Zulema CONTRERASKELVIN 350.1.13.10 ity of [place] [phone] Ms dic[address] 2022-09-05 2022-09-05 Outpatient R ADUM, [facility] [id number] Univers 13:30:00 14:46:28 ZULEMA patel of [facility] 2022-09-05 2022-09-05 [facility] 1.2.840.114 [id number] Univers 13:30:00 14:46:28 Visit Zulema ORELLANA 350.1.13.10 ity of [place]FS[place] [phone] Ms dical NAL [address] 2022-09-05 2022-09-05 Orders Doctor JORGE ALBERTO 1.2.840.114 [id number] Univers 00:00:00 00:00:00 Only Unassigned, NITHIN 350.1.13.10 ity of [facility] 4.2.7.2.686 [place] as [phone] [facility] [address] 2022-06-09 2022-06-09 (TEL) STLMLC STLMLC [id number] Co mmon 00:00:00 00:00:00 [facility] 2022-06-09 2022-06-09 OFFICE STLMLC STLMLC [id number] Co mmon 00:00:00 00:00:00 VISIT EST Spir it PT LEVEL 3 [facility] 2022-06-09 2022-06-09 (TEL) STLMLC STLMLC [id number] Co mmon 00:00:00 00:00:00 [facility] 2022-06-03 2022-06-03 (TEL) STLMLC STLMLC [id number] Co mmon 00:00:00 00:00:00 [facility] 2022-06-02 2022-06-02 (TEL) STLMLC STLMLC [id number] Co mmon 00:00:00 00:00:00 [facility] 2022-05-28 2022-05-28 (TEL) STLMLC STLMLC [id number] Co mmon 00:00:00 00:00:00 [facility] 2022-05-27 2022-05-27 (WEB) STLMLC STLMLC [id number] Co mmon 00:00:00 00:00:00 [facility] 2022-02-25 2022-02-25 Outpatient LEW [facility] [id number] [place] 00:00:00 00:00:00 WILLA greene 2021-12-09 2021-12-09 (TEL) STLMLC STLMLC [id number] Co mmon 00:00:00 00:00:00 Spirit - [facility] 2021-12-05 2021-12-05 OFFICE STLMLC STLMLC [id number] Co mmon 00:00:00 00:00:00 VISIT [facility] PT - CHI LEVEL 4 [facility] 2021-11-19 2021-11-19 Outpatient SELLIN, [facility] [id number] 350 [place] 00:00:00 00:00:00 WILLA [address] [place] 2021-11-08 2021-11-08 Outpatient SELLIN, [place] [id number] [place] 00:00:00 00:00:00 WILLA 274 [place] 2021-11-05 2021-11-05 Outpatient SELLIN, [facility] [id number] [place] 00:00:00 00:00:00 WILLA 609 [place] 2021-11-05 2021-11-05 Outpatient SELLIN, [facility] [id number] [place] 00:00:00 00:00:00 WILLA 705 [place] 2021-11-05 2021-11-05 Outpatient SELLIN, [facility] [id number] [place] 00:00:00 00:00:00 WILLA 798 [place] 2021-11-05 2021-11-05 Outpatient SELLIN, [facility] [id number] [place] 00:00:00 00:00:00 WILLA 754 [place] 2021-10-30 2021-10-30 Outpatient SELLIN, [facility] [id number] [place] 00:00:00 00:00:00 WILLA 071 [place] 2021-10-24 2021-10-24 (TEL) STLMLC STLMLC [id number] Co mmon 00:00:00 00:00:00 [facility] 2021-08-05 2021-08-05 PREV VISIT STLMLC STLMLC [id number] [facility] 00:00:00 00:00:00 EST AGE [facility] 18-39 - [facility] 2021-06-12 2021-06-12 (TEL) STLMLC STLMLC [id number] Co mmon 00:00:00 00:00:00 [facility] 2021-05-14 2021-05-14 (WEB) STLMLC STLMLC [id number] Co mmon 00:00:00 00:00:00 [facility] 2021-05-06 2021-05-06 OL DIG E/M STLMLC STLMLC [id number] Common 00:00:00 00:00:00 [facility] 5-10 Spiri t [facility] 2021-05-03 2021-05-03 (TEL) STLMLC STLMLC [id number] Co mmon 00:00:00 00:00:00 [facility] 2021-05-03 2021-05-03 OFFICE STLMLC STLMLC [id number] Co mmon 00:00:00 00:00:00 [facility]I LEVEL 4 [facility] 2021-04-30 2021-04-30 (TEL) STLMLC STLMLC [id number] Co mmon 00:00:00 00:00:00 [facility] 2021-04-24 2021-04-24 (TEL) STLMLC STLMLC [id number] Co mmon 00:00:00 00:00:00 [facility] 2021-04-23 2021-04-23 OFFICE STLMLC STLMLC [id number] Co mmon 00:00:00 00:00:00 [facility]IT [facility] PT - CHI LEVEL 4 [facility] 2021-04-19 2021-04-19 (WEB) STLMLC STLMLC [id number] Co mmon 00:00:00 00:00:00 [facility] 2021-04-19 2021-04-19 (TEL) STLMLC STLMLC [id number] Co mmon 00:00:00 00:00:00 [facility] 2021-04-10 2021-04-10 Outpatient Remigio MCMAHAN [facility] [id number] Univers 15:30:00 15:30:00 ZULEMA patel [facility] 2021-03-18 2021-03-18 (TEL) STLMLC STLMLC [id number] Co mmon 00:00:00 00:00:00 [facility] 2021-03-07 2021-03-07 OFFICE STLMLC STLMLC [id number] Co mmon 00:00:00 00:00:00 [facility] PT - CHI LEVEL 2 [facility] 2021-03-05 2021-03-05 OFFICE STLMLC STLMLC [id number] Co mmon 00:00:00 00:00:00 [facility]IT [facility] PT - CHI LEVEL 4 [facility] 2021-03-05 2021-03-05 (TEL) STLMLC STLMLC [id number] Co mmon 00:00:00 00:00:00 [facility] 2021-03-01 2021-03-01 (TEL) STLMLC STLMLC [id number] Co mmon 00:00:00 00:00:00 [facility] 2021-02-27 2021-02-27 (TEL) STLMLC STLMLC [id number] Co mmon 00:00:00 00:00:00 [facility] 2021-02-19 2021-02-19 OFFICE STLMLC STLMLC [id number] Co mmon 00:00:00 00:00:00 [facility]IT [facility] PT - CHI LEVEL 4 [facility] 2021-02-04 2021-02-04 OFFICE STLMLC STLMLC [id number] Co mmon 00:00:00 00:00:00 [facility]IT [facility] PT - CHI LEVEL 4 [facility] 2021-01-10 2021-01-10 (TEL) STLMLC STLMLC [id number] Co mmon 00:00:00 00:00:00 [facility] 2021-01-01 2021-01-01 (TEL) STLMLC STLMLC [id number] Co mmon 00:00:00 00:00:00 [facility] 2020-12-26 2020-12-26 (TEL) STLMLC STLMLC [id number] Co mmon 00:00:00 00:00:00 [facility] 2020-12-18 2020-12-18 OFFICE STLMLC STLMLC [id number] Co mmon 00:00:00 00:00:00 VISIT EST Spir it PT LEVEL 3 [facility] 2020-11-23 2020-11-23 Outpatient STLMLC STLMLC [id number] Common 00:00:00 00:00:00 [facility] 2020-11-22 2020-11-22 Outpatient STLMLC STLMLC [id number] Common 00:00:00 00:00:00 [facility] 2020-11-16 2020-11-16 Outpatient STLMLC STLMLC [id number] Common 00:00:00 00:00:00 [facility] 2020-11-05 2020-11-05 [facility] [id number] Univers 13:50:00 13:50:00 VELVET [facility] 2020-10-13 2020-10-13 Outpatient STLMLC STLMLC [id number] Common 00:00:00 00:00:00 [facility] 2020-10-08 2020-10-08 Outpatient [facility] [id number] Univers 13:50:00 13:50:00 [facility] 2020-10-05 2020-10-05 [facility] 1.2.840.114 [id number] Univers 13:07:01 13:34:09 Visit Zulema Orellana 350.1.13.10 ity [place] [phone] Ms dical [address] 2020-10-05 2020-10-05 Outpatient R AKIRA, [facility] [id number] Univers 13:00:00 13:00:00 ZULEMA [facility] 2020-09-25 2020-09-[address] [facility] 1.2.840.114 [id number] Univers 00:00:00 00:00:00 Outreach Filipe FAUSTIN 350.1.13.10 i ty [facility] [place]2.7.2.[place] [phone] [place] [address] [address] 2020-09-18 2020-09-18 Outpatient Remigio MCMAHAN, [facility] [id number] Univers 14:00:00 14:00:00 ZULEMA patel [facility] 2020-09-11 2020-09-11 Outpatient STLMLC STLMLC [id number] Common 00:00:00 00:00:00 [facility] 2020-09-10 2020-09-10 Outpatient STLMLC STLMLC [id number] Common 00:00:00 00:00:00 [facility] 2020 2020 Outpatient STLMLC STLMLC [id number] Common 00:00:00 00:00:00 [facility] 2020-08-20 2020-08-20 Outpatient STLMLC STLMLC [id number] Common 00:00:00 00:00:00 [facility] 2020-08-15 2020-08-15 Outpatient STLMLC STLMLC [id number] Common 00:00:00 00:00:00 [facility] 2020-08-14 2020-08-14 Outpatient STLMLC STLMLC [id number] Common 00:00:00 00:00:00 [facility] 2020-08-07 2020-08-07 Outpatient STLMLC STLMLC [id number] Common 00:00:00 00:00:00 [facility] 2020-08-06 2020-08-06 Outpatient STLMLC STLMLC [id number] Common 00:00:00 00:00:00 [facility] 2020-08-01 2020-08-01 Outpatient STLMLC STLMLC [id number] Common 00:00:00 00:00:00 [facility] 2020-07-31 2020-07-31 Outpatient STLMLC STLMLC [id number] Common 00:00:00 00:00:00 [facility] 2020-07-25 2020-07-25 Outpatient STLMLC STLMLC [id number] Common 00:00:00 00:00:00 [facility] 2020-07-19 2020-07-19 Outpatient STLMLC STLMLC [id number] Common 00:00:00 00:00:00 [facility] 2020-07-10 2020-07-10 Outpatient Remigio MCMAHAN [facility] [id number] Univers 15:00:00 15:00:00 ZULEMA patel [facility] 2020-07-10 2020-07-10 Outpatient STLMLC STLMLC [id number] Common 00:00:00 00:00:00 [facility] 2020-06-25 2020-06-25 Outpatient STLMLC STLMLC [id number] Common 00:00:00 00:00:00 [facility] 2020-06-06 2020-06-06 Outpatient STLMLC STLMLC [id number] Common 00:00:00 00:00:00 [facility] 2020-05-30 2020-05-30 Outpatient STLMLC STLMLC [id number] Common 00:00:00 00:00:00 [facility] 2020-05-29 2020-05-29 Outpatient STLMLC STLMLC [id number] Common 00:00:00 00:00:00 [facility] 2020-05-29 2020-05-29 Outpatient STLMLC STLMLC [id number] Common 00:00:00 00:00:00 [facility] 2020-05-23 2020-05-23 Outpatient STLMLC STLMLC [id number] Common 00:00:00 00:00:00 [facility] 2020-05-22 2020-05-22 Outpatient STLMLC STLMLC [id number] Common 00:00:00 00:00:00 [facility] 2020-05-17 2020-05-17 Outpatient STLMLC STLMLC [id number] Common 00:00:00 00:00:00 [facility] 2020-05-17 2020-05-17 Outpatient STLMLC STLMLC [id number] Common 00:00:00 00:00:00 [facility] 2020-05-14 2020-05-14 Outpatient STLMLC STLMLC [id number] Common 00:00:00 00:00:00 [facility] 2020-05-10 2020-05-10 Outpatient STLMLC STLMLC [id number] Common 00:00:00 00:00:00 [facility] 2020-05-01 2020-05-01 Outpatient STLMLC STLMLC [id number] Common 00:00:00 00:00:00 [facility] 2020-04-18 2020-04-18 Outpatient R ADUM, [facility] [id number] Univers 13:00:00 13:00:00 ZULEMA ity of [facility] 2020-04-18 2020-04-18 Telemedici [facility] 1.2.840.114 [id number] [facility] 09:57:19 10:27:19 ne Visit Zulema Orellana 350.1.13.10 ity of [place] [phone] Ms dic[address] 2020-04-18 2020-04-18 Telemedici [facility] 1.2.840.114 [id number] 09:57:19 10:27:19 ne Visit Zulema Barreto [place] 350.1.13.10 [place] 4.2.7.2.686 Professio [phone] [address] 2020-04-06 2020-04-06 Telephone Ad, [facility] 1.2.097.587 [id number] Univers 00:00:00 00:00:00 Zulema Barreto [place] 350.1.13.10 ity of [place] [phone] Ms dic[address] 2020-04-06 2020-04-06 Telephone Ad, [facility] 1.2.755.170 [id number] Univers 00:00:00 00:00:00 Zulema Barreto [place] 350.1.13.10 ity of [place] [phone] Ms dic[address] 2020-04-06 2020-04-06 Telephone Ad, [facility] 1.2.335.729 [id number] 00:00:00 00:00:00 Zulema L [place] 350.1.13.10 [place] 4.2.7.2.686 Professio [phone] [address] 2020-04-06 2020-04-06 Telephone Ad, [facility] 12.052.202 [id number] 00:00:00 00:00:00 Zulema L [place] 350.1.13.10 [place] 4.2.7.2.686 Professio [phone] [address] 2020-04-04 2020-04-04 Office Ad, [facility] 12.840.114 [id number] Univers 15:09:22 16:59:32 Visit Zulema L [place] 350.1.13.10 ity of [place] [phone] [address] 2020-04-04 2020-04-04 Office [facility] 12.840.114 [id number] 15:09:22 16:59:32 Visit Zulema L [place] 350.1.13.10 [place] 4.2.7.2.686 Professio [phone] [address] 2020-04-04 2020-04-04 Outpatient R ADUM, [facility] [id number] Univers 15:00:00 15:00:00 ZULEMA ity [facility] 2020-03-23 2020-03-23 Outpatient R ADUM, [facility] [id number] Univers 14:00:00 14:00:00 ZULEMA ity [facility] 2020-03-23 2020-03-23 Telephone [facility] 12.996.589 [id number] Univers 00:00:00 00:00:00 Zulema L [place] 350.1.13.10 it[place] of [place] [phone] [address] 2020-03-22 2020-03-22 Hospital Ad, [facility] 12.840.114 [id number] Univers 17:07:55 23:59:00 Encounter Zulema L [place] 350.1.13.10 it[place] of [place] [phone] [facility] [address] [place] [address] 2020-03-22 2020-03-22 Hospital Adum, [facility] 1.2.840.114 [id number] Univers 17:00:00 17:06:00 Encounter Zulema Contreraston 350.1.13.10 ity of [place] [phone] [address] 2020-03-22 2020-03-22 Outpatient R AD, [facility] [id number] Univers 00:00:00 00:00:00 ZULEMA ity of [facility] 2020-03-21 2020-03-21 Office [facility] 1.2.840.114 [id number] Univers 15:48:44 17:00:36 Visit Zulema Contreraston 350.1.13.10 it[place] of [place] [phone] Ms dical nal [address] [place] [address] 2020-03-21 2020-03-21 Outpatient R AD, [facility] [id number] Univers 16:00:00 16:00:00 ZULEMA ity of [facility] 2020-03-21 2020-03-21 Orders Doctor JORGE ALBERTO 1.2.840.114 [id number] Univers 00:00:00 00:00:00 Only Unassigned, NITHIN 350.1.13.10 ity of [facility] 4.2.7.2.686 Oscar as [phone] [address] 2020-03-20 2020-03-20 Telephone [facility] 1.2.085.938 [id number] Univers 00:00:00 00:00:00 Zulema Barreto [place] 350.1.13.10 ity of [place] [phone] Ms dical nal [address] [place] [address] 2020-03-20 2020-03-20 Telephone [facility] 1.2.008.540 [id number] Univers 00:00:00 00:00:00 Zulema Barreto [place] 350.1.13.10 ity of [place] [phone] Ms dical [facility] 134 [facility] 2020-03-16 2020-03-16 Emergency Jamie Sutton [facility] 1.2.840.114 [id number] Univers 20:18:00 23:40:00 Violet Orellana 350.1.13.10 i ty of [place] 4[place].2.[place] [phone] [facility] 0[address] [place] 2020-03-16 2020-03-16 Telephone Adum, [facility] 1.2.686.396 [id number] Univers 00:00:00 00:00:00 Zulema Orellana 350.1.13.10 ity of [place] [phone] [facility] 134 [facility] 2020-03-13 2020-03-13 Outpatient [facility] [id number] Common 15:20:00 15:20:00 t Anteryon [facility] it [facility] 2020-03-08 2020-03-08 Hospital Ad, [facility] 1.2.840.114 [id number] Univers 07:55:00 10:44:00 Encounter Zulema Orellana 350.1.13.10 ity of [place] [phone] [facility] 071 [place] 2020-03-08 2020-03-08 Letter JORGE ALBERTO [place] 1.2.840.114 [id number] Univers 00:00:00 00:00:00 (Out) Alexandrea WELLER 350.1.13.10 it y of HOSPITAL 4.2.7.2.686 Oscar as [phone] [facility] 019 [place] 2020-03-07 2020-03-07 General Office Worker Matt Vanessa Lab Main [facility] 1.2.8 40.114 [id number] Univers 16:56:10 18:09:42 Visit Adcecile, Zulema Orellana 350.1.13.10 ity of [place] [phone] [facility] 353 [facility] 2020-02-10 2020-03-07 Office Adum, [facility] 1.2.840.114 [id number] Univers 15:11:12 17:29:53 Visit Zulema Orellana 350.1.13.10 ity of [place] [phone] Ms dical nal 134 [facility] 2020-03-07 2020-03-07 Laboratory Only, Adc Test [facility] 1.2.840. 114 [id number] Univers 16:17:17 16:32:17 Only Adum, Zulema Orellana 350.1.13.10 ity of [place] [phone] [facility] 353 [address] 2020-03-07 2020-03-07 Outpatient R [facility] [id number] Univers 15:00:00 15:00:00 ity of [facility] 2020-03-07 2020-03-07 Orders Doctor JORGE ALBERTO 1.2.840.114 [id number] Univers 00:00:00 00:00:00 Only Unassigned, NITHIN 350.1.13.10 ity of [facility] 4.2.7.2.686 Oscar as [phone] [facility] [address] 2020-02-10 2020-02-10 Outpatient R ADUM, [facility] [id number] Univers 15:00:00 15:00:00 ZULEMA ity of [facility] 2020-02-10 2020-02-10 Telephone [facility] 1.2.538.023 [id number] Univers 00:00:00 00:00:00 Zulema Orellana 350.1.13.10 [place] of [place] [phone] Ms dical nal 134 [facility] 2020-01-30 2020-01-30 Office Adum, [facility] 1.2.840.114 [id number] Univers 15:17:39 16:34:14 Visit Zulema Orellana 350.1.13.10 ity of [place] [phone] Ms dical nal 134 [facility] 2020-01-30 2020-01-30 Outpatient R ADUM, [facility] [id number] Univers 15:00:00 15:00:00 ZULEMA itwanda [facility] 2020-01-30 2020-01-30 Orders Doctor JORGE ALBERTO 1.2.840.114 [id number] Univers 00:00:00 00:00:00 Only Unassigned, NITHIN 350.1.13.10 ity of [facility] 4.2.7.2.686 Oscar as [phone] [address] 2020-01-26 2020-01-26 [facility] 1.2.840.114 [id number] Univers 14:30:00 23:59:00 Encounter Zulema Orellana 350.1.13.10 ity of [place] [phone] [facility] 806 [address] 2020-01-26 2020-01-26 Outpatient R [facility] [id number] Univers 00:00:00 00:00:00 ZULEMA patel [facility] 2020-01-26 2020-01-26 Orders Doctor JORGE ALBERTO 1.2.840.114 [id number] Univers 00:00:00 00:00:00 Only Unassigned, NITHIN 350.1.13.10 ity of [facility] 4.2.7.2.686 Oscar as [phone] [address] 2020-01-17 2020-01-17 [facility] 1.2.840.114 [id number] Univers 00:00:00 00:00:00 Management Zulema Orellana 350.1.13.10 [place]y of [place] [phone] Ms dical nal 134 [facility] 2020-01-17 2020-01-17 Case [facility] 1.2.840.114 [id number] Univers 00:00:00 00:00:00 Management Zulema Orellana 350.1.13.10 [place] of [place] [phone] Ms dical nal [address] [place] [address] 2020-01-17 2020-01-17 Telephone [facility] 1.2.642.221 [id number] Univers 00:00:00 00:00:00 Zulema Orellana 350.1.13.10 [place] of [place] [phone] Ms dical nal 134 [facility] 2020-01-16 2020-01-16 General Office Worker 2, Adc Lab [facility] 1.2.840.114 [id number] Univers 15:29:19 15:44:19 Visit Adum, Zulema Orellana 350.1.13.10 ity of [place] [phone] [facility] 2020-01-16 2020-01-16 Outpatient R [facility] [id number] Univers 15:00:00 15:00:00 ity [facility] 2020-01-16 2020-01-16 Outpatient R [facility] [id number] Univers 15:00:00 15:00:00 ity [facility] 2020-01-13 2020-01-16 Office Ad, [facility] 1.2.840.114 [id number] Univers 15:05:13 13:43:08 Visit Zulema Orellana 350.1.13.10 ity of [place] [phone] [address] 2020-01-16 2020-01-16 Telephone [facility] 1.2.217.379 [id number] Univers 00:00:00 00:00:00 Zulema Orellana 350.1.13.10 [place]y of [place] [phone] Ms dical nal [address] [place] [address] 2020-01-13 2020-01-13 [facility] [id number] Univers 15:00:00 15:00:00 ZULEMA ity [facility] 2020-01-10 2020-01-10 Outpatient Chapin Beasley [id number] Common 15:00:00 15:00:00 [employer] [facility] 2020-01-04 2020-01-04 Outpatient [facility] [id number] Common 15:57:00 15:57:[address] [facility] 2019-11-08 2019-11-08 Outpatient [facility] [id number] Common 14:45:00 14:45:[address] [facility] 2019-10-17 2019-10-17 Outpatient [facility] [id number] Common 14:30:00 14:30:[address] [facility] 2019-08-17 2019-08-17 Outpatient [facility] [id number] Common 13:30:00 13:30:[address] [facility] 2019-06-21 2019-06-21 Outpatient [facility] [id number] Common 14:45:00 14:45:[address] [facility] 2019-05-24 2019-05-24 Outpatient [facility] [id number] Common 14:15:00 14:15:[address] [facility] 2019-05-19 2019-05-19 [facility] [id number] Common 14:15:00 14:15:[address] [facility] 2019-05-10 2019-05-10 [facility] [id number] Common 10:15:00 10:15:[address] [facility] 2019-04-13 2019-04-13 [facility] [id number] Common 15:15:00 15:15:[address] [facility] 2019-04-05 2019-04-05 [facility] [id number] Common 08:30:00 08:30:[address] [facility] 2019-03-16 2019-03-16 [facility] [id number] Common 13:15:00 13:15:[address] [facility] 2019-03-01 2019-03-01 [facility] [id number] Common 09:37:00 09:37:[address] [facility] 2019-02-25 2019-02-25 [facility] [id number] Common 12:15:00 12:15:[address] [facility] 2019-02-21 2019-02-21 [facility] [id number] Common 14:30:00 14:30:[address] [facility] 2018-10-13 2018-10-13 [facility] [id number] Common 08:39:00 08:39:[address] [facility] 2018-10-12 2018-10-12 [facility] [id number] Common 15:42:00 15:42:[address] [facility] 2018-10-11 2018-10-11 [facility] [id number] Common 14:45:00 14:45:[address] [facility] 2018-09-13 2018-09-13 [facility] [id number] Common 11:43:00 11:43:[address] [facility] 2018-09-09 2018-09-09 [facility] [id number] Common 14:45:00 14:45:[address] [facility] Results Test Description Test Time Test Comments Results Result Comments Source POCT-GLUCOSE METER 2022-11-20 12:43:26 Test Item Value Reference Range Interpretation Comme nts POC-GLUCOSE METER (BEAKER) 82 mg/dL 70-110 : TESTED AT [address] (test code = 1538) DENIS GANDARA [facility] [id number]: [address] Boss/Techni arnaldo ID = [id number] for Di Remya POCT-GLUCOSE [id number] 06:10:57 Test Item Value Reference Range Interpretation Comments POC-GLUCOSE METER 80 mg/dL 70-110 : TESTED A T [facility]SL 1317 (BEAKER) (test code = [address], 1538) [facility] 77 478: Road Boss/Techni arnaldo ID = [id number] for Kike Treviño POCT-GLUCOSE [id number] 00:20:59 Test Item Value Reference Range Interpretation Comments POC-GLUCOSE METER 62 mg/dL 70-110 L : TESTED A T [facility] (BEAKER) (test code = [address], 1538) [facility] 77 478: Road Boss/Techni arnaldo ID = [id number] for Galindo Treviñoonica BASIC METABOLIC [id number] 01:59:04 Test Item Value Reference Range Interpretation Comments SODIUM (BEAKER) 136 meq/L 135-148 (test code = 381) POTASSIUM 4.0 meq/L 3.6-5.5 (BEAKER) (test code = 379) CHLORIDE (BEAKER) 108 meq/L 98-106 H (test code = 382) CO2 (BEAKER) 22 meq/L 20-29 (test code = 355) BLOOD UREA 11 mg/dL 10-26 NITROGEN (BEAKER) (test code = 354) CREATININE 0.68 mg/dL 0.50-1.20 (BEAKER) (test code = 358) GLUCOSE RANDOM 113 mg/dL 70-110 H (BEAKER) (test code = 652) CALCIUM (BEAKER) 8.5 mg/dL 8.5-10.5 (test code = 697) EGFR (BEAKER) 117 Interpretatio n of eGFR (test code = mL/min/1.73 values Stage D escription 1092) sq m Result G1 Kyara l or high >=90 G2 Mildly decreased 60-89 G3a Mildl y to moderately 45-5 9 G3b Moderately to s everely 30-44 G4 Severl y decreased 15-29 G5 Kidney failure <15Reported eGF R is based on the CKD-EPI 2021 equation that d oes not use a race coefficientEsti mated GFR is not as accur ate as Creatinine Sherine pearson in predicting glom erular filtration rate . Estimated GFR is not appl icable for dialysis patien ts Road Boss ID - [id number] ID - [id number] ID - [id number] ID - [id number] - [id number] ID - [id number] ID - [id number] ID - [id number] ID - [id number] ID - [id number] ID - [id number] ID - [id number] W/PLT COUNT & AUTO [id number] 01:45:53 Test Item Value Reference Range Interpretation Comments WHITE BLOOD CELL COUNT (BEAKER) 12.1 K/ L 4.0-10.0 H (test code = 775) RED BLOOD CELL COUNT (BEAKER) 3.89 M/ L 4.00-5.00 L (test code = 761) HEMOGLOBIN (BEAKER) (test code = 11.8 GM/DL 12.0-15.5 L 410) HEMATOCRIT (BEAKER) (test code = 35.5 % 36.0-46.0 L 411) MEAN CORPUSCULAR VOLUME (BEAKER) 91 fL 82-99 (test code = 753) MEAN CORPUSCULAR HEMOGLOBIN 30.3 pg 27.0-33.0 (BEAKER) (test code = 751) MEAN CORPUSCULAR HEMOGLOBIN CONC 33.2 GM/DL 32.0-36.0 (BEAKER) (test code = 752) RED CELL DISTRIBUTION WIDTH 12.1 % 12.0-15.0 (BEAKER) (test code = 412) PLATELET COUNT (BEAKER) (test 185 K/CU MM 150-430 code = 756) MEAN PLATELET VOLUME (BEAKER) 10.1 fL 6.0-11.5 (test code = 754) NUCLEATED RED BLOOD CELLS 0 /100 WBC 0-0 (BEAKER) (test code = 413) NEUTROPHILS RELATIVE PERCENT 89 % (BEAKER) (test code = 429) LYMPHOCYTES RELATIVE PERCENT 4 % (BEAKER) (test code = 430) MONOCYTES RELATIVE PERCENT 6 % (BEAKER) (test code = 431) EOSINOPHILS RELATIVE PERCENT 0 % (BEAKER) (test code = 432) BASOPHILS RELATIVE PERCENT 0 % (BEAKER) (test code = 437) NEUTROPHILS ABSOLUTE COUNT 10.77 K/ L 1.80-8.00 H (BEAKER) (test code = 670) LYMPHOCYTES ABSOLUTE COUNT 0.47 K/ L 1.48-4.50 L (BEAKER) (test code = 414) MONOCYTES ABSOLUTE COUNT (BEAKER) 0.78 K/ L 0.00-1.30 (test code = 415) EOSINOPHILS ABSOLUTE COUNT 0.00 K/ L 0.00-0.50 (BEAKER) (test code = 416) BASOPHILS ABSOLUTE COUNT (BEAKER) 0.02 K/ L 0.00-0.20 (test code = 417) IMMATURE GRANULOCYTES-RELATIVE 0.70 % 0.00-0.00 H PERCENT (BEAKER) (test code = 2801) SCREEN, [id number] 07:47:34 Test Item Value Reference Range Interpretation Comments TEST URINE (BEAKER) (test Negative Negative code = 583) SCREEN, [id number] 08:19:51 Test Item Value Reference Range Interpretation Comments TEST URINE (BEAKER) (test Negative Negative code = 583) BASIC METABOLIC [id number] 13:01:22 Test Item Value Reference Range Interpretation Comments SODIUM (BEAKER) 140 meq/L 135-148 (test code = 381) POTASSIUM 4.2 meq/L 3.6-5.5 (BEAKER) (test code = 379) CHLORIDE (BEAKER) 108 meq/L 98-106 H (test code = 382) CO2 (BEAKER) 26 meq/L 20-29 (test code = 355) BLOOD UREA 14 mg/dL 10-26 NITROGEN (BEAKER) (test code = 354) CREATININE 0.77 mg/dL 0.50-1.20 (BEAKER) (test code = 358) GLUCOSE RANDOM 92 mg/dL 70-110 (BEAKER) (test code = 652) CALCIUM (BEAKER) 9.1 mg/dL 8.5-10.5 (test code = 697) EGFR (BEAKER) 104 Interpretatio n of eGFR (test code = mL/min/1.73 values Stage De scription 1092) sq m Result G1 Kyara l or high >=90 G2 Mildly decreased 60-89 G3a Mildl y to moderately 45-5 9 G3b Moderately to s everely 30-44 G4 Severl y decreased 15-29 G5 Kidney failure <15Reported eGF R is based on the CKD-EPI 2020 equation that d oes not use a race coefficientEsti mated GFR is not as accur ate as Creatinine Sherine pearson in predicting glom erular filtration rate . Estimated GFR is not appl icable for dialysis patien ts Road Boss ID - [id number] ID - [id number] ID - [id number] ID - [id number] ID - [id number] ID - [id number] ID - [id number] ID - [id number] ID - [id number] ID - [id number] ID - [id number] ID - [id number] W/PLT COUNT & AUTO [id number] 12:44:29 Test Item Value Reference Range Interpretation Comments WHITE BLOOD CELL COUNT (BEAKER) 4.7 K/ L 4.0-10.0 (test code = 775) RED BLOOD CELL COUNT (BEAKER) 4.35 M/ L 4.00-5.00 (test code = 761) HEMOGLOBIN (BEAKER) (test code = 13.2 GM/DL 12.0-15.5 410) HEMATOCRIT (BEAKER) (test code = 39.9 % 36.0-46.0 411) MEAN CORPUSCULAR VOLUME (BEAKER) 92 fL 82-99 (test code = 753) MEAN CORPUSCULAR HEMOGLOBIN 30.3 pg 27.0-33.0 (BEAKER) (test code = 751) MEAN CORPUSCULAR HEMOGLOBIN CONC 33.1 GM/DL 32.0-36.0 (BEAKER) (test code = 752) RED CELL DISTRIBUTION WIDTH 12.1 % 12.0-15.0 (BEAKER) (test code = 412) PLATELET COUNT (BEAKER) (test 208 K/CU MM 150-430 code = 756) MEAN PLATELET VOLUME (BEAKER) 10.1 fL 6.0-11.5 (test code = 754) NUCLEATED RED BLOOD CELLS 0 /100 WBC 0-0 (BEAKER) (test code = 413) NEUTROPHILS RELATIVE PERCENT 72 % (BEAKER) (test code = 429) LYMPHOCYTES RELATIVE PERCENT 17 % (BEAKER) (test code = 430) MONOCYTES RELATIVE PERCENT 8 % (BEAKER) (test code = 431) EOSINOPHILS RELATIVE PERCENT 1 % (BEAKER) (test code = 432) BASOPHILS RELATIVE PERCENT 1 % (BEAKER) (test code = 437) NEUTROPHILS ABSOLUTE COUNT 3.38 K/ L 1.80-8.00 (BEAKER) (test code = 670) LYMPHOCYTES ABSOLUTE COUNT 0.81 K/ L 1.48-4.50 L (BEAKER) (test code = 414) MONOCYTES ABSOLUTE COUNT (BEAKER) 0.38 K/ L 0.00-1.30 (test code = 415) EOSINOPHILS ABSOLUTE COUNT 0.05 K/ L 0.00-0.50 (BEAKER) (test code = 416) BASOPHILS ABSOLUTE COUNT (BEAKER) 0.04 K/ L 0.00-0.20 (test code = 417) IMMATURE GRANULOCYTES-RELATIVE 0.40 % 0.00-0.00 H PERCENT (BEAKER) (test code = 2801) [id number] 03:48:00 Test Item Value Reference Interpretation Comments Range D-DIMER (test code = See_Comment [Autom ated [id number]) message] The system which generated this result transmitted reference range : <0.41 ?g/mL (FEU). The reference range was not used to interpret this result as normal/abnormal . XENA (test code = This test may be XENA) used in conjunction with a clinical pretest [...] diagnosis. Lab Interpretation Normal (test code = 44842-8) [facility] [id number] 03:47:00 Test Item Value Reference Range Interpretation Comments APPEARANCE (test code = Hazy Clear A 7437084665) COLOR (test code = Yellow Yellow 5917171600) PH (test code = 4.8-8.0 4196317518) SP GRAVITY (test code = 1.003-1.030 2474776682) GLU U QUAL (test code = Normal Normal 4245798021) BLOOD (test code = 1+ Negative A 7435943546) KETONES (test code = Negative Negative 1906241820) PROTEIN (test code = Negative Negative 2887-8) UROBILIN (test code = Normal Normal 9334673056) BILIRUBIN (test code = Negative Negative 7980686470) NITRITE (test code = Negative Negative 0142533545) LEUK ELEANOR (test code = 250/uL Negative A 4065091486) RBC/HPF (test code = See_Comment H [Autom ated message] 1492131504) The system [employer] generated this result transmitted ref erence range: 0 - 3 HP F. The reference range was not used to int erpret this result as normal/abnormal . WBC/HPF (test code = See_Comment H [Autom ated message] 4697475643) The system [employer] generated this result transmitted ref erence range: 0 - 5 HP F. The reference range was not used to int erpret this result as normal/abnormal . BACTERIA (test code = Negative Negative 1655370386) MUCOUS (test code = Marked Negative LPF A 2882442730) SQ EPITH (test code = HPF 3437527040) Lab Interpretation (test Abnormal code = 51402-6) [facility]. METABOLIC PANEL (49287)2020-03-17 03:39:00 Test Item Value Reference Range Interpretation Comments NA (test code = 137 mmol/L 135-145 4942915114) K (test code = 3.9 mmol/L 3.5-5 2532891540) CL (test code = 102 mmol/L 98-108 4401090887) CO2 TOTAL (test code = 25 mmol/L 23-31 8042337804) AGAP (test code = 2-16 9046541292) BUN (test code = 16 mg/dL 7-23 6654657904) GLUCOSE (test code = 90 mg/dL 70-110 0409284326) CREATININE (test code 0.70 mg/dL 0.5-1.04 = 9073567988) TOTAL BILI (test code 0.2 mg/dL 0.1-1.1 = 4892687713) CALCIUM (test code = 9.3 mg/dL 8.6-10.6 7130188409) T PROTEIN (test code = 7.9 g/dL 6.3-8.2 0825607779) ALBUMIN (test code = 4.4 g/dL 3.5-5 4102030898) ALK PHOS (test code = 56 U/L 34-122 7160305848) ALTv (test code = 31 U/L 5-35 1742-6) AST(SGOT) (test code = 27 U/L 13-40 0863191314) eGFR Calculation mL/min/1.73m2 (Non-) (test code = 7818398579) eGFR Calculation mL/min/1.73m2 () (test code = 6415451857) XENA (test code = XENA) Association of [...] or urine or abnormalities in imaging tests). [facility] Test Item Value Reference Range Interpretation Comments LIPASE (test code = 0300130294) 67 U/L 0-220 Lab Interpretation (test code = Normal 89080-4) [facility] WITH [id number] 03:37:00 Test Item Value Reference Range Interpretation Comments WBC (test code = See_Comment [Automated 6490-2) message] The sy stem which generated this [...] RDW-SD (test code = 42.8 fL 39-49.9 12312-6) RDW-CV (test code = 12.7 % 12-15.5 788-0) PLT (test code = See_Comment [Automated 777-3) message] The sy stem which generated this result transmitted reference range : 166 - 358 10*3/ ?L. The reference r guillermo was not used to interpret this result as normal/abnormal . MPV (test code = 10.1 fL 9.5-12.9 39859-0) NRBC/100 WBC (test See_Comment [Automat ed code = 9696679906) message] The system which generated this result transmitted reference range : 0.0 - 10.0 /100 WBCs. The refer ence range was not u sed to interpret th is result as normal/abnormal . NRBC x10^3 (test code <0.01 See_Comment [Auto mated = 4958597296) message] The s ystem which generated this result transmitted reference range : 10*3/?L. The reference range was not used to interpret this result as normal/abnormal . GRAN MAT (NEUT) % 72.0 % (test code = 770-8) IMM GRAN % (test code 0.80 % = 8675921436) LYMPH % (test code = 16.1 % 736-9) MONO % (test code = 9.6 % 5905-5) EOS % (test code = 0.9 % 713-8) BASO % (test code = 0.6 % 706-2) GRAN MAT x10^3(ANC) 5.62 10*3/uL 1.88-7.09 (test code = 6563403276) IMM GRAN x10^3 (test 0.06 10*3/uL 0-0.06 code = 3887206863) LYMPH x10^3 (test code 1.26 10*3/uL 1.32-3.29 L = 731-0) MONO x10^3 (test code 0.75 10*3/uL 0.33-0.92 = 742-7) EOS x10^3 (test code = 0.07 10*3/uL 0.03-0.39 711-2) BASO x10^3 (test code 0.05 10*3/uL 0.01-0.07 = 704-7) Lab Interpretation Abnormal (test code = 69527-2) [facility] [id number] 13:26:00 Test Item Value Reference Range Interpretation Comments POCT PREG (test code = 1605) Negative On board controls acceptable with Yes C Line (test code = 3574) POCT PREG LOT # (test code = 3575) [id number] POCT PREG TEST DATE (test 04/04/21 code = 3576) [facility] [id number] 20:48:00 Test Item Value Reference Range Interpretation Comments POCT PREG (test code = 1605) Negative On board controls acceptable with C Yes Line (test code = 3574) POCT PREG LOT # (test code = 3575) POCT PREG TEST DATE (test code = 3576) [facility] [id number] 20:48:00 Test Item Value Reference Range Interpretation Comments POCT PREG (test code = 1605) Negative On board controls acceptable with C Yes Line (test code = 3574) POCT PREG LOT # (test code = 3575) POCT PREG TEST DATE (test code = 3576) [facility] WITH [id number] 20:29:54HISTORY: Excessive bleeding. TECHNIQUE: Both transabdominal and transvaginal pelvic ultrasound studieswere completed by the technologist. FINDINGS: Uterus is bulky in size, elongated shaped, measures mrnfjtbtrejlq50.7 x 4.4 x 5.8 cm in size with homogeneous echo texture of themyometrium. Small nabothian cysts are seen in the cervix, the largest is 3mm . Endometrial echo complex is 13 mm. No free fluid in the cul-de-sac. Right ovary is 3.9 x 2.7 x 2.5 cm (14.43 ml) and left ovary is 3.5 x 1.6 x1.9 cm(5.97 ml). Multiple small follicles noted in the left ovary rangingfrom 4 mm to 9 mm. The right ovary contains a small 6 mm follicle. CONCLUSIONS: 1. Enlarged and elongated shaped with no focal myometrial lesions seen.2. Mild endometrial hyperplasia with endometrial echo complex of 13 mm,likely physiologic. [facility], Radiant Results Inft User - 01/26/2020 3:31 PM CDTHISTORY: Excessive bleeding.TECHNIQUE:Both transabdominal and transvaginal pelvic ultrasound studieswere completed by the technologist.FINDINGS: Uterus is bulky in size, elongated shaped, measures rpupkijyywoqc38.7 x 4.4 x 5.8 cm in size with homogeneous echo texture of themyometrium. Small nabothian cysts are seen in the cervix, the largest is 3mm .Endometrial echo complex is 13 mm. No free fluid in the cul-de-sac. Right ovary is 3.9 x 2.7 x 2.5 cm (14.43 ml) and left ovary is 3.5 x 1.6 x1.9 cm (5.97 ml). Multiple small follicles notedin the left ovary rangingfrom 4 mm to 9 mm. The right ovary contains a small 6 mm follicle.CONCLUSIONS: 1. Enlarged and elongated shaped with no focal myometrial lesions seen.2. Mild endometrial hyperplasia with endometrial echo complex of 13 mm,likely physiologic.[facility]
[2022-12-10 23:01] LABS: Specific Gravity 1.028 (1.005-1.030)
[2022-12-10] MEDS ORDERED: NA CHLORIDE 0.9% 1,000 ML ONE (23:02)
[2022-12-10] MEDS ORDERED: FAMOTIDINE 20 MG/2 ML VIAL IV ONE (23:02)
[2022-12-10] MEDS ORDERED: ONDANSETRON 4 MG/2 ML VIAL ONE (23:02)
[2022-12-10] MEDS ORDERED: MORPHINE 4 MG/ML SYR ONE (23:02)
[2022-12-10 23:03] LABS: Specific Gravity 1.028 (1.005-1.030); Urine Bacteria <20 /HPF (<20); Urine Bilirubin NEGATIVE (Negative); Urine Blood Negative (Negative); Urine Clarity Clear (Clear); Urine Color Light-Yellow (Yellow); Urine Glucose NEGATIVE (Negative); Urine Mucus Slight /HPF (None Seen); Urine Protein 1+ (Negative); Urine RBC <5 /HPF (None Seen); Urine Urobilinogen Normal (Normal); Urine pH 5.5 (5.0-7.0)
[2022-12-10 23:08] LABS: Absolute Lymphocytes (CBC) 0.5 K/uL (0.7-4.9); Hematocrit 43.5 % (36.0-45.0); Lymphocytes % 9.1 % (15.3-44.8); MPV 9.7 fL (7.6-11.3); RBC Red Blood Cell Count 4.89 M/uL (3.86-4.86)
[2022-12-10 23:19] LABS: Albumin 4.6 g/dL (3.4-5.0); Bilirubin Total 0.4 mg/dL (0.2-1.0); Potassium 3.9 mEq/L (3.5-5.1); Protein, Total 8.7 g/dL (6.4-8.2)
[2022-12-11] MEDS ORDERED: NA CHLORIDE 0.9% 1,000 ML ONE (01:36)
--- NOTE | 2022-12-11 02:43 | EDPHYS ---
Physician Documentation [facility] Name: Iza Stewart Age: 32 yrs Sex: Female : 1990 Arrival Date: 12/10/2022 Time: 21:07 Bed 18 Private MD: ED Physician Chris Orellana HPI: 12/10 22:25 This 32 yrs old Female presents to ER via Ambulatory with complaints of Nausea/Vomiting cp - DEHYDRATION. 22:25 The patient presents to the emergency department with nausea, with "dry heaves", cp vomiting, that is intermittent, described as bilious, diarrhea, that is continuous, abdominal pain, of the mid and lower abdomen. Onset: The symptoms/episode began/occurred this morning. Possible causes: patient reports being 22 days post-op gastric bypass surgery by DR Early at [facility] in [facility]. 22:25 Associated signs and symptoms: Pertinent negatives: GI bleeding. cp 22:25 Severity of symptoms: in the emergency department the symptoms are unchanged despite cp home interventions. BASEBALL PITCHER: 21:42 LMP N/A - control method kd3 Historical: - Allergies: 21:40 PENICILLINS; kd3 - PMHx: 21:40 Anxiety; Depression; Hypothyroidism; Migraines; kd3 - PSHx: 21:40 section; Endometrial ablasion; kd3 - Immunization history:: Adult Immunizations up to date. - Social history:: Smoking status: unknown. ROS: 22:30 Constitutional: Positive for poor PO intake, Negative for body aches, chills, fever. cp 22:30 Respiratory: Negative for cough, shortness of breath, wheezing. cp 22:30 Abdomen/GI: Positive for abdominal pain, nausea and vomiting, diarrhea, Negative for constipation. 22:30 Eyes: Negative for injury, pain, redness, and discharge. cp 22:30 ENT: Negative for drainage from ear(s), ear pain, sore throat, difficulty swallowing, difficulty handling secretions. 22:30 Cardiovascular: Negative for chest pain, edema, palpitations. 22:30 Back: Negative for pain at rest, pain with movement. 22:30 Skin: Negative for cellulitis, rash. 22:30 Neuro: Negative for altered mental status, dizziness, headache, weakness. cp Exam: 22:35 Constitutional: The patient appears in no acute distress, alert, awake, non-toxic, well cp developed, well nourished, uncomfortable. 22:35 Head/Face: Normocephalic, atraumatic. cp 22:35 Eyes: Periorbital structures: appear normal, Conjunctiva: normal, no exudate, no injection, Sclera: no appreciated abnormality, Lids and lashes: appear normal, bilaterally. 22:35 ENT: External ear(s): are unremarkable, Nose: is normal, Mouth: Lips: moist, Oral mucosa: pink and intact, moist, Posterior pharynx: is normal, airway is patent, no erythema, no exudate. 22:35 Neck: ROM/movement: is normal, is supple, without pain, no range of motions limitations, no meningismus, no nuchal rigidity. 22:35 Chest/axilla: Inspection: normal. 22:35 Cardiovascular: Rate: tachycardic, Rhythm: regular, Edema: is not appreciated, JVD: is not appreciated. 22:35 Respiratory: the patient does not display signs of respiratory distress, Respirations: normal, no use of accessory muscles, no retractions, labored breathing, is not present, Breath sounds: are clear throughout, no decreased breath sounds, no stridor, no wheezing. 22:35 Abdomen/GI: Inspection: scar(s), are noted in the umbilical area, right lower quadrant and left lower quadrant, Bowel sounds: active, all quadrants, Palpation: soft, in all quadrants, moderate abdominal tenderness, in the umbilical area, right lower quadrant and left lower quadrant, rebound tenderness, is not appreciated, involuntary guarding, is not appreciated. 22:35 Back: CVA tenderness, is absent. Vital Signs: 21:37 BP 139 / 91; Pulse 100; Resp 20; Temp 99.1(O); Pulse Ox 100% ; Weight 96.62 kg; Height kd3 5 ft. 4 in. ; 22:00 BP 130 / 74; Pulse 86; Resp 19 S; Pulse Ox 100% on R/A; ha1 23:00 BP 130 / 77; Pulse 64; Resp 20 S; Pulse Ox 100% on R/A; ha1 0608 00:00 BP 130 / 77; Pulse 64; Resp 20 S; Pulse Ox 100% on R/A; ha1 01:00 BP 120 / 70; Pulse 65; Resp 18 S; Pulse Ox 100% ; ha1 02:00 BP 99 / 63; Pulse 65; Resp 18 S; Pulse Ox 100% on R/A; ha1 12/10 21:37 Body Mass Index 36.56 (96.62 kg, 162.56 cm) kd3 MDM: 12/09 23:00 Differential diagnosis: Nonspecific abd pain, gastritis, viral gastroenteritis, cp gastroenteritis, dehydration, bowel obstruction. 12/10 22:06 Patient medically screened. 12/11 02:05 Data reviewed: vital signs, nurses notes, lab test result(s), radiologic studies, CT cp scan. 02:05 Consideration of Admission/Observation Escalation of care including cp admission/observation considered. I considered the following discharge prescriptions or medication management in the emergency department Medications were administered in the Emergency Department. See MAR. Counseling: I had a detailed discussion with the patient and/or guardian regarding: the historical points, exam findings, and any diagnostic results supporting the discharge/admit diagnosis, lab results, radiology results, to return to the emergency department if symptoms worsen or persist or if there are any questions or concerns that arise at home. Response to treatment: the patient's symptoms have markedly improved after treatment, and as a result, I will discharge patient. 12/10 22:20 Order name: CBC with Diff; Complete Time: 23:48 12/10 23:48 Interpretation: Normal except: RBC 4.89; KATHERINE% 83.6; LYM% 9.1; LYMA 0.5. 12/10 22:20 Order name: CMP; Complete Time: 23:48 12/10 23:48 Interpretation: Normal except: NA 134; CO2 19; TP 8.7; GLOB 4.1. 12/10 22:20 Order name: Lipase; Complete Time: 23:48 12/10 22:20 Order name: Test, Urine; Complete Time: 23:48 12/10 22:20 Order name: Urinalysis w/ reflexes; Complete Time: 23:48 12/10 23:48 Interpretation: Normal except: UKET 4+ (Over); UPROT 1+; BYST Trace. 12/10 22:55 Order name: CT Abd/Pelvis - PO and IV Contrast 12/10 22:20 Order name: IV Saline Lock; Complete Time: 23:03 12/10 22:20 Order name: Labs collected and sent; Complete Time: 23:03 cp 12/11 01:51 Order name: PO challenge; Complete Time: 02:00 cp Administered Medications: 12/10 22:50 Drug: NS 0.9% IV 1000 ml Route: IV; Rate: 1 bolus; Site: left antecubital; ha1 22:51 Drug: Famotidine IVP 20 mg Route: IVP; Site: left antecubital; ha1 22:54 Drug: Ondansetron IVP 4 mg Route: IVP; Site: left antecubital; ha1 22:58 Drug: morphine IVP or IV 4 mg Route: IVP; Infused Over: 4 mins; Site: left antecubital; ha1 12/11 01:32 Drug: NS 0.9% IV 1000 ml Route: IV; Rate: 1 bolus; Site: left antecubital; 1 Disposition Summary: 12/11/22 02:43 Discharge Ordered Location: Home cp Problem: new cp Symptoms: have improved cp Condition: Stable cp Diagnosis - Diarrhea, unspecified cp - Nausea with vomiting, unspecified cp Followup: cp - With: Private Physician - When: 2 - 3 days - Reason: Recheck today's complaints Discharge Instructions: - Discharge Summary Sheet cp - Food Choices to Help Relieve Diarrhea, Adult cp - Diarrhea, Adult cp - Nausea and Vomiting, Adult cp Forms: - Medication Reconciliation Form cp - Thank You Letter cp - Antibiotic Education cp - Prescription Opioid Use cp Prescriptions: - ondansetron 8 mg Oral tablet,disintegrating - take 1 tablet by ORAL route every 12 hours; 20 tablet; Refills: 0, Product cp Selection Permitted Signatures: Dispatcher [employer] EDAK Zaheer Burch PA PA cp Dory Dick RN RN kd3 Deyanira Lewis RN RN ha1 Corrections: (The following items were deleted from the chart) 02:04 12/10 22:25 Possible causes: patient reports being 22 days post-op gastric bypass cp surgery cp 12/12 02:43 12/10 22:30 All other systems are negative, cp cp
--- NOTE | 2022-12-11 02:43 | ER ---
Nurse's Notes [facility] [place] Name: Iza Stewart Age: 32 yrs Sex: Female : 1990 Arrival Date: 12/10/2022 Time: 21:07 Bed 18 Private MD: Diagnosis: Diarrhea, unspecified;Nausea with vomiting, unspecified Presentation: 12/10 21:38 Chief complaint: Patient states: I AM 22 DAYS POST OP FOR GASTRIC BI PASS AND I WOKE UP kd3 THIS MORNING WITH EXTREME OWER QUADRANT PAIN AND I HAVE BEEN HAVING DIARRHEA AND I HAVEN'T BEEN ABLE TO GET ANYTHING DOWN. I HAVE NOT HAD A LOT OF WATER INTAKE. I FEEL VERY BAD AND SHAKY. Ebola Screen: No symptoms or risks identified at this time. Initial Sepsis Screen: Does the patient meet any 2 criteria? No. Patient's initial sepsis screen is negative. Does the patient have a suspected source of infection? No. Patient's initial sepsis screen is negative. Risk Assessment: Do you want to hurt yourself or someone else? Patient reports no desire to harm self or others. Onset of symptoms was December 10, 2022. 21:38 Method Of Arrival: Ambulatory kd3 21:38 Acuity: CALIN 3 kd3 21:42 Coronavirus screen: Vaccine status: Patient reports receiving the 2nd dose of the covid kd3 vaccine. Triage Assessment: 21:40 General: Appears uncomfortable, Behavior is calm, cooperative. Pain: Complains of pain kd3 in abdomen. GI: Reports diarrhea, nausea. MANAGER SIX SIGMA: 21:42 LMP N/A - control method kd3 Historical: - Allergies: 21:40 PENICILLINS; kd3 - PMHx: 21:40 Anxiety; Depression; Hypothyroidism; Migraines; kd3 - PSHx: 21:40 section; Endometrial ablasion; kd3 - Immunization history:: Adult Immunizations up to date. - Social history:: Smoking status: unknown. Screenin:28 Abuse screen: Denies threats or abuse. Denies injuries from another. Nutritional ha1 screening: No deficits noted. Tuberculosis screening: No symptoms or risk factors identified. Assessment: 22:00 General: Appears comfortable, Behavior is calm, cooperative. Pain: Complains of pain in ha1 abdomen Pain does not radiate. Pain currently is 6 out of 10 on a pain scale. Neuro: Level of Consciousness is awake, alert, obeys commands, Oriented to person, place, time, situation. Cardiovascular: Patient's skin is warm and dry. Respiratory: Airway is patent Respiratory effort is even, unlabored, Respiratory pattern is regular, symmetrical. GI: Abdomen is non-distended, obese, Bowel sounds present X 4 quads. Reports diarrhea, nausea, vomiting, Bypass surgery done 22 days ago. : No signs and/or symptoms were reported regarding the genitourinary system. Derm: Skin is pink, warm \T\ dry. Musculoskeletal: Circulation, motion, and sensation intact. Range of motion: intact in all extremities. 23:00 Reassessment: Patient and/or family updated on plan of care and expected duration. Pain ha1 level reassessed. Patient is alert, oriented x 3, equal unlabored respirations, skin warm/dry/pink. 12/11 00:00 Reassessment: Patient and/or family updated on plan of care and expected duration. Pain ha1 level reassessed. Patient is alert, oriented x 3, equal unlabored respirations, skin warm/dry/pink. 00:52 Reassessment: Patient and/or family updated on plan of care and expected duration. Pain ha1 level reassessed. Patient is alert, oriented x 3, equal unlabored respirations, skin warm/dry/pink. back from CT. 01:50 Reassessment: Patient and/or family updated on plan of care and expected duration. Pain ha1 level reassessed. Patient is alert, oriented x 3, equal unlabored respirations, skin warm/dry/pink. Vital Signs: 12/10 21:37 BP 139 / 91; Pulse 100; Resp 20; Temp 99.1(O); Pulse Ox 100% ; Weight 96.62 kg; Height kd3 5 ft. 4 in. ; 22:00 BP 130 / 74; Pulse 86; Resp 19 S; Pulse Ox 100% on R/A; ha1 23:00 BP 130 / 77; Pulse 64; Resp 20 S; Pulse Ox 100% on R/A; ha1 12/11 00:00 BP 130 / 77; Pulse 64; Resp 20 S; Pulse Ox 100% on R/A; ha1 01:00 BP 120 / 70; Pulse 65; Resp 18 S; Pulse Ox 100% ; ha1 02:00 BP 99 / 63; Pulse 65; Resp 18 S; Pulse Ox 100% on R/A; ha1 12/10 21:37 Body Mass Index 36.56 (96.62 kg, 162.56 cm) kd3 ED Course: 12/10 21:12 Patient arrived in ED. kj1 21:21 Zaheer Burch PA is PHCP. cp 21:21 Chris Orellana MD is Attending Physician. cp 21:40 Triage completed. kd3 21:40 Arm band placed on left wrist. kd3 22:00 Patient has correct armband on for positive identification. Placed in gown. Bed in low ha1 position. Call light in reach. Side rails up X 1. 23:00 Inserted saline lock: 22 gauge in right antecubital area, using aseptic technique. ha1 Blood collected. 23:01 Deyanira Lewis, RN is Primary Nurse. ha1 23:04 CBC with Diff Sent. ha1 23:04 CMP Sent. ha1 23:04 Lipase Sent. ha1 12/11 01:02 CT Abd/Pelvis - PO and IV Contrast In Process Unspecified. EDMS Administered Medications: 12/10 22:50 Drug: NS 0.9% IV 1000 ml Route: IV; Rate: 1 bolus; Site: left antecubital; ha1 22:51 Drug: Famotidine IVP 20 mg Route: IVP; Site: left antecubital; ha1 22:54 Drug: Ondansetron IVP 4 mg Route: IVP; Site: left antecubital; ha1 22:58 Drug: morphine IVP or IV 4 mg Route: IVP; Infused Over: 4 mins; Site: left antecubital; ha1 12/11 01:32 Drug: NS 0.9% IV 1000 ml Route: IV; Rate: 1 bolus; Site: left antecubital; ha1 Outcome: 02:43 Discharge ordered by MD. cp 03:08 Patient left the ED. ha1 Signatures: Dispatcher [employer] EDMS Zaheer Burch PA PA cp Jackson, Kandis kj1 Dory Dick RN RN 3 Deyanira Lewis RN RN 1 Corrections: (The following items were deleted from the chart) 02:35 00:00 BP 130 / 77; Pulse 64bpm; Resp 100bpm; Spontaneous; Pulse Ox 100% RA; ha1 ha1
[2022-12-11 03:42] VITALS: TEMP 99.1; O2SAT 100
[2022-12-11 03:48] VITALS: BP 99/63
--- NOTE | 2022-12-11 14:25 | RAD REPORT ---
EXAM DESCRIPTION: CT - Abdomen Pelvis W Contrast - 12/11/2022 2:22 am CLINICAL HISTORY: The patient is 56 years old and is Female; DT ORDER FOR TRAUMAGRAM SPLIT TECHNIQUE: Axial computed tomography images of the chest, abdomen and pelvis with intravenous contra st. Sagittal and coronal reformatted images were created and reviewed. This CT exam was performed using one or more of the following dose reduction techniques: automated exposure control, adjustme nt of the mA and/or kV according to patient size, and/or use of iterative reconstruction technique. COMPARISON: No relevant prior studies available. FINDINGS: CHEST: LUNGS: The lungs are clear of focal opacity, mass, or consolidation. PLEURAL SPACE: Unremarkable. No significant effusion. No pneumothorax. HEART: No cardiomegaly. No pericardial effusion. ABDOMEN: LIVER: There is a diffuse decrease in hepatic parenchymal density, consistent with fatty infiltra tion. The liver has a slightly nodular contour. GALLBLADDER AND BILE DUCTS: No calcified stones. No ductal dilation. PANCREAS: No ductal dilation. No mass. SPLEEN: Splenic granuloma are present. ADRENALS: Unremarkable. No mass. KIDNEYS AND URETERS: Unremarkable. The kidneys enhance symmetrically. No obstructing renal or ure teral calculus is seen. No hydronephrosis or hydroureter. No perinephric fluid or stranding. STOMACH AND BOWEL: The stomach is decompressed. The small bowel is relatively normal in caliber. Stool is present throughout the colon. There is no mucosal thickening or evidence of bowel obstructio n. No abnormal enhancement is seen. PELVIS: APPENDIX: The appendix is normal in caliber without surrounding inflammation. BLADDER: Mild bladder wall thickening is present which may be secondary to incomplete distention. REPRODUCTIVE: Evidence of tubal ligation is noted. CHEST, ABDOMEN and PELVIS: INTRAPERITONEAL SPACE: Unremarkable. No significant fluid collection. No free air. BONES/JOINTS: Multilevel degenerative change of the spine specifically from T12 through S1 is not ed with anterior osteophyte formation, endplate irregularity, and intervertebral disc space narrowing . Bilateral pars defects are present at L5 with grade 2 anterolisthesis of L5 on S1. Complete obliter ation of the L5-S1 intervertebral disc space is noted. There is no acute fracture of the visualized axial and appendicular skeleton. SOFT TISSUES: Evidence of a sebaceous cyst within the soft tissues of the left posterior back beni suring approximately 2 cm is present. VASCULATURE: Atherosclerosis of the vasculature is present. No aortic aneurysm. LYMPH NODES: Unremarkable. No enlarged lymph nodes. IMPRESSION: 1. No evidence of solid organ injury or traumatic bony findings on this contrasted CT of the chest, abdomen, and pelvis. 2. Chronic findings as detailed above. Electronically signed by: Mara Da Silva MD 06/10/2019 5:40 AM VEHICLE LEASING AND RENTAL MANAGER Due to temporary technical issues with the PACS/Fluency reporting system, reports are being signed by the in house radiologists without review as a courtesy to insure prompt reporting. The interpreting radiologist is fully responsible for the content of the report.
== END 2022-12-11 03:08 | disposition home or self-care (01) ==
LOC: ER 21:07
DX: R11.2 Nausea with vomiting, unspecified (principal); R19.7 Diarrhea, unspecified; Z88.0 Allergy status to penicillin; Z98.84 Bariatric surgery status
CPT/HCPCS: 85025; 81001; 36415; 81025; 83690; 80053; 74177; 96375; 96374; 99284; Q9967; J2405; J7030 ×2